=== PATIENT | male | born 1940 | race Caucasian/White ===

== ENCOUNTER → 2018-01-29 08:50 | Outpatient (CLI) | payer MEDICARE, BC, SELFPAY ==
[2018-01-29 12:14] LABS: Absolute Lymphocyte Count 1.25 X10^3/ul (0.83-4.51); Absolute Neutrophil Count 3.9 X10^3/uL (2.0-7.7); Basophil# 0.01 X10^3/uL; Basophil% 0.2 % (0-1); Eosinophil# 0.14 X10^3/uL; Eosinophils% 2.4 % (0-5); Hemoglobin 14.8 g/dl (13.0-16.5); Lymphocyte # 1.25 X10^3/ul (4.0); Lymphocyte % 21.6 % (19-41); Mean Corp Hgb Conc 33.6 g/gl (32-36); Mean Corpuscular Hgb 30.7 pg (27.0-32.0); Mean Corpuscular Volume 91.3 fL (80-94); Mean Platelet Vol. 9.3 fl (6.2-12.0); Monocyte% 8.7 % (0-10); Neutrophil # 3.87 X10^3/uL (2.7-7.7); Neutrophil % 66.9 % (47-70); Platelet Count 152 K/mm3 (150-450); RBC Distribution Width CV 15.3 % (11.6-14.6); RBC Distribution Width SD 49.8 fl (35.1-43.9); Red Blood Count 4.82 M/mm3 (4.6-6.2); White Blood Count 5.8 K/mm3 (4.4-11.0)
[2018-01-29 12:17] LABS: POSITIVE COUNT NO; POSITIVE DIFFERENTIAL NO; POSITIVE MORPHOLOGY NO
[2018-01-29 12:36] LABS: AST(SGOT) 27 U/L (15-37); Alanine Aminotransfer ALT/SGPT 40 U/L (16-61); Albumin, Serum 3.9 g/dL (3.2-5.0); Alkaline Phosphatase 48 U/L (45-117); Anion Gap 9 (5-15); BUN 28 mg/dL (7-18); BUN/Creat Ratio 21.1 RATIO (10-20); Bilirubin, Direct 0.28 mg/dL (0.00-0.30); Calcium,Total 8.8 mg/dL (8.5-10.1); Chloride 107 mmol/L (98-107); Cholesterol 108 mg/dL (200); Creatinine, Serum 1.33 mg/dL (0.70-1.30); EST Glomerular Filtration Rate 55 mL/min (>60); Est Glom Filt Rate - Afr Amer 67 mL/min (>60); Glucose 161 mg/dL (74-106); High Density Lipoprotein 35 mg/dL; Potassium 3.9 mmol/L (3.5-5.1); Protein, Total 7.9 g/dL (6.4-8.2); Sodium Level 139 mmol/L (136-145); Triglycerides 109 mg/dL; Very Low Density Lipoprotein 22 mg/dL (5-40)
[2018-01-29 12:47] LABS: Hemoglobin A1c 7.2 % (4.2-6.3)
[2018-01-29 12:56] LABS: Microalbumin:Creatinine Ratio 52.3 mg/g CRE (<30 mg/g CRE)
[2018-01-31 17:15] LABS: AFP, Tumor Marker 1.7 ng/mL (0.0-8.3)
== END ==
PROVIDERS: Internal Medicine Cardiovascular Disease; Visit Provider Family Medicine
DX: I25.10 Atherosclerotic heart disease of native coronary artery without angina pectoris (principal); E11.9 Type 2 diabetes mellitus without complications; I10 Essential (primary) hypertension; E78.5 Hyperlipidemia, unspecified; K75.81 Nonalcoholic steatohepatitis (NASH); K74.60 Unspecified cirrhosis of liver; Z12.5 Encounter for screening for malignant neoplasm of prostate
CPT/HCPCS: 36415; 80053; 80061; 82043; 82105; 82248; 82570; 83036; 84153; 85025; G0103

== ENCOUNTER → 2018-05-09 11:14 | Outpatient (CLI) | payer MEDICARE, OTHER, SELFPAY ==
[2018-05-09 15:37] LABS: Absolute Lymphocyte Count 1.26 X10^3/ul (0.83-4.51); Basophil# 0.02 X10^3/uL; Basophil% 0.4 % (0-1); Eosinophil# 0.13 X10^3/uL; Eosinophils% 2.6 % (0-5); Hematocrit 41.5 % (40-54); Hemoglobin 14.2 g/dl (13.0-16.5); Lymphocyte # 1.26 X10^3/ul (4.0); Lymphocyte % 25.7 % (19-41); Mean Corp Hgb Conc 34.2 g/gl (32-36); Mean Corpuscular Hgb 31.6 pg (27.0-32.0); Mean Corpuscular Volume 92.2 fL (80-94); Mean Platelet Vol. 9.4 fl (6.2-12.0); Monocyte# 0.49 X10^3/uL; Neutrophil # 2.99 X10^3/uL (2.7-7.7); Neutrophil % 60.9 % (47-70); Platelet Count 156 K/mm3 (150-450); RBC Distribution Width CV 14.9 % (11.6-14.6); White Blood Count 4.9 K/mm3 (4.4-11.0)
[2018-05-09 15:41] LABS: POSITIVE COUNT NO; POSITIVE DIFFERENTIAL NO; POSITIVE MORPHOLOGY NO
[2018-05-09 16:07] LABS: Estradiol 33.1 pg/mL
[2018-05-14 14:07] LABS: Testosterone, % Free 4.85 % (1.50-4.20); Testosterone, Free 56.65 ng/dL (5.00-21.00)
[2018-05-17 08:06] LABS: PSA, Free 0.52 ng/mL; PSA, Free % 27.4 % (.); PSA, Total Ultrasensitive 1.9 ng/mL (0.0-4.0); Testosterone, Total 1168 ng/dL (264-916)
== END ==
PROVIDERS: Family Provider Family Medicine; PCP Family Medicine; Visit Provider Preventive Medicine Public Health & General Preventive Medicine
DX: E29.1 Testicular hypofunction (principal); E34.9 Endocrine disorder, unspecified; R97.20 Elevated prostate specific antigen [PSA]; N40.1 Benign prostatic hyperplasia with lower urinary tract symptoms
CPT/HCPCS: 36415; 82670; 84153; 84154; 84402; 84403; 85025

== ENCOUNTER → 2018-05-23 06:52 | Outpatient (CLI) | payer MEDICARE, OTHER, SELFPAY ==
--- NOTE | 2018-05-23 12:47 | STRESSREP ---
Stress Test Report Date: 05/23/2018 Procedure: Pharmacologic stress nuclear imaging study Indications: Shortness of breath/dyspnea on exertion my: CAD; PCI Consent: Per the patient Procedure: The patient underwent pharmacologic (Regadenoson) evaluation with a peak heart rate of 100 beats per minute (69 predicted maximal heart rate) and a peak blood pressure of 130/70 mmHg. The baseline ECG demonstrated on his bradycardia; T wave abnormality. The peak pharmacologic ECG demonstrated no obvious ECG changes. There were no cardiac dysrhythmias pretest, during pharmacologic infusion, or recovery. There was no complaint of chest discomfort during pharmacologic infusion or recovery. The examination was discontinued secondary to completion of protocol. Impression: 1. Pharmacologic (Regadenoson) evaluation 2. Peak pharmacologic ECG with continued T wave abnormality with no obvious ECG changes. 3. There were no cardiac dysrhythmias pretest, during pharmacologic infusion, or recovery. 4. Nuclear images pending Myocardial perfusion imaging study: Technique: The patient was injected with 14.9 millicuries of technetium 99m Cardiolite and subsequently rest SPECT Cardiolite nuclear imaging was obtained in the horizontal long, vertical long, and short axis views. The patient underwent pharmacologic (Regadenoson) evaluation with a peak heart rate of 100 beats per minute (69 % percent predicted maximal heart rate) and a peak blood pressure of 130/70 mmHg. The patient was injected with 44.4 millicuries of technetium 99m Cardiolite and subsequently stress SPECT Cardiolite nuclear imaging was obtained in the horizontal long, vertical long, and short axis views. A gated Cardiolite study at peak stress was obtained. Interpretation: Rest and stress SPECT Cardiolite nuclear imaging status post realignment, normalization, and attenuation correction demonstrate relative uniform tracer uptake and myocardial perfusion appearing within normal limits. There is end systolic thickening and brightening. The gated Cardiolite study demonstrates myocardial thickening and inward wall motion. The reported LVEF is 62 %. Impression: 1. Rest and stress SPECT Cardiolite nuclear imaging demonstrate relative uniform tracer uptake and myocardial perfusion appearing within normal limits. 2. The gated Cardiolite study reports an LVEF of 62%. This note was generated with [employer] software. It may contain incorrect words, spelling, and punctuation that were not noted in checking the note before signing.
== END ==
PROVIDERS: Family Provider Family Medicine; PCP Family Medicine; Referring Provider Family Medicine; Visit Provider Family Medicine
DX: I25.10 Atherosclerotic heart disease of native coronary artery without angina pectoris (principal); I10 Essential (primary) hypertension; R06.02 Shortness of breath
CPT/HCPCS: 78452; 93017; A9500; A4216; J2785

== ENCOUNTER → 2018-05-29 22:35 | Outpatient (CLI) | payer MEDICARE, OTHER, SELFPAY | PROVIDERS: Family Provider Family Medicine; PCP Family Medicine; Visit Provider Family Medicine | DX: G47.10 Hypersomnia, unspecified (principal); R53.83 Other fatigue; R06.83 Snoring | CPT/HCPCS: 95810 ==

== ENCOUNTER → 2018-06-12 23:09 | Outpatient (CLI) | payer MEDICARE, OTHER, SELFPAY | PROVIDERS: Family Provider Family Medicine; PCP Family Medicine; Visit Provider Family Medicine | DX: G47.33 Obstructive sleep apnea (adult) (pediatric) (principal) | CPT/HCPCS: 95811 ==

== ENCOUNTER → 2018-08-02 08:05 | Outpatient (CLI) | payer MEDICARE, OTHER, SELFPAY ==
[2018-07-04 11:34] VITALS: BMI 35.2
--- NOTE | 2018-08-02 08:25 | US_ITS ---
STUDY: ABDOMINAL ULTRASOUND - RIGHT UPPER QUADRANT REASON FOR VISIT: Male, 77 years old. Cirrhosis TECHNIQUE: Ultrasound evaluation of the right upper quadrant was performed with real-time and static wei-scale imaging. TECHNICAL QUALITY: Adequate. COMPARISON: 05/31/2017 FINDINGS: Liver: The liver measures 16.5 cm. There is increased, coarsened echogenicity of the liver. The bile ducts are within normal limits. There is hepatic color flow. The direction of portal flow is hepatopetal. There is no demonstrated mass lesion. Gallbladder: Normal distended gallbladder. The gallbladder wall measures 2.0 mm. There is a negative sonographic Lanier's sign. There is no pericholecystic fluid. There is biliary sludge dependent within the gallbladder. Common Bile Duct (C.B.D.): The common bile duct measures 2.4 mm. Pancreas: There is normal echogenicity of the visualized pancreas. There is no demonstrated pancreatic mass or cyst. Right Kidney: Normal size of the right kidney. The right kidney measures 10.9 cm. Normal renal cortex. The right cortex measures 1.8 cm. There are 2 anechoic simple renal cysts of the right kidney measuring up to 1.5 cm. There is no right hydronephrosis. US/Abdomen Limited IMPRESSION: 1. Increased echo pattern of the liver is nonspecific but can be associated with hepatic steatosis, hepatitis or early cirrhosis. 2. No obvious hepatic mass. 3. Gallbladder sludge. 4. Right renal cysts. Electronically Signed: Wil Bonilla MD at 8:06 EST , Service support ,
[2018-08-02 08:57] LABS: AST(SGOT) 26 U/L (15-37); Alanine Aminotransfer ALT/SGPT 54 U/L (16-61); Albumin, Serum 4.1 g/dL (3.2-5.0); Alkaline Phosphatase 48 U/L (45-117); Bilirubin, Direct 0.35 mg/dL (0.00-0.30); Cholesterol 140 mg/dL (200); Globulin 3.8 g/dL (2.2-4.2); High Density Lipoprotein 48 mg/dL; Protein, Total 7.9 g/dL (6.4-8.2); Triglycerides 188 mg/dL; Very Low Density Lipoprotein 38 mg/dL (5-40)
[2018-08-03 12:26] LABS: AFP, Tumor Marker 1.9 ng/mL (0.0-8.3)
== END ==
PROVIDERS: Internal Medicine Cardiovascular Disease; Family Provider Family Medicine; PCP Family Medicine; Referring Provider Internal Medicine Gastroenterology; Visit Provider Internal Medicine Gastroenterology
DX: K74.69 Other cirrhosis of liver (principal); E78.5 Hyperlipidemia, unspecified
CPT/HCPCS: 36415; 76705; 80061; 80076; 82105

== ENCOUNTER → 2018-11-25 | Outpatient (CLI) | payer MEDICARE, OTHER, SELFPAY ==
[2018-07-04 11:34] VITALS: BMI 35.2
--- NOTE | 2018-11-25 09:36 | US_ITS ---
PROCEDURES: ULTRASOUND AORTA REASON FOR EXAM: Male, 78 years old. Abdominal aortic aneurysm. TECHNIQUE: Ultrasound evaluation of the aorta was performed with real-time and static wei-scale imaging. COMPARISON: None. FINDINGS: There are proximal 22 x 24 mm, mid 29 x 27 mm, distal 30 x 25 mm. Right common iliac 20 x 20 mm, left 20 x 19 mm. Normal intraluminal arterial flow with appropriate waveforms. US/US ABD AORTA SCREEN/AAA IMPRESSION: Mild fusiform aneurysmal ectasia of the distal infrarenal abdominal aorta with a greatest dimension of 3 cm. Electronically Signed: Aris Calderon MD at 17:21 EDT Tel , Service support ,
--- NOTE | 2018-11-25 10:36 | RAD_ITS ---
STUDY: X-RAY CHEST REASON FOR EXAM: Male, 78 years old. Thoracic aneurysm TECHNIQUE: Frontal and lateral views COMPARISON: None. FINDINGS: The lungs are clear and expanded. There is no demonstrated pleural abnormality. Normal size heart. Normal mediastinum and wilda. Normal visualized pulmonary arteries. Normal visualized aortic arch and descending thoracic aorta. Normal visualized thoracic spine. Normal visualized ribs, clavicles, and shoulders. Possible cholelithiasis. RAD/Chest PA and Lateral IMPRESSION: No acute pulmonary pathology. No aneurysm is appreciated of the thoracic aorta. Possible cholelithiasis. Electronically Signed: Eder Carrera DO at 18:49 EDT Tel [phone], Service support ,
== END | disposition home or self-care (01) ==
LOC: US 09:32
PROVIDERS: Family Provider Family Medicine; PCP Family Medicine; Referring Provider Family Medicine; Visit Provider Family Medicine
DX: R06.00 Dyspnea, unspecified (principal); I10 Essential (primary) hypertension; Z13.6 Encounter for screening for cardiovascular disorders
CPT/HCPCS: 71046; 76706

== ENCOUNTER → 2019-07-16 09:04 | Outpatient (CLI) | payer MEDICARE, OTHER, SELFPAY ==
[2018-07-04 11:34] VITALS: BMI 35.2
[2019-07-08 07:25] VITALS: BMI 34.1
[2019-07-16 12:35] LABS: Absolute Lymphocyte Count 1.16 X10^3/uL (0.83-4.51); Absolute Neutrophil Count 4.7 X10^3/uL (2.0-7.7); Basophil# 0.03 X10^3/uL; Basophil% 0.4 % (0-1); Eosinophil# 0.17 X10^3/uL; Eosinophils% 2.5 % (0-5); Hematocrit 39.9 % (40-54); Hemoglobin 13.2 g/dL (13.0-16.5); Lymphocyte # 1.16 X10^3/ul (4.0); Lymphocyte % 17.2 % (19-41); Mean Corp Hgb Conc 33.1 g/dL (32-36); Mean Corpuscular Hgb 30.1 pg (27.0-32.0); Mean Corpuscular Volume 90.9 fL (80-94); Mean Platelet Vol. 9.2 fl (6.2-12.0); Monocyte# 0.66 X10^3/uL; Monocyte% 9.8 % (0-10); NRBC Flagged by Analyzer 0 % (0-5); Neutrophil # 4.73 X10^3/uL (2.7-7.7); Platelet Count 140 K/mm3 (150-450); RBC Distribution Width CV 14.6 % (11.6-14.6); RBC Distribution Width SD 48.7 fl (35.1-43.9); Red Blood Count 4.39 M/mm3 (4.6-6.2); White Blood Count 6.8 K/mm3 (4.4-11.0)
[2019-07-16 13:10] LABS: AST(SGOT) 17 U/L (15-37); Alanine Aminotransfer ALT/SGPT 32 U/L (16-61); Alkaline Phosphatase 52 U/L (45-117); Anion Gap 8 (5-15); BUN 31 mg/dL (7-18); Bilirubin, Direct 0.29 mg/dL (0.00-0.30); Calcium,Total 9.8 mg/dL (8.5-10.1); Chloride 105 mmol/L (98-107); Cholesterol 107 mg/dL (200); Creatinine, Serum 1.41 mg/dL (0.70-1.30); EST Glomerular Filtration Rate 52 mL/min (>60); Est Glom Filt Rate - Afr Amer 62 mL/min (>60); Glucose 132 mg/dL (74-106); High Density Lipoprotein 39 mg/dL; Potassium 4.4 mmol/L (3.5-5.1); Sodium Level 138 mmol/L (136-145); Triglycerides 120 mg/dL; Very Low Density Lipoprotein 24 mg/dL (5-40)
[2019-07-16 13:26] LABS: Microalbumin,Random Urine 38.6 mg/L (NO RANGE EST.); Microalbumin:Creatinine Ratio 25.2 mg/g CRE (<30 mg/g CRE)
[2019-07-16 14:51] LABS: Hemoglobin A1c 5.8 % (4.2-6.3)
== END ==
PROVIDERS: Internal Medicine Cardiovascular Disease; Family Provider Family Medicine; PCP Family Medicine; Visit Provider Family Medicine
DX: I12.9 Hypertensive chronic kidney disease with stage 1 through stage 4 chronic kidney disease, or unspecified chronic kidney disease (principal); E11.22 Type 2 diabetes mellitus with diabetic chronic kidney disease; N18.3 Chronic kidney disease, stage 3 (moderate); E11.21 Type 2 diabetes mellitus with diabetic nephropathy; E78.5 Hyperlipidemia, unspecified
CPT/HCPCS: 36415; 80053; 80061; 82043; 82248; 82570; 83036; 85025

== ENCOUNTER 2019-10-23 22:10 | Inpatient (IN) | payer MEDICARE, OTHER, SELFPAY ==
[2019-07-08 07:25] VITALS: BMI 34.1
[2019-10-23 22:10] VITALS: BP 132/55; PULSE 99; RESP 32; TEMP 37.2; O2SAT 90; O2SAT 94; BMI 36.9
[2019-10-23 22:40] VITALS: BP 120/67; PULSE 99; RESP 24; TEMP 37.3; O2SAT 94
--- NOTE | 2019-10-23 22:43 | EKG12_ITS ---
Test Reason : FEVER Blood Pressure : / mmHG Vent. Rate : 093 BPM Atrial Rate : 093 BPM P-R Int : 236 ms QRS Dur : 076 ms QT Int : 342 ms P-R-T Axes : 040 015 073 degrees QTc Int : 425 ms Sinus rhythm with 1st degree A-V block Nonspecific T wave abnormality Abnormal ECG Confirmed by JAVI CUELLO ([id number]), film and video editor JULIO CÉSAR TUCKER ([id number]) on 10/27/2019 1:05:49 PM Referred By: Thony Harris Confirmed By:JAVI CUELLO
--- NOTE | 2019-10-23 22:47 | ED.DCSUM_ITS ---
- ER Visit Summary Date of Service: 10/23/19 Chief Complaint: [Back pain and dysuria] History of Present Illness: The patient is a 78 M [presents the emergency department with symptoms for 3 days. Patient's been having some incontinence. He describes dysuria and frequency. Does have history of UTIs. He has been having some mild low back pain for the last several days. He denies any fever at home. He denies nausea or vomiting. He denies diarrhea. Denies chest pain. He denies cough or shortness of breath. He denies body aches. He denies headache. Patient states that his family is worried about the virus and wanted him evaluated. Patient has no known sick contacts and states he really has not gone anywhere. No novel coronavirus exposures known. Patient has had history of UTIs in the past. Patient has history of diabetes, hypertension, high cholesterol, and coronary artery disease. Patient has history of partial colectomy and cardiac stent placement.] Physical Examination: [HEENT-PERRLA, EOMI. Cranial nerves II through XII grossly intact. TMs clear. Mucous membranes moist. No adenopathy. Cardiovascular-regular rate and rhythm without murmur or ectopy Lungs-clear to auscultation, chest wall stable without crepitus or subcu emphysema Abdomen-normoactive bowel sounds, soft, nontender, no rebound or rigidity, no peritoneal signs. Back exam-normal skin without any erythema or warmth noted. No real tenderness on exam of the thoracic or lumbar spine. No significant tenderness over the paraspinal musculature. Negative CVA tenderness. Extremities-intact ?4, normal range of motion, normal pulses, atraumatic] Test Results: EKG obtained on arrival due to complaint of generalized weakness and sepsis work-up. Patient had a sinus rhythm with a ventricular rate of 93 bpm with some nonspecific ST changes. When compared with prior EKG from May 2016 no significant changes noted. CBC with differential obtained showed a white count of 7.6, hemoglobin 12.7, hematocrit 38, plates 138. Chemistries unremarkable. BUN was 36 and creatinine 1.89. Lactate was 1.9. Troponin was 0.069. Urinalysis was positive for 500 cassette esterase as well as nitrites and 50-100 WBCs. Patient a +1 bacteria. Chest x-ray showed nothing acute. Influenza screen pending. [] Emergency Department Course and Treatment: [Admit for IV antibiotics as well as fluids.] Treatment Plan: [Admit] Disposition: [Admit] Impression: [UTI Sepsis Generalized weakness Acute kidney injury Marginally elevated troponin-etiology uncertain] This note was generated with [employer] dictation software. It may contain incorrect words, spelling, and punctuation that were not noted in review of the chart prior to signing ED Disposition - Plan for ED Patient: Referrals: Stephan Alvarez DO [Primary Care Provider] -
--- NOTE | 2019-10-23 22:50 | RAD_ITS ---
STUDY: X-RAY CHEST REASON FOR EXAM: Male, 78 years old. Back pain, fever, trouble urinating TECHNIQUE: Single AP portable view of the chest. COMPARISON: 11/25/2018. FINDINGS: Stable mild elevation of the right hemidiaphragm. Otherwise normal lung volumes. Lungs are clear. No infiltrates. No effusions. Normal size heart. Normal mediastinum and wilda. Normal visualized pulmonary arteries. Normal visualized aortic arch and descending thoracic aorta. Normal visualized thoracic spine. Normal visualized ribs, clavicles, and shoulders. There is no demonstrated abnormality of the visualized soft tissue structures of the upper abdomen. RAD/Chest 1 View (Portable) IMPRESSION: No definite acute or significant abnormality seen. Electronically Signed: Darvin Law MD at 23:08 EDT , Service support ,
[2019-10-23] MEDS: 0.9% Normal Saline 1,000 ML 1000 ML IV (22:57)
[2019-10-23 23:07] LABS: Mucous, Urine 0 SEEN /hpf (<or=2+); Squamous Epithelial Cells - UA 0 SEEN /hpf (0-5)
[2019-10-23 23:08] LABS: Color, Urine Yellow (Yellow); Glucose, Dipstick Normal (Normal); Ketone-Dipstick 15 mg/dl (Negative); Leukocyte Esterase-Dipstick 500 /ul (Negative); Nitrite-Dipstick Positive (Negative); Occult Blood-Urine 50 /ul (Negative); Protein-Dipstick 100 mg/dl (Negative); Urine Clarity Cloudy (Clear); Urine Urobilinogen Normal (Normal)
[2019-10-23 23:13] LABS: Urine Bilirubin Dipstick 1 mg/dL (Negative)
[2019-10-23 23:14] LABS: White Blood Cells 50-100 SEEN /hpf (0-5)
[2019-10-23 23:15] LABS: Bacteria 1+ /hpf (None Seen); Red Blood Cells-Urine 0-5 SEEN /hpf (0-5)
[2019-10-23 23:18] LABS: Lactic Acid 1.9 mmol/L (0.4-1.9)
[2019-10-23 23:20] LABS: ALB/GLOB Ratio 0.9 RATIO (0.9-2.4); AST(SGOT) 25 U/L (15-37); Alanine Aminotransfer ALT/SGPT 31 U/L (16-61); Albumin, Serum 3.8 g/dL (3.2-5.0); Alkaline Phosphatase 79 U/L (45-117); Anion Gap 9 (5-15); BUN 36 mg/dL (7-18); Calcium,Total 9.4 mg/dL (8.5-10.1); Chloride 101 mmol/L (98-107); Creatinine, Serum 1.89 mg/dL (0.70-1.30); EST Glomerular Filtration Rate 37 mL/min (>60); Est Glom Filt Rate - Afr Amer 45 mL/min (>60); Estimated Creatinine Clearance 30.12 ml/min; Globulin 4.2 g/dL (2.2-4.2); Glucose 212 mg/dL (74-106); Sodium Level 134 mmol/L (136-145)
[2019-10-23 23:35] LABS: Absolute Lymphocyte Count 0.29 X10^3/uL (0.83-4.51); Absolute Neutrophil Count 6.5 X10^3/uL (2.0-7.7); Basophil# 0.03 X10^3/uL; Basophil% 0.4 % (0-1); Eosinophil# 0.01 X10^3/uL; Eosinophils% 0.1 % (0-5); Hematocrit 37.7 % (40-54); Hemoglobin 12.7 g/dL (13.0-16.5); Lymphocyte # 0.29 X10^3/ul (4.0); Lymphocyte % 3.8 % (19-41); Mean Corp Hgb Conc 33.7 g/dL (32-36); Mean Corpuscular Hgb 30.6 pg (27.0-32.0); Mean Corpuscular Volume 90.8 fL (80-94); Monocyte# 0.64 X10^3/uL; Monocyte% 8.5 % (0-10); NRBC Flagged by Analyzer 0 % (0-5); Neutrophil # 6.46 X10^3/uL (2.7-7.7); Neutrophil % 85.5 % (47-70); POSITIVE DIFFERENTIAL YES; POSITIVE MORPHOLOGY YES; Platelet Count 138 K/mm3 (150-450); RBC Distribution Width CV 14.9 % (11.6-14.6); RBC Distribution Width SD 49.3 fl (35.1-43.9); Red Blood Count 4.15 M/mm3 (4.6-6.2); White Blood Count 7.6 K/mm3 (4.4-11.0)
[2019-10-23] MEDS: Ceftriaxone 1 GM/50 ML BAG IV (23:38)
[2019-10-23 23:39] VITALS: BP 136/88; PULSE 95; RESP 24; TEMP 36.9; O2SAT 92
[2019-10-23] MEDS: 0.9% Normal Saline 1,000 ML 150 ML IV (23:39)
[2019-10-23 23:48] LABS: Differential Indicated SCAN CRITERIA MET
--- NOTE | 2019-10-23 23:52 | HP.PCM_ITS ---
Problem List (1) UTI Status: Acute (2) Acute exacerbation of chronic low back pain Status: Acute (3) Atherosclerosis of coronary artery of [place] heart without angina pectoris Status: Chronic (4) History of coronary artery stent placement Status: Resolved Comment: PCI-LAI- Prox-Mid LAD w/ 3.5 x 24 mm Synergy Stent and POBA-D1 06/19/16 (5) Essential (primary) hypertension Status: Chronic (6) Hyperlipidemia LDL goal <100 Status: Chronic History of Present Illness Date of Admission: 10/23/19 Chief Complaint: Fever at home 102.9, increased frequency urgency. The patient is a 78 year old M with history of chronic UTI, coronary artery disease was brought by EMS for fever 102.9 at home, lower back pain and lower related symptoms. Patient denies shortness of breath, cough, sore throat or other URI symptoms. Patient has increased frequency urgency but denies burning micturition. He has history of lower lumbar back pain which got exacerbated about 4 days ago. Patient had Tylenol about 7 PM. [] ED triage vitals stable, heart rate 90-99, no hypoxia or tachypnea. Basic labs done in the ER shows UA positive of nitrite and LE 500, WBC 5200 cells. BUN/creatinine elevated 36/1.89. Troponin done in ER 0.069 but patient denies chest pain or shortness of breath. Patient was administered IV ceftriaxone and IV fluid normal saline in ER. Past Medical History Past Medical History (Chronic Problems): Chronic Problems (Last Reviewed 07/08/19 @ 11:[address] Placido Claudio MD) Atherosclerosis of coronary artery of [place] heart without angina pectoris (Chronic) Essential (primary) hypertension (Chronic) Hyperlipidemia LDL goal <100 (Chronic) Medical History: Medical History (Last Reviewed 07/08/19 @ 11:[address] Placido Claudio MD) Atherosclerosis of coronary artery of [place] heart without angina pectoris (Chronic) I25.10 Essential (primary) hypertension (Chronic) I10 Hyperlipidemia LDL goal <100 (Chronic) E78.5 Diabetes E11.9 Obesity E66.9 Obstructive sleep apnea G47.33 Osteoarthritis M19.90 Colon cancer C18.9 Renal calculus, left N20.0 Allergies contrast dye Allergy (Uncoded 10/23/19 22:18) dyspnea Home Medications: Ambulatory Orders Medication Instructions Recorded Aspirin E.C. [Ecotrin] 81 mg PO DAILY@0800 tab 06/18/16 Atorvastatin Calcium [Lipitor] 40 mg PO QHS tab 06/18/16 Clopidogrel Bisulfate [Plavix] 75 mg PO DAILY tab 06/18/16 Metoprolol(XL)Succ [Toprol Xl 25 mg PO DAILY tab 06/18/16 (Beta Rox)] Nitroglycerin (INPATIENT USE) 0.4 mg SUBLINGUAL Q5M PRN #0 tab 06/18/16 [Nitrostat] sitagliptin 100 mg tablet 100 mg PO DAILY 07/04/18 vitamin B complex 1 tab PO DAILY 07/04/18 losartan 25 mg tablet 25 mg PO QDAY #30 tab 01/02/19 dupilumab 300 mg/2 mL subcutaneous 300 mg SC Q2W #4 ml 07/08/19 syringe glimepiride 4 mg tablet 2 mg PO DAILY tab 07/08/19 Surgical History: Surgical History (Last Reviewed 07/08/19 @ 11:[address] Placido Claudio MD) History of coronary artery stent placement (Resolved) Onset Date: 06/19/16 Z95.5 PCI-LAI- Prox-Mid LAD w/ 3.5 x 24 mm Synergy Stent and POBA-D1 06/19/16 H/O hernia repair Z98.890, Z87.19 H/O lithotripsy Z98.890 History of left heart catheterization Onset Date: 06/17/16 Z98.890 Smoking Status: Former smoker - *Family History Paternal Family History: Family History (Last Reviewed 07/08/19 @ 11:[address] Placido Claudio MD) Sister Cancer Brother Cancer Review of Systems Constitutional: Reports: Chills, Fever, Malaise, Weakness HEENT: Denies: Head Aches, Sinus Congestion, Sinus Drainage Cardiovascular: Denies: Chest Pain, Palpitations Respiratory: Denies: Cough, Shortness of breath at rest, Sputum production Gastrointestinal: Denies: Abdominal Pain, Nausea, Vomiting Genitourinary: Reports: Frequency, Hesitancy, Urgency. Denies: Dysuria Musculoskeletal: Denies: Joint Pain, Joint Tenderness Skin: Denies: Rash, Wounds Neurological: Reports: Balance problems. Denies: Focal weakness, Numbness, Tingling Psychiatric: Denies: Anxiety, Depression, Homicidal Ideations, Suicidal Ideations Hematologic/ Lymphatic: Denies: Easy Bruising, Easy Bleeding VTE Information - Inpt Only VTE Present on Admission: No VTE Mechan Device Prophylaxis: None VTE Pharm Prophylaxis ordered?: Yes Patient Problems: Active and Suspected Problems (Last Reviewed 07/08/19 @ 11:[address] Placido Claudio MD) UTI (Acute) Acute exacerbation of chronic low back pain (Acute) - Physical Exam Vitals/I&O's: Vital Signs Temp Pulse Resp BP Pulse Ox 98.5 F 95 24 H 136/88 H 92 10/23/19 23:39 10/23/19 23:39 10/23/19 23:39 10/23/19 23:39 10/23/19 23:39 Oxygen Delivery Method Room Air Weight: 235 lb 14.314 oz Body Mass Index (BMI) 36.9 Finger Stick Blood Glucose 89 General: Alert, Oriented x3, Cooperative HEENT: Atraumatic, PERRLA, EOMI, Normocephalic Oral: No Gingival or Mucosal Lesions/ Ulcerations, Dry Mucosa Neck: Supple, No JVD, Negative Carotid Bruits Lungs: Clear to auscultation, No rhonchi, No wheeze, No rales, Diminished Cardiovascular: Regular rate, Regular Rhythm, Normal S1, Normal S2, No murmurs Abdomen: Bowel Sounds Present, Soft, Non Tender, Non-Distended Extremities: No edema, Capillary Refill Less than 3 Seconds Skin: No rashes, No breakdown Musculoskeletal: No Tenderness to Palpation of Joints or Extremities, Arthritic Changes Neurological: Cranial nerves II-XII grossly intact, Deep Tendon Reflexes 2+/4 a nd Symmetrical, Neuro grossly intact Psych/Mental Status: Normal Affect, Appropriate Laboratory Results 10/23/19 22:20: WBC 7.6, RBC 4.15 L, Hgb 12.7 L, Hct 37.7 L, MCV 90.8, MCH 30.6, MCHC 33.7, RDW Std Deviation 49.3 H, RDW Coeff of Cornelio 14.9 H, Plt Count 138 L, MPV 9.0, Immature Gran % (Auto) 1.700 H, Neut % (Auto) 85.5 H, Lymph % (Auto) 3.8 L, [place] % (Auto) 8.5, Eos % (Auto) 0.1, Baso % (Auto) 0.4, Absolute Neuts (auto) 6.5, Absolute Lymphs (auto) 0.29 L, Nucleated RBC % 0 10/23/19 22:20: Sodium 134 L, Potassium 4.0, Chloride 101, Carbon Dioxide 24.0, Anion Gap 9, BUN 36 H, Creatinine 1.89 H, Estim Creat Clear Calc 30.12, Est GFR (MDRD) Af Amer 45 L, Est GFR (MDRD) Non-Af 37 L, BUN/Creatinine Ratio 19.0, Glucose 212 H, Calcium 9.4, Total Bilirubin 3.90 H, AST 25, ALT 31, Alkaline Phosphatase 79, Troponin I 0.069 H, Total Protein 8.0, Albumin 3.8, Globulin 4.2, Albumin/Globulin Ratio 0.9 10/23/19 22:20: Lactic Acid 1.9 10/23/19 22:50: Urine Color Yellow, Urine Clarity Cloudy, Urine pH 5.0, Ur Specific [place] 1.020, Urine Protein 100 H, Urine Glucose (UA) Normal, Urine Ketones 15 H, Urine Occult Blood 50 H, Urine Nitrite Positive H, Urine Bilirubin 1 H, Urine Urobilinogen Normal, Ur Leukocyte Esterase 500 H, Urine RBC 0-5 SEEN, Urine WBC 50-100 SEEN, Ur Squamous Epith Cells 0 SEEN, Urine Bacteria 1+, Urine Mucus 0 SEEN Current Medications Sodium Chloride () 1,000 mls @ 150 mls/hr IV .Q6H40M FRED Last Admin: 10/23/19 23:39 Dose: 150 mls/hr Documented by: Assessment/Plan All Active Problems (Last Reviewed 07/08/19 @ 11:[address] Placido Claudio MD) UTI (Acute) Acute exacerbation of chronic low back pain (Acute) History of coronary artery stent placement (Resolved 06/19/16) The patient is a 78 year old M with history of chronic UTI, coronary artery disease was brought by EMS for fever 102.9 at home, lower back pain and lower related symptoms. Basic labs done in the ER shows UA positive of nitrite and LE 500, WBC 5200 cells. BUN/creatinine elevated 36/1.89. Troponin done in ER 0.069 but patient denies chest pain or shortness of breath. 1. Generalized weakness with UTI: Patient is being admitted to PCU for elevated troponin. On IV ceftriaxone. Normal saline. Blood cultures x2 and urine culture ordered. No previous urine culture in our record. Rapid influenza test is negative. RenaL and bladder ultrasound ordered. 2. Elevated troponin: Patient has history of coronary artery disease and stents but currently no chest symptoms. Serial troponins. EKG in ER shows normal sinus rhythm at 93 beats per with first-degree AV block, CT interval 236 ms. QT c 425 ms. Patient had negative pharmacological stress test in April 2018. Patient had a stent probably in 2015. At that time severe LAD stenosis of a proximal 90% proximal vessel. Echo in May 2016 normal LV size with EF 65%. Impaired reduction of LV assistive chronic heart failure with preserved EF/diastolic heart failure. Cardiac medications aspirin and Plavix continued. 3. Acute kidney injury on CKD stage III: Patient baseline BUN/creatinine 31/1.4 in June 2019. Currently 36/1.89. Patient on losartan 25 mg daily which is ordered along with oral hypoglycemic agents glimepiride and Januvia. IV fluid normal saline. Monitor kidney function, electrolytes, intake and output. 4. Acute on chronic back pain: PT, OT and pain management. 5. Diabetes mellitus type 2: Accu-Chek before meals and at bedtime and cover with Humalog sliding scale. Lantus 10 units subcutaneous daily. A1c tomorrow a.m. 6. Other comorbidities include hypertension, dyslipidemia: Home medication reconciliation done. DVT prophylaxis: Lovenox 30 mg subcu daily adjusted to creatinine clearance about 30 mils per minute. 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 When discussed about different options including full code, DNR CC arrest and DNR currently patient opts for full code but will further discuss with his family members. Patient does want artificial life support including intubation, tube feed, ventilator and/chest compression. Total time spent in ojex-ce-[facility] encounter in discussion of advanced d irective 16 minutes. Inpatient E&M: 84401 Init Hosp L3 Procedures: 62558 Advncd Care Plan 30 Min
[2019-10-24] VITALS (12 sets, daily range): BP systolic 111–141; BP diastolic 55–73; PULSE 58–90; RESP 16–24; TEMP 36.1–36.9; O2SAT 92–99; BMI 35.2
[2019-10-24 00:07] LABS: Differential Comment SCANNED
[2019-10-24] MEDS: 0.9% Normal Saline 1,000 ML 75 ML IV (01:21)
[2019-10-24 02:57] LABS: Hemoglobin A1c 6.4 % (4.2-6.3)
[2019-10-24 03:06] LABS: Anion Gap 7 (5-15); BUN 34 mg/dL (7-18); BUN/Creat Ratio 19.2 RATIO (10-20); Calcium,Total 9.2 mg/dL (8.5-10.1); Chloride 104 mmol/L (98-107); Creatinine, Serum 1.77 mg/dL (0.70-1.30); EST Glomerular Filtration Rate 40 mL/min (>60); Est Glom Filt Rate - Afr Amer 48 mL/min (>60); Estimated Creatinine Clearance 33.28 ml/min; Glucose 222 mg/dL (74-106); Potassium 4.4 mmol/L (3.5-5.1); Sodium Level 138 mmol/L (136-145)
--- NOTE | 2019-10-24 05:55 | US_ITS ---
STUDY: RENAL ULTRASOUND - COMPLETE REASON FOR EXAM: Male, 78 years old. UTI, [place], CK -- HX OF RENAL STONES TECHNIQUE: Ultrasound evaluation of the kidneys was performed with real-time and static soria-scale imaging. COMPARISON: None. FINDINGS: RIGHT KIDNEY: Normal location of the right kidney, which is normal in size. The right kidney measures 10.9 cm x 5.7 cm x 6.1 cm. There is a normal cortex of the right kidney. The renal cortex measures 1.8 cm. 2 cysts are seen. The larger measures 1.6 cm by 1.5 cm x 1.3 cm. There is a 6 mm calculus. There is no right hydronephrosis. DISTAL RIGHT URETER: There is non-visualization of the distal right ureter. There is no demonstrated right ureterovesical junction calculus. There is a visualized right ureteral jet. LEFT KIDNEY: Normal location of the left kidney, which is normal in size. The left kidney measures 10.9 cm x 4.4 cm x 5.0 cm. There is a normal cortex of the left kidney. The renal cortex measures 1.6 cm. 2 left renal cysts are seen. The larger measures 1 cm x 1 cm by 0.7 cm. There is a 4 mm left renal nonobstructive calculus. There is no left hydronephrosis. DISTAL LEFT URETER: There is non-visualization of the distal left ureter. There is no demonstrated left ureterovesical junction calculus. There is a visualized left ureteral jet. BLADDER: The distended urinary bladder has a volume of 87 ml. The prostate is enlarged measuring 5.1 cm x 6.2 signed by 4.8 cm. US/Kidney and Bladder IMPRESSION: Small bilateral renal cysts. Small bilateral nonobstructive intrarenal calculi. Prostatic enlargement. Electronically Signed: Waqar Pereyra, at 8:18 EDT , Service support ,
[2019-10-24 06:56] LABS: Bedside Glucose 148 mg/dL (70-110)
[2019-10-24] MEDS: Aspirin E.C. 81 MG Tablet PO (09:33)
[2019-10-24] MEDS: Clopidogrel Bisulfate 75 MG Tablet PO (09:34)
[2019-10-24] MEDS: Enoxaparin 30 MG/0.3 ML Syringe SC (09:34)
[2019-10-24] MEDS: Vitamin B Comp W-C Capsule 1 CAP PO (09:34)
[2019-10-24] MEDS: Metoprolol(XL)Succ 25 MG Tablet PO (09:40)
--- NOTE | 2019-10-24 11:35 | PCM.PN.HOSP ---
Patient Problems: Active and Suspected Problems (Last Reviewed 07/08/19 @ 11:[address] Placido Claudio MD) UTI (Acute) Acute exacerbation of chronic low back pain (Acute) Subjective: Patient seen and examined. He is being managed for UTI after he was admitted with fever and increasing urinary frequency and urgency. Patient seen and examined. He denies any fever or chills and says his urgency and frequency is better now. Review of stems otherwise negative. Labs and vitals reviewed. Vitals are stable. Creatinine is down to 1.77. Vitals/I&O's: Vital Signs Temp Pulse Resp BP Pulse Ox 97.8 F 62 18 122/71 H 95 10/24/19 09:37 10/24/19 09:40 10/24/19 09:37 10/24/19 09:40 10/24/19 09:37 Oxygen Delivery Method Room Air Weight: 231 lb 11.293 oz Body Mass Index (BMI) 35.2 Finger Stick Blood Glucose 89 Intake and Output for Last 24 Hours 10/22/19 10/23/19 10/24/19 23:59 23:59 23:59 Intake Total 1202.5 / 1202.5 Output Total 350 / 350 Balance 852.5 / 852.5 General: Alert, Oriented x3, Cooperative, No apparent distress HEENT: Atraumatic, PERRLA, EOMI, Normocephalic Oral: Moist Mucosa Neck: Supple, No JVD, Negative Carotid Bruits Lungs: Clear to auscultation, Normal air movement, No rhonchi, No wheeze, No rales Cardiovascular: Regular rate, Regular Rhythm, Normal S1, Normal S2, No murmurs Abdomen: Bowel Sounds Present, Soft, Non Tender, Non-Distended, No Hepato-splenomegaly Extremities: No clubbing, No cyanosis, No edema, Capillary Refill Less than 3 Seconds Skin: No rashes, No breakdown Musculoskeletal: No Tenderness to Palpation of Joints or Extremities Lymphatic: No Cervical, Supraclavicular, or Inguinal Adenopathy Neurological: Cranial nerves II-XII grossly intact, Neuro grossly intact, Motor Exam 5/5 strength throughout Psych/Mental Status: Normal Affect, Appropriate, Alert and oriented to time, place, person, mood and affect Microbiology Past 72 Hours 10/23/19 23:30 Mucosa - Nasopharyngeal Influenza Types A,B Direct FA (DEBRA) - Final Laboratory Results 10/23/19 22:20: WBC 7.6, RBC 4.15 L, Hgb 12.7 L, Hct 37.7 L, MCV 90.8, MCH 30.6, MCHC 33.7, RDW Std Deviation 49.3 H, RDW Coeff of Cornelio 14.9 H, Plt Count 138 L, MPV 9.0, Immature Gran % (Auto) 1.700 H, Neut % (Auto) 85.5 H, Lymph % (Auto) 3.8 L, [place] % (Auto) 8.5, Eos % (Auto) 0.1, Baso % (Auto) 0.4, Absolute Neuts (auto) 6.5, Absolute Lymphs (auto) 0.29 L, Nucleated RBC % 0, Differential Comment SCANNED 10/23/19 22:20: Sodium 134 L, Potassium 4.0, Chloride 101, Carbon Dioxide 24.0, Anion Gap 9, BUN 36 H, Creatinine 1.89 H, Estim Creat Clear Calc 30.12, Est GFR (MDRD) Af Amer 45 L, Est GFR (MDRD) Non-Af 37 L, BUN/Creatinine Ratio 19.0, Glucose 212 H, Calcium 9.4, Total Bilirubin 3.90 H, AST 25, ALT 31, Alkaline Phosphatase 79, Troponin I 0.069 H, Total Protein 8.0, Albumin 3.8, Globulin 4.2, Albumin/Globulin Ratio 0.9 10/23/19 22:20: Lactic Acid 1.9 10/23/19 22:50: Urine Color Yellow, Urine Clarity Cloudy, Urine pH 5.0, Ur Specific [place] 1.020, Urine Protein 100 H, Urine Glucose (UA) Normal, Urine Ketones 15 H, Urine Occult Blood 50 H, Urine Nitrite Positive H, Urine Bilirubin 1 H, Urine Urobilinogen Normal, Ur Leukocyte Esterase 500 H, Urine RBC 0-5 SEEN, Urine WBC 50-100 SEEN, Ur Squamous Epith Cells 0 SEEN, Urine Bacteria 1+, Urine Mucus 0 SEEN 10/24/19 02:30: Hemoglobin A1c 6.4 H 10/24/19 02:30: Sodium 138, Potassium 4.4, Chloride 104, Carbon Dioxide 27.0, Anion Gap 7, BUN 34 H, Creatinine 1.77 H, Estim Creat Clear Calc 33.28, Est GFR (MDRD) Af Amer 48 L, Est GFR (MDRD) Non-Af 40 L, BUN/Creatinine Ratio 19.2, Glucose 222 H, Calcium 9.2, TSH 1.60 10/24/19 02:30: Troponin I 0.113 H 10/24/19 05:15: Troponin I 0.083 H 10/24/19 06:40: POC Glucose 148 H Diagnostic Data Chest X-Ray 10/23/19 22:50 IMPRESSION: No definite acute or significant abnormality seen. Electronically Signed: Darvin Law MD at 23:08 EDT , Service support , Renal Ultrasound 10/24/19 05:55 IMPRESSION: Small bilateral renal cysts. Small bilateral nonobstructive intrarenal calculi. Prostatic enlargement. Electronically Signed: Waqar Pereyra, at 8:18 EDT , Service support , Current Medications Acetaminophen (Tylenol) 650 mg PO Q6H PRN PRN PRN Reason: Pain Score 1-10/Temp > 100.7 F Albuterol Sulfate (Ventolin Aerosols) 2.5 mg INHALATION Q2H PRN PRN PRN Reason: SOB/Wheezing Aspirin (Ecotrin) 81 mg PO DAILY@0800 [facility] Last Admin: 10/24/19 09:33 Dose: 81 mg Documented by: Atorvastatin Calcium (Lipitor) 40 mg PO QHS [facility] Clopidogrel Bisulfate (Plavix) 75 mg PO DAILY [facility] Last Admin: 10/24/19 09:34 Dose: 75 mg Documented by: Dextrose (D50w Syringe) 0 gm IV X1 PRN; Protocol PRN Reason: Hypoglycemia Dextrose (D50w Syringe) 0 gm IV X1 PRN; Protocol PRN Reason: Hypoglycemia Enoxaparin Sodium (Lovenox) 30 mg SC DAILY [facility] Last Admin: 10/24/19 09:34 Dose: 30 mg Documented by: Glucagon () 1 mg IM .X1 PRN PRN Reason: Hypoglycemia Glucagon () 1 mg IM .X1 PRN PRN Reason: Hypoglycemia Sodium Chloride () 250 mls @ 15 mls/hr IV .[id number] PRN PRN Reason: Saline Flush Sodium Chloride () 250 mls @ 15 mls/hr IV .[id number] PRN PRN Reason: Additional IVPB Infusion Sodium Chloride () 1,000 mls @ 75 mls/hr IV .[id number] [facility] Stop: 10/24/19 14:20 Last Admin: 10/24/19 01:21 Dose: 75 mls/hr Documented by: Ceftriaxone Sodium (Rocephin) 1 gm in 50 mls @ 100 mls/hr IV Q24H [facility] Insulin Glargine (Lantus ([facility])) 10 units SC BREAKFAST [facility] Last Admin: 10/24/19 09:34 Dose: 10 units Documented by: Insulin Human Lispro (Humalog Kwikpen ([facility])) 0 unit SC ACHS [facility]; Protocol Last Admin: 10/24/19 07:15 Dose: Not Given Documented by: Melatonin (Melatonin) 3 mg PO QHS PRN PRN PRN Reason: INSOMNIA Metoprolol Succinate (Toprol Xl (Beta Rox)) 25 mg PO DAILY [facility] Last Admin: 10/24/19 09:40 Dose: 25 mg Documented by: Morphine Sulfate () 2 mg IV Q3H PRN PRN PRN Reason: Pain Score 6-10/10 Multivitamins (Allbee W/C Caplet, Thera B Comp/C) 1 capsule PO DAILY [facility] Last Admin: 10/24/19 09:34 Dose: 1 capsule Documented by: Nitroglycerin (Nitrostat) 0.4 mg SUBLINGUAL Q5M PRN PRN Reason: CARDIAC/CHEST PAIN Ondansetron HCl (Zofran) 4 mg IV Q8H PRN PRN PRN Reason: NAUSEA/VOMITING Oxycodone HCl (Oxyir) 5 mg PO Q4H PRN PRN PRN Reason: Pain Score 4-5/10 Prochlorperazine Edisylate (Compazine Iv) 5 mg IV Q4H PRN PRN PRN Reason: Breakthrough Nausea/Vomiting Senna/Docusate Sodium (Senokot-S, Lacey-Colace) 2 tablet PO BID PRN PRN PRN Reason: Constipation Sodium Chloride () 10 - 40 ml IV UD PRN PRN Reason: SALINE FLUSH STROKE Vital Signs/Narrative: Vital Signs Temp Pulse Resp BP BP Pulse Ox 10/24/19 09:40 62 122/71 H 10/24/19 09:37 97.8 F 62 18 122/71 H 95 Medical Necessity - Tobacco Use Smoking Status: Former smoker Tobacco Use: Non-smoker Assessment/Plan All Active Problems (Last Reviewed 07/08/19 @ 11:[address] Placido Claudio MD) UTI (Acute) Acute exacerbation of chronic low back pain (Acute) History of coronary artery stent placement (Resolved 06/19/16) 1. UTI Frequency and urgency is improving. On IV ceftriaxone. Urine culture and blood culture pending. Renal ultrasound showed small bilateral renal cysts with small bilateral nonobstructive intrarenal calculi and prostatic enlargement. 2. DARRICK on CKD stage III: Creatinine is down to 1.77 today from 1.89 on admission. Baseline creatinine is around 1.1-1.3. On losartan 25 mg daily. Being gently hydrated with IV fluids. Renal ultrasound is under 1. 3. Indeterminate troponin Initial troponin was 0.069 and trended up to 0.113 and came down to 0.083. Does have a history of CAD with stents. EKG showed no acute ST changes. Patient has no complaints of chest pain whatsoever and indeterminate troponin may also be 2 DARRICK on CKD. On aspirin and Plavix and atorvastatin Since patient is currently asymptomatic, can follow-up with order picker on outpatient basis. 4. Acute on chronic back pain: PT OT on board. Fall precautions. 5. Type 2 diabetes mellitus. A1c 6.4. On Januvia and glimepiride and Lantus 10 units with breakfast. Insulin sliding scale. Accu-Cheks AC at bedtime. 6. Hypertension: Controlled. On metoprolol and losartan. DVT Prophylaxis: Lovenox renally dosed. Inpatient E&M: 31292 Subs Hosp L2
[2019-10-24 11:46] LABS: Bedside Glucose 152 mg/dL (70-110)
[2019-10-24] MEDS: oxyCODONE 5 MG Tablet PO ×2 (12:39→20:21)
[2019-10-24] MEDS: Insulin Lispro 100 UNIT/ML INSULN.PEN SC (12:40)
--- NOTE | 2019-10-24 12:41 | CASEMGMT ---
SANTI SARKAR Assessment Note Presentation: UTI, DARRICK Intro role of CM to patient in room. Pt is sitting in chair, awake, alert and able to participate. Pt states he is independent, no DME except for Cpap at home and plans to return home on dc. PCP: Dr. Alvarez Specialists: Dr. Edmondson, cardiology, Dr. Santana [facility] Prescription Benefit: yes LNOK : , Carol Living Arrangements: 2 story home, pt ambulates without device. Independent. Transportation: DME: Cpap. Has equipment at home from his mother in law ( ww, cane, RTS, shower chair, grab bars). HHC/SNF: none Patient DC goals: Home DC PLAN: Home on dc. Pt states he has no concerns re: dc. SANTI SARKAR advised to contact cm for any concerns/needs that may arise. Brianne DIETZ RN ACM
[2019-10-24 16:45] LABS: Bedside Glucose 119 mg/dL (70-110)
[2019-10-24] MEDS: Ceftriaxone 1 GM/50 ML BAG IV (21:51)
[2019-10-24] MEDS: Atorvastatin Calcium 40 MG Tablet PO (21:51)
[2019-10-24] MEDS: 0.9% Saline Lock 10 ML Syringe IV (21:57)
[2019-10-24 22:06] LABS: Bedside Glucose 132 mg/dL (70-110)
[2019-10-25] VITALS (8 sets, daily range): BP systolic 124–144; BP diastolic 47–72; PULSE 60–92; RESP 18; TEMP 36.8–36.9; O2SAT 94–98
[2019-10-25] MEDS: oxyCODONE 5 MG Tablet PO (02:26)
[2019-10-25] MEDS: 0.9% Saline Lock 10 ML Syringe IV (02:27)
[2019-10-25 06:35] LABS: Bedside Glucose 144 mg/dL (70-110)
[2019-10-25 07:03] LABS: Absolute Lymphocyte Count 0.97 X10^3/uL (0.83-4.51); Absolute Neutrophil Count 4.4 X10^3/uL (2.0-7.7); Basophil# 0.03 X10^3/uL; Basophil% 0.5 % (0-1); Eosinophil# 0.11 X10^3/uL; Eosinophils% 1.8 % (0-5); Hematocrit 34.5 % (40-54); Hemoglobin 11.4 g/dL (13.0-16.5); Lymphocyte # 0.97 X10^3/ul (4.0); Lymphocyte % 15.5 % (19-41); Mean Corpuscular Volume 90.8 fL (80-94); Monocyte# 0.77 X10^3/uL; Monocyte% 12.3 % (0-10); NRBC Flagged by Analyzer 0 % (0-5); Neutrophil # 4.36 X10^3/uL (2.7-7.7); Neutrophil % 69.4 % (47-70); Platelet Count 133 K/mm3 (150-450); RBC Distribution Width SD 49.5 fl (35.1-43.9); White Blood Count 6.3 K/mm3 (4.4-11.0)
[2019-10-25 07:25] LABS: Anion Gap 9 (5-15); BUN 34 mg/dL (7-18); BUN/Creat Ratio 26.4 RATIO (10-20); Calcium,Total 8.5 mg/dL (8.5-10.1); Chloride 104 mmol/L (98-107); Creatinine, Serum 1.29 mg/dL (0.70-1.30); EST Glomerular Filtration Rate 57 mL/min (>60); Est Glom Filt Rate - Afr Amer 69 mL/min (>60); Estimated Creatinine Clearance 45.66 ml/min; Glucose 138 mg/dL (74-106); Potassium 4.1 mmol/L (3.5-5.1); Sodium Level 137 mmol/L (136-145)
[2019-10-25] MEDS: Enoxaparin 30 MG/0.3 ML Syringe SC (08:10)
[2019-10-25] MEDS: Vitamin B Comp W-C Capsule 1 CAP PO (08:10)
[2019-10-25] MEDS: Aspirin E.C. 81 MG Tablet PO (08:11)
[2019-10-25] MEDS: Clopidogrel Bisulfate 75 MG Tablet PO (08:11)
[2019-10-25] MEDS: Metoprolol(XL)Succ 25 MG Tablet PO (08:11)
--- NOTE | 2019-10-25 08:16 | NURSING ---
Dr Khan talking to pt in room now.
--- NOTE | 2019-10-25 09:59 | PCM.DC ---
- Discharge Diagnoses Current Active Problems: Current Active and Chronic Problems (Last Reviewed 07/08/19 @ 11:[address] Placido Claudio MD) UTI (Acute) Acute exacerbation of chronic low back pain (Acute) You will use the following diet at home:: Cardiac Your food should be the consistency of: Regular Your liquids should be the consistency of: Regular/Thin Discharge Activity: Return to Normal Activity Weight Bearing Status: Weight bearing as tolerated Call your doctor if you observe: Fever of 101 or Higher, Inability to urinate Instructions: Prostate-Specific Antigen PSA, Understanding Urinary Tract Infections (UTIs) Allergies/Adverse Reactions: Allergies contrast dye Allergy (Uncoded 10/23/19 22:18) dyspnea Medications to take at Discharge Aspirin E.C. [Ecotrin] 81 mg PO DAILY@0800 tab 06/18/16 Atorvastatin Calcium [Lipitor] 40 mg PO QHS tab 06/18/16 Clopidogrel Bisulfate [Plavix] 75 mg PO DAILY tab 06/18/16 Metoprolol(XL)Succ [Toprol Xl (Beta Rox)] 25 mg PO DAILY tab 06/18/16 Nitroglycerin (INPATIENT USE) [Nitrostat] 0.4 mg SUBLINGUAL Q5M PRN #0 tab 06/18/16 sitagliptin 100 mg tablet 100 mg PO DAILY 07/04/18 vitamin B complex 1 tab PO DAILY 07/04/18 losartan 25 mg tablet 25 mg PO QDAY #30 tab 01/02/19 dupilumab 300 mg/2 mL subcutaneous syringe 300 mg SC Q2W #4 ml 07/08/19 glimepiride 4 mg tablet 2 mg PO DAILY tab 07/08/19 Cefdinir [Omnicef [equiv]] 300 mg PO Q12H #10 cap 10/25/19 Tamsulosin HCl 0.4 mg PO DAILY #30 cap 10/25/19 The following prescriptions were given: Cefdinir [Omnicef [equiv]] 300 mg PO Q12H #10 cap Transmission Status: Received by [facility]/pharmacy #[id number] Tamsulosin HCl 0.4 mg PO DAILY #30 cap Primary Care Physician: Stephan Alvarez DO [Primary Care Provider] - Please follow up with your Primary Care Physician in: 1-2 weeks Test Results: Test results from this visit will be discussed in further detail at your follow-up appointment, if applicable. Please Follow Up With: Andre Ferrari MD When: 1-2 weeks; call office for appointment o/a of elevated PSA Proposed Discharge Date: 10/25/19
--- NOTE | 2019-10-25 10:03 | PCM.DC.SUM ---
Discharge Date and Diagnosis - Problem List Patient Problems: Active and Suspected Problems (Last Reviewed 07/08/19 @ 11:[address] Placido Claudio MD) UTI (Acute) Acute exacerbation of chronic low back pain (Acute) Date of Admission: 10/23/19 Date of Discharge: 10/25/19 - Primary Discharge Diagnosis Active and Suspected Problems (Last Reviewed 07/08/19 @ 11:[address] Placido Claudio MD) UTI (Acute) Acute exacerbation of chronic low back pain (Acute) elevated PSA - Secondary Discharge Diagnosis Chronic Problems (Last Reviewed 07/08/19 @ 11:[address] Placido Claudio MD) Atherosclerosis of coronary artery of [place] heart without angina pectoris (Chronic) Essential (primary) hypertension (Chronic) Hyperlipidemia LDL goal <100 (Chronic) Hospital Course and Treatment Imaging Results: Diagnostic Data Chest X-Ray 10/23/19 22:50 IMPRESSION: No definite acute or significant abnormality seen. Electronically Signed: Darvin Law MD at 23:08 EDT , Service support , Renal Ultrasound 10/24/19 05:55 IMPRESSION: Small bilateral renal cysts. Small bilateral nonobstructive intrarenal calculi. Prostatic enlargement. Electronically Signed: Waqar Pereyra at 8:18 EDT , Service support , Operations: None, - Procedures: None Summary of Care Provided: Patient is a 78-year-old male with a history of chronic recurrent UTI and coronary artery disease was admitted through the ED on 10/23/2019 with a complaint of fever, lower back pain and frequency and burning with urination. Symptoms as high as 102.9 Fahrenheit. On admission, UA was positive for UTI. He had no leukocytosis. He was admitted and managed for UTI and was started on IV trazodone. Urine cultured E. coli. Patient's fever resolved and burning with urination and frequency also improved. Patient says symptoms have been going on for a while so PSA was checked which was elevated at 24. Troponins checked on admission showed initial troponin 0 0.069 which went up to 0.113 and came down to 0.083. Patient had no acute ST changes on EKG and was totally asymptomatic. He remained stable and was discharged home on 10/25/2019. He is follow-up with his primary care doctor within 1 week and also referred to urology on account of elevated PSA for further work-up. He is to follow up with his cardiology on outpatient basis. Patient seen and examined prior to discharge. He really wanted to be discharged and had no complaints. Review of systems otherwise negative. Labs and vitals reviewed. Home medication reviewed and reconciled. o/e: Vital Signs Height 5 ft 8 in Weight: 228 lb 9.91 oz Weight in Pounds 228.6 lbs Pulse Ox 94 Temperature 98.5 F Pulse Rate 68 Respiratory Rate 18 Blood Pressure [BP] 135/60 Blood Pressure 144/72 Blood Pressure Position [BP] Semi-Fowlers Blood Pressure Position Semi-Fowlers General: Alert, Oriented x3, Cooperative, No apparent distress HEENT: Atraumatic, PERRLA, EOMI, Normocephalic Oral: Moist Mucosa Neck: Supple, No JVD, Negative Carotid Bruits Lungs: Clear to auscultation, Normal air movement, No rhonchi, No wheeze, No rales Cardiovascular: Regular rate, Regular Rhythm, Normal S1, Normal S2, No murmurs Abdomen: Bowel Sounds Present, Soft, Non Tender, Non-Distended, No Hepato-splenomegaly Extremities: No clubbing, No cyanosis, No edema, Capillary Refill Less than 3 Seconds Skin: No rashes, No breakdown Musculoskeletal: No Tenderness to Palpation of Joints or Extremities Lymphatic: No Cervical, Supraclavicular, or Inguinal Adenopathy Neurological: Cranial nerves II-XII grossly intact, Neuro grossly intact, Motor Exam 5/5 strength throughout Psych/Mental Status: Normal Affect, Appropriate, Alert and oriented to time, place, person, mood and affect Plan as above. 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 Patient Problems: Active and Suspected Problems (Last Reviewed 07/08/19 @ 11:[address] Placido Claudio MD) UTI (Acute) Acute exacerbation of chronic low back pain (Acute) - Physical Exam Vitals/I&O's: Vital Signs Temp Pulse Resp BP Pulse Ox 98.3 F 71 18 134/67 H 94 10/25/19 08:08 10/25/19 09:46 10/25/19 08:08 10/25/19 08:08 10/25/19 08:08 Oxygen Delivery Method Room Air Weight: 228 lb 9.91 oz Body Mass Index (BMI) 35.2 Finger Stick Blood Glucose 89 Intake and Output for Last 24 Hours 10/23/19 10/24/19 10/25/19 23:59 23:59 23:59 Intake Total 3174.75 / 3174.75 Output Total 770 / 1170 1050 / 1050 Balance 2404.75 / 2004.75 -1050 / -1050 Microbiology Past 72 Hours 10/23/19 22:50 Urine, Clean Catch Urine Culture - Final Presumptive E. coli 10/23/19 23:30 Mucosa - Nasopharyngeal Influenza Types A,B Direct FA (DEBRA) - Final Laboratory Results 10/24/19 05:15: Total PSA 24.30 H 10/24/19 11:37: POC Glucose 152 H 10/24/19 16:41: POC Glucose 119 H 10/24/19 21:50: POC Glucose 132 H 10/25/19 06:20: WBC 6.3, RBC 3.80 L, Hgb 11.4 L, Hct 34.5 L, MCV 90.8, MCH 30.0, MCHC 33.0, RDW Std Deviation 49.5 H, RDW Coeff of Cornelio 15.0 H, Plt Count 133 L, MPV 9.0, Immature Gran % (Auto) 0.500, Neut % (Auto) 69.4, Lymph % (Auto) 15.5 L, [place] % (Auto) 12.3 H, Eos % (Auto) 1.8, Baso % (Auto) 0.5, Absolute Neuts (auto) 4.4, Absolute Lymphs (auto) 0.97, Nucleated RBC % 0 10/25/19 06:20: Sodium 137, Potassium 4.1, Chloride 104, Carbon Dioxide 24.0, Anion Gap 9, BUN 34 H, Creatinine 1.29, Estim Creat Clear Calc 45.66, Est GFR (MDRD) Af Amer 69, Est GFR (MDRD) Non-Af 57 L, BUN/Creatinine Ratio 26.4 H, Glucose 138 H, Calcium 8.5 10/25/19 06:27: POC Glucose 144 H Current Medications Acetaminophen (Tylenol) 650 mg PO Q6H PRN PRN PRN Reason: Pain Score 1-10/Temp > 100.7 F Albuterol Sulfate (Ventolin Aerosols) 2.5 mg INHALATION Q2H PRN PRN PRN Reason: SOB/Wheezing Aspirin (Ecotrin) 81 mg PO DAILY@0800 [facility] Last Admin: 10/25/19 08:11 Dose: 81 mg Documented by: Atorvastatin Calcium (Lipitor) 40 mg PO QHS [facility] Last Admin: 10/24/19 21:51 Dose: 40 mg Documented by: Clopidogrel Bisulfate (Plavix) 75 mg PO DAILY [facility] Last Admin: 10/25/19 08:11 Dose: 75 mg Documented by: Dextrose (D50w Syringe) 0 gm IV X1 PRN; Protocol PRN Reason: Hypoglycemia Dextrose (D50w Syringe) 0 gm IV X1 PRN; Protocol PRN Reason: Hypoglycemia Enoxaparin Sodium (Lovenox) 30 mg SC DAILY [facility] Last Admin: 10/25/19 08:10 Dose: 30 mg Documented by: Glucagon () 1 mg IM .X1 PRN PRN Reason: Hypoglycemia Glucagon () 1 mg IM .X1 PRN PRN Reason: Hypoglycemia Sodium Chloride () 250 mls @ 15 mls/hr IV .[id number] PRN PRN Reason: Saline Flush Last Infusion: 10/24/19 22:00 Dose: 0 mls/hr Documented by: Sodium Chloride () 250 mls @ 15 mls/hr IV .[id number] PRN PRN Reason: Additional IVPB Infusion Ceftriaxone Sodium (Rocephin) 1 gm in 50 mls @ 100 mls/hr IV Q24H [facility] Last Infusion: 10/24/19 22:21 Dose: Infused Documented by: Insulin Glargine (Lantus ([facility])) 10 units SC BREAKFAST [facility] Last Admin: 10/25/19 09:36 Dose: 10 units Documented by: Insulin Human Lispro (Humalog Kwikpen ([facility])) 0 unit SC ACHS [facility]; Protocol Last Admin: 10/25/19 06:28 Dose: Not Given Documented by: Melatonin (Melatonin) 3 mg PO QHS PRN PRN PRN Reason: INSOMNIA Metoprolol Succinate (Toprol Xl (Beta Rox)) 25 mg PO DAILY [facility] Last Admin: 10/25/19 08:11 Dose: 25 mg Documented by: Morphine Sulfate () 2 mg IV Q3H PRN PRN PRN Reason: Pain Score 6-10/10 Multivitamins (Allbee W/C Caplet, Thera B Comp/C) 1 capsule PO DAILY [facility] Last Admin: 10/25/19 08:10 Dose: 1 capsule Documented by: Nitroglycerin (Nitrostat) 0.4 mg SUBLINGUAL Q5M PRN PRN Reason: CARDIAC/CHEST PAIN Ondansetron HCl (Zofran) 4 mg IV Q8H PRN PRN PRN Reason: NAUSEA/VOMITING Oxycodone HCl (Oxyir) 5 mg PO Q4H PRN PRN PRN Reason: Pain Score 4-5/10 Last Admin: 10/25/19 02:26 Dose: 5 mg Documented by: Prochlorperazine Edisylate (Compazine Iv) 5 mg IV Q4H PRN PRN PRN Reason: Breakthrough Nausea/Vomiting Senna/Docusate Sodium (Senokot-S, Lacey-Colace) 2 tablet PO BID PRN PRN PRN Reason: Constipation Sodium Chloride () 10 - 40 ml IV UD PRN PRN Reason: SALINE FLUSH Last Admin: 10/25/19 02:27 Dose: 10 ml Documented by: Discharge Diet: Low fat/ Low Cholesterol Discharge Activity: Return to Normal Activity Weight Bearing Status: Weight bearing as tolerated Call your doctor if you observe: Fever of 101 or Higher, Inability to urinate Home Medications: Medications to take at Discharge Aspirin E.C. [Ecotrin] 81 mg PO DAILY@0800 tab 06/18/16 Atorvastatin Calcium [Lipitor] 40 mg PO QHS tab 06/18/16 Clopidogrel Bisulfate [Plavix] 75 mg PO DAILY tab 06/18/16 Metoprolol(XL)Succ [Toprol Xl (Beta Rox)] 25 mg PO DAILY tab 06/18/16 Nitroglycerin (INPATIENT USE) [Nitrostat] 0.4 mg SUBLINGUAL Q5M PRN #0 tab 06/18/16 sitagliptin 100 mg tablet 100 mg PO DAILY 07/04/18 vitamin B complex 1 tab PO DAILY 07/04/18 losartan 25 mg tablet 25 mg PO QDAY #30 tab 01/02/19 dupilumab 300 mg/2 mL subcutaneous syringe 300 mg SC Q2W #4 ml 07/08/19 glimepiride 4 mg tablet 2 mg PO DAILY tab 07/08/19 Cefdinir 300 mg PO BID #10 cap 10/25/19 Tamsulosin HCl [Flomax] 0.4 mg PO DAILY #39 cap 10/25/19 Following Prescrptions Were Given to Patient: Cefdinir 300 mg PO BID #10 cap Transmission Status: Sent to [facility] Tamsulosin HCl [Flomax] 0.4 mg PO DAILY #39 cap Transmission Status: Received by [facility] Primary Care Physician: Stephan Alvarez DO [Primary Care Provider] - Please follow up with your Primary Care Physician in: 1-2 weeks Please Follow Up With: Andre Ferrari MD When: 1-2 weeks; call office for appointment o/a of elevated PSA Please Follow Up With: Placido Claudio MD When: 1-2 weeks Patient Instructions: Prostate-Specific Antigen PSA, Understanding Urinary Tract Infections (UTIs) Disposition: Home Minutes spent on discharge:: 40 Patient Condition:: Stable Medical Necessity - Tobacco Use Smoking Status: Former smoker Tobacco Use: Non-smoker Meaningful Use Info Meaningful Use Diagnoses (Choose all that apply): None applicable Inpatient E&M: 33060 Disch Hosp
[2019-10-25 11:41] LABS: Bedside Glucose 177 mg/dL (70-110)
[2019-10-25] MEDS: Insulin Lispro 100 UNIT/ML INSULN.PEN SC (12:13)
== END 2019-10-25 13:08 | disposition home or self-care (01) | DRG 690 ==
LOC: ED 22:54 → PCU 10-24 00:16
PROVIDERS: Admitting Provider Internal Medicine; Emergency Provider Emergency Medicine; PCP Family Medicine; Referring Provider Internal Medicine; Visit Provider Student in an Organized Health Care Education/Training Program
DX: N39.0 Urinary tract infection, site not specified (principal); N17.9 Acute kidney failure, unspecified; I25.10 Atherosclerotic heart disease of native coronary artery without angina pectoris; E78.5 Hyperlipidemia, unspecified; G89.29 Other chronic pain; N18.3 Chronic kidney disease, stage 3 (moderate); E11.22 Type 2 diabetes mellitus with diabetic chronic kidney disease; M54.5 Low back pain; B96.20 Unspecified Escherichia coli [E. coli] as the cause of diseases classified elsewhere; R97.20 Elevated prostate specific antigen [PSA]; Z79.4 Long term (current) use of insulin; I12.9 Hypertensive chronic kidney disease with stage 1 through stage 4 chronic kidney disease, or unspecified chronic kidney disease; Z95.5 Presence of coronary angioplasty implant and graft; Z87.440 Personal history of urinary (tract) infections
CPT/HCPCS: 36415; 71045; 76770; 80048; 80053; 81001; 82962; 83036; 83605; 84153; 84443; 84484; 85025; 87040; 87086; 87088; 87186; 87804; 93005; 97161; 97166; 99251; 99285; J7030; J7050; A4216; G0463

== ENCOUNTER → 2019-11-18 14:26 | Outpatient (CLI) | payer MEDICARE, OTHER, SELFPAY ==
[2019-10-24 00:51] VITALS: BMI 35.2
[2019-11-18 16:09] LABS: PSA,Total- Diagnostic 3.27 ng/mL (0.0-4.0)
== END ==
PROVIDERS: PCP Family Medicine; Referring Provider Urology; Visit Provider Urology
DX: R97.20 Elevated prostate specific antigen [PSA] (principal)
CPT/HCPCS: 36415; 84153

== ENCOUNTER → 2019-11-21 13:04 | Outpatient (CLI) | payer MEDICARE, OTHER, SELFPAY ==
[2019-10-24 00:51] VITALS: BMI 35.2
--- NOTE | 2019-11-21 13:07 | CT_ITS ---
STUDY: CT PELVIS WITHOUT CONTRAST REASON FOR EXAM: Male, 79 years old. BACK PAIN/ELEVATED PSA -- HX-18'''' COLON REMOVED D/T CA RADIATION DOSAGE (If Supplied By Facility): CTDIvol = ( 27.40 ) mGy, DLP = ( 765.98 ) mGycm TECHNIQUE: Transaxial imaging of the pelvis was performed with oral contrast, and without intravenous administration of contrast material. Multiplanar coronal and sagittal images were reformatted. Individualized dose optimization techniques were used for this CT. COMPARISON: None. FINDINGS: Normal urinary bladder. The prostate is enlarged. It measures 4.1 cm x 4.4 cm. This causes indentation of the bladder base. Central calcification is seen. Normal visualized small intestine. There are multiple colonic diverticula of the sigmoid colon consistent with chronic diverticulosis. There is no pelvic fluid. There is no pelvic mass lesion or lymphadenopathy. There is diffuse atherosclerotic calcification of the pelvic arteries. Mild dilatation of the distal aorta with a transverse dimension of 3.9 sinus. Normal abdominal wall. There are diffuse degenerative changes of the visualized lumbar spine. CT/Pelvis without IV Contrast IMPRESSION: Prostatic enlargement with indentation at the bladder base. Sigmoid diverticulosis. 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 Electronically Signed: Waqar Pereyra, at 14:30 EDT , Service support ,
--- NOTE | 2019-11-21 13:07 | CT_ITS ---
STUDY: CT LUMBAR SPINE WITHOUT CONTRAST REASON FOR EXAM: Male, 79 years old. BACK PAIN/ELEVATED PSA -- HX-18'''' COLON REMOVED D/T CA RADIATION DOSAGE (If Supplied By Facility): CTDIvol = ( 32.45 ) mGy, DLP = ( 886.12 ) mGycm TECHNIQUE: The patient was scanned in a multi detector CT scanner. High resolution transaxial imaging was performed. Images were obtained from L1 to S1 vertebral level. Sagittal and coronal images were reconstructed. Individualized dose optimization techniques were used for this CT. COMPARISON: None FINDINGS: Normal lumbar lordosis. There is no substantial scoliosis. Multilevel spondylosis. L1-2: Mild degree of disc space narrowing. Spondylosis. Facet joint osteoarthritis. Mild degree of bilateral neural foraminal stenosis. L2-3: Marked degree of disc space narrowing and disc degeneration. Anterior and posterior spondylosis. Facet joint hypertrophy causing a marked degree of bilateral neural foraminal stenosis. L3-4: Marked degree of disc space narrowing and disc degeneration. Anterior and posterior spondylosis with facet joint hypertrophy and osteoarthritis. Moderate to marked degree of bilateral neural foraminal stenosis. L4-5: Moderate degree of disc space narrowing. Spondylosis. Moderate degree of bilateral neural foraminal stenosis. L5-S1: Mild degree of diffuse posterior disc bulge. No significant stenosis is seen. Atherosclerotic calcification of the abdominal aorta. CT/Spine Lumbar without Contrast IMPRESSION: Multilevel degenerative changes, as described above. Neural foraminal stenosis at the L2-L3, L3-L4 and L4-L5 levels. Electronically Signed: Waqar Pereyra, at 14:33 EDT , Service support ,
== END ==
PROVIDERS: PCP Family Medicine; Referring Provider Family Medicine; Visit Provider Family Medicine
DX: M48.061 Spinal stenosis, lumbar region without neurogenic claudication (principal); M54.9 Dorsalgia, unspecified; R97.20 Elevated prostate specific antigen [PSA]
CPT/HCPCS: 72131; 72192

== ENCOUNTER → 2019-12-25 19:07 | Outpatient (CLI) | payer MEDICARE, OTHER, SELFPAY ==
[2018-07-04 11:34] VITALS: BMI 35.2
[2019-12-12 10:46] VITALS: BMI 34.0
[2019-12-25 12:44] LABS: Absolute Lymphocyte Count 1.11 X10^3/uL (0.83-4.51); Absolute Neutrophil Count 3.8 X10^3/uL (2.0-7.7); Basophil# 0.02 X10^3/uL; Basophil% 0.3 % (0-1); Eosinophil# 0.49 X10^3/uL; Eosinophils% 8.2 % (0-5); Hematocrit 39.2 % (40-54); Hemoglobin 12.4 g/dL (13.0-16.5); Lymphocyte # 1.11 X10^3/ul (4.0); Lymphocyte % 18.5 % (19-41); Mean Corp Hgb Conc 31.6 g/dL (32-36); Mean Corpuscular Hgb 29.7 pg (27.0-32.0); Mean Corpuscular Volume 93.8 fL (80-94); Mean Platelet Vol. 9.2 fl (6.2-12.0); Monocyte# 0.55 X10^3/uL; Monocyte% 9.2 % (0-10); NRBC Flagged by Analyzer 0 % (0-5); Neutrophil % 63.5 % (47-70); Platelet Count 149 K/mm3 (150-450); RBC Distribution Width CV 15.4 % (11.6-14.6); RBC Distribution Width SD 53.2 fl (35.1-43.9); Red Blood Count 4.18 M/mm3 (4.6-6.2)
[2019-12-25 12:59] LABS: Hemoglobin A1c 5.9 % (3.8-5.6)
[2019-12-25 13:12] LABS: ALB/GLOB Ratio 0.9 RATIO (0.9-2.4); AST(SGOT) 25 U/L (15-37); Alanine Aminotransfer ALT/SGPT 40 U/L (16-61); Albumin, Serum 3.7 g/dL (3.2-5.0); Alkaline Phosphatase 57 U/L (45-117); Anion Gap 9 (5-15); BUN 37 mg/dL (7-18); BUN/Creat Ratio 26.2 RATIO (10-20); Calcium,Total 9.7 mg/dL (8.5-10.1); Chloride 105 mmol/L (98-107); Cholesterol 115 mg/dL (200); Creatinine, Serum 1.41 mg/dL (0.70-1.30); EST Glomerular Filtration Rate 52 mL/min (>60); Est Glom Filt Rate - Afr Amer 62 mL/min (>60); Glucose 147 mg/dL (74-106); High Density Lipoprotein 32 mg/dL; Potassium 3.8 mmol/L (3.5-5.1); Protein, Total 7.7 g/dL (6.4-8.2); Sodium Level 138 mmol/L (136-145); Triglycerides 226 mg/dL; Very Low Density Lipoprotein 45 mg/dL (5-40)
[2019-12-25 13:19] LABS: Microalbumin,Random Urine 31.2 mg/L (NO RANGE EST.); Microalbumin:Creatinine Ratio 23.6 mg/g CRE (<30 mg/g CRE)
== END ==
PROVIDERS: Family Provider Family Medicine; PCP Family Medicine; Visit Provider Nurse Practitioner Acute Care
DX: M48.061 Spinal stenosis, lumbar region without neurogenic claudication (principal); E11.21 Type 2 diabetes mellitus with diabetic nephropathy; E11.22 Type 2 diabetes mellitus with diabetic chronic kidney disease; I12.9 Hypertensive chronic kidney disease with stage 1 through stage 4 chronic kidney disease, or unspecified chronic kidney disease; N18.3 Chronic kidney disease, stage 3 (moderate); E78.5 Hyperlipidemia, unspecified
CPT/HCPCS: 36415; 80053; 80061; 82043; 82570; 83036; 85025

== ENCOUNTER → 2019-12-26 16:04 | Outpatient (CLI) | payer MEDICARE, OTHER, SELFPAY ==
[2019-12-12 10:46] VITALS: BMI 34.0
--- NOTE | 2019-12-26 16:18 | MRI_ITS ---
STUDY: MRI LUMBAR SPINE WITHOUT CONTRAST REASON FOR EXAM: Male, 79 years old. stenosis -- pain low back and bilat leg burning, difficult to walk, prev surgery 7 years ago TECHNIQUE: Standardized fat and water weighted pulse sequences were obtained in the sagittal and axial planes. COMPARISON: None FINDINGS: T12-L1: Normal endplates. Normal disc height, hydration and morphology. Normal bilateral facet joints. Normal central canal and bilateral lateral recesses. Normal bilateral intervertebral neural foramina. Normal lumbar lordosis. There is no substantial scoliosis. Normal conus medullaris that terminates at the L1-2: Endplate spondylosis. Decreased disc height and small circumferential disc bulge. Degenerative changes of the bilateral facet joints. Mild narrowing of the central canal and bilateral intervertebral neural foramina. L2-3: Bilateral laminectomy. Endplate spondylosis. Decreased disc height and small circumferential disc bulge. Degenerative changes of the bilateral facet joints. Moderate narrowing of the bilateral intervertebral neural foramina. L3-4: Bilateral laminectomy. Endplate spondylosis. Decreased disc height and small circumferential disc bulge. Degenerative changes of the bilateral facet joints. Moderate narrowing of the bilateral intervertebral neural foramina. L4-5: Bilateral laminectomy. Endplate spondylosis. Decreased disc height and small circumferential disc bulge. Degenerative changes of the bilateral facet joints. Moderate narrowing of the bilateral intervertebral neural foramina. L5-S1: Endplate spondylosis. Decreased disc height and small circumferential disc bulge. Degenerative changes of the bilateral facet joints. Mild right and moderate left intervertebral neural foraminal narrowing. Normal visualized sacral ala. There is an infrarenal abdominal aortic aneurysm measures 3.8 cm. MRI/Spine Lumbar (Routine) IMPRESSION: Multilevel degenerative changes of the lumbar spine. There is an infrarenal abdominal aortic aneurysm measures 3.8 cm. Electronically Signed: Ángel Bryant, at 1:47 EDT Tel , Service support ,
== END ==
PROVIDERS: PCP Family Medicine; Referring Provider Orthopaedic Surgery; Visit Provider Orthopaedic Surgery
DX: M48.061 Spinal stenosis, lumbar region without neurogenic claudication (principal)
CPT/HCPCS: 72148

== ENCOUNTER → 2020-06-29 15:31 | Outpatient (CLI) | payer MEDICARE, OTHER, SELFPAY ==
[2019-12-12 10:46] VITALS: BMI 34.0
--- NOTE | 2020-06-29 15:36 | RAD_ITS ---
STUDY: X-RAY - LEFT ANKLE REASON FOR EXAM: Continued pain after ankle injury in April. TECHNIQUE: 3 view(s) of the ankle. COMPARISON: None. FINDINGS: Normal visualized distal tibia and fibula. Normal medial and lateral malleoli. Normal tibiotalar articulation and ankle mortise. There is a plantar calcaneal enthesophyte. The visualized subtalar, talonavicular, calcaneocuboid and tarsal articulations are normal. The soft tissue structures are unremarkable. RAD/Ankle min 3 Views IMPRESSION: Plantar calcaneal enthesophyte. Otherwise, unremarkable x-ray examination of the left ankle. Electronically Signed: Vito Oliveros MD at 9:17 EST Tel , Service support ,
== END ==
PROVIDERS: PCP Family Medicine; Referring Provider Family Medicine; Visit Provider Family Medicine
DX: M25.572 Pain in left ankle and joints of left foot (principal)
CPT/HCPCS: 73610

== ENCOUNTER 2020-07-13 16:47 | Emergency (ER) | payer MEDICARE, OTHER, SELFPAY ==
[2020-07-06 08:46] VITALS: BMI 32.5
[2020-07-13 16:48] VITALS: BP 123/62; PULSE 60; RESP 18; TEMP 36.4; O2SAT 100; BMI 33.4
--- NOTE | 2020-07-13 17:05 | ED.DCSUM_ITS ---
- ER Visit Summary Date of Service: 07/13/20 Chief Complaint: Left foot ecchymosis History of Present Illness: The patient is a 79 M who has left foot ecchymosis. He states he noticed it today. He had back surgery at the beginning of April and has had issues with numbness of his leg ever since. He states that his leg still feels weak. He is doing physical therapy at [facility] for this. He denies any trauma. He has not fallen. He denies any bowel or bladder incontinence. He has no weakness of his arm, slurred speech or facial droop. He denies any headaches. He has no back pain at this time. Physical Examination: Vital signs reviewed. His left leg is warm to touch. There is no cyanosis of the foot. He has ecchymosis at the base of the first toe. He has limited range of motion of the toe secondary to weakness. His left leg is weak at a score of 3 out of 5. This is been ever since his surgery. There is no edema to the leg. He has great pulses. Test Results: CBC shows a hemoglobin 11.5, platelet count 164. Chemistry normal. Three-view x-ray of the left foot interpreted by myself and radiology shows no acute findings. There is no calcaneal spur. Duplex ultrasound shows no evidence of DVT. Emergency Department Course and Treatment: I believe the patient's paresthesias are likely due to his back surgery. He has a lot of hardware in his back. The ecchymosis on his foot may be due to trauma. There are no petechia. He has great pulses. The foot is warm. I do not feel that this is an arterial issue. I feel that he needs to follow-up with his spine surgeon, Dr. Hale. He will continue to take his gabapentin at home. Treatment Plan: [] Disposition: Discharge Impression: Left leg paresthesias, left foot ecchymosis This note was generated with [employer] dictation software. It may contain incorrect words, spelling, and punctuation that were not noted in review of the chart prior to signing ED Disposition - Plan for ED Patient: Disposition: Home or Assisted Living Instructions: ED Paraesthesias Referrals: Stephan Alvarez DO [Primary Care Provider] -
--- NOTE | 2020-07-13 17:07 | US_ITS ---
STUDY: VENOUS DOPPLER ULTRASOUND - LEFT LOWER EXTREMITY REASON FOR EXAM: Male, 79 years old. LT LEG NUMBNESS SINCE BACK SURGERY LAST TECHNIQUE: Ultrasound evaluation of the deep vein system to include crane-scale imaging and compression was performed. Crane-scale imaging and Doppler sonographic evaluation, including duplex spectral analysis and qualitative color flow sonography, was performed. COMPARISON: None. FINDINGS: Common Femoral Vein: Normal compression, spontaneity and augmentation. Normal color Doppler. Common Femoral Vein/Greater Saphenous Junction: Normal compression, spontaneity and augmentation. Normal color Doppler. Deep Femoral Vein: Normal compression, spontaneity and augmentation. Normal color Doppler. Femoral Proximal: Normal compression, spontaneity and augmentation. Normal color Doppler. Femoral Middle: Normal compression, spontaneity and augmentation. Normal color Doppler. Femoral Distal: Normal compression, spontaneity and augmentation. Normal color Doppler. Popliteal Vein: Normal compression, spontaneity and augmentation. Normal color Doppler. Posterior Tibial Vein: Normal compression, spontaneity and augmentation. Normal color Doppler. Peroneal Vein: Normal compression, spontaneity and augmentation. Normal color Doppler. US/Venous Duplex Imag/Limited/Uni IMPRESSION: Normal venous Doppler ultrasound of the lower extremity. Electronically Signed: Bob Young MD at 18:22 EST , Service support ,
--- NOTE | 2020-07-13 17:23 | RAD_ITS ---
STUDY: X-RAY - LEFT FOOT CLINICAL: Male, 79 years old. LEFT LEG NUMBNESS AND PURPLE COLOR TO BIG TOE. PT STATES HAD BACK SURGERY ON MAY 05. LEG HAS BEEN NUMB SINCE. TOE TURNED PURPLE TODAY. PT DENIES ANY INJURY TECHNIQUE: 3 view(s) of the foot. COMPARISON: None. FINDINGS: Normal talus,, and tarsal bones. Small plantar calcaneal spur and posterior enthesophyte Normal visualized subtalar, talonavicular, calcaneocuboid, tarsal and tarsometatarsal articulations. Normal metatarsi. Normal metatarsophalangeal joint of the great toe. Normal tibial and fibular sesamoid bones. Normal interphalangeal joint of the great toe. Normal phalanges of the great toe. Normal second through fifth metatarsophalangeal joints. Normal interphalangeal joints and phalanges of the lesser toes. The soft tissue structures are unremarkable. RAD/Foot min 3 Views IMPRESSION: Small plantar calcaneal spur. No acute fracture or other significant bony pathology Electronically Signed: Bob Young MD at 17:43 EST , Service support ,
[2020-07-13 17:39] LABS: Absolute Lymphocyte Count 0.94 X10^3/uL (0.83-4.51); Absolute Neutrophil Count 2.7 X10^3/uL (2.0-7.7); Basophil# 0.02 X10^3/uL; Basophil% 0.5 % (0-1); Eosinophil# 0.13 X10^3/uL; Eosinophils% 3.1 % (0-5); Hematocrit 35.5 % (40-54); Hemoglobin 11.5 g/dL (13.0-16.5); Lymphocyte # 0.94 X10^3/ul (4.0); Lymphocyte % 22.1 % (19-41); Mean Corp Hgb Conc 32.4 g/dL (32-36); Mean Corpuscular Hgb 28.9 pg (27.0-32.0); Mean Corpuscular Volume 89.2 fL (80-94); Monocyte# 0.47 X10^3/uL; Monocyte% 11.1 % (0-10); NRBC Flagged by Analyzer 0 % (0-5); Neutrophil # 2.67 X10^3/uL (2.7-7.7); Neutrophil % 62.7 % (47-70); Platelet Count 164 K/mm3 (150-450); RBC Distribution Width CV 14.2 % (11.6-14.6); RBC Distribution Width SD 46.2 fl (35.1-43.9); Red Blood Count 3.98 M/mm3 (4.6-6.2); White Blood Count 4.3 K/mm3 (4.4-11.0)
[2020-07-13 17:50] LABS: Anion Gap 4 (5-15); BUN 18 mg/dL (7-18); BUN/Creat Ratio 16.5 RATIO (10-20); Calcium,Total 9.3 mg/dL (8.5-10.1); Chloride 105 mmol/L (98-107); Creatinine, Serum 1.09 mg/dL (0.70-1.30); EST Glomerular Filtration Rate 69 mL/min (>60); Est Glom Filt Rate - Afr Amer 84 mL/min (>60); Estimated Creatinine Clearance 53.17 ml/min; Glucose 105 mg/dL (74-106); Potassium 4.1 mmol/L (3.5-5.1); Sodium Level 139 mmol/L (136-145)
== END 2020-07-13 18:46 | disposition home or self-care (01) ==
PROVIDERS: Emergency Provider Emergency Medicine; PCP Family Medicine
DX: S90.32XA Contusion of left foot, initial encounter (principal); R20.2 Paresthesia of skin; M77.32 Calcaneal spur, left foot; X58.XXXA Exposure to other specified factors, initial encounter; Y93.9 Activity, unspecified; Y92.9 Unspecified place or not applicable
CPT/HCPCS: 73630; 80048; 85025; 93971; 99282

== ENCOUNTER → 2020-09-15 09:19 | Outpatient (CLI) | payer MEDICARE, OTHER, SELFPAY ==
[2019-12-12 10:46] VITALS: BMI 34.0
[2020-09-15 12:59] LABS: Absolute Lymphocyte Count 1.03 X10^3/uL (0.83-4.51); Absolute Neutrophil Count 3.5 X10^3/uL (2.0-7.7); Basophil# 0.02 X10^3/uL; Basophil% 0.4 % (0-1); Eosinophil# 0.21 X10^3/uL; Eosinophils% 3.9 % (0-5); Hematocrit 36.5 % (40-54); Hemoglobin 11.5 g/dL (13.0-16.5); Lymphocyte # 1.03 X10^3/ul (4.0); Lymphocyte % 19.2 % (19-41); Mean Corp Hgb Conc 31.5 g/dL (32-36); Mean Corpuscular Hgb 29.1 pg (27.0-32.0); Mean Corpuscular Volume 92.4 fL (80-94); Mean Platelet Vol. 9.1 fl (6.2-12.0); Monocyte# 0.63 X10^3/uL; Monocyte% 11.7 % (0-10); NRBC Flagged by Analyzer 0 % (0-5); Neutrophil # 3.46 X10^3/uL (2.7-7.7); Neutrophil % 64.4 % (47-70); Platelet Count 143 K/mm3 (150-450); RBC Distribution Width CV 16.3 % (11.6-14.6); RBC Distribution Width SD 55.2 fl (35.1-43.9); Red Blood Count 3.95 M/mm3 (4.6-6.2); White Blood Count 5.4 K/mm3 (4.4-11.0)
[2020-09-15 13:01] LABS: AST(SGOT) 31 U/L (15-37); Alanine Aminotransfer ALT/SGPT 44 U/L (16-61); Albumin, Serum 3.8 g/dL (3.2-5.0); Alkaline Phosphatase 59 U/L (45-117); Anion Gap 6 (5-15); BUN 32 mg/dL (7-18); BUN/Creat Ratio 22.9 RATIO (10-20); Calcium,Total 9.3 mg/dL (8.5-10.1); Chloride 105 mmol/L (98-107); Cholesterol 120 mg/dL (200); EST Glomerular Filtration Rate 52 mL/min (>60); Est Glom Filt Rate - Afr Amer 63 mL/min (>60); Glucose 127 mg/dL (74-106); High Density Lipoprotein 39 mg/dL; Protein, Total 7.8 g/dL (6.4-8.2); Sodium Level 139 mmol/L (136-145); Triglycerides 193 mg/dL; Very Low Density Lipoprotein 39 mg/dL (5-40)
== END ==
PROVIDERS: PCP Family Medicine; Visit Provider Family Medicine
DX: E11.21 Type 2 diabetes mellitus with diabetic nephropathy (principal); I12.9 Hypertensive chronic kidney disease with stage 1 through stage 4 chronic kidney disease, or unspecified chronic kidney disease; I25.10 Atherosclerotic heart disease of native coronary artery without angina pectoris; E11.22 Type 2 diabetes mellitus with diabetic chronic kidney disease; N18.30 Chronic kidney disease, stage 3 unspecified
CPT/HCPCS: 80053; 80061; 83036; 85025

== ENCOUNTER → 2020-09-21 | Outpatient (CLI) | payer MEDICARE, OTHER, SELFPAY ==
[2020-09-22 13:42] LABS: SARS-COV-2 TOTAL ABS Reactive (Nonreactive)
== END | disposition home or self-care (01) ==
LOC: LABSPEC 10:53
PROVIDERS: PCP Family Medicine; Visit Provider Family Medicine
DX: Z20.828 Contact with and (suspected) exposure to other viral communicable diseases (principal)
CPT/HCPCS: 36415; 86769

== ENCOUNTER 2020-10-18 11:30 | Outpatient (RCR) | payer MEDICARE, OTHER, SELFPAY ==
[2019-12-12 10:46] VITALS: BMI 34.0
--- NOTE | 2020-05-25 14:15 | HP.PTEVAL_ITS ---
Patient's Visit Information SHELDON MALONEY is a 79 year old M referred to Physical Therapy by Kady Sherwood NP-C with a diagnosis of S/P LUMBAR FUSION L2-L5 05/05/20. Date of Evaluation: 05/25/20 Physical Therapist: Juliette Bassett, PT, Cert MDT - Visit Plan Frequency: 2-3x /Week Duration: 4-6 Weeks Plan: MH OR CP NEEDED. GAIT TRAINING. POSTURE CORRECTION/STRENGTHENING, INSTRUCTION IN APPROPRIATE BODY MECHANICS AND ACTIVITY MODIFICATIONS. DLS STARTING WITH A NEUTRAL SPINE PROGRESSING ROM AFTER 3 WEEKS TOLERATED. FABIAN LE ROM, STRETCHING AND STRENGTHENING. HEP INSTRUCTION. - Subjective Male, 79 years old. stenosis -- pain low back and bilat. leg burning, difficult to walk, prev surgery 7 years ago and lumbar surgery again 05/05/20: revision laminectomies, facetectomies, and foraminotomies L2-L5 and posterolateral fusion L2-L5. Present symptoms: LEFT LEG IS NUMB AND SENSATIVE IN THE THIGH AND CALF. LOW BACK REALLY HURT THIS MORNING. A LOT OF BACK PAIN. PATIENT REPORTS LIGHT NUMBNESS IN THE RIGHT LE. WORSE IN LLE. LLE PAIN, NUMBNESS AND WEAKNESS. Present since: ABOUT 6 MONTHS BEFORE SURGERY. Pain Scale: WORST 8/10, LEAST 3/10. Currently: 3/10. Commenced as a result of: NO APPARENT REASON. GRADUALLY GOT WORSE. Symptoms at onset: I COULDN'T WALK ANY DISTANCE. OTHER: PATIENT REPORTS HE REALLY DIDN'T HAVE MUCH PAIN IN HIS BACK OR LEGS BEFORE SURGERY BUT HE COULDN'T WALK HARDLY ANY DISTANCE. Worse: STANDING, WALKING, MOVING AROUND. Better: CP, SITTING, LYING DOWN, PAIN PILL. Disturbed sleep: SOMETIMES. Previous history/Previous treatment: BACK SURGERY ABOUT 7-8 YEARS AGO. PRIOR TO SX [facility]. NO PT. [facility] PRIOR TO 1ST BACK SURGERY. Coughing/sneezing/straining: NEGATIVE. Gait: PATIENT REPORTS HIS WALKING JUST INS'T GOOD YET BECAUSE HIS LEFT LEG IS GIVING HIM A LOT OF TROUBLE. NO FALLS. USING WALKER OR ROLLATOR OUTSIDE OF THE HOUSE. CANE IN THE HOUSE SOMETIMES. PATIENT REPORTS HE REALLY DIDN'T USE A WALKER OR A CANE BEFORE THE SURGERY UNLESS HE WAS GOING ON A LONG WALK (CANE). Difficulty initiating urinatin: NO. Accidents: NO. Unexplained weight loss: NO. Imaging: LUMBAR MRI NOVEMBER 2019: FINDINGS: T12-L1: Normal endplates. Normal disc height, hydration and morphology. Normal bilateral facet joints. Normal central canal and bilateral lateral. recesses. Normal bilateral intervertebral neural foramina. Normal lumbar lordosis. There is no substantial scoliosis. Normal conus. medullaris that terminates at the. L1-2: Endplate spondylosis. Decreased disc height and small. circumferential disc bulge. Degenerative changes of the bilateral facet. joints. Mild narrowing of the central canal and bilateral intervertebral. neural foramina. L2-3: Bilateral laminectomy. Endplate spondylosis. Decreased disc height. and small circumferential disc bulge. Degenerative changes of the. bilateral facet joints. Moderate narrowing of the bilateral intervertebral. neural foramina. L3-4: Bilateral laminectomy. Endplate spondylosis. Decreased disc height. and small circumferential disc bulge. Degenerative changes of the. bilateral facet joints. Moderate narrowing of the bilateral intervertebral. neural foramina. L4-5: Bilateral laminectomy. Endplate spondylosis. Decreased disc height. and small circumferential disc bulge. Degenerative changes of the. bilateral facet joints. Moderate narrowing of the bilateral intervertebral. neural foramina. L5-S1: Endplate spondylosis. Decreased disc height and small. circumferential disc bulge. Degenerative changes of the bilateral facet. joints. Mild right and moderate left intervertebral neural foraminal. narrowing. Normal visualized sacral ala. There is an infrarenal abdominal aortic aneurysm measures 3.8 cm. . MRI/Spine Lumbar (Routine). IMPRESSION: Multilevel degenerative changes of the lumbar spine. There is an infrarenal abdominal aortic aneurysm measures 3.8 cm. . Electronically Signed: Ángel Bryant,. at 1:47 EDT. PATIENT REPORTS HAVING AN X-RAY POST SURGERY AND THEY SAID EVERYTHING LOOKS GOOD. - Objective Sitting/Standing Posture: POOR. INCREASED TRUNK FLEXION. Lordosis: REDUCED. Active Correction of posture: BETTER. Other Observations: INDEP GAIT INTO PT WITH A ROLLATOR. FAIR CADANCE. NO LOSS OF BALANCE. PATIENTS IS WITH HIM. WEARING BACK BRACE AND HE REPORTS HE REALLY ISN'T WEARING IT MUCH BECAUSE HE IT IS REALLY UNCOMFORTABLE. PATIENT IS ABLE TO WALK AROUND THE TREATMENT ROOM A FEW STEPS WITHOUT ASSISTIVE DEVICE BUT THIS PT RECOMMENDS AD AT ALL TIMES FOR SAFETY DUE TO LLE WEAKNESS. PATIENT IS UE DEPENDENT TO TRANSFER FROM SIT TO STAND. Motor deficit: RIGHT LE: HIP 4/5, KNEE 5/5, ANKLE 5/5. LLE: HIP 3-/5, KNEE EXT 4-/5, KNEE FLEX 4-/5, ANKLE DORSIFLEX 2+/5. Sensory deficit: SIGNIFICANT LEFT THIGH AND LEG HYPERSENSATIVITY COMPARED TO RIGHT. LEFT FOOT NUMBNESS. RIGHT LE LIGHT TOUCH APPEARS MILDLY HYPERSENSATIVE WITH TESTING PER PATIENT REPORT. ROM deficit: TIGHT FABIAN HS'S, HIP FLEXORS AND GASTROC SOLEUS COMPLEX'S. Reflexes: NT. Dural Signs: POSITIVE FABIAN LE'S. Lumbar mvmt loss: NT. Core strength: POOR. Palpation: INCISION LOOKS GOOD WITHOUT ANY SIGNS OF INFECTION BUT IT DOES HAVE A SCAB AT THE BOTTOM. IS MONITORING DAILY AND REVIEWED SIGNS OF INFECTION. TREATMENT: NEUROMUSCULAR REEDUCATION - RETRAINING OF MVMT AND POSTURE FOR SITTING, LYING AND STANDING ACTIVITIES. INST IN WALKING PROGRAM. - Goals Goal 1:: DECREASE C/O BACK AND FABIAN LE SX'S. Goal Time Frame: 4-6 Weeks Goal 2:: IMPROVE PERSONAL CARE, LIFTING, WALKING, SITTING, STANDING, SLEEP, SOCIAL LIFE, TRAVEL AND HOMEMAKING FUNCTION. Goal Time Frame: 4-6 Weeks Goal 3:: INSTRUCT IN PROPHYLAXIS Goal Time Frame: 4-6 Weeks - Anticipated Interventions Patient/Client Instruction: Educate patient on: Condition, Plan of Care, Risk Factors, Benefits of Fitness Program For the Purpose of:: To improve self management Therapeutic Exercise to Include: Strength training, Endurance training, Body mechanics, Postural training, Flexibilty training, Gait and locomotor training, Neuromotor development, Dynamic Lumbar Stabilization For the Purpose of:: To decrease pain, To increase ROM, To improve muscle performance and motor function, To increase tolerance to activity/condition/position, To improve ability of physical actions for home/community/work/leisure, To improve gait and locomotor functions Functional Training to Include: Gait training For the Purpose of:: To improve gait and locomotor functions Cryotherapy (ice pack, ice massage): Yes Thermo therapy (hot pack): Yes For the Purpose of:: To decrease pain, To decrease swelling/inflammation, To improve nutrient delivery to tissue Thank you for the opportunity to evaluate your patient. For Medicare and Medicare HMO plans, please review the plan of care and approve it. It will need to be FAXED BACK to us at [phone] for Medicare purposes. For Medicare only, by signing this I certify the plan of care. Please let me know if there are questions or concerns regarding this plan of care. Physician Signature: Date:
--- NOTE | 2020-06-25 13:21 | HP.PTREVAL_ITS ---
Kady Sherwood, SULEIMAN-C, It has been my pleasure to treat SHELDON MALONEY over the last 11 visits for S/P LUMBAR FUSION L2-L5 05/05/20. Please see the progress note below for an update on the physical therapy plan of care! Subjective: PATIENT REPORTS THAT HE HAD A BACK X-RAY 06/17/[address] GERARD OFFICE AND THEY TOLD HIM A SCREW WENT IN [place]. HE HAS A CAT SCAN PENDING 06/30/20 TO GET MORE INFORMATION. PATIENT REPORTS THEY TOLD HIM THEY MIGHT HAVE TO TAKE THAT SCREW OUT. PATIENT REPORTS HE IS STILL HAVING LLE PROBLEMS WITH PAIN, NUMBNESS AND WEAKNESS. REPORTS THAT AFTER HIS RECENT FOLLOW UP HE TWISTED HIS ANKLE AND IT STILL SWELLS OFF AND ON. PATIENT REPORTS HIS LEFT FOOT IS STILL NUMBY AND IT DOESN'T WANT TO DO WHAT HE WANTS IT TO DO SOMETIMES. PATIENT REPORTS HE IS LOTS BETTER THOUGH SINCE STARTING PT. HE REPORTS THE NUMBNESS IN HIS LEG IS LESS NOW THAN BEFORE STARTING THERAPY. MY BACK IS NOT SORE AND I DON'T HAVE NEAR THE PAIN NOW. EVERYTHING HAS IMPROVED. PATIENTS REPORTS HE CAN WALK OUT TO THE BARN BETTER NOW AND SHE STATES SHE THINKS HER STILL NEEDS THERAPY. HE CAN DRESS HIMSELF NOW AND CAN GET HIS FEET IN HIS SHOES EVEN THOUGH HE CAN'T TIE THEM YET. PATIENT PREPORTS HIS ANKLE IS GETTING BETTER SINCE TWISTING IT RECENTLY. PATIENT WAS USING HIS CANE WHEN HE TWISTED HIS ANKLE AND THIS PT REINFORCED USE OF ROLLATOR VS CANE FOR SAFETY. Objective/Function: PATIENT WAS SEEN TODAY FOR RE-ASSESSMENT OF PROGRESS TOWARD THE SET PT GOALS AND THE NEED FOR FURTHER PHYSICAL THERAPY VS READINESS FOR DISCHARGE. PATIENT IS A GOOD CANDIDATE TO CONTINUE PT BASED ON PROGRESS MADE AND ROOM FOR FURTHER IMPROVEMENT. UPON EXAM TODAY: Motor deficit: RIGHT LE: H IP 4/5, KNEE 5/5, ANKLE 5/5. LLE: HIP 4-/5, KNEE EXT 4/5, KNEE FLEX 4/5, ANKLE DORSIFLEX 2+/5. Sensory deficit: STILL WITH SIGNIFICANT LEFT THIGH AND LEG HYPERSENSATIVITY COMPARED TO RIGHT. LEFT FOOT NUMBNESS. RIGHT LE LIGHT TOUCH IS NO LONGER HYPERSENSATIVE PER PATIENT REPORT. ROM deficit: TIGHT FABIAN HS'S, HIP FLEXORS AND GASTROC SOLEUS COMPLEX'S. Dural Signs: POSITIVE LLE. Lumbar mvmt loss: NT. Core strength: POOR. OTHER: ADVISED PATIENT TO MAKE SURE ALL LOOSE RUGS ARE TAKEN UP IN HOUSE. ALSO ADVISED PATIENT TO CONTINUE TO AVOID BENDING, LIFTING AND TWISTING UNTIL SURGEON TELLS HIM OTHERWISE. INSTRUCTED PATIENT IN LLE HIP HIKE NEEDED TO CLEAR TOES. Plan Plan: *FALL RISK*. MAY NEED TO CONSIDER AFO. CONTINUE PT 2-3 TIMES A WK X 10 MORE VISITS FOR GAIT TRAINING. POSTURE CORRECTION/STRENGTHENING, INSTRUCTION IN APPROPRIATE BODY MECHANICS AND ACTIVITY MODIFICATIONS. DLS STARTING WITH A NEUTRAL SPINE PROGRESSING ROM AFTER 3 WEEKS TOLERATED. FABIAN LE ROM, STRETCHING AND STRENGTHENING. HEP INSTRUCTION. Goals Goal 1:: DECREASE C/O BACK AND FABIAN LE SX'S. Goal Time Frame: 4-6 Weeks Goal 2:: IMPROVE PERSONAL CARE, LIFTING, WALKING, SITTING, STANDING, SLEEP, SOCIAL LIFE, TRAVEL AND HOMEMAKING FUNCTION. Goal Time Frame: 4-6 Weeks Goal 3:: INSTRUCT IN PROPHYLAXIS Goal Time Frame: 4-6 Weeks Anticipated Interventions Patient/Client Instruction: Educate patient on: Condition, Plan of Care, Risk Factors, Benefits of Fitness Program For the Purpose of:: To improve self management Therapeutic Exercise to Include: Strength training, Endurance training, Body mechanics, Postural training, Flexibilty training, Gait and locomotor training, Neuromotor development, Dynamic Lumbar Stabilization For the Purpose of:: To decrease pain, To increase ROM, To improve muscle performance and motor function, To increase tolerance to activity/condition/position, To improve ability of physical actions for home/community/work/leisure, To improve gait and locomotor functions Functional Training to Include: Gait training For the Purpose of:: To improve gait and locomotor functions Cryotherapy (ice pack, ice massage): Yes Thermo therapy (hot pack): Yes For the Purpose of:: To decrease pain, To decrease swelling/inflammation, To improve nutrient delivery to tissue Please do not hesitate to contact me at [phone] by phone or if you have questions or concerns regarding this new plan of care! Sincerely, Juliette Bassett, PT, Cert MDT
--- NOTE | 2020-07-16 12:26 | HP.PTREVAL_ITS ---
Kady Sherwood, FAMILY CONSUMER SCIENTIST-C, It has been my pleasure to treat SHELDON MALONEY over the last 20 visits for S/P LUMBAR FUSION L2-L5 05/05/20. Please see the progress note below for an update on the physical therapy plan of care! Subjective: PATIENT REPORTS IT DOESN'T TAKE MUCH TO ROLL HIS ANKLE (L). PATIENT REPROTS THE SURGEON KNOWS HE IS HAVING TROUBLE AND THEY TOLD HIM TO TAKE GABAPENTIN. STATES THEY ARE WAITING ON HIM TO GET BETTER BY HIMSELF BUT HE THINKS THEY HAVE MISSED SOMETHING AND SOMETHING IS GETTING PINCHED. STATES HE IS VERY UNSTABLE AND USES HIS CANE A LOT. I KNOW ITS NOT RIGHT BUT I CAN'T FIX IT BUT I KNOW I AM STILL GETTING SOME BETTER. FOLLOW UP PENDING IN AUGUST. PATIENT REPROTS HE CALLED THEM THE OTHER DAY BECAUSE HIS TOE IS BLACK AND BLUE AND THEY TOLD HIM IT DOESN'T HAVE ANYTHING TO DO WITH THE SURGERY. THEY TOLD HIM TO SEE HIS FAMILY DOCTOR. STATES THEY SPENT ALL DAY SUNDAY TRYING TO GET HELP. WENT TO NOW CLINIC AND THEY WOULDN'T LOOK AT HIM. THEY SENT HIM TO THE HOSPITAL EMERGENCY ROOM. THEY TOOK X-RAYS OF FOOT, US AND BLOOD TESTS. PATIENT REPORTS EVERYTHING WAS PERFECT. STATES COULDN'T GET IN TO SEE DR. WRIGHT AND THEY RECOMMENDED URGENT CARE AND THEN THAT RESULTED IN THE ED REFERRAL. THE FOOT IS STILL NUMBY. SLEEPING GOOD. FEELS A LOT OF PRESSURE ON BACK WHEN GETS UP IN THE MORNING. LEFT THIGH IS STILL SENSATIVE BUT GETTING SOME BETTER PER PATIENT REPORT. SHOOTING PAINS INTO BIG TOE AND THE ONE NEXT TO IT. STATES THAT IT IS HIS BIG TOE THAT IS BRUISED AND WAS SEEN BY ER DOC. STATES HE DOES NOT RE-CALL BUMPING IT. PATIENT REPORTS DR. TUCKER TOLD HIM HE DID A LOT OF WORK BACK THERE AND DOESN'T WANT HIM TO BEND, LIFT OR TWIST YET. Objective/Function: PATIENT WAS SEEN TODAY FOR RE-ASSESSMENT OF PROGRESS TOWARD THE SET PT GOALS AND THE NEED FOR FURTHER PHYSICAL THERAPY VS READINESS FOR DISCHARGE. PATIENT IS A GOOD CANDIDATE TO CONTINUE PT BASED ON SLOW PROGRESS MADE AND ROOM FOR FURTHER IMPROVEMENT. UPON EXAM TODAY: Motor deficit: RIGHT LE: HIP 4+/5, KNEE 5/5, ANKLE 5/5. LLE: HIP 4/5, KNEE EXT 4+/5, KNEE FLEX 4+/5, ANKLE DORSIFLEX 3-/5. Sensory deficit: STILL WITH SIGNIFICANT LEFT THIGH AND LEG HYPERSENSATIVITY COMPARED TO RIGHT. LEFT FOOT NUMBNESS. ROM deficit: TIGHT FABIAN HS'S, HIP FLEXORS AND GASTROC SOLEUS COMPLEX'S. Dural Signs: POSITIVE LLE. Lumbar mvmt loss: NT. Core strength: POOR. ED NOTE STATES IT IS RECOMMENDED FOR PATIENT TO FOLLOW UP WITH DR. RICHARD TUCKER AND PATIENT AWARE. PATIENT ALSO PLANS TO MAKE AN MIGUEL ANGEL'T WITH DR. WRIGHT BECAUSE HE STATES DR. TUCKER'S OFFICE TOLD HIM TO. PATIENT IS STILL ASSISTIVE DEVICE DEPENDENT FOR SAFETY DUE TO LEFT ANKLE WEAKNESS AND DECREASED PROPRIOCEPTION OF LLE. Plan Plan: *FALL RISK*. MAY NEED TO CONSIDER AFO. CONTINUE PT 2-3 TIMES A WK X 10 MORE VISITS FOR GAIT TRAINING. POSTURE CORRECTION/STRENGTHENING, INSTRUCTION IN APPROPRIATE BODY MECHANICS AND ACTIVITY MODIFICATIONS. DLS STARTING WITH A NEUTRAL SPINE PROGRESSING ROM AFTER 3 WEEKS TOLERATED. FABIAN LE ROM, STRETCHING AND STRENGTHENING. HEP INSTRUCTION. Goals Goal 1:: DECREASE C/O BACK AND FABIAN LE SX'S. Goal Time Frame: 4-6 Weeks Goal Progress: Progressing Goal 2:: IMPROVE PERSONAL CARE, LIFTING, WALKING, SITTING, STANDING, SLEEP, SOCIAL LIFE, TRAVEL AND HOMEMAKING FUNCTION. Goal Time Frame: 4-6 Weeks Goal Progress: Progressing Goal 3:: INSTRUCT IN PROPHYLAXIS Goal Time Frame: 4-6 Weeks Goal Progress: Progressing Anticipated Interventions Patient/Client Instruction: Educate patient on: Condition, Plan of Care, Risk Factors, Benefits of Fitness Program For the Purpose of:: To improve self management Therapeutic Exercise to Include: Strength training, Endurance training, Body mechanics, Postural training, Flexibilty training, Gait and locomotor training, Neuromotor development, Dynamic Lumbar Stabilization For the Purpose of:: To decrease pain, To increase ROM, To improve muscle performance and motor function, To increase tolerance to activity/condition/position, To improve ability of physical actions for home/community/work/leisure, To improve gait and locomotor functions Functional Training to Include: Gait training For the Purpose of:: To improve gait and locomotor functions Cryotherapy (ice pack, ice massage): Yes Thermo therapy (hot pack): Yes For the Purpose of:: To decrease pain, To decrease swelling/inflammation, To improve nutrient delivery to tissue Please do not hesitate to contact me at [phone] by phone or if you have questions or concerns regarding this new plan of care! Sincerely, Juliette Bassett, PT, Cert MDT
--- NOTE | 2020-08-11 12:03 | HP.PTREVAL_ITS ---
Kady Sherwood, SULEIMAN-C, It has been my pleasure to treat SHELDON MALONEY over the last 30 visits for S/P LUMBAR FUSION L2-L5 05/05/20. Please see the progress note below for an update on the physical therapy plan of care! Subjective: PATIENT REPORTS NOW THE PAIN THAT HE HAS COMES AND GOES AND SOMETIMES GRABS IN HIS LEFT THIGH. SOMETIMES IT SHOOTS INTO ALL OF HIS TOES. THE PAIN IS SHOOTING AND FLEETING. SOMETIMES THE PAIN HITS SITTING AND SOMETIMES WALKING. PATIENT REPORTS HE IS DEFINEATELY GETTING STRONGER THOUGH. STATES HE DOESN'T HAVE TO USE THE WALKER VERY OFTEN BUT USES THE CANE ALMOST ALL THE TIME. SLEEPING GOOD. PATIENT REPORTS HE HAD A FOLLOW UP WITH DR. WRIGHT AND HE RECOMMENDED A BRACE FOR HIS ANKLE AND HE GOT ONE. WORE IT FOR A DAY OR SO. STATES HE DOESN'T FEEL IT HELPS MORE THAN JUST HIS SHOE ALONE. STATES IT IS TOO BULKY IN HIS SHOE AND IS AWARE HE CAN TRIM IT BUT JUST DOESN'T FEEL IT IS WORTH IT. WENT TO [employer] AFTER PT SUNDAY AND WAS TIRED SUNDAY. SUNDAY HE STATES HE COULDN'T TRUST HIS LEG AT ALL. FOLLOW UP WITH SURGEON SEP 14 2020 PENDING. PATIENT REPORTS THERE IS A SCREW THAT IS BENT BUT NO FURTHER SURGERY IS RECOMMENDED YET. STILL GETTING LOW BACK PAIN ESPECIALLY IN THE MORNINGS. OCCASSIONAL SHOOTING PAINS TO TOES ON RIGHT TOO. Objective/Function: PATIENT WAS SEEN TODAY FOR RE-ASSESSMENT OF PROGRESS TOWARD THE SET PT GOALS AND THE NEED FOR FURTHER PHYSICAL THERAPY VS READINESS FOR DISCHARGE. PATIENT IS A GOOD CANDIDATE TO CONTINUE PT BASED ON SLOW PROGRESS MADE AND ROOM FOR FURTHER IMPROVEMENT. UPON EXAM TODAY: Motor deficit: RIGHT LE: HIP 4+/5, KNEE 5/5, ANKLE 5/5. LLE: HIP 4+/5, KNEE EXT 4+/5, KNEE FLEX 4+/5, ANKLE DORSIFLEX 3-/5. EHL 2-/5. Sensory deficit: STILL WITH SIGNIFICANT LEFT THIGH AND LEG HYPERSENSATIVITY COMPARED TO RIGHT. LEFT FOOT NUMBNESS. ROM deficit: TIGHT FABIAN HS'S, HIP FLEXORS AND GASTROC SOLEUS COMPLEX'S. Dural Signs: POSITIVE LLE. Lumbar mvmt loss: NT. Core strength: POOR. PATIENT IS STILL ASSISTIVE DEVICE DEPENDENT FOR SAFETY DUE TO LEFT ANKLE WEAKNESS AND DECREASED PROPRIOCEPTION OF LLE. PT ORDER STATED OK TO BEGIN LUMBAR ROM AFTER 3 WEEKS BUT PATIENT REPORTS HE IS NOT SUPPOSED TO BEND OR TWIST YET AND WILL DISCUSS WITH DR. TUCKER AT FOLLOW UP. Plan Plan: *FALL RISK*. ASK PATIENT TO BRING AFO AND ASSESS SAFETY OF GAIT WITH AFO VS WITHOUT. CONTINUE PT 2 TIMES A WK X 10 MORE VISITS FOR GAIT TRAINING. POSTURE CORRECTION/STRENGTHENING, INSTRUCTION IN APPROPRIATE BODY MECHANICS AND ACTIVITY MODIFICATIONS. DLS WITH A NEUTRAL SPINE. FABIAN LE ROM, STRETCHING AND STRENGTHENING. HEP INSTRUCTION. Goals Goal 1:: DECREASE C/O BACK AND FABIAN LE SX'S. Goal Time Frame: 4-6 Weeks Goal Progress: Progressing Goal 2:: IMPROVE PERSONAL CARE, LIFTING, WALKING, SITTING, STANDING, SLEEP, SOCIAL LIFE, TRAVEL AND HOMEMAKING FUNCTION. Goal Time Frame: 4-6 Weeks Goal Progress: Progressing Goal 3:: INSTRUCT IN PROPHYLAXIS Goal Time Frame: 4-6 Weeks Goal Progress: Progressing Anticipated Interventions Patient/Client Instruction: Educate patient on: Condition, Plan of Care, Risk Factors, Benefits of Fitness Program For the Purpose of:: To improve self management Therapeutic Exercise to Include: Strength training, Endurance training, Body mechanics, Postural training, Flexibilty training, Gait and locomotor training, Neuromotor development, Dynamic Lumbar Stabilization For the Purpose of:: To decrease pain, To increase ROM, To improve muscle performance and motor function, To increase tolerance to activity/condition/position, To improve ability of physical actions for home/community/work/leisure, To improve gait and locomotor functions Functional Training to Include: Gait training For the Purpose of:: To improve gait and locomotor functions Cryotherapy (ice pack, ice massage): Yes Thermo therapy (hot pack): Yes For the Purpose of:: To decrease pain, To decrease swelling/inflammation, To improve nutrient delivery to tissue Please do not hesitate to contact me at [phone] by phone or Fax: if you have questions or concerns regarding this new plan of care! Sincerely, Juliette Bassett, PT, Cert MDT
--- NOTE | 2020-09-15 11:01 | HP.PTREVAL ---
Kady Sherwood, SULEIMAN-C, It has been my pleasure to treat SHELDON MALONEY over the last 40 visits for S/P LUMBAR FUSION L2-L5 05/05/20. Please see the progress note below for an update on the physical therapy plan of care! Subjective: PATIENT REPORTS HE HAD A FOLLOW UP WITH DR. RICHARD TUCKER. STATES THAT DR. TUCKER TESTED HIS ANKLE AND FEELS IT HAS IMPROVED SOME AND WANTS HIM TO CONTINUE PT. PATIENT REPORTS HE TOLD DR. TUCKER ABOUT HIS ANKLE TWISTING EASILY AND SWELLING. STATES DR. TUCKER IS ALOS AWAY OF THE PAIN AND SENSATIVITY IN HIS LLE. PATIENT REPORTS CONSISTANTLY HAVING PAIN RELIEF WHEN HE LIES DOWN AT NIGHT - HIS SX'S ACTUALLY ALL GO AWAY WHEN HE LAYS DOWN. REPORTS DR. RICHARD TUCKER REFERRED HIM TO DR. DAVIS. PATIENT REPORTS HE IS HAPPY WITH PHYSICAL THERAPY AND WILLING TO CONTINUE. PATIENT REPORTS HIS BACK DOESN'T BOTHER HIM AT ALL EXCEPT AN HOUR OR SO IN THE MORNING. SOMETIMES THE LEG HURTS MORE MORE. PATIENT REPORTS THE TOLD HIM TO WEAR HIS BRACE AND HIS IS GOING TO TRY AGAIN BUT DID NOT WEAR IT TODAY. Objective/Function: PATIENT WAS SEEN TODAY FOR RE-ASSESSMENT OF PROGRESS TOWARD THE SET PT GOALS AND THE NEED FOR FURTHER PHYSICAL THERAPY VS READINESS FOR DISCHARGE. PATIENT IS A GOOD CANDIDATE TO CONTINUE PT BASED ON SLOW PROGRESS MADE AND ROOM FOR FURTHER IMPROVEMENT. HIS L ANKLE EVERSION HOWEVER IS GETTING WORSE. PATIENT MAY BENEFIT FROM CUSTOM BRACE IF UNABLE TO GET COMFORTABLE WITH CURRENT BRACE. PATIENT IS GOING TO TRIM IT AND SEE HOW IT GOES. UPON EXAM TODAY: Motor deficit: RIGHT LE: HIP 4+/5, KNEE 5/5, ANKLE 5/5. LLE: HIP 4+/5, KNEE EXT 4+/5, KNEE FLEX 4+/5, ANKLE DORSIFLEX 3-/5. EHL 2-/5. ANKLE EVERSION IS BECOMING WEAKER GRADED 1/5 TODAY. Sensory deficit: STILL WITH SIGNIFICANT LEFT THIGH AND LEG HYPERSENSATIVITY COMPARED TO RIGHT. LEFT FOOT NUMBNESS. ROM deficit: TIGHT FABIAN HS'S, HIP FLEXORS AND GASTROC SOLEUS COMPLEX'S. Dural Signs: POSITIVE LLE. Lumbar mvmt loss: FLEX - MOD TO GWENDOLYN. EXT - MOD TO GWENDOLYN. R SG - MOD TO GWENDOLYN. L SG - MOD TO GWENDOLYN. Core strength: POOR. PATIENT IS STILL ASSISTIVE DEVICE DEPENDENT FOR SAFETY DUE TO LEFT ANKLE WEAKNESS AND DECREASED PROPRIOCEPTION OF LLE. Plan Plan: ENCOURAGE BRACE USE AND CHECK FOR PRESSURE POINTS. ENCOURAGE PATIENT TO GET AN ORDER FOR A CUSTOM BRACE FROM DR. RICHARD TUCKER IF THE ONE HE HAS WON'T WORK AND IF DR. UTCKER CONCURS. INITIATE SKTC AND LTR AND PROGRESS LUMBAR ROM SLOWLY TOLERATED. *FALL RISK*. ASK PATIENT TO BRING AFO AND ASSESS SAFETY OF GAIT WITH AFO VS WITHOUT. CONTINUE PT 2 TIMES A WK X 8 MORE VISITS FOR GAIT TRAINING. POSTURE CORRECTION/STRENGTHENING, INSTRUCTION IN APPROPRIATE BODY MECHANICS AND ACTIVITY MODIFICATIONS. DLS WITH A NEUTRAL SPINE. FABIAN LE ROM, STRETCHING AND STRENGTHENING. HEP INSTRUCTION. Goals Goal 1:: DECREASE C/O BACK AND FABIAN LE SX'S. Goal Time Frame: 4-6 Weeks Goal Progress: Progressing Goal 2:: IMPROVE PERSONAL CARE, LIFTING, WALKING, SITTING, STANDING, SLEEP, SOCIAL LIFE, TRAVEL AND HOMEMAKING FUNCTION. Goal Time Frame: 4-6 Weeks Goal Progress: Progressing Goal 3:: INSTRUCT IN PROPHYLAXIS Goal Time Frame: 4-6 Weeks Goal Progress: Progressing Anticipated Interventions Patient/Client Instruction: Educate patient on: Condition, Plan of Care, Risk Factors, Benefits of Fitness Program For the Purpose of:: To improve self management Therapeutic Exercise to Include: Strength training, Endurance training, Body mechanics, Postural training, Flexibilty training, Gait and locomotor training, Neuromotor development, Dynamic Lumbar Stabilization For the Purpose of:: To decrease pain, To increase ROM, To improve muscle performance and motor function, To increase tolerance to activity/condition/position, To improve ability of physical actions for home/community/work/leisure, To improve gait and locomotor functions Functional Training to Include: Gait training For the Purpose of:: To improve gait and locomotor functions Cryotherapy (ice pack, ice massage): Yes Thermo therapy (hot pack): Yes For the Purpose of:: To decrease pain, To decrease swelling/inflammation, To improve nutrient delivery to tissue Please do not hesitate to contact me at [phone] by phone or if you have questions or concerns regarding this new plan of care! Sincerely, Juliette Bassett, PT, Cert MDT
--- NOTE | 2020-10-18 12:05 | HP.PTDCSUM ---
It has been my pleasure to treat SHELDON MALONEY referred by MARIO Parker, with the diagnosis of S/P LUMBAR FUSION L2-L5 05/05/20 for a total of 50 visit(s). Discharge Date: Please see the following information for a summary of their discharge status. Subjective: PATIENT REPORTS HE HAD A FOLLOW UP WITH DR. RICHARD TUCKER. STATES THAT DR. TUCKER TESTED HIS ANKLE AND FEELS IT HAS IMPROVED SOME AND WANTS HIM TO CONTINUE PT. PATIENT REPORTS HE TOLD DR. TUCKER ABOUT HIS ANKLE TWISTING EASILY AND SWELLING. STATES DR. TUCKER IS ALSO AWARE OF THE PAIN AND SENSATIVITY IN HIS LLE. PATIENT REPORTS STILL CONSISTANTLY HAVING PAIN RELIEF WHEN HE LIES DOWN AT NIGHT - HIS SX'S ACTUALLY ALL GO AWAY WHEN HE LAYS DOWN. REPORTS DR. RICHARD TUCKER REFERRED HIM TO DR. DAVIS. PATIENT HAS HAD ONE CONSULT WITH DR. DAVIS AND HE IS SEEKING INSURANCE APPROVAL FOR AN INJECTION (ABOUT A WEEK AGO). PATIENT REPORTS HE IS HAPPY WITH PHYSICAL THERAPY AND HE IS PLANNING TO CONTINUE HIS EX'S AT A FACILITY OF HIS CHOICE. PATIENT REPORTS HIS BACK DOESN'T BOTHER HIM AT ALL EXCEPT AN HOUR OR SO IN THE MORNING. SOMETIMES THE LEG HURTS MORE MORE. PATIENT REPORTS THE TOLD HIM TO WEAR HIS BRACE AND HE IS NOW WEARING IT CONSISTANTLY (EXCEPT IN THE HOUSE SOMETIMES) AND IT DEFINATELY HELPS HIM KEEP FROM TWISTING HIS ANKLE. STATES HE HAD TO USE A STICK TO GET HIS MOWER OFF A STUMP AND HE TWISTED HIS ANKLE SUNDAY. HIS ANKLE IS NOW A LITTLE SORE BUT NO WORSE THAN THE PAST. REPORTS HIS LEFT THIGH IS SORE TOO AND HE FEELS IT IS FROM WALKING. STATES WALKING IN PT HAS BEEN CHALLENGING BUT NOT TOO MUCH. Lowback Pain Intensity (Out of 10): 2 Left LE Pain Intensity (Out of 10): 0 % Improvement: 80 Objective/Function: PATIENT WAS SEEN TODAY FOR RE-ASSESSMENT OF PROGRESS TOWARD THE SET PT GOALS AND THE NEED FOR FURTHER PHYSICAL THERAPY VS READINESS FOR DISCHARGE. PATIENT IS NOT CONTINUEING TO IMPROVE. PAIN MGMT PENDING. HE IS APPROPRIATE FOR DISCHARGE TO INDEP EX AT THIS TIME. HIS L ANKLE EVERSION IS NOT GETTING BETTER. PATIENT MAY STILL BENEFIT FROM CUSTOM BRACE IF UNABLE TO GET COMFORTABLE WITH CURRENT BRACE. UPON EXAM TODAY: Motor deficit: RIGHT LE: HIP 5/5, KNEE 5/5, ANKLE 5/5. LLE: HIP 5/5, KNEE EXT 4+/5, KNEE FLEX 4+/5, ANKLE DORSIFLEX 3-/5. EHL 2-/5. ANKLE EVERSION 1/5. Sensory deficit: STILL WITH SIGNIFICANT LEFT THIGH AND LEG HYPERSENSATIVITY COMPARED TO RIGHT. LEFT FOOT NUMBNESS. ROM deficit: TIGHT FABIAN HS'S, HIP FLEXORS AND GASTROC SOLEUS COMPLEX'S. Dural Signs: POSITIVE LLE. Lumbar mvmt loss: FLEX - MOD TO GWENDOLYN. EXT - MOD TO GWENDOLYN. R SG - MOD TO GWENDOLYN. L SG - MOD TO GWENDOLYN. Core strength: POOR. OTHER: PATIENT STILL USES HIS CANE ABOUT 75% OF THE TIME WALKING OUT OF HIS HOME FOR SAFETY. Goal 1:: DECREASE C/O BACK AND FABIAN LE SX'S. Goal Progress: Goal Met Goal 2:: IMPROVE PERSONAL CARE, LIFTING, WALKING, SITTING, STANDING, SLEEP, SOCIAL LIFE, TRAVEL AND HOMEMAKING FUNCTION. Goal Progress: Goal Met Goal 3:: INSTRUCT IN PROPHYLAXIS Goal Progress: Goal Met Plan: D/C TO FOLLOW UP WITH DR. RICHARD TUCKER, PAIN MGMT AND HEP. PATIENT AGREEABLE. If there are questions or concerns regarding this patient's physical therapy, please feel free to call me at [phone]. Thank you for the referral of this patient. Sincerely, Juliette Bassett, PT, Cert MDT
== END 2020-10-18 19:00 | disposition home or self-care (01) ==
LOC: PT 11:30
PROVIDERS: PCP Family Medicine; Referring Provider Nurse Practitioner Acute Care; Visit Provider Nurse Practitioner Acute Care
DX: M48.061 Spinal stenosis, lumbar region without neurogenic claudication (principal); Z98.1 Arthrodesis status
CPT/HCPCS: 97110; 97112; 97116; 97162; 97164; 97530

== ENCOUNTER → 2020-12-07 11:02 | Outpatient (CLI) | payer MEDICARE, OTHER, SELFPAY | PROVIDERS: PCP Family Medicine; Referring Provider Urology; Visit Provider Urology | DX: R97.20 Elevated prostate specific antigen [PSA] (principal) | CPT/HCPCS: 36415; 84153 ==

== ENCOUNTER → 2021-01-14 07:11 | Outpatient (CLI) | payer MEDICARE, OTHER, SELFPAY ==
[2021-01-03 14:24] VITALS: BMI 37.4
--- NOTE | 2021-01-14 15:11 | STRESSREP ---
Stress Test Report Pharmacologic myocardial perfusion stress test. 80-year-old man with a history of coronary disease status post previous angioplasty and stenting. Stress protocol: Resting EKG demonstrates sinus bradycardia with a rate of 53 bpm normal intervals are noted resting blood pressure 732/70 6 mmHg. 0.4 mg of regadenoson was infused per usual protocol followed by rapid intravenous saline flush injection continuous EKG monitoring was performed. The patient maintained sinus rhythm throughout the recording. The maximum heart rate was 78 bpm which was 55% of max infected heart rate the maximum workload was 1 metabolic equivalent. At rest there were no ST or T wave changes noted to suggest abnormal flow reserve and at peak infusion nonspecific ST changes were noted with did not meet the criteria for ischemia. Myocardial perfusion protocol. 14.8 mCi of technetium 99m sestamibi was injected at rest. 0.4 mg of regadenoson was infused. Protocol peak infusion 44.7 mCi of technetium 99m sestamibi was injected stress images were obtained, stress and rest images were reconstructed and compared in the short axis vertical long horizontal long axis. Gated images were also obtained for Perfusion SPECT analysis: Review of the stress images demonstrate normal uptake of tracer noted in all areas of myocardium. The resting images similarly demonstrate normal uptake of tracer noted in all areas of the myocardium. No areas of reversibility are noted to suggest ischemia. Gated SPECT analysis: The gated ejection fraction is noted to be 60%. Conclusion: Normal pharmacologic myocardial perfusion stress test with no evidence of ischemia. Preserved ejection fraction.
== END ==
PROVIDERS: PCP Family Medicine; Referring Provider Physician Assistant Medical; Visit Provider Physician Assistant Medical
DX: I25.118 Atherosclerotic heart disease of native coronary artery with other forms of angina pectoris (principal)
CPT/HCPCS: 78452; 93017; A9500; A4216; J2785

== ENCOUNTER 2021-01-25 10:00 | Outpatient (RCR) | payer MEDICARE, OTHER, SELFPAY ==
--- NOTE | 2020-12-22 10:30 | HP.PTEVAL ---
Patient's Visit Information SHELDON MALONEY is a 80 year old M referred to Physical Therapy by MARIO Parker with a diagnosis of S/P LUMBAR FUSION,SPINAL STENOSIS [place]ION WITHOUT NEUROGENIC. Date of Evaluation: 12/21/20 Physical Therapist: Isauro Melgar, PT, Cert MDT, OCS - Visit Plan Frequency: 2x /Week Duration: 4 Weeks Plan: PT INTERVETIONS FLEXION LUMBAR ,LE FLEXABLITY,DLS ABD/BACK,AND POSTURAL EX'S AND LE STRENGTENING - Subjective This 80 y/o male presents to physical therapy with with s/p lumbar fusion on Apr 2020 at [facility] . Patient had prior PT September 2020. Patient return to DR wanted to return to physical therapy . Patient had prior MRI showed prior spinal stenosis. Patient had x-rays looked good. Currently, left leg thigh to foot. No back pain just fatigue in back. Aggravating walking ,standing 10mins ,difficulty bending and lifting. Alleviating factors sitting and resting. Meds : GABEPETIN. C/O parathesia/tingling left foot. Bowel/bladder good. Coughing/sneezing -. Patient sleeping good. wants to see Dr Pickard pain management. Patient condition affects QOL and function. Patient uses cane for balance and back pain. SOCIAL: . VOCATION: retired - Pain Left Lower Extremity Pain Intensity (Out of 10): 5 Pain Intensity Range: 10 Comment: walking - Objective POSTURE: mild forward hips/knees flexed. GAIT: ambulate with straight cane slow remedios mild forward posture. NEURO: c/o parathesia/tingling ,reflexes L3-4,L4-5,L5-S1 1/3. SYMMTRIES: align. PALAPTION: tender LS. MMT: quads/hams 4-/5,hip flexion 4-/5,ankle 4/5 right, left 3+/5. FLEXABLITY: hams mild tight. LUMBAR ROM : flexion mod loss ,extension mod loss side glide mod loss. FLEXABILITY: HAMS MOD TIGHT,PRIFORMIS MOD LIMITED - Special Tests L/S Slump test left side: Positive L/S Slump test right side: Positive L/S Left Straight Leg Raise: Negative L/S Right Straight Leg Raise: Negative Lumbar Standing: Flexion - Mechanical Response: No effect Lumbar Standing: Flexion - Symptoms During Testing: No effect Lumbar Standing: Flexion - Symptoms After Testing: No effect Lumbar Standing: Extension - Mechanical Response: No effect Lumbar Standing: Extension - Symptoms During Testing: No effect Lumbar Standing: Extension - Symptoms After Testing: No effect Lumbar Standing: Right Side Glides - Mechanical Response: No effect Lumbar Standing: Right Side [place] - Symptoms During Testing: No effect Lumbar Standing: Right Side [place] - Symptoms After Testing: No effect Lumbar Standing: Left Side [place] - Mechanical Response: No effect Lumbar Standing: Left Side [place] - Symptoms During Testing: No effect Lumbar Standing: Left Side [place] - Symptoms After Testing: No effect - Goals Goal 1:: Patient to be I with HEP Goal Time Frame: 4-6 Weeks Goal 2:: Patient to ambulate with improve quality of gait pattern community distances with cane Goal Time Frame: 4-6 Weeks Goal 3:: Patient to increase strength left ankle 4-/5 to improve function and hips to 4/5 to improve gait. Goal Time Frame: 4-6 Weeks Goal 4:: Patient to improve lumbar ROM for function of recovery Goal Time Frame: 4-6 Weeks Goal 5:: Patient to improve back owestry score by 5 points or> to improve function. Goal Time Frame: 4-6 Weeks - Rehabilitation Potential Physical Therapy Diagnosis: This patient underwent s/p lumbar fusion Apr 2020 with decrease gait, weakness left ankle, decrease ROM lumbar spine and decrease balance causes impairments with function and gait Rehabilitation Potential: Good - Anticipated Interventions Patient/Client Instruction: Educate patient on: Condition For the Purpose of:: To decrease pain, To increase ROM, To improve ability to perform ADL's, To improve ability of physical actions for home/community/work/leisure, To increase flexibility/ROM, To assume or resume ADL's, To reduce risk of recurrence, To improve tolerance to ADL's Therapeutic Exercise to Include: Strength training, Body mechanics, Postural training, Flexibilty training, via [employer] Balance Mas, Dynamic Lumbar Stabilization For the Purpose of:: To decrease pain, To increase ROM, To improve ability to perform ADL's, To increase tolerance to activity/condition/position, To improve performance and independence with ADL's, To improve ability of physical actions for home/community/work/leisure, To improve health of tissue, To decrease soft tissue restriction, To increase flexibility/ROM, To improve balance, To reduce risk of recurrence, To prevent re-injury, To improve tolerance to ADL's TENS: Yes IF ES: Yes Cryotherapy (ice pack, ice massage): Yes Ultrasound (thermal/non thermal): Yes For the Purpose of:: To decrease pain, To increase ROM, To improve health of tissue, To decrease soft tissue restriction, To increase flexibility/ROM, To assume or resume ADL's, To reduce risk of recurrence, To improve tolerance to ADL's Thank you for the opportunity to evaluate your patient. For Medicare and Medicare HMO plans, please review the plan of care and approve it. It will need to be FAXED BACK to us at [phone] for Medicare purposes. For Medicare only, by signing this I certify the plan of care. Please let me know if there are questions or concerns regarding this plan of care. Physician Signature: Date:
--- NOTE | 2021-05-05 17:20 | HP.PTDCSUM ---
It has been my pleasure to treat SHELDON MALONEY referred by Kady Sherwood, SULEIMAN-C, with the diagnosis of S/P LUMBAR FUSION,SPINAL STENOSIS [place]MB[place] REGION WITHOUT NEUROGENIC for a total of 9 visit(s). Discharge Date: Please see the following information for a summary of their discharge status. Subjective: Patient plans to RTD will have epidural. Pain is less in leg Left Lower Extremity Pain Intensity (Out of 10): 0 % Improvement: 50 Objective/Function: POSTURE: MILD POSTURE. GAIT: RECIPROCAL PATTERN. MMT: BLE QUADS/HAMS/HIP 4/5,ANKLLR LEFT 3+/5. LUMBAR ROM: FLEXION MOD LOSS ,EXTENSION MOD LOSS. FLEXABLITY: HAMS MOD TIGHT Goal 1:: Patient to be I with HEP Goal 2:: Patient to ambulate with improve quality of gait pattern community distances with cane Goal 3:: Patient to increase strength left ankle 4-/5 to improve function and hips to 4/5 to improve gait. Goal 4:: Patient to improve lumbar ROM for function of recovery Goal 5:: Patient to improve back owestry score by 5 points or> to improve function. Plan: rRTD. PT INTERVETIONS FLEXION LUMBAR ,LE FLEXABLITY,DLS ABD/BACK,AND POSTURAL EX'S AND LE STRENGTENING If there are questions or concerns regarding this patient's physical therapy, please feel free to call me at [phone]. Thank you for the referral of this patient. Sincerely, Isauro Melgar, PT, Cert MDT, OCS Balance/Gait/Functional tests - Balance/Special Test Scores Oswestry Low Back Score: 6
== END 2021-01-25 19:00 | disposition home or self-care (01) ==
LOC: PT 10:00
PROVIDERS: PCP Family Medicine; Referring Provider Nurse Practitioner Acute Care; Visit Provider Nurse Practitioner Acute Care
DX: M48.061 Spinal stenosis, lumbar region without neurogenic claudication (principal); Z98.1 Arthrodesis status
CPT/HCPCS: 97110; 97162

== ENCOUNTER → 2022-03-08 | Outpatient (CLI) | payer MEDICARE, OTHER, SELFPAY ==
--- NOTE | 2022-03-08 13:37 | ECHOCS_ITS ---
Reason For Study: CAD/ASHD Procedure This was a 2D Doppler, Color Flow transthoracic echocardiogram. The study was technically difficult. Contrast injection was performed. Exam performed in department. Left Ventricle Normal LV size. Mild concentric left ventricular hypertrophy. Left ventricular systolic function is normal. The estimated ejection fraction is 55 %. Stage 1 diastolic dysfunction. No regional wall motion abnormalities noted. Right Ventricle Normal RV size. Normal systolic function. Atria Normal left atrium. Normal right atrium. Mitral Valve Normal mitral valve. Tricuspid Valve Normal tricuspid valve. Mild tricuspid valve insufficiency. Pulmonary artery systolic pressure is 36 mmHg. Aortic Valve Normal aortic valve. Pulmonic Valve The pulmonic valve is not well visualized. Great Vessels Normal aortic root. The pulmonary artery is normal size. Normal inferior vena cava. Pericardium/Pleural No pericardial effusion. Medication 20 gauge I.V. with prn adaptor inserted into right arm. Diluted definity 2ml given slow IV push to enhance endocardial definition. MMode/2D Measurements & Calculations LVIDd: 4.8 cm IVSd: 1.2 cm Ao root diam: 3.6 cm LVIDs: 3.4 cm LVPWd: 1.2 cm LA dimension: 3.2 cm RVDd: 4.0 cm FS: 29.1 % LAV(MOD-bp): 58.0 ml LA A4 area: 19.4 cm2 RA A4 area: 18.7 cm2 LAV(MOD-bp) Indexed: 26.5 ml/m2 LAV(MOD-sp2): 67.6 ml LAV(MOD-sp4): 50.2 ml Time Measurements MV dec time: 0.26 sec Doppler Measurements & Calculations MV E max max: 85.7 cm/sec MV V2 max: 100.2 cm/sec MV P1/2t max max: 90.3 cm/sec MV A max max: 100.3 cm/sec MV max P.0 mmHg MV P1/2t: 79.6 msec MV E/A: 0.85 MV V2 mean: 54.8 cm/sec MV dec slope: 332.0 cm/sec2 MV mean P.4 mmHg MV V2 VTI: 34.5 cm MVA(P1/2t): 2.8 cm2 Ao V2 max: 142.3 cm/sec LV V1 max: 106.5 cm/sec PA V2 max: 83.1 cm/sec Ao max P.1 mmHg LV V1 max P.5 mmHg Ao V2 mean: 92.3 cm/sec LV V1 mean P.6 mmHg Ao mean P.0 mmHg LV V1 mean: 75.7 cm/sec Ao V2 VTI: 31.4 cm LV V1 VTI: 24.7 cm PI end-d max: 115.6 cm/sec TR max max: 283.0 cm/sec TR max P.1 mmHg ECHO/Echo Complete W/ Contrast Interpretation Summary Normal LV size. Left ventricular systolic function is normal. The estimated ejection fraction is 55 %. Stage 1 diastolic dysfunction. Mild concentric left ventricular hypertrophy. Contrast injection was performed. Ordering Physician: Placido Claudio Referring Physician: Stephan Alvarez Performed By: Bryn Fox RCS
== END | disposition home or self-care (01) ==
LOC: CVS 13:37
PROVIDERS: PCP Family Medicine; Referring Provider Internal Medicine Cardiovascular Disease; Visit Provider Internal Medicine Cardiovascular Disease
DX: I25.10 Atherosclerotic heart disease of native coronary artery without angina pectoris (principal)
CPT/HCPCS: 93306; Q9957; A4216; C8929

== ENCOUNTER → 2022-09-11 | Outpatient (CLI) | payer MEDICARE, OTHER, SELFPAY ==
[2022-09-11 12:13] LABS: Absolute Lymphocyte Count 1.28 X10^3/uL (0.83-4.51); Basophil# 0.03 X10^3/uL; Basophil% 0.5 % (0-1); Eosinophil# 0.14 X10^3/uL; Eosinophils% 2.3 % (0-5); Hematocrit 40.8 % (40-54); Hemoglobin 13.5 g/dL (13.0-16.5); Lymphocyte # 1.28 X10^3/ul (0.83-4.51); Lymphocyte % 21.5 % (19-41); Mean Corp Hgb Conc 33.1 g/dL (32-36); Mean Corpuscular Hgb 30.5 pg (27.0-32.0); Mean Corpuscular Volume 92.3 fL (80-94); Mean Platelet Vol. 9.1 fl (6.2-12.0); Monocyte# 0.52 X10^3/uL; Monocyte% 8.7 % (0-10); NRBC Flagged by Analyzer 0 % (0-5); Neutrophil # 3.96 X10^3/uL (2.7-7.7); Neutrophil % 66.5 % (47-70); Platelet Count 142 K/mm3 (150-450); RBC Distribution Width CV 14.9 % (11.6-14.6); RBC Distribution Width SD 50.4 fl (35.1-43.9); Red Blood Count 4.42 M/mm3 (4.6-6.2)
[2022-09-11 12:34] LABS: Hemoglobin A1c 6.2 % (3.8-5.6)
[2022-09-11 12:36] LABS: ALB/GLOB Ratio 0.9 RATIO (0.9-2.4); AST(SGOT) 55 U/L (15-37); Alanine Aminotransfer ALT/SGPT 98 U/L (16-61); Albumin, Serum 3.7 g/dL (3.2-5.0); Alkaline Phosphatase 51 U/L (45-117); Anion Gap 9 (5-15); BUN 34 mg/dL (7-18); BUN/Creat Ratio 21.7 RATIO (10-20); Calcium,Total 9.6 mg/dL (8.5-10.1); Chloride 106 mmol/L (98-107); Cholesterol 170 mg/dL (200); Creatinine, Serum 1.57 mg/dL (0.70-1.30); EST Glomerular Filtration Rate 45 mL/min (>60); Est Glom Filt Rate - Afr Amer 55 mL/min (>60); Globulin 4.3 g/dL (2.2-4.2); Glucose 156 mg/dL (74-106); High Density Lipoprotein 34 mg/dL; Sodium Level 138 mmol/L (136-145); Triglycerides 191 mg/dL; Very Low Density Lipoprotein 38 mg/dL (5-40)
[2022-09-11 12:50] LABS: Microalbumin,Random Urine 42.7 mg/L (NO RANGE EST.)
[2022-09-11 16:32] LABS: Xtra Tube EP Lab EXTRA TUBE
== END | disposition home or self-care (01) ==
LOC: BFHLAB 08:27
PROVIDERS: PCP Family Medicine; Visit Provider Family Medicine
DX: E11.22 Type 2 diabetes mellitus with diabetic chronic kidney disease (principal); N18.31 Chronic kidney disease, stage 3a; D63.1 Anemia in chronic kidney disease; I12.9 Hypertensive chronic kidney disease with stage 1 through stage 4 chronic kidney disease, or unspecified chronic kidney disease
CPT/HCPCS: 36415; 80053; 80061; 82043; 82570; 83036; 85025

== ENCOUNTER → 2022-11-29 | Outpatient (CLI) | payer MEDICARE, OTHER, SELFPAY ==
[2022-11-29 16:04] LABS: Estradiol 27.1 pg/mL; Free T3 2.3 pg/mL (2.18-3.98); T4 Free Direct 1.07 ng/dL (0.76-1.46); Thyroid Stim Hormone (TSH) 2.06 uIU/mL (0.358-3.74)
[2022-12-03 20:07] LABS: PSA, Free 0.25 ng/mL; PSA, Free % 24.5 % (.); Testosterone, % Free 1.55 % (1.50-4.20); Testosterone, Free 5.01 ng/dL (5.00-21.00); Testosterone, Total 323 ng/dL (264-916); Thyroid Peroxidase AB < 9 IU/mL (0-34)
== END | disposition home or self-care (01) ==
LOC: BFHLAB 13:02
PROVIDERS: PCP Family Medicine; Referring Provider Preventive Medicine Public Health & General Preventive Medicine; Visit Provider Preventive Medicine Public Health & General Preventive Medicine
DX: E03.9 Hypothyroidism, unspecified (principal); E29.1 Testicular hypofunction; N40.1 Benign prostatic hyperplasia with lower urinary tract symptoms; R97.20 Elevated prostate specific antigen [PSA]
CPT/HCPCS: 36415; 82670; 84153; 84154; 84402; 84403; 84439; 84443; 84481; 86376

== ENCOUNTER 2023-03-20 09:03 | Inpatient (IN) | payer MEDICARE, OTHER, SELFPAY ==
[2023-03-20] VITALS (10 sets, daily range): BP systolic 100–136; BP diastolic 46–81; PULSE 80–103; RESP 15–35; TEMP 36.6–37.3; O2SAT 87–97; BMI 33.4; BMI 30.3
--- NOTE | 2023-03-20 09:20 | EX.ED.DYSGE1 ---
HPI History of Present Illness Chief Complaint: Weakness Detail of Chief Complaint: thinks he may have a UTI. Informant: patient and spouse/S.O. Onset/Context/Timing Onset: Today and Yesterday Context: Gradual Onset Timing: Continuous Current Severity: Mild Maximum Severity: Mild Narrative Narrative: 82-year-old male history of CAD with stents on aspirin no other blood thinners. History of diabetes, hypertension, renal insufficiency and large prostate. said he has felt weak since yesterday. She is concerned he may have a UTI. He has had urinary frequency and at times incontinence. He has had no nausea, vomiting or diarrhea. No documented but she questions a fever. States this was overall weak today. She called the squad and brought him in for evaluation. Patient denies any headache, chest pain, abdominal pain or shortness of breath. Prior similar symptoms: Yes Recent Illness/Hospitalization: No PFSH PFSH Medical History Atherosclerosis of coronary artery of [place] heart without angina pectoris Back pain Cancer Cardiology follow-up encounter CPAP (continuous positive airway pressure) dependence Diabetes Dietary restriction Essential (primary) hypertension Fatty liver Former smoker History of pain when walking History of steroid therapy History of stress test Hyperlipidemia LDL goal <100 Leg cramps Memory deficit Obesity Osteoarthritis Rash Renal calculus, left Shortness of breath on exertion Wears glasses Wears hearing aid Home Medications aspirin 81 mg tablet,delayed release 81 mg PO DAILY@0800 06/18/16 [Rx Last Taken 07/06/16] nitroglycerin 0.4 mg sublingual tablet 0.4 mg sublingual Q5M PRN Chest Pain #0 tabs 06/18/16 [Rx Last Taken 06/21/16] sitagliptin phosphate 100 mg tablet (Januvia) 100 mg PO DAILY 07/04/18 [History Last Taken Unknown] vitamin B complex (B Complex-Vitamin B12 tablet) 1 tab PO DAILY 07/04/18 [History Last Taken Unknown] tamsulosin 0.4 mg capsule 0.4 mg PO DAILY #39 caps 10/25/19 [Rx Last Taken Unknown] glimepiride 4 mg tablet (Amaryl) 4 mg PO BID 07/06/20 [History Last Taken Unknown] ascorbate calcium (vitamin C) 500 mg tablet 1 g PO DAILY 02/21/22 [History Last Taken Unknown] finasteride 5 mg tablet 5 mg PO DAILY 02/21/22 [History Last Taken Unknown] omega-3 acid ethyl esters 1 gram capsule 1 cap PO DAILY 02/21/22 [History Last Taken Unknown] prevagen 1 tab PO DAILY 02/21/22 [History Last Taken Unknown] zinc gluconate 50 mg tablet 50 mg PO DAILY 02/21/22 [History Last Taken Unknown] dupilumab 300 mg/2 mL subcutaneous pen injector (Dupixent) 300 mg subcut QWEEK 02/20/23 [History Last Taken Unknown] tirzepatide 5 mg/0.5 mL subcutaneous pen injector (Mounjaro) 5 mg subcut QWEEK 02/20/23 [History Last Taken Unknown] Allergy/AdvReac Type Severity Reaction Status Date / Time metoprolol Allergy Intermediate Rash Verified 03/20/23 09:08 cephalexin Allergy Rash Verified 03/20/23 09:08 Iodinated Contrast Media Allergy Shortness Verified 03/20/23 09:08 of breath Family History Sister Cancer Brother Cancer Surgical History H/O hernia repair H/O lithotripsy History of back surgery (05/05/20) History of colectomy History of coronary artery stent placement (06/19/16) History of left heart catheterization (06/17/16) Hx of eye surgery Social History Smoking Status: Former smoker alcohol intake: never what type of physical activity do you participate in: none ROS ROS ED ROS Narrative Generalized weakness. Denies vomiting or diarrhea. Denies cough or shortness of breath. Review of Systems ROS Unobtainable: Denies due to encephalopathy Constitutional Constitutional ED: Reports fever(s) and subjective; Denies chills Eyes Eyes: Denies blurry vision ENT ENT ED: Denies ear pain Cardiovascular Cardiovascular: Denies chest pain Respiratory/Chest Respiratory/Chest: Denies cough or dyspnea Gastrointestinal Gastrointestinal: Denies abdominal pain, constipation, diarrhea, melena, nausea or vomiting Genitourinary Genitourinary ED: Reports urinary frequency; Denies dysuria or hematuria Musculoskeletal Musculoskeletal: Denies arthralgias, back pain or myalgias Integumentary Denies abscess or Abrasions Neurologic Neurologic: Denies headache(s) Psychiatric Psychiatric: Denies anxiety or depression Endocrine Endocrinology: Denies cold intolerance Hematologic/Lymphatic Hematologic/Lymphatic: Reports none Allergic/Immunologic Allergic/Immunologic ED: Denies mouth swelling or tongue swelling EXAM Physical Exam Narrative Exam Narrative: 82-year-old male vital signs stable afebrile he does not look septic toxic is no distress. at bedside. H EENT exam unjam is members. Neck nontender. No lymphadenopathy. Lungs clear to auscultation bilaterally. Heart regular rhythm rate about 100 no murmur. Abdomen soft nontender. Normal bowel sounds no peritoneal signs. No distention. Moving all 4 extremities. 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 Dorsi plantarflexion intact. Equal and symmetrical. Nontender no edema.. Neurologically is awake and alert with no focal motor deficits. Answering questions following commands. Const Vital Signs: 03/20/23 09:04 03/20/23 09:08 03/20/23 09:10 Temperature 98.0 F 98.0 F Temperature Source Temporal Temporal Pulse Rate 103 H 101 H Respiratory Rate 28 H 28 H Respiratory Effort Non-Labored Respiratory Pattern Tachypnea Blood Pressure 136/68 H 136/68 H Blood Pressure Mean 90 90 Pulse Ox 92 93 Oxygen Delivery Method Room Air Room Air 03/20/23 10:08 03/20/23 11:00 Temperature 98.7 F 99.2 F H Temperature Source Temporal Temporal Pulse Rate 102 H 93 Respiratory Rate 35 H 15 Respiratory Effort Respiratory Pattern Blood Pressure 135/81 H 135/74 H Blood Pressure Mean 99 94 Pulse Ox 93 94 Oxygen Delivery Method Room Air Room Air Positive well nourished and well developed; Negative for cachectic, contractures or unkempt General Appearance ED: well developed and NAD; Negative for unkempt, cachectic, contractures, cyanotic, diaphoretic or pallor Nutritional Appearance: Negative for cachectic HEENT Reports dry mucous membranes; Denies moist mucous membranes Negative for trauma or tenderness Mouth ED: Yes dry mucous membranes Mouth: dry mucous membranes Eyes PERRL and EOMs intact bilaterally General Eye ED: Negative for pale conjunctiva or scleral icterus Neck no lymphadenopathy, supple and no JVD General: Negative for tenderness Lymph Lymphatic: Negative for other Chest Wall inspection of chest normal and palpation of chest normal Chest: Negative for other Resp normal respiratory effort and clear to auscultation bilaterally Effort and Inspection: Negative for retractions Auscultation: Negative for rales, rhonchi or wheezes Cardio regular rate, regular rhythm, S1 normal heart sound, S2 normal heart sound and no murmurs Palpation: Negative for palpable S3 or palpable S4 Rate: Negative for bradycardia Rhythm: Negative for abnormal rhythm GI normal to inspection, nondistended, normoactive bowel sounds, non-tender, non-distended and no masses Inspection: Negative for abdominal distention Auscultation: normoactive bowel sounds Palpation: soft; Negative for tender or guarding Bladder / Kidney Exam: No other Back/Spine no CVA tenderness General Back: Negative for CVA tenderness Cervical Spine: Negative for cervical spine tenderness Thoracic Spine / Upper Back: Negative for thoracic spinal tenderness Lumbar Spine / Lower Back: Negative for lumbar spinal tenderness Extremity normal to inspection General Extremety ED: Negative for edema or tenderness General Extremity: Negative for edema Neuro oriented x3 and CN's II-XII intact bilaterally Sensorium / Orientation: alert; Negative for orientation impaired, lethargic or stuporous Motor Exam: strength 5/5 throughout Psych Appearance: Negative for unkempt Attitude: No agitated Mood & Affect: Negative for depressed Skin no rashes or lesions noted and no wounds General Skin Exam: Negative for jaundice or pallor Lesions: No lesion noted Rashes: No rashes noted Trauma: Negative for abrasion Wounds: Negative for wounds noted MDM MDM MDM Narrative Medical decision making narrative: 82-year-old male complaint generalized weakness. believes he may have a UTI. Screening labs are being obtained. Exam benign. He will be ambulated to ensure that he is strong enough to walk. Patient doing well at 10:50 AM. Awaiting urinalysis. He and his and I went over his current test results. Analysis did return is positive for UTI. Urine culture sent. He will be started on IV Rocephin. Patient says he does not know of any antibiotic allergies. He has Keflex listed but his said he had a rash years ago and he said he was allergic to a lot of different things but they do not think he is. I have already spoken to the hospitalist about admission. History & Record Review Discussion w/independent historian: Patient and Family Additional record(s) reviewed:: Prior inpatient record, Prior outpatient record, Prior ED visit and Prior labs Lab Data Attestation: I reviewed the patient's lab results. Lab results narrative: CBC shows a white count 12.1. H&H of 14.9 and 45. Platelets 121 and low. Electrolytes show a sodium of 131. Gap of 8. BUN and creatinine of 21 and 1.52. Has a history of renal insufficiency and that is his baseline creatinine. Glucose is 260. Chest x-ray is unremarkable. Chronic changes. Bladder scan was only 8 mL. Patient's had some incontinence. Nurses will straight cathing for urine after his IV fluid bolus. Urinalysis is positive for nitrites, 25-50 white cells and 3+ bacteria. A culture was ordered. Labs: Laboratory Results - last 24 hr 03/20/23 03/20/23 03/20/23 09:25 09:25 10:05 WBC Cancelled 12.1 H Corrected WBC Cancelled RBC Cancelled 4.95 Hgb Cancelled 14.9 Hct Cancelled 45.0 MCV Cancelled 90.9 MCH Cancelled 30.1 MCHC Cancelled 33.1 RDW Std Deviation Cancelled 49.4 H RDW Coeff of Cornelio Cancelled 14.9 H Plt Count Cancelled 121 L MPV Cancelled 8.7 Immature Gran % (Auto) Cancelled 0.700 Neut % (Auto) Cancelled 87.3 H Lymph % (Auto) Cancelled 2.9 L [place] % (Auto) Cancelled 8.9 Eos % (Auto) Cancelled 0.0 Baso % (Auto) Cancelled 0.2 Absolute Neuts (auto) Cancelled 10.6 H Absolute Lymphs (auto) Cancelled 0.35 L Total Counted Cancelled Neutrophils % (Manual) Cancelled Band Neutrophils % Cancelled Lymphocytes % (Manual) Cancelled Monocytes % (Manual) Cancelled Eosinophils % (Manual) Cancelled Basophils % (Manual) Cancelled Metamyelocytes % Cancelled Myelocytes % Cancelled Promyelocytes % Cancelled Blast Cells % Cancelled Plasma Cell % (Manual) Cancelled Other Cells % Cancelled Nucleated RBC % Cancelled 0 Nucleated RBCs/100 WBC Cancelled Differential Comment Cancelled SCANNED Diff Path Review Cancelled Hypersegmented Neuts Cancelled Atypical Lymphocytes Cancelled Reactive Lymphocytes Cancelled Smudge Cells Cancelled Toxic Granulation Cancelled Toxic Vacuolation Cancelled Dohle Bodies Cancelled Cj Rods Cancelled Platelet Estimate Cancelled Plt Morphology Comment Cancelled RBC Morphology Cancelled Cancelled Polychromasia Cancelled Hypochromasia Cancelled Poikilocytosis Cancelled Basophilic Stippling Cancelled Anisocytosis Cancelled Microcytosis Cancelled Macrocytosis Cancelled Spherocytes Cancelled Sickle Cells Cancelled Target Cells Cancelled Tear Drop Cells Cancelled Ovalocytes Cancelled Stomatocytes Cancelled Torres-Cumming Bodies Cancelled Otilio Cells Cancelled Bite Cells Cancelled Crenated Cell Cancelled Acanthocytes (Spur) Cancelled Rouleaux Cancelled Schistocytes Cancelled Sodium 131 L Potassium 4.5 Chloride 99 Carbon Dioxide 24.0 Anion Gap 8 BUN 21 H Creatinine 1.52 H Estim Creat Clear Calc 36.25 Est GFR (MDRD) Af Amer 57 L Est GFR (MDRD) Non-Af 47 L BUN/Creatinine Ratio 13.8 Glucose 260 H Calcium 9.6 Urine Color Urine Clarity Urine pH Ur Specific [place] Urine Protein Urine Glucose (UA) Urine Ketones Urine Occult Blood Urine Nitrite Urine Bilirubin Urine Urobilinogen Ur Leukocyte Esterase Urine RBC Urine WBC Ur Squamous Epith Cells Urine Bacteria Urine Mucus 03/20/23 11:07 WBC Corrected WBC RBC Hgb Hct MCV MCH MCHC RDW Std Deviation RDW Coeff of Cornelio Plt Count MPV Immature Gran % (Auto) Neut % (Auto) Lymph % (Auto) [place] % (Auto) Eos % (Auto) Baso % (Auto) Absolute Neuts (auto) Absolute Lymphs (auto) Total Counted Neutrophils % (Manual) Band Neutrophils % Lymphocytes % (Manual) Monocytes % (Manual) Eosinophils % (Manual) Basophils % (Manual) Metamyelocytes % Myelocytes % Promyelocytes % Blast Cells % Plasma Cell % (Manual) Other Cells % Nucleated RBC % Nucleated RBCs/100 WBC Differential Comment Diff Path Review Hypersegmented Neuts Atypical Lymphocytes Reactive Lymphocytes Smudge Cells Toxic Granulation Toxic Vacuolation Dohle Bodies Cj Rods Platelet Estimate Plt Morphology Comment RBC Morphology Polychromasia Hypochromasia Poikilocytosis Basophilic Stippling Anisocytosis Microcytosis Macrocytosis Spherocytes Sickle Cells Target Cells Tear Drop Cells Ovalocytes Stomatocytes Torres-Cumming Bodies Otilio Cells Bite Cells Crenated Cell Acanthocytes (Spur) Rouleaux Schistocytes Sodium Potassium Chloride Carbon Dioxide Anion Gap BUN Creatinine Estim Creat Clear Calc Est GFR (MDRD) Af Amer Est GFR (MDRD) Non-Af BUN/Creatinine Ratio Glucose Calcium Urine Color Yellow Urine Clarity Sl. Cloudy Urine pH 6.0 Ur Specific [place] 1.020 Urine Protein 100 H Urine Glucose (UA) 50 H Urine Ketones 50 H Urine Occult Blood 25 H Urine Nitrite Positive H Urine Bilirubin Negative Urine Urobilinogen Normal Ur Leukocyte Esterase 100 H Urine RBC 0 SEEN Urine WBC 25-50 SEEN Ur Squamous Epith Cells 0 SEEN Urine Bacteria 3+ Urine Mucus 0 SEEN Radiography Chest X-Ray - ED: 1 View, Read by ED Physician, Heart, Lungs, Mediastinum, Bony Structures, No Acute Disease and Chronic Changes Diagnostic Testing: Clinical Impression(s) from Imaging Studies Chest X-Ray 03/20/23 10:10 IMPRESSION: No radiographic evidence of acute cardiopulmonary disease. Electronically Signed: Riley Leal MD at 10:42 EDT , Chest x-ray, portable, single view shows no acute abnormality. Elevated right hemidiaphragm. No infiltrate. Normal cardiac silhouette mediastinum. Interpreted by myself. Rhythm Strip Rhythm Strip: Sinus Rhythm Rate: 98 Ectopy: None EKG Initial EKG: Attestation: I personally reviewed and interpreted this EKG as follows: Interpretation: Sinus Rhythm and No Acute Injury Pattern Comments: Normal sinus rhythm rate of 98 no acute signs of IA. Prior anterolateral infarct inverted T waves in leads I, and aVL. Discharge Plan Triage Chief Complaint: Weakness Other Complaint: Complaint ED Provider: Fausto Malone Dx/Rx/DC Orders Clinical Impression: History of renal insufficiency, Generalized weakness, Acute UTI, History of diabetes mellitus Prescriptions: No Action glimepiride [Amaryl] 4 mg tablet 4 mg PO BID Januvia 100 mg tablet 100 mg PO DAILY vitamin B complex tablet tablet 1 tab PO DAILY finasteride 5 mg tablet 5 mg PO DAILY Patient Comments: TAKE 1 TABLET BY MOUTH EVERY DAY omega-3 acid ethyl esters 1 gram capsule 1 cap PO DAILY zinc gluconate 50 mg tablet 50 mg PO DAILY ascorbate calcium (vitamin C) 500 mg tablet 1 g PO DAILY prevagen 1 tab PO DAILY Mounjaro 5 mg/0.5 mL pen injector 5 mg subcut QWEEK Dupixent Pen 300 mg/2 mL pen injector 300 mg subcut QWEEK aspirin 81 MG tablet 81 mg PO DAILY@0800 0RF nitroglycerin 0.4 MG tablet 0.4 mg SUBLINGUAL Q5M PRN (Reason: Chest Pain) Qty: 0 0RF Patient Comments: CHEST PAIN tamsulosin 0.4 MG capsule 0.4 mg PO DAILY Qty: 39 1RF Primary Care Provider: Stephan Alvarez Referrals: Stephan Alvarez DO [Primary Care Provider] - Disposition Disposition: Acute Care Hospital [facility]
[2023-03-20 09:58] LABS: Anion Gap 8 (5-15); BUN 21 mg/dL (7-18); BUN/Creat Ratio 13.8 RATIO (10-20); Calcium,Total 9.6 mg/dL (8.5-10.1); Chloride 99 mmol/L (98-107); Creatinine, Serum 1.52 mg/dL (0.70-1.30); EST Glomerular Filtration Rate 47 mL/min (>60); Est Glom Filt Rate - Afr Amer 57 mL/min (>60); Estimated Creatinine Clearance 36.25 ml/min; Glucose 260 mg/dL (74-106); Potassium 4.5 mmol/L (3.5-5.1); Sodium Level 131 mmol/L (136-145)
--- NOTE | 2023-03-20 10:10 | RAD_ITS ---
INDICATION: weakness EXAMINATION/TECHNIQUE: X-RAY - XR Chest 1 View COMPARISON: 10/23/2019. FINDINGS: LINES/DEVICES: None. LUNGS: No consolidation, edema or effusion. No pneumothorax. Persistent mild elevation of the right hemidiaphragm. MEDIASTINUM AND CARDIOVASCULAR STRUCTURES: Cardiac silhouette not enlarged. Central airways and mediastinal contour are unremarkable. BONES AND SOFT TISSUES: Stable soft tissues and osseous structures. RAD/Chest 1 View (Portable) IMPRESSION: No radiographic evidence of acute cardiopulmonary disease. Electronically Signed: Riley Leal MD at 10:42 EDT ,
[2023-03-20 10:24] LABS: Absolute Lymphocyte Count 0.35 X10^3/uL (0.83-4.51); Absolute Neutrophil Count 10.6 X10^3/uL (2.0-7.7); Basophil# 0.02 X10^3/uL; Basophil% 0.2 % (0-1); Hemoglobin 14.9 g/dL (13.0-16.5); Lymphocyte # 0.35 X10^3/ul (0.83-4.51); Lymphocyte % 2.9 % (19-41); Mean Corp Hgb Conc 33.1 g/dL (32-36); Mean Corpuscular Hgb 30.1 pg (27.0-32.0); Mean Corpuscular Volume 90.9 fL (80-94); Mean Platelet Vol. 8.7 fl (6.2-12.0); Monocyte# 1.08 X10^3/uL; Monocyte% 8.9 % (0-10); NRBC Flagged by Analyzer 0 % (0-5); Neutrophil # 10.55 X10^3/uL (2.7-7.7); Neutrophil % 87.3 % (47-70); POSITIVE DIFFERENTIAL YES; Platelet Count 121 K/mm3 (150-450); RBC Distribution Width CV 14.9 % (11.6-14.6); RBC Distribution Width SD 49.4 fl (35.1-43.9); Red Blood Count 4.95 M/mm3 (4.6-6.2); White Blood Count 12.1 K/mm3 (4.4-11.0)
[2023-03-20 10:26] LABS: Differential Indicated SCAN CRITERIA MET
--- NOTE | 2023-03-20 10:26 | NURSING ---
03/20/23@ 1026- PT INCONTINENT. URINE UNMEASURABLE.
[2023-03-20 10:59] LABS: Differential Comment SCANNED
[2023-03-20 11:17] LABS: Color, Urine Yellow (Yellow); Glucose, Dipstick 50 mg/dl (Normal); Ketone-Dipstick 50 mg/dl (Negative); Leukocyte Esterase-Dipstick 100 /ul (Negative); Mucous, Urine 0 SEEN /hpf (<or=2+); Nitrite-Dipstick Positive (Negative); Occult Blood-Urine 25 /ul (Negative); Protein-Dipstick 100 mg/dl (Negative); Red Blood Cells-Urine 0 SEEN /hpf (0-5); Squamous Epithelial Cells - UA 0 SEEN /hpf (0-5); Urine Bilirubin Dipstick Negative (Negative); Urine Clarity Sl. Cloudy (Clear); Urine Urobilinogen Normal (Normal)
[2023-03-20 11:23] LABS: Bacteria 3+ /hpf (None Seen); White Blood Cells 25-50 SEEN /hpf (0-5)
--- NOTE | 2023-03-20 11:59 | PCM.HP.STD ---
HPI - General General Date of Admission: 03/20/23 Date of Service: 03/20/23 Chief Complaint: Generalized weakness HPI Narrative SHELDON MALONEY, is a 82 M who presents with generalized weakness. Patient symptoms have been ongoing for the past 2 days. In addition to generalized weakness patient was reported to be experiencing urinary incontinence as well as frequency. Patient's suspected the patient had a UTI. Managed to convince patient to present to the emergency department. Patient was confirmed with abnormal urinalysis started on Rocephin admitted to regular nursing floor for further manage [facility] Medical History Atherosclerosis of coronary artery of [place] heart without angina pectoris Back pain Cancer Cardiology follow-up encounter CPAP (continuous positive airway pressure) dependence Diabetes Dietary restriction Essential (primary) hypertension Fatty liver Former smoker History of pain when walking History of steroid therapy History of stress test Hyperlipidemia LDL goal <100 Leg cramps Memory deficit Obesity Osteoarthritis Rash Renal calculus, left Shortness of breath on exertion Wears glasses Wears hearing aid Home Medications sitagliptin phosphate 100 mg tablet (Januvia) 100 mg PO DAILY DIABETES 07/04/18 [History Last Taken 03/19/23] tamsulosin 0.4 mg capsule 0.4 mg PO DAILY PROSTATE #39 caps 10/25/19 [Rx Last Taken 03/19/23] glimepiride 4 mg tablet (Amaryl) 4 mg PO BID DIABETES 07/06/20 [History Last Taken 03/19/23] ascorbate calcium (vitamin C) 500 mg tablet 500 mg PO DAILY SUPPLEMENT 02/21/22 [History Last Taken 03/19/23] finasteride 5 mg tablet 5 mg PO DAILY PROSTATE 02/21/22 [History Last Taken Unknown] omega-3 acid ethyl esters 1 gram capsule 1 cap PO DAILY SUPPLEMENT 02/21/22 [History Last Taken 03/19/23] prevagen 1 tab PO DAILY MEMORY IMPROVEMENT 02/21/22 [History Last Taken 03/19/23] zinc gluconate 50 mg tablet 50 mg PO DAILY SUPPLEMENT 02/21/22 [History Last Taken 03/19/23] dupilumab 300 mg/2 mL subcutaneous pen injector (Dupixent) 300 mg subcut QWEEK ECZEMA 02/20/23 [History Last Taken 03/13/23] tirzepatide 5 mg/0.5 mL subcutaneous pen injector (Saltyunjaro) 5 mg subcut TH DIABETES 02/20/23 [History Last Taken 03/15/23] aspirin 81 mg tablet,delayed release 81 mg PO DAILY HEART HEALTH 03/20/23 [History Last Taken 03/19/23] vitamin B complex (B Complex-Vitamin B12 tablet) 1 tab PO DAILY SUPPLEMENT 03/20/23 [History Last Taken 03/19/23] Allergy/AdvReac Type Severity Reaction Status Date / Time metoprolol Allergy Intermediate Rash Verified 03/20/23 09:08 cephalexin Allergy Rash Verified 03/20/23 09:08 Iodinated Contrast Media Allergy Shortness Verified 03/20/23 09:08 of breath Family History Sister Cancer Brother Cancer Surgical History H/O hernia repair H/O lithotripsy History of back surgery (05/05/20) History of colectomy History of coronary artery stent placement (06/19/16) History of left heart catheterization (06/17/16) Hx of eye surgery Social History Smoking Status: Former smoker alcohol intake: never what type of physical activity do you participate in: none ROS ROS Narrative GENERAL: denies fever, chills, night sweats, weight loss, anorexia HEENT: denies headache, sinus congestion, or drainage, dysphagia RESPIRATORY: denies cough, sputum production, shortness of breath, dyspnea on exertion CARDIAC: denies chest pain, palpitations, orthopnea, PND GASTROINTESTINAL: denies abdominal pain, nausea, vomiting, melena, GENITOURINARY: Incontinence and frequency, EXTREMITY: denies swelling MUSCULOSKELETAL: denies current joint pain or tenderness NEUROLOGIC: denies focal numbness, weakness, tingling HEMATOLOGIC: denies easy bruising and/or hemorrhage INTEGUMENT: denies rashes PSYCHIATRIC: denies suicidal or homicidal ideation Vital Signs Vital Signs Vital Signs: 03/20/23 09:04 03/20/23 09:08 03/20/23 09:10 Temperature 98.0 F 98.0 F Temperature Source Temporal Temporal Pulse Rate 103 H 101 H Respiratory Rate 28 H 28 H Respiratory Effort Non-Labored Respiratory Pattern Tachypnea Blood Pressure 136/68 H 136/68 H Blood Pressure Mean 90 90 Pulse Ox 92 93 Oxygen Delivery Method Room Air Room Air 03/20/23 10:08 03/20/23 11:00 Temperature 98.7 F 99.2 F H Temperature Source Temporal Temporal Pulse Rate 102 H 93 Respiratory Rate 35 H 15 Respiratory Effort Respiratory Pattern Blood Pressure 135/81 H 135/74 H Blood Pressure Mean 99 94 Pulse Ox 93 94 Oxygen Delivery Method Room Air Room Air Weight Weight: 99.79 kg Body Mass Index (BMI) 33.4 Physical Exam Narrative GENERAL: cooperative HEENT: Atraumatic; normocephalic EYES; Anicteric, Normal Conjunctiva NECK; supple, normal thyroid, RESPIRATORY: Diminished to auscultation CARDIOVASCULAR: Regular S1 S2, GI: soft, normoactive bowel sounds, : No Renal angle tenderness; EXTREMITIES: No edema, no clubbing, MUSCULOSKELETAL: no muscle wasting NEURO: Awake; no lateralizing signs. SKIN: No Rash PSYCH; Flat affect Results Lab / Micro Data 03/20/23 10:05 03/20/23 09:25 Labs: Laboratory Results - last 24 hr 03/20/23 09:25: WBC Cancelled, Corrected WBC Cancelled, RBC Cancelled, Hgb Cancelled, Hct Cancelled, MCV Cancelled, MCH Cancelled, MCHC Cancelled, RDW Std Deviation Cancelled, RDW Coeff of Cornelio Cancelled, Plt Count Cancelled, MPV Cancelled, Immature Gran % (Auto) Cancelled, Neut % (Auto) Cancelled, Lymph % (Auto) Cancelled, [place] % (Auto) Cancelled, Eos % (Auto) Cancelled, Baso % (Auto) Cancelled, Absolute Neuts (auto) Cancelled, Absolute Lymphs (auto) Cancelled, Total Counted Cancelled, Neutrophils % (Manual) Cancelled, Band Neutrophils % Cancelled, Lymphocytes % (Manual) Cancelled, Monocytes % (Manual) Cancelled, Eosinophils % (Manual) Cancelled, Basophils % (Manual) Cancelled, Metamyelocytes % Cancelled, Myelocytes % Cancelled, Promyelocytes % Cancelled, Blast Cells % Cancelled, Plasma Cell % (Manual) Cancelled, Other Cells % Cancelled, Nucleated RBC % Cancelled, Nucleated RBCs/100 WBC Cancelled, Differential Comment Cancelled, Diff Path Review Cancelled, Hypersegmented Neuts Cancelled, Atypical Lymphocytes Cancelled, Reactive Lymphocytes Cancelled, Smudge Cells Cancelled, Toxic Granulation Cancelled, Toxic Vacuolation Cancelled, Dohle Bodies Cancelled, Cj Rods Cancelled, Platelet Estimate Cancelled, Plt Morphology Comment Cancelled, RBC Morphology Cancelled 03/20/23 09:25: RBC Morphology Cancelled, Polychromasia Cancelled, Hypochromasia Cancelled, Poikilocytosis Cancelled, Basophilic Stippling Cancelled, Anisocytosis Cancelled, Microcytosis Cancelled, Macrocytosis Cancelled, Spherocytes Cancelled, Sickle Cells Cancelled, Target Cells Cancelled, Tear Drop Cells Cancelled, Ovalocytes Cancelled, Stomatocytes Cancelled, Torres-Merlin Bodies Cancelled, [place] Cells Cancelled, Bite Cells Cancelled, Crenated Cell Cancelled, Acanthocytes (Spur) Cancelled, Rouleaux Cancelled, Schistocytes Cancelled, Sodium 131 L, Potassium 4.5, Chloride 99, Carbon Dioxide 24.0, Anion Gap 8, BUN 21 H, Creatinine 1.52 H, Estim Creat Clear Calc 36.25, Est GFR (MDRD) Af Amer 57 L, Est GFR (MDRD) Non-Af 47 L, BUN/Creatinine Ratio 13.8, Glucose 260 H, Calcium 9.6 03/20/23 10:05: WBC 12.1 H, RBC 4.95, Hgb 14.9, Hct 45.0, MCV 90.9, MCH 30.1, MCHC 33.1, RDW Std Deviation 49.4 H, RDW Coeff of Cornelio 14.9 H, Plt Count 121 L, MPV 8.7, Immature Gran % (Auto) 0.700, Neut % (Auto) 87.3 H, Lymph % (Auto) 2.9 L, [place] % (Auto) 8.9, Eos % (Auto) 0.0, Baso % (Auto) 0.2, Absolute Neuts (auto) 10.6 H, Absolute Lymphs (auto) 0.35 L, Nucleated RBC % 0, Differential Comment SCANNED 03/20/23 11:07: Urine Color Yellow, Urine Clarity Sl. Cloudy, Urine pH 6.0, Ur Specific [place] 1.020, Urine Protein 100 H, Urine Glucose (UA) 50 H, Urine Ketones 50 H, Urine Occult Blood 25 H, Urine Nitrite Positive H, Urine Bilirubin Negative, Urine Urobilinogen Normal, Ur Leukocyte Esterase 100 H, Urine RBC 0 SEEN, Urine WBC 25-50 SEEN, Ur Squamous Epith Cells 0 SEEN, Urine Bacteria 3+, Urine Mucus 0 SEEN Rhythm Strip Rhythm Strip: Sinus Rhythm Rate: 98 Ectopy: None Radiology Impression Chest X-Ray 03/20/23 10:10 IMPRESSION: No radiographic evidence of acute cardiopulmonary disease. Electronically Signed: Riley Leal MD at 10:42 EDT , Assessment & Plan Assessment/Plan (1) Acute UTI: PLAN: Plan Patient is an 82-year-old gentleman presented with progressive generalized weakness. Diagnosed with cystitis admitted to regular nursing floor for further management 1. Acute cystitis ? Patient started on ceftriaxone cultures sent from the ED we will follow-up on result. Patient has slightly elevated WBC count of 12.5. Subsequent follow-up with daily CBC ordered 2. Physical deconditioning -Secondary to above. Requested for PT OT eval and medical social consultant to assist with discharge planning 3. Coronary artery disease ? With previous stent placement patient is on guideline directed medical therapy 4. Hypertension - Blood pressure controlled, home medications continued with dose adjustment as needed 5. BPH ? Patient is on tamsulosin difficulty 6. Class I obesity with BMI of 33.5 ? Patient is on Tirzepatide 7. 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 Patient creatinine close to baseline 8. Hyponatremia ? Secondary to hypovolemic hyponatremia on IV fluid with subsequent monitoring with daily BMPs ordered 9. DVT prophylaxis - On enoxaparin Time spent in the patient's overall evaluation,decision-making process, review of diagnostic data, adjustment of management, discussion with other providers, nursing nursing and ancillary staff involved in patient's care documentation, 75 Minutes Advance planning; did discuss with the patient and family regarding advanced directives as well as CODE STATUS. Did explain the various scenarios involved ( FULL CODE, DNR CCA, DNR CCA with no intubation, and DNR CC and what each meant) patient elected to remain full code with CPR and intubation if needed. Order was placed. Time spent on discussion 18 minutes. Charges/Coding Visit Charges Inpatient E&M: 64246 Init Hosp L3 Procedures Hospitalists Procedures: 26259 Advncd Care Plan 30 Min
--- NOTE | 2023-03-20 12:00 | NURSING ---
DR TATI CUNNINGHAM
[2023-03-20] MEDS: Ceftriaxone 1 GM/50 ML BAG IV (12:32)
--- NOTE | 2023-03-20 12:50 | NURSING ---
[address] UTI, WEAKNESS, HX OF DM, HX OF CAD WITH STENT
[2023-03-20] MEDS: 0.9% Normal Saline 1,000 ML 125 ML IV ×2 (13:49→22:07)
[2023-03-20 15:20] LABS: Bedside Glucose 220 mg/dL (74-106)
[2023-03-20 16:40] LABS: Bedside Glucose 242 mg/dL (74-106)
[2023-03-20] MEDS: Insulin Lispro 100 UNIT/ML INSULN.PEN SC ×2 (16:56→22:06)
[2023-03-20] MEDS: Tamsulosin HCl 0.4 MG Capsule PO (16:56)
[2023-03-21 03:00] VITALS: BP 134/65; PULSE 96; RESP 18; TEMP 37; O2SAT 94
[2023-03-21] MEDS: Insulin Lispro 100 UNIT/ML INSULN.PEN SC ×3 (06:17→22:22)
[2023-03-21] MEDS: 0.9% Normal Saline 1,000 ML 125 ML IV (06:17)
[2023-03-21 06:38] LABS: Bedside Glucose 162 mg/dL (74-106)
--- NOTE | 2023-03-21 07:49 | PCM.PN.HOSP ---
Reason for Visit Reason for Visit: Diagnoses Urinary tract infection, site not specified (03/20/23) Subjective Subjective Patient is an 82-year-old gentleman presented with progressive generalized weakness. Diagnosed with cystitis admitted to regular nursing floor for further management Objective Data Objective Data Vital Signs: Vital Signs Temp Pulse Resp BP Pulse Ox O2 Del Method O2 Flow Rate 98.6 F 96 18 134/65 H 94 Room Air 2 03/21/23 03:00 03/21/23 03:00 03/21/23 03:00 03/21/23 03:00 03/21/23 03:00 03/21/23 03:00 03/20/23 22:11 Oxygen Flow Rate (L/min) 2 Oxygen Delivery Method Room Air Weight: 98.685 kg Body Mass Index (BMI) 30.3 Intake & Output: Intake and Output for Last 24 Hours 03/19/23 03/20/23 03/21/23 23:59 23:59 23:59 Intake Total 1910 / 2150 1340 / 1340 Output Total 300 / 600 300 / 300 Balance 1610 / 1550 1040 / 1040 Lab / Micro Data 03/21/23 06:48 03/21/23 06:48 Labs: Laboratory Results - last 24 hr 03/20/23 09:25: WBC Cancelled, Corrected WBC Cancelled, RBC Cancelled, Hgb Cancelled, Hct Cancelled, MCV Cancelled, MCH Cancelled, MCHC Cancelled, RDW Std Deviation Cancelled, RDW Coeff of Cornelio Cancelled, Plt Count Cancelled, MPV Cancelled, Immature Gran % (Auto) Cancelled, Neut % (Auto) Cancelled, Lymph % (Auto) Cancelled, [place] % (Auto) Cancelled, Eos % (Auto) Cancelled, Baso % (Auto) Cancelled, Absolute Neuts (auto) Cancelled, Absolute Lymphs (auto) Cancelled, Total Counted Cancelled, Neutrophils % (Manual) Cancelled, Band Neutrophils % Cancelled, Lymphocytes % (Manual) Cancelled, Monocytes % (Manual) Cancelled, Eosinophils % (Manual) Cancelled, Basophils % (Manual) Cancelled, Metamyelocytes % Cancelled, Myelocytes % Cancelled, Promyelocytes % Cancelled, Blast Cells % Cancelled, Plasma Cell % (Manual) Cancelled, Other Cells % Cancelled, Nucleated RBC % Cancelled, Nucleated RBCs/100 WBC Cancelled, Differential Comment Cancelled, Diff Path Review Cancelled, Hypersegmented Neuts Cancelled, Atypical Lymphocytes Cancelled, Reactive Lymphocytes Cancelled, Smudge Cells Cancelled, Toxic Granulation Cancelled, Toxic Vacuolation Cancelled, Dohle Bodies Cancelled, Cj Rods Cancelled, Platelet Estimate Cancelled, Plt Morphology Comment Cancelled, RBC Morphology Cancelled 03/20/23 09:25: RBC Morphology Cancelled, Polychromasia Cancelled, Hypochromasia Cancelled, Poikilocytosis Cancelled, Basophilic Stippling Cancelled, Anisocytosis Cancelled, Microcytosis Cancelled, Macrocytosis Cancelled, Spherocytes Cancelled, Sickle Cells Cancelled, Target Cells Cancelled, Tear Drop Cells Cancelled, Ovalocytes Cancelled, Stomatocytes Cancelled, Torres-Armstrong Bodies Cancelled, Otilio Cells Cancelled, Bite Cells Cancelled, Crenated Cell Cancelled, Acanthocytes (Spur) Cancelled, Rouleaux Cancelled, Schistocytes Cancelled, Sodium 131 L, Potassium 4.5, Chloride 99, Carbon Dioxide 24.0, Anion Gap 8, BUN 21 H, Creatinine 1.52 H, Estim Creat Clear Calc 36.25, Est GFR (MDRD) Af Amer 57 L, Est GFR (MDRD) Non-Af 47 L, BUN/Creatinine Ratio 13.8, Glucose 260 H, Calcium 9.6 03/20/23 10:05: WBC 12.1 H, RBC 4.95, Hgb 14.9, Hct 45.0, MCV 90.9, MCH 30.1, MCHC 33.1, RDW Std Deviation 49.4 H, RDW Coeff of Cornelio 14.9 H, Plt Count 121 L, MPV 8.7, Immature Gran % (Auto) 0.700, Neut % (Auto) 87.3 H, Lymph % (Auto) 2.9 L, [place] % (Auto) 8.9, Eos % (Auto) 0.0, Baso % (Auto) 0.2, Absolute Neuts (auto) 10.6 H, Absolute Lymphs (auto) 0.35 L, Nucleated RBC % 0, Differential Comment SCANNED 03/20/23 11:07: Urine Color Yellow, Urine Clarity Sl. Cloudy, Urine pH 6.0, Ur Specific [place] 1.020, Urine Protein 100 H, Urine Glucose (UA) 50 H, Urine Ketones 50 H, Urine Occult Blood 25 H, Urine Nitrite Positive H, Urine Bilirubin Negative, Urine Urobilinogen Normal, Ur Leukocyte Esterase 100 H, Urine RBC 0 SEEN, Urine WBC 25-50 SEEN, Ur Squamous Epith Cells 0 SEEN, Urine Bacteria 3+, Urine Mucus 0 SEEN 03/20/23 13:51: POC Glucose 220 H 03/20/23 16:00: POC Glucose 242 H 03/21/23 06:16: POC Glucose 162 H Radiography Diagnostic Testing: Radiology Impression Chest X-Ray 03/20/23 10:10 IMPRESSION: No radiographic evidence of acute cardiopulmonary disease. Electronically Signed: Riley Leal MD at 10:42 EDT , Rhythm Strip Rhythm Strip: Sinus Rhythm Rate: 98 Ectopy: None Physical Exam Narrative GENERAL: cooperative HEENT: Atraumatic; normocephalic EYES; Anicteric, Normal Conjunctiva NECK; supple, normal thyroid, RESPIRATORY: Diminished to auscultation CARDIOVASCULAR: Regular S1 S2, GI: soft, normoactive bowel sounds, : No Renal angle tenderness; EXTREMITIES: No edema, no clubbing, MUSCULOSKELETAL: no muscle wasting NEURO: Awake; no lateralizing signs. SKIN: No Rash PSYCH; Flat affect Assessment & Plan Assessment/Plan (1) Acute UTI: PLAN: Plan Patient is an 82-year-old gentleman presented with progressive generalized weakness. Diagnosed with cystitis admitted to regular nursing floor for further management 1. Acute cystitis ? Patient started on ceftriaxone cultures sent from the ED we will follow-up on result. Patient has slightly elevated WBC count of 12.5. Subsequent follow-up with daily CBC ordered ? 03/21/2023 urine cultures pending 2. Physical deconditioning -Secondary to above. Requested for PT OT eval and rn social services to assist with discharge planning 3. Coronary artery disease ? With previous stent placement patient is on guideline directed medical therapy 4. Hypertension - Blood pressure controlled, home medications continued with dose adjustment as needed 5. BPH ? Patient is on tamsulosin difficulty 6. Class I obesity with BMI of 33.5 ? Patient is on Tirzepatide 7. 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 Patient creatinine close to baseline ? 03/21/2023 improvement in kidney function 8. Hyponatremia ? Secondary to hypovolemic hyponatremia on IV fluid with subsequent monitoring with daily BMPs ordered -03/21/2023 hyponatremia resolved with rehydration 9. DVT prophylaxis - On enoxaparin Time spent in the patient's overall evaluation,decision-making process, review of diagnostic data, adjustment of management, discussion with other providers, nursing nursing and ancillary staff involved in patient's care documentation, 35 Minutes Charges/Coding Visit Charges Inpatient E&M: 32439 Subs Hosp L2
[2023-03-21 07:50] LABS: Absolute Lymphocyte Count 0.56 X10^3/uL (0.83-4.51); Absolute Neutrophil Count 6.6 X10^3/uL (2.0-7.7); Basophil# 0.02 X10^3/uL; Basophil% 0.3 % (0-1); Eosinophil# 0.03 X10^3/uL; Eosinophils% 0.4 % (0-5); Hematocrit 40.8 % (40-54); Hemoglobin 13.6 g/dL (13.0-16.5); Lymphocyte # 0.56 X10^3/ul (0.83-4.51); Mean Corp Hgb Conc 33.3 g/dL (32-36); Mean Corpuscular Hgb 30.5 pg (27.0-32.0); Mean Corpuscular Volume 91.5 fL (80-94); Monocyte# 0.75 X10^3/uL; Monocyte% 9.4 % (0-10); NRBC Flagged by Analyzer 0 % (0-5); Neutrophil # 6.56 X10^3/uL (2.7-7.7); Neutrophil % 82.1 % (47-70); POSITIVE DIFFERENTIAL YES; Platelet Count 115 K/mm3 (150-450); RBC Distribution Width SD 49.9 fl (35.1-43.9); Red Blood Count 4.46 M/mm3 (4.6-6.2)
[2023-03-21 07:58] LABS: Differential Indicated SCAN CRITERIA MET
[2023-03-21 08:18] LABS: Anion Gap 9 (5-15); BUN 23 mg/dL (7-18); BUN/Creat Ratio 18.9 RATIO (10-20); Calcium,Total 8.5 mg/dL (8.5-10.1); Chloride 105 mmol/L (98-107); Creatinine, Serum 1.22 mg/dL (0.70-1.30); EST Glomerular Filtration Rate 60 mL/min (>60); Est Glom Filt Rate - Afr Amer 73 mL/min (>60); Estimated Creatinine Clearance 49.72 ml/min; Glucose 162 mg/dL (74-106); Magnesium 2.1 mg/dL (1.6-2.6); Phosphorus 2.5 mg/dL (2.5-4.9); Sodium Level 137 mmol/L (136-145)
[2023-03-21 08:49] LABS: Differential Comment SCANNED
[2023-03-21] MEDS: Ceftriaxone 1 GM/50 ML BAG IV (10:12)
[2023-03-21] MEDS: Finasteride 5 MG Tablet PO (10:12)
[2023-03-21] MEDS: Aspirin E.C. 81 MG Tablet PO (10:12)
[2023-03-21 10:15] VITALS: BP 141/71; PULSE 100; RESP 18; TEMP 36.9; O2SAT 94
[2023-03-21] MEDS: Enoxaparin 40 MG/0.4 ML Syringe SC (10:15)
[2023-03-21 10:36] LABS: Bedside Glucose 190 mg/dL (74-106)
[2023-03-21 12:24] LABS: Bedside Glucose 254 mg/dL (74-106)
--- NOTE | 2023-03-21 15:54 | CASEMGMT ---
RN?CM?PEST CONTROLLER ASSISTANT?CM?to room to meet with patient for initial transition planning/care coordination?assessment.?RN?CM?introduced self and role at [facility].? Pt voices understanding and consents to?assessment?at this time.? Pt resting in bed in no distress at this time.? Pt is A/O at this time and answers all questions appropriately.?? Care providers, pharmacy, and demographics verified/updated at this time. PCP: Dr Alvarez Specialists: HARRY/Dr Claudio-cardiology, Dr Pickard-nguyen mgnt, Dr Santana-GI Preferred Pharmacy: [facility] Retail Insurance: [facility] Prescription Benefit:?Yes Living Will/HPOA:?Has both LW and HCPOA, who is his , Carol. LNOK: , Carol. Dtr, Audrey, Zoey Salazar (Elma) Living Arrangements: Lives w/ in split-level home w/3-4 steps to enter thru the garage. Pt is indep w/ADL's @ baseline. manages his meds and does most IADL's. Transportation:?Pt states drives self and states no transportation concerns at this time.? also drives. DME: ?States has the following DME:?has shower chair available, but does not use. Has RTS, cane that he uses @ times, Walker available, grab bars, CPAP thru [employer], pulse ox, and functioning glucometer w/supplies. Pt states has all insulin and medications needed. Pt states no need for further DME at this time.? HHC/SNF: No hx of either. Pt states his dtr, Elma, is a nurse and works at a HHC agency, but he is not sure which one. He states he thinks she is working on getting HHC set up already. He asked RN ANTONINA to call her to discuss this w/her. Call to Elma and discussed d/c planning. Elma interested in pt going to [facility] TCU. Discussed MCR's qualifying 3 [place] IN-patient stay for SNF and made aware, if pt does not meet this, then he would be private-pay for a SNF. Elma states she thinks he would be okay @ home w/HH and would like referral made to [facility], as this is where she works, and she declines wanting list of other [facility] options at this time. Pt feels he will be safe returning home and he is agreeable to this plan as well. Call to [facility] @ [facility] and referral made for PT/OT and SN. He was made aware anticipate pt may be ready for discharge tomorrow. He asked referral be faxed to [facility]. Same done at this time and referral also sent via [facility]. Awaiting response. Pt wishes to return home and states he has no further concerns with going home at time of discharge.? CM?to follow for any further discharge plans. Advised pt and dtr to ask for?CM?if any further questions/concerns/needs arise.? Voices understanding. PLAN:??Home w/HHC. Vonnie MONTENEGRON?RN?CM
[2023-03-21 16:30] VITALS: BP 145/76; PULSE 85; RESP 18; TEMP 36.4; O2SAT 97
[2023-03-21 17:27] LABS: Bedside Glucose 131 mg/dL (74-106)
[2023-03-21] MEDS: Tamsulosin HCl 0.4 MG Capsule PO (21:06)
[2023-03-21 21:26] VITALS: BP 154/78; PULSE 73; RESP 18; TEMP 36.6; O2SAT 92
[2023-03-21 22:44] LABS: Bedside Glucose 152 mg/dL (74-106)
[2023-03-22 04:43] VITALS: BP 138/74; PULSE 72; RESP 16; TEMP 36.4; O2SAT 98
[2023-03-22] MEDS: Insulin Lispro 100 UNIT/ML INSULN.PEN SC ×3 (06:24→19:51)
[2023-03-22 06:47] LABS: Absolute Lymphocyte Count 0.56 X10^3/uL (0.83-4.51); Absolute Neutrophil Count 3.9 X10^3/uL (2.0-7.7); Basophil# 0.02 X10^3/uL; Basophil% 0.4 % (0-1); Eosinophil# 0.07 X10^3/uL; Eosinophils% 1.3 % (0-5); Hemoglobin 13.7 g/dL (13.0-16.5); Lymphocyte # 0.56 X10^3/ul (0.83-4.51); Lymphocyte % 10.5 % (19-41); Mean Corp Hgb Conc 32.6 g/dL (32-36); Mean Corpuscular Hgb 30.2 pg (27.0-32.0); Mean Corpuscular Volume 92.5 fL (80-94); Mean Platelet Vol. 8.5 fl (6.2-12.0); Monocyte# 0.72 X10^3/uL; Monocyte% 13.5 % (0-10); NRBC Flagged by Analyzer 0 % (0-5); Neutrophil # 3.93 X10^3/uL (2.7-7.7); Neutrophil % 73.7 % (47-70); POSITIVE DIFFERENTIAL YES; Platelet Count 117 K/mm3 (150-450); RBC Distribution Width CV 14.7 % (11.6-14.6); Red Blood Count 4.54 M/mm3 (4.6-6.2); White Blood Count 5.3 K/mm3 (4.4-11.0)
[2023-03-22 06:54] LABS: Differential Indicated SCAN CRITERIA MET
[2023-03-22 06:55] LABS: Bedside Glucose 201 mg/dL (74-106)
[2023-03-22 07:12] LABS: Anion Gap 8 (5-15); BUN 21 mg/dL (7-18); BUN/Creat Ratio 18.6 RATIO (10-20); Calcium,Total 8.5 mg/dL (8.5-10.1); Chloride 104 mmol/L (98-107); Creatinine, Serum 1.13 mg/dL (0.70-1.30); EST Glomerular Filtration Rate 66 mL/min (>60); Est Glom Filt Rate - Afr Amer 80 mL/min (>60); Estimated Creatinine Clearance 53.68 ml/min; Glucose 179 mg/dL (74-106); Potassium 3.8 mmol/L (3.5-5.1); Sodium Level 134 mmol/L (136-145)
[2023-03-22 07:19] LABS: Anisocytosis 1+; Platelet Estimate SLT DEC (ADEQ)
--- NOTE | 2023-03-22 08:05 | PCM.PN.HOSP ---
Reason for Visit Reason for Visit: Diagnoses Urinary tract infection, site not specified (03/20/23) Subjective Subjective Patient seen clinical condition continues to improve. Awaiting urine cultures prior to decision on disposition Objective Data Objective Data Vital Signs: Vital Signs Temp Pulse Resp BP Pulse Ox O2 Del Method O2 Flow Rate 97.6 F L 72 16 138/74 H 98 Room Air 2 03/22/23 04:43 03/22/23 04:43 03/22/23 04:43 03/22/23 04:43 03/22/23 04:43 03/22/23 04:43 03/21/23 09:39 Oxygen Flow Rate (L/min) 2 Oxygen Delivery Method Room Air Weight: 98.685 kg Body Mass Index (BMI) 30.3 Intake & Output: Intake and Output for Last 24 Hours 03/20/23 03/21/23 03/22/23 23:59 23:59 23:59 Intake Total 1910 / 2150 3340 / 3340 Output Total 300 / 600 700 / 700 Balance 1610 / 1550 2640 / 2640 Lab / Micro Data 03/22/23 05:20 03/22/23 05:20 Labs: Laboratory Results - last 24 hr 03/20/23 21:55: POC Glucose 190 H 03/21/23 06:48: Differential Comment SCANNED, Sodium 137, Potassium 4.0, Chloride 105, Carbon Dioxide 23.0, Anion Gap 9, BUN 23 H, Creatinine 1.22, Estim Creat Clear Calc 49.72, Est GFR (MDRD) Af Amer 73, Est GFR (MDRD) Non-Af 60, BUN/Creatinine Ratio 18.9, Glucose 162 H, Calcium 8.5, Phosphorus 2.5, Magnesium 2.1 03/21/23 12:02: POC Glucose 254 H 03/21/23 17:04: POC Glucose 131 H 03/21/23 22:21: POC Glucose 152 H 03/22/23 05:20: WBC 5.3, RBC 4.54 L, Hgb 13.7, Hct 42.0, MCV 92.5, MCH 30.2, MCHC 32.6, RDW Std Deviation 50.0 H, RDW Coeff of Cornelio 14.7 H, Plt Count 117 L, MPV 8.5, Immature Gran % (Auto) 0.600, Neut % (Auto) 73.7 H, Lymph % (Auto) 10.5 L, [place] % (Auto) 13.5 H, Eos % (Auto) 1.3, Baso % (Auto) 0.4, Absolute Neuts (auto) 3.9, Absolute Lymphs (auto) 0.56 L, Nucleated RBC % 0, Platelet Estimate SLT DEC, Anisocytosis 1+, Sodium 134 L, Potassium 3.8, Chloride 104, Carbon Dioxide 22.0, Anion Gap 8, BUN 21 H, Creatinine 1.13, Estim Creat Clear Calc 53.68, Est GFR (MDRD) Af Amer 80, Est GFR (MDRD) Non-Af 66, BUN/Creatinine Ratio 18.6, Glucose 179 H, Calcium 8.5 03/22/23 06:23: POC Glucose 201 H Rhythm Strip Rhythm Strip: Sinus Rhythm Rate: 98 Ectopy: None Physical Exam Narrative GENERAL: cooperative HEENT: Atraumatic; normocephalic EYES; Anicteric, Normal Conjunctiva NECK; supple, normal thyroid, RESPIRATORY: Diminished to auscultation CARDIOVASCULAR: Regular S1 S2, GI: soft, normoactive bowel sounds, : No Renal angle tenderness; EXTREMITIES: No edema, no clubbing, MUSCULOSKELETAL: no muscle wasting NEURO: Awake; no lateralizing signs. SKIN: No Rash PSYCH; Flat affect Assessment & Plan Assessment/Plan (1) Acute UTI: PLAN: Plan Patient is an 82-year-old gentleman presented with progressive generalized weakness. Diagnosed with cystitis admitted to regular nursing floor for further management 1. Acute cystitis ? Patient started on ceftriaxone cultures sent from the ED we will follow-up on result. Patient has slightly elevated WBC count of 12.5. Subsequent follow-up with daily CBC ordered ? 03/21/2023 urine cultures pending 2. Physical deconditioning -Secondary to above. Requested for PT OT eval and social media designer to assist with discharge planning 3. Coronary artery disease ? With previous stent placement patient is on guideline directed medical therapy 4. Hypertension - Blood pressure controlled, home medications continued with dose adjustment as needed 5. BPH ? Patient is on tamsulosin difficulty 6. Class I obesity with BMI of 33.5 ? Patient is on Tirzepatide 7. 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 Patient creatinine close to baseline ? 03/21/2023 improvement in kidney function 8. Hyponatremia ? Secondary to hypovolemic hyponatremia on IV fluid with subsequent monitoring with daily BMPs ordered -03/21/2023 hyponatremia resolved with rehydration 9. DVT prophylaxis - On enoxaparin Time spent in the patient's overall evaluation,decision-making process, review of diagnostic data, adjustment of management, discussion with other providers, nursing nursing and ancillary staff involved in patient's care documentation, 35 Minutes Charges/Coding Visit Charges Inpatient E&M: 84102 Subs Hosp L2
[2023-03-22 08:28] VITALS: BP 132/67; PULSE 65; RESP 18; TEMP 36.5; O2SAT 94
[2023-03-22] MEDS: Finasteride 5 MG Tablet PO (08:31)
[2023-03-22] MEDS: Aspirin E.C. 81 MG Tablet PO (08:31)
[2023-03-22] MEDS: Enoxaparin 40 MG/0.4 ML Syringe SC (08:32)
[2023-03-22] MEDS: Ceftriaxone 1 GM/50 ML BAG IV (09:44)
[2023-03-22] MEDS: 0.9% Saline Lock 10 ML Syringe IV (09:44)
[2023-03-22 12:08] LABS: Bedside Glucose 249 mg/dL (74-106)
--- NOTE | 2023-03-22 12:19 | CASEMGMT ---
SANTI SARKAR NOTE: Per [facility] @ [facility], they are able to accept pt. He was made aware physician anticipates discharge home today. He states SOC slated for tomorrow. Pt and , who is @ bedside made aware. Pt states therapy has worked w/him today but did not work on doing steps w/him. requesting they work w/him on steps today prior to discharge. Call to Nany in therapy and she was made aware. Vonnie DIETZ RN CM
[2023-03-22 14:24] VITALS: BP 135/75; PULSE 70; RESP 18; TEMP 36.7; O2SAT 97
[2023-03-22 17:02] LABS: Bedside Glucose 135 mg/dL (74-106)
[2023-03-22 20:20] VITALS: BP 146/76; PULSE 82; RESP 18; TEMP 36.7; O2SAT 94
[2023-03-22 22:40] LABS: Bedside Glucose 187 mg/dL (74-106)
[2023-03-23 02:30] VITALS: BP 138/86; PULSE 63; RESP 18; TEMP 36.6; O2SAT 95
[2023-03-23 07:38] LABS: Absolute Lymphocyte Count 1.08 X10^3/uL (0.83-4.51); Absolute Neutrophil Count 2.4 X10^3/uL (2.0-7.7); Basophil# 0.03 X10^3/uL; Basophil% 0.7 % (0-1); Eosinophil# 0.17 X10^3/uL; Eosinophils% 3.8 % (0-5); Hematocrit 43.6 % (40-54); Hemoglobin 14.3 g/dL (13.0-16.5); Lymphocyte # 1.08 X10^3/ul (0.83-4.51); Lymphocyte % 24.2 % (19-41); Mean Corp Hgb Conc 32.8 g/dL (32-36); Mean Corpuscular Volume 91.4 fL (80-94); Mean Platelet Vol. 8.8 fl (6.2-12.0); Monocyte# 0.73 X10^3/uL; Monocyte% 16.4 % (0-10); NRBC Flagged by Analyzer 0 % (0-5); Neutrophil # 2.44 X10^3/uL (2.7-7.7); Neutrophil % 54.7 % (47-70); Platelet Count 135 K/mm3 (150-450); RBC Distribution Width CV 14.6 % (11.6-14.6); RBC Distribution Width SD 48.9 fl (35.1-43.9); Red Blood Count 4.77 M/mm3 (4.6-6.2); White Blood Count 4.5 K/mm3 (4.4-11.0)
[2023-03-23 08:01] VITALS: O2SAT 94
[2023-03-23 08:04] LABS: Anion Gap 7 (5-15); BUN 25 mg/dL (7-18); BUN/Creat Ratio 21.6 RATIO (10-20); Calcium,Total 8.9 mg/dL (8.5-10.1); Chloride 108 mmol/L (98-107); Creatinine, Serum 1.16 mg/dL (0.70-1.30); EST Glomerular Filtration Rate 64 mL/min (>60); Est Glom Filt Rate - Afr Amer 77 mL/min (>60); Estimated Creatinine Clearance 52.29 ml/min; Glucose 144 mg/dL (74-106); Potassium 3.7 mmol/L (3.5-5.1); Sodium Level 139 mmol/L (136-145)
--- NOTE | 2023-03-23 08:23 | PCM.DC.SUM ---
Providers Date of Admission: 03/20/23 Date of Discharge: 03/23/23 Primary Care Physician: Dr. Stephan Alvarez, DO Reason For Visit: UTI Diagnosis Discharge Diagnosis (1) Acute UTI: Status: Acute Code(s): N39.0 - Urinary tract infection, site not specified Plan Patient is an 82-year-old gentleman presented with progressive generalized weakness. Diagnosed with cystitis admitted to regular nursing floor for further management 1. Acute cystitis Klebsiella pneumoniae ? Patient started on ceftriaxone cultures sent from the ED we will follow-up on result. Patient has slightly elevated WBC count of 12.5. Subsequent follow-up with daily CBC ordered ? 03/21/2023 urine cultures pending ? 03/23/2023; cultures came back positive for Klebsiella pneumonia patient discharged on cefdinir based on sensitivities 2. Physical deconditioning -Secondary to above. Requested for PT OT eval and social science instructor to assist with discharge planning 3. Coronary artery disease ? With previous stent placement patient is on guideline directed medical therapy 4. Hypertension - Blood pressure controlled, home medications continued with dose adjustment as needed 5. BPH ? Patient is on tamsulosin difficulty 6. Class I obesity with BMI of 33.5 ? Patient is on Tirzepatide 7. 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 Patient creatinine close to baseline ? 03/21/2023 improvement in kidney function 8. Hyponatremia ? Secondary to hypovolemic hyponatremia on IV fluid with subsequent monitoring with daily BMPs ordered -03/21/2023 hyponatremia resolved with rehydration 9. DVT prophylaxis - On enoxaparin Time spent in the patient's overall evaluation,decision-making process, review of diagnostic data, adjustment of management, discussion with other providers, nursing nursing and ancillary staff involved in patient's care documentation, 35 Minutes Medications at Discharge Home Medications sitagliptin phosphate 100 mg tablet (Januvia) 100 mg PO DAILY DIABETES 07/04/18 tamsulosin 0.4 mg capsule 0.4 mg PO DAILY PROSTATE #39 caps 10/25/19 glimepiride 4 mg tablet (Amaryl) 4 mg PO BID DIABETES 07/06/20 ascorbate calcium (vitamin C) 500 mg tablet 500 mg PO DAILY SUPPLEMENT 02/21/22 finasteride 5 mg tablet 5 mg PO DAILY PROSTATE 02/21/22 omega-3 acid ethyl esters 1 gram capsule 1 cap PO DAILY SUPPLEMENT 02/21/22 prevagen 1 tab PO DAILY MEMORY IMPROVEMENT 02/21/22 zinc gluconate 50 mg tablet 50 mg PO DAILY SUPPLEMENT 02/21/22 dupilumab 300 mg/2 mL subcutaneous pen injector (Dupixent) 300 mg subcut QWEEK ECZEMA 02/20/23 tirzepatide 5 mg/0.5 mL subcutaneous pen injector (Mounjaro) 5 mg subcut TH DIABETES 02/20/23 aspirin 81 mg tablet,delayed release 81 mg PO DAILY HEART HEALTH 03/20/23 vitamin B complex (B Complex-Vitamin B12 tablet) 1 tab PO DAILY SUPPLEMENT 03/20/23 cefdinir 300 mg capsule 300 mg PO Q12H #10 caps 03/23/23 Hospital Course Summary of Care Provided Minutes Spent on Discharge: 35 Physical Exam Narrative GENERAL: cooperative HEENT: Atraumatic; normocephalic EYES; Anicteric, Normal Conjunctiva NECK; supple, normal thyroid, RESPIRATORY: Diminished to auscultation CARDIOVASCULAR: Regular S1 S2, GI: soft, normoactive bowel sounds, : No Renal angle tenderness; EXTREMITIES: No edema, no clubbing, MUSCULOSKELETAL: no muscle wasting NEURO: Awake; no lateralizing signs. SKIN: No Rash PSYCH; Flat affect Weight / BMI Weight Weight: 98.685 kg Body Mass Index (BMI) 30.3 ABG / Lab / Microbiology Data 03/23/23 06:25 03/23/23 06:25 Laboratory: Laboratory Results - last 24 hr 03/22/23 11:45: POC Glucose 249 H 03/22/23 16:45: POC Glucose 135 H 03/22/23 19:50: POC Glucose 187 H 03/23/23 06:25: WBC 4.5, RBC 4.77, Hgb 14.3, Hct 43.6, MCV 91.4, MCH 30.0, MCHC 32.8, RDW Std Deviation 48.9 H, RDW Coeff of Cornelio 14.6, Plt Count 135 L, MPV 8.8, Immature Gran % (Auto) 0.200, Neut % (Auto) 54.7, Lymph % (Auto) 24.2, Grimes % (Auto) 16.4 H, Eos % (Auto) 3.8, Baso % (Auto) 0.7, Absolute Neuts (auto) 2.4, Absolute Lymphs (auto) 1.08, Nucleated RBC % 0, Sodium 139, Potassium 3.7, Chloride 108 H, Carbon Dioxide 24.0, Anion Gap 7, BUN 25 H, Creatinine 1.16, Estim Creat Clear Calc 52.29, Est GFR (MDRD) Af Amer 77, Est GFR (MDRD) Non-Af 64, BUN/Creatinine Ratio 21.6 H, Glucose 144 H, Calcium 8.9 Microbiology: Microbiology 03/20/23 11:07 Urine, Catheterized Urine Culture - Final Klebsiella pneumoniae sp pneum D/C Instructions Discharge Diet: 1800 Calorie Control Diet Discharge Activity: Return to Normal Activity Call your doctor if you observe: Fever of 101 or Higher, Shortness of breath, Fainting spells and Chest pain Meaningful Use Info Meaningful Use Diagnoses (Choose all that apply): None applicable Discharge Plan Admission Admit Date/Time: 03/20/23 12:00 Attending Provider: Kenji Reed Primary Care Provider: Stephan Alvarez Discharge Orders/Prescriptions Prescriptions: New cefdinir 300 mg capsule 300 mg PO Q12H Qty: 10 0RF Continued glimepiride [Amaryl] 4 mg tablet 4 mg PO BID Januvia 100 mg tablet 100 mg PO DAILY finasteride 5 mg tablet 5 mg PO DAILY Patient Comments: PT/PT FAMILY STATED THAT THEY WERE UNSURE IF THIS MEDICATION WAS BEING TAKEN OR NOT. omega-3 acid ethyl esters 1 gram capsule 1 cap PO DAILY zinc gluconate 50 mg tablet 50 mg PO DAILY ascorbate calcium (vitamin C) 500 mg tablet 500 mg PO DAILY prevagen 1 tab PO DAILY Mounjaro 5 mg/0.5 mL pen injector 5 mg subcut TH Dupixent Pen 300 mg/2 mL pen injector 300 mg subcut QWEEK tamsulosin 0.4 MG capsule 0.4 mg PO DAILY Qty: 39 1RF vitamin B complex [B Complex-Vitamin B12] Tablet 1 tab PO DAILY aspirin 81 MG tablet 81 mg PO DAILY Referrals / Follow Up: Stephan Alvarez DO [Primary Care Provider] - Within 1 Week Disposition Disposition (needs filled in before D/C Order can be placed): Home Health Service Charges/Coding Visit Charges Inpatient E&M: 23165 Disch Hosp >30min
[2023-03-23 08:29] VITALS: BP 147/71; PULSE 61; RESP 18; TEMP 36.6; O2SAT 100
[2023-03-23] MEDS: Aspirin E.C. 81 MG Tablet PO (08:36)
[2023-03-23] MEDS: Finasteride 5 MG Tablet PO (08:36)
[2023-03-23 11:52] LABS: Bedside Glucose 153 mg/dL (74-106)
== END 2023-03-23 12:04 | disposition home health service (06) | DRG 690 ==
LOC: ED 12:03 → MS3 12:28
PROVIDERS: Admitting Provider Internal Medicine; Emergency Provider Emergency Medicine; PCP Family Medicine; Visit Provider Internal Medicine
DX: N30.00 Acute cystitis without hematuria (principal); E87.1 Hypo-osmolality and hyponatremia; E11.21 Type 2 diabetes mellitus with diabetic nephropathy; I12.9 Hypertensive chronic kidney disease with stage 1 through stage 4 chronic kidney disease, or unspecified chronic kidney disease; E66.9 Obesity, unspecified; B96.1 Klebsiella pneumoniae [K. pneumoniae] as the cause of diseases classified elsewhere; N18.30 Chronic kidney disease, stage 3 unspecified; I25.10 Atherosclerotic heart disease of native coronary artery without angina pectoris; Z79.82 Long term (current) use of aspirin; Z95.5 Presence of coronary angioplasty implant and graft; Z87.891 Personal history of nicotine dependence; N40.0 Benign prostatic hyperplasia without lower urinary tract symptoms; Z68.33 Body mass index [BMI] 33.0-33.9, adult
CPT/HCPCS: 36415; 71045; 80048; 81001; 82962; 83735; 84100; 85025; 87077; 87086; 87088; 87186; 93005; 97162; 97166; 97530; 97535; 99285; J7030; J7040; P9612; A4216

== ENCOUNTER → 2023-03-28 | Outpatient (CLI) | payer MEDICARE, OTHER, SELFPAY ==
[2023-03-28 15:35] LABS: Color, Urine Yellow (Yellow); Glucose, Dipstick Normal (Normal); Ketone-Dipstick 5 mg/dl (Negative); Leukocyte Esterase-Dipstick 25 /ul (Negative); Nitrite-Dipstick Negative (Negative); Occult Blood-Urine Negative /ul (Negative); Protein-Dipstick 30 mg/dl (Negative); Specific Gravity, Urine 1.025 (1.002-1.030); Urine Bilirubin Dipstick Negative (Negative); Urine Clarity Clear (Clear); Urine Urobilinogen Normal (Normal)
== END | disposition home or self-care (01) ==
LOC: LABSPEC 13:46
PROVIDERS: PCP Family Medicine; Referring Provider Family Medicine; Visit Provider Family Medicine
DX: N39.0 Urinary tract infection, site not specified (principal)
CPT/HCPCS: 81002; 87086

== ENCOUNTER → 2023-06-26 | Outpatient (CLI) | payer MEDICARE, OTHER, SELFPAY ==
[2023-06-26 15:16] LABS: Absolute Lymphocyte Count 1.33 X10^3/uL (0.83-4.51); Absolute Neutrophil Count 4.7 X10^3/uL (2.0-7.7); Basophil# 0.02 X10^3/uL; Basophil% 0.3 % (0-1); Eosinophils% 1.5 % (0-5); Hematocrit 51.2 % (40-54); Hemoglobin 16.3 g/dL (13.0-16.5); Lymphocyte # 1.33 X10^3/ul (0.83-4.51); Lymphocyte % 19.4 % (19-41); Mean Corp Hgb Conc 31.8 g/dL (32-36); Mean Corpuscular Hgb 29.9 pg (27.0-32.0); Mean Corpuscular Volume 93.9 fL (80-94); Mean Platelet Vol. 8.6 fl (6.2-12.0); Monocyte# 0.67 X10^3/uL; Monocyte% 9.8 % (0-10); NRBC Flagged by Analyzer 0 % (0-5); Neutrophil % 68.6 % (47-70); Platelet Count 153 K/mm3 (150-450); RBC Distribution Width CV 15.7 % (11.6-14.6); RBC Distribution Width SD 54.3 fl (35.1-43.9); Red Blood Count 5.45 M/mm3 (4.6-6.2); White Blood Count 6.9 K/mm3 (4.4-11.0)
[2023-06-26 16:07] LABS: ALB/GLOB Ratio 0.8 RATIO (0.9-2.4); AST(SGOT) 43 U/L (15-37); Alanine Aminotransfer ALT/SGPT 82 U/L (16-61); Albumin, Serum 3.6 g/dL (3.2-5.0); Alkaline Phosphatase 54 U/L (45-117); Anion Gap 4 (5-15); BUN 24 mg/dL (7-18); Calcium,Total 9.5 mg/dL (8.5-10.1); Chloride 104 mmol/L (98-107); Creatinine, Serum 1.41 mg/dL (0.70-1.30); EST Glomerular Filtration Rate 51 mL/min (>60); Est Glom Filt Rate - Afr Amer 62 mL/min (>60); Estradiol 73.8 pg/mL; Globulin 4.3 g/dL (2.2-4.2); Glucose 106 mg/dL (74-106); Potassium 3.8 mmol/L (3.5-5.1); Protein, Total 7.9 g/dL (6.4-8.2); Sodium Level 138 mmol/L (136-145)
[2023-07-02 12:14] LABS: PSA, Free % 23.6 % (.); Testosterone, Total > 1500 ng/dL (264-916)
== END | disposition home or self-care (01) ==
PROVIDERS: PCP Family Medicine; Visit Provider Preventive Medicine Public Health & General Preventive Medicine
DX: E03.9 Hypothyroidism, unspecified (principal); E29.1 Testicular hypofunction; N40.1 Benign prostatic hyperplasia with lower urinary tract symptoms; R97.20 Elevated prostate specific antigen [PSA]
CPT/HCPCS: 36415; 80053; 82670; 84153; 84154; 84402; 84403; 85025

== ENCOUNTER → 2023-07-26 | Outpatient (CLI) | payer MEDICARE, OTHER, SELFPAY ==
--- NOTE | 2023-07-26 14:15 | CYST_PTH ---
PATHOLOGY RESULTS PATIENT: SHELDON MALONEY LOC: [facility] U#:[id number] AGE/SX: 82/M ROOM: RE07/26/[address]: Dr. David Fink MD : 1940 BED: DIS: 07/26/2023 SPEC #: [id number] RECD: 07/27/23 06:50 STATUS: PEPE TAYLOR #: [id number] YOHAN: 07/26/23 14:[address]: David Fink DEPT: SURGICAL PATHOLOGY RECD BY: Ayana Velasquez ENTERED: 07/27/23 06:50 SP TYPE: Cyst OTHR DR: Dr. Stephan Alvarez, DO Tissues: CYST Procedures: Surgery Specimen Level IV HEADER OPERATION: Excision of left buttock cyst PRE-OP DIAGNOSIS: Left buttock cyst TISSUE SUBMITTED: Left buttock cyst MICROSCOPIC DIAGNOSIS Left buttock cyst, excision: Acute and chronic inflammation, granulation tissue reaction and focal foreign body giant cell reaction. See comment. CLARICE:rk 07/31/2023 COMMENT No obvious cyst is noted. MICROSCOPIC DESCRIPTION Slides are reviewed. GROSS DESCRIPTION Received in fixative is one container labeled with the patient's name and designated left buttock cyst. The specimen consists of a piece of skin with underlying tissue measuring 2.0 x 0.7 cm and up to 1.0 cm in thickness. The specimen is inked, serially sectioned and submitted entirely in one cassette. / CLARICE:rk 07/27/2023 TC:5 CPT: 15112
== END | disposition home or self-care (01) ==
PROVIDERS: PCP Family Medicine; Referring Provider Surgery; Visit Provider Surgery
DX: L72.9 Follicular cyst of the skin and subcutaneous tissue, unspecified (principal)
CPT/HCPCS: 88304; 88305

== ENCOUNTER → 2023-09-20 | Outpatient (CLI) | payer MEDICARE, OTHER, SELFPAY ==
--- NOTE | 2023-09-20 09:18 | BI_ITS ---
MAMMOGRAPHY - BILATERAL DIAGNOSTIC REASON FOR EXAM: Male, 82 years old. Palpable lump in the upper outer aspect of the left breast. PERTINENT HISTORY: Patient is presently taking a suture and. History of colon cancer. TECHNIQUE: Digital bilateral breast giovanna (3D mammographic acquisition) in the CC and MLO projections. 2-D mediolateral oblique (MLO) and craniocaudad (CC) views of both breasts were obtained. CAD: Full Field Digital Mammography with Computer Added Detection was performed. COMPARISON: None. Baseline examination. FINDINGS: Breast Composition: The breasts are almost entirely fatty. There are no dominant masses or suspicious calcifications. Small benign-appearing bilateral axillary lymph nodes. No other significant abnormalities are identified. BI/DIAG MAMM W/CAD, BILAT IMPRESSION: Negative diagnostic mammogram. With the patient''s history of a palpable lump in the upper outer quadrant of the left breast, correlation with ultrasound is recommended. ASSESSMENT CATEGORY: BIRADS Category 0: Incomplete. Need additional imaging evaluation. A letter regarding these results will be sent to the patient by the facility within 30 days. Approximately 10% of breast cancers are not detected by mammography. A normal mammogram should not delay biopsy of a clinically suspicious abnormality. Electronically Signed: Waqar Pereyra MD at 13:08 EST ,
--- NOTE | 2023-09-20 09:18 | US_ITS ---
STUDY: ULTRASOUND BREAST - LEFT REASON FOR EXAM: Male, 82 years old. Painful lump in the upper-outer quadrant of the left breast. TECHNIQUE: Axial and longitudinal images of the LEFT breast were performed with a high resolution ultrasound transducer. # OF IMAGES: 45 COMPARISON: Comparison is made with prior mammogram done earlier in the day. FINDINGS: LEFT Breast: There is a dominant heterogeneous lymph node in the left axilla measuring 2.1 cm x 1.7 cm x 0.8 cm. Increased vascularity is present. Biopsy recommended. There is also evidence of a dominant 2.1 cm x 1.9 cm x 1 cm lymph node with a fatty hilum as well as to subcentimeter lymph nodes. US/Breast Limited Unilateral IMPRESSION: 4 lymph nodes are seen in the right axilla. There is a 2.1 cm x 1.7 cm x 0.8 cm lymph node with heterogeneous echotexture with increased vascularity. Biopsy recommended. ASSESSMENT CATEGORY: BIRADS Category 4: Suspicious - Biopsy Should Be Considered. A letter regarding these results will be sent to the patient by the facility within 30 days. Electronically Signed: Waqar Pereyra MD at 13:11 EST ,
--- OUTSIDE RECORDS SUMMARY | 2023-09-20 09:41 | XMS RPT_ITS | CCD ---
Author Name Unknown Address [address] [place] [address] Organization [facility] Care Team Providers Care Photography Instructor Name Role Phone Geremias Senait Leblanc Unavailable Berta Braun Unavailable Unavailable Heydi HANCOCK, Sharon Houser Unavailable Unavailable Stephan Alvarez Primary Care Provider [phone] Senait Archuleta Unavailable Allergies Allergy Classification Reported Allergen(s) Allergy Type Date of Onset Reaction(s) Facility (4 sources) Contrast media; Translations: [CONTRAST DYE] allergy to substance 06-30-2016 hives SOB [facility] Work Phone: Medications Completed/Discontinued Medications Medication Drug Class(es) Dates Sig (Normalized) Sig (Original) HYDROCODONE-ACETAMI NOPHEN (4 sources) Opioid Agonist Start: 06-29-2016 NORCO 5-325 MG TABS as direceted HYDROCODONE-ACETAMIN OPHEN [id number] Amy Car RN Problems Active Problems Problem Classification Problem Date Documented Date Episodic/Chronic Coronary atherosclerosis and other heart disease (4 sources) Atherosclerotic heart disease of [place] coronary artery without angina pectoris; Translations: [Atherosclerotic heart disease of [place] coronary artery without angina pectoris] Onset: 06-29-2016 06-29-2016 Chronic Essential hypertension (3 sources) Hypertensive disorder; Translations: [Essential (primary) hypertension] Onset: 12-28-2016 12-28-2016 Chronic Osteoarthritis (4 sources) Osteoarthritis of knee; Translations: [Osteoarthritis of knee, unspecified] Onset: 12-10-2014 12-10-2014 Chronic Other inflammatory condition of skin (4 sources) Psoriasis; Translations: [Psoriasis, unspecified] 11-24-2010 Chronic Peripheral and visceral atherosclerosis (3 sources) Intermittent claudication; Translations: [Peripheral vascular disease, unspecified] Onset: 12-28-2016 12-28-2016 Chronic Unclassified (3 sources) Percutaneous transluminal coronary angioplasty ; Translations: [Presence of coronary angioplasty implant and graft] Onset: 06-27-2016 06-27-2016 Unclassified (1 source) Long-term drug therapy; Translations: [Other long term acute care registered nurse (current) drug therapy] Onset: 06-29-2016 06-29-2016 Past or Other Problems Problem Classification Problem Date Documented Da te Episodic/Chronic Joint disorders and dislocations; trauma-related (4 sources) Tear of medial meniscus of knee; Translations: [Other tear of medial meniscus, current injury, right knee] Onset: 12-10-2014 12-10-2014 Episodic Other aftercare (3 sources) Other senior care (current) drug therapy; Translations: [Other long term acute care registered nurse (current) drug therapy] Onset: 06-29-2016 06-29-2016 Episodic Other connective tissue disease (7 sources) Ganglion cyst; Translations: [Bursitis] Onset: 12-10-2014 12-10-2014 Episodic Other connective tissue disease (1 source) Bursitis; Translations: [Bursopathy, unspecified] 11-24-2010 Episodic Other non-traumatic joint disorders (4 sources) Knee pain; Translations: [Pain in right knee] Onset: 12-10-2014 12-10-2014 Episodic Skin and subcutaneous tissue infections (4 sources) Furuncle; Translations: [Furuncle, unspecified] 11-24-2010 Episodic Results Test Name Value Interpretation Reference Range Facil ity Vital Signs Date Time Vital Sign Value Performing Clinician Faci lity 12-28-2016 10:44-0400 BMI (Body Mass Index) 34.51 kg/m2 Senait [facility] Work Phone: 12-28-2016 10:44-0400 Body weight 102.97 kg Senait [facility] Work Phone: 12-28-2016 10:44-0400 BP Diastolic 78 mm[Hg] Senait [facility] Work Phone: 12-28-2016 10:44-0400 BP Systolic 128 mm[Hg] Senait Archuleta [facility] Work Phone: 12-28-2016 10:44-0400 Pulse (Heart Rate) 88 /min [facility] Work Phone: 12-28-2016 10:44-0400 Weight 102.97 kg Senait Archuleta [facility] Work Phone: 06-30-2016 15:53-0500 Heart rate 66 /min [facility] Work Phone: 06-30-2016 15:08-0500 BMI (Body Mass Index) 32.84 kg/m2 Harumi DeFinblair [facility] Work Phone: 06-30-2016 15:08-0500 BP Diastolic 50 mm[Hg] Harumi DeFinis [facility] Work Phone: 06-30-2016 15:08-0500 BP Systolic 98 mm[Hg] Harumi DeFinis [facility] Work Phone: 06-30-2016 15:08-0500 BSA (Body Surface Area) 2.11 m2 Harumi DeFinis [facility] Work Phone: 06-30-2016 15:08-0500 Height 172.72 cm Harumi DeFinis [facility] Work Phone: 06-30-2016 15:08-0500 Pulse (Heart Rate) 68 /min Harumi DeFinis [facility] Work Phone: 06-30-2016 15:08-0500 Respiratory Rate 16 /min Harumi DeFinis [facility] Work Phone: 06-30-2016 15:08-0500 Weight 97.98 kg Harumi DeFinis [facility] Work Phone: 09-01-2011 13:55-0500 Body Temperature 97.7 [degF] Harumi DeFinis [facility] Work Phone: 03-01-2011 13:34-0400 Pulse Oximetry 95 % Harumi DeFinis [facility] Work Phone: Encounters Encounter Date Encounter Type Care Provider Facility Start: 06-30-2020 End: 06-30-2020 Subsequent hospital visit by physician Yenni Gu Work Phone: [facility] Procedures Date Procedure Procedure Detail Performing Clinician Start: 06-30-2020 Ct lumbar spine w/o contrast material Yenni Gu Work Phone: Start: 12-28-2016 End: 12-28-2016 Dietary management education, guidance, and counseling Senait Archuleta Start: 12-28-2016 End: 12-28-2016 Documentation of current medications Senait Archuleta Start: 06-30-2016 End: 06-30-2016 Electrocardiogram, complete Placido Claudio MD Start: 06-30-2016 End: 06-30-2016 Follow Up Appt 6 months Alisha Dunne Start: 06-30-2016 End: 06-30-2016 MMM Placido Claudio MD Start: 06-27-2016 End: 06-27-2016 Nurse, Teaching, Wound Check (no charge) Chad Mcduffie MD Work Phone: Start: 06-27-2016 Percutaneous translu simone coronary angioplasty Status post PTCA and/or stent Senait Archuleta Start: 01-19-2015 End: 01-19-2015 Smoking cessation education Senait Archuleta Plan of Treatment Date Care Activity Detail Author Start: 06-17-2020 Annual Wellness Visi t (AWV) Annual Wellness Visit (AWV) [place], [place] Start: 03-30-2020 Influenza vaccination Flu vaccine (# 1) [place], [place] Start: 07-03-2017 End: 07-03-2017 Appointment Appointment [facility] Work Phone: Start: 12-28-2016 End: 12-28-2016 Appointment Appointment [facility] Work Phone: Start: 12-28-2016 End: 12-28-2016 Arterial exam Arterial exam [facility] Work Phone: Start: 12-28-2016 End: 12-28-2016 ELECTRONICS TECHNICIAN ELECTRONICS TECHNICIAN [facility] Work Phone: Start: 12-28-2016 End: 12-28-2016 Follow Up Appt 6 months Follow Up Appt 6 months [facility] Work Phone: Start: 06-30-2016 End: 06-30-2016 Electrocardiogram, complete EKG (In office) [facility] Work Phone: Start: 06-30-2016 End: 06-30-2016 Follow Up Appt 6 months Follow Up Appt 6 months [facility] Work Phone: Start: 06-30-2016 End: 06-30-2016 MMM MMM [facility] Work Phone: Start: 12-10-2014 End: 12-10-2014 Mri jnt of lwr extre w/o dye MRI Joint Lower Extremity [facility] Work Phone: Start: 12-10-2014 End: 12-10-2014 X-ray exam, knee, 4 or more X-Ray, Knee [facility] Work Phone: Start: 2005 Pneumococcal 65+ yea rs Vaccine (1 of 1 - PPSV23) Pneumococcal 65+ years Vaccine (1 of 1 - PPSV23) [place], [place] Start: 1990 Shingles Vaccine (1 of 2) Ku gles Vaccine (1 of 2) [place], [place] Start: 11-08-1959 DTaP/Tdap/Td vaccine (1 - Tdap) DTaP/Tdap/Td vaccine (1 - Tdap) [place], [place] Payers Date Payer Category Payer Private Health Insurance [facility] [id number] 2019-Present [phone] [address] [place] [address] [id number] 2014 Medicare MEDICARE MEDICAR E PART A AND B [id number] 2014-Present [phone] [place] [address] [id number] Social History Date Type Detail Facility Tobacco smoking status MSIS Unknown if ev er smoked [place], [place] Sex Assigned At Not on file [place], [place] Summary Purpose Family History No Family History Records Found Advance Directives No Advanced Directives Records Found Additional Source Comments (unrecognized sect ion and content) No Status Records Found INFORMATION SOURCE (unrecogn ized section and content) FOR RECORDS PERTAINING TO PATIENTS WHO ARE OR HAVE BEEN ENROLLED IN A CHEMICAL DEPENDENCY/SUBSTANCEABUSE PROGRAM, SOME INFORMATION MAY BE OMITTED. This clinical summary was aggregated from multiple sources. Caution should be exercised in using it in the provision of clinical care. This summary normalizes information from multiple sources, and as a consequence, information in this document may materially change the coding, format and clinical context of patient data. In addition, data may be omitted in some cases. CLINICAL DECISIONS SHOULD BE BASED ON THE PRIMARY CLINICAL RECORDS. [facility]. provides no warranty or guarantee of the accuracy or completeness of information in this document.
== END | disposition home or self-care (01) ==
PROVIDERS: PCP Family Medicine; Referring Provider Family Medicine; Visit Provider Family Medicine
DX: N63.23 Unspecified lump in the left breast, lower outer quadrant (principal); N63.20 Unspecified lump in the left breast, unspecified quadrant
CPT/HCPCS: 76642; 77062; 77066; G0279

== ENCOUNTER → 2023-09-21 | Outpatient (CLI) | payer MEDICARE, OTHER, SELFPAY ==
[2023-09-21 12:31] LABS: Absolute Lymphocyte Count 1.52 X10^3/uL (0.83-4.51); Absolute Neutrophil Count 4.9 X10^3/uL (2.0-7.7); Basophil# 0.03 X10^3/uL; Basophil% 0.4 % (0-1); Eosinophil# 0.13 X10^3/uL; Eosinophils% 1.8 % (0-5); Hematocrit 47.3 % (40-54); Hemoglobin 15.4 g/dL (13.0-16.5); Lymphocyte # 1.52 X10^3/ul (0.83-4.51); Lymphocyte % 21.1 % (19-41); Mean Corp Hgb Conc 32.6 g/dL (32-36); Mean Corpuscular Hgb 29.8 pg (27.0-32.0); Mean Corpuscular Volume 91.5 fL (80-94); Mean Platelet Vol. 9.1 fl (6.2-12.0); Monocyte# 0.64 X10^3/uL; Monocyte% 8.9 % (0-10); NRBC Flagged by Analyzer 0 % (0-5); Neutrophil # 4.86 X10^3/uL (2.7-7.7); Neutrophil % 67.4 % (47-70); Platelet Count 129 K/mm3 (150-450); RBC Distribution Width CV 14.8 % (11.6-14.6); RBC Distribution Width SD 49.5 fl (35.1-43.9); Red Blood Count 5.17 M/mm3 (4.6-6.2); White Blood Count 7.2 K/mm3 (4.4-11.0)
[2023-09-21 12:44] LABS: Microalbumin:Creatinine Ratio 106.1 mg/g CRE (<30 mg/g CRE)
[2023-09-21 13:55] LABS: AST(SGOT) 41 U/L (15-37); Alanine Aminotransfer ALT/SGPT 53 U/L (16-61); Albumin, Serum 4.1 g/dL (3.2-5.0); Alkaline Phosphatase 50 U/L (45-117); Anion Gap 5 (5-15); BUN 39 mg/dL (7-18); BUN/Creat Ratio 24.7 RATIO (10-20); Calcium,Total 9.9 mg/dL (8.5-10.1); Chloride 107 mmol/L (98-107); Cholesterol 130 mg/dL (200); Creatinine, Serum 1.58 mg/dL (0.70-1.30); EST Glomerular Filtration Rate 45 mL/min (>60); Est Glom Filt Rate - Afr Amer 54 mL/min (>60); Estradiol 16.4 pg/mL; Globulin 4.1 g/dL (2.2-4.2); Glucose 130 mg/dL (74-106); High Density Lipoprotein 46 mg/dL; Potassium 4.4 mmol/L (3.5-5.1); Protein, Total 8.2 g/dL (6.4-8.2); Sodium Level 139 mmol/L (136-145); Triglycerides 189 mg/dL; Very Low Density Lipoprotein 38 mg/dL (5-40)
[2023-09-28 14:10] LABS: Testosterone Free 4.6 pg/mL (6.6-18.1)
== END | disposition home or self-care (01) ==
PROVIDERS: PCP Family Medicine; Visit Provider Family Medicine
DX: E11.9 Type 2 diabetes mellitus without complications (principal); I10 Essential (primary) hypertension; E78.5 Hyperlipidemia, unspecified; Z51.81 Encounter for therapeutic drug level monitoring; R59.9 Enlarged lymph nodes, unspecified
CPT/HCPCS: 36415; 80053; 80061; 82043; 82570; 82670; 84402; 84403; 85025

== ENCOUNTER → 2023-09-24 | Outpatient (CLI) | payer MEDICARE, OTHER, SELFPAY ==
--- NOTE | 2023-09-24 | LYMN_PTH ---
PATHOLOGY RESULTS PATIENT: SHELDON MALONEY LOC: [facility] U#:[id number] AGE/SX: 82/M ROOM: RE09/24/[address]: Dr. David Fink MD : 1940 BED: DIS: 09/24/2023 SPEC #: [id number] RECD: 09/24/23 13:39 STATUS: PEPE REBelia #: [id number] YOHAN: 09/24/23 00:[address]: David Fink DEPT: SURGICAL PATHOLOGY RECD BY: Satish Kenney ENTERED: 09/24/23 13:39 SP TYPE: LYMPH NODE OTHR DR: Dr. Stephan Alvarez, Tissues: LYMPH NODE BIOPSY Procedures: Special Stain Group II Surgery Specimen Level IV Imprint (control) HEADER OPERATION: Left axillary lymph node biopsy PRE-OP DIAGNOSIS: Enlarged lymph node left axilla TISSUE SUBMITTED: Left axillary lymph node biopsy MICROSCOPIC DIAGNOSIS Left axillary lymph node, core biopsy: Fragments of benign fatty lymph node tissue. Negative for malignancy. See comment. CLARICE:rk 09/27/2023 COMMENT The specimen is evaluated at the time of touch imprints by Dr. Garner. Immediate Evaluation = Paucicellular specimen. A few lymphocytes are noted. Case has been reviewed in consultation with Dr. Burch who concurs with the above diagnosis. IDC:AM Immunohistochemistry ([id number]) supports the above diagnosis. Flow cytometry study from [facility] was canceled due to no viable cells present. Correlation with clinical, radiologic findings and appropriate follow up are necessary. Case has been reviewed in consultation with Dr. Burch who concurs with the above diagnosis. IDC:AM MICROSCOPIC DESCRIPTION Slides are reviewed. GROSS DESCRIPTION Received fresh in saline labeled with the patient's name is a specimen designated left axillary lymph node. The specimen consists of multiple elongated fragments of san[place] soft tissue that in aggregate measure 1.5 x 0.2 x 0.1 cm. One fragment is saved for cytometry studies if needed. Two touch imprints are prepared. The entire specimen is submitted in one cassette. / CLARICE:rk 09/24/2023 TC: 5 CPT: 68944, 00118
--- NOTE | 2023-09-24 | IMM_PTH ---
PATHOLOGY RESULTS PATIENT: SHELDON MALONEY LOC: [facility] U#:[id number] AGE/SX: 82/M ROOM: RE09/24/[address]: Dr. David Fink MD : 1940 BED: DIS: 09/24/2023 SPEC #: [id number] RECD: 09/25/23 12:31 STATUS: PEPE REQ #: [id number] YOHAN: 09/24/23 00:[address]: David Fink DEPT: IMMUNOHISTOCHEMISTRY RECD BY: Nicolle Dotson ENTERED: 09/25/23 12:33 SP TYPE: IMMUNO OTHR DR: Dr. Stephan Alvarez DO Tissues: Axillary lymph node, NOS Procedures: CD20 (add) CD45 (add) CD5 (add) CD79A (add) CD3 (initial) PHYSICIAN & INSTITUTION [place] [address] SPECIMEN INFORMATION: Tissue Source: Left axillary lymph node Clinical Info: Enlarged lymph node, left axilla Specimen Number: [id number] CPT code: 62491, 79461 x4 METHODOLOGY: Deparaffinized sections of prefer/formalin-fixed tissue or PAP/DQ stained slides are incubated with monoclonal/polyclonal antibodies/oligonucleotide probes. Localization is made via biotin free immunoperoxidase method. Appropriate controls are performed and reacted as expected. Results on target cell population are indicated in the following table: RESULTS: ANTIBODY / CLONE RESULT CD3 (PS1) positive CD68 (KP-1) positive CD20 (L26) positive CD45 (RP2/18) positive CD79a (11E3) positive These tests were developed and their performance characteristics determined by [facility]. They may not have been cleared or approved by the U.S. Food and Drug Administration. The FDA has determined that such clearance or approval is not necessary. The above immunohistochemical/dualISH markers are ordered and reviewed by the Pathologist. INTERPRETATION: Left axillary lymph node, core biopsy: Fragments of fatty benign lymph node tissue. CLARICE:rk 09/26/2023
== END | disposition home or self-care (01) ==
LOC: LABSPEC 13:33
PROVIDERS: PCP Family Medicine; Visit Provider Surgery
DX: N63.20 Unspecified lump in the left breast, unspecified quadrant (principal)
CPT/HCPCS: 88305; 88313; 88341; 88342

== ENCOUNTER → 2023-10-16 | Outpatient (CLI) | payer MEDICARE, OTHER, SELFPAY ==
--- NOTE | 2023-10-16 07:29 | CT_ITS ---
STUDY: CT CHEST WITHOUT CONTRAST REASON FOR EXAM: Male, 82 years old. LEFT SIDE CHEST PAIN RADIATION DOSAGE (If Supplied By Facility): CTDIvol = ( 17.87 ) mGy, DLP = ( 701.16 ) mGycm TECHNIQUE: Transaxial imaging was performed without the administration of intravenous contrast material. Multiplanar coronal and sagittal images were reformatted. Individualized dose optimization techniques were used for this CT. COMPARISON: No relevant priors. FINDINGS: CHEST There is a 4.9 cm x 2.2 cm bulla in the lateral aspect of the right upper lobe. Small bullous formation is also seen in the lateral inferior aspect of the right upper lobe as well as in the right lower lobe. Mild bibasilar scarring. Mild scarring in the lingular segment of the left upper lobe. There is no demonstrated pleural abnormality. There are calcifications of the coronary arteries. There are small lymph nodes within the mediastinum, which are normal in size and morphology most compatible with reactive lymph hyperplasia. Calcified right hilar lymph nodes. Normal unenhanced pulmonary arteries. There is atherosclerotic calcification of the aortic arch. There are multi-level degenerative changes of the thoracic spine. There is a 1.1 cm well-defined hypodensity in the dome of the posterior aspect of the right lobe of the liver suggestive of a small cyst. Small layering gallstones within the gallbladder lumen. CT/Chest without Contrast IMPRESSION: Bullous formation in the right lung as described. Mild scarring in the lingular segment of the left upper lobe as well as in the right lung base. Electronically Signed: Waqar Pereyra MD at 10:20 EDT ,
== END | disposition home or self-care (01) ==
LOC: CT 07:28
PROVIDERS: PCP Family Medicine; Referring Provider Family Medicine; Visit Provider Family Medicine
DX: R07.9 Chest pain, unspecified (principal)
CPT/HCPCS: 71250

== ENCOUNTER 2024-03-07 18:05 | Emergency (ER) | payer MEDICARE, OTHER, SELFPAY ==
[2024-03-07 18:06] VITALS: BP 184/99; BP 185/101; PULSE 100; PULSE 106; RESP 20; TEMP 37.2; O2SAT 91; O2SAT 92
--- NOTE | 2024-03-07 19:04 | EKG12_ITS ---
Test Reason : NAUSEA/V Blood Pressure : / mmHG Vent. Rate : 096 BPM Atrial Rate : 096 BPM P-R Int : 254 ms QRS Dur : 076 ms QT Int : 322 ms P-R-T Axes : 036 003 109 degrees QTc Int : 406 ms Sinus rhythm with 1st degree A-V block Possible Anterior infarct (cited on or before 20-MAR-2023) T wave abnormality, consider lateral ischemia Abnormal ECG Confirmed by IFEOMA MOORE, ALF ([id number]), proposal editor ASHOK PITTMAN ([id number]) on 03/10/2024 9:33:48 AM Referred By: MJ Confirmed By:DOUG DIA MD
--- NOTE | 2024-03-07 19:10 | RAD_ITS ---
INDICATION: cough EXAMINATION/TECHNIQUE: X-RAY - XR Chest 1 View AP portable. 7:12 PM COMPARISON: 03/20/2023 FINDINGS: LINES/DEVICES: None. LUNGS: No consolidation. Mildly elevated right hemidiaphragm, unchanged. No pneumothorax. MEDIASTINUM: Aorta is atherosclerotic. CARDIAC SILHOUETTE: Not enlarged. BONES AND SOFT TISSUES: No acute abnormalities. RAD/Chest 1 View (Portable) IMPRESSION: No evidence of active intrathoracic disease. Electronically Signed: Courtney Dubon MD at 19:44 EDT ,
[2024-03-07 19:14] LABS: Absolute Lymphocyte Count 0.69 X10^3/uL (0.83-4.51); Absolute Neutrophil Count 6.6 X10^3/uL (2.0-7.7); Basophil# 0.03 X10^3/uL; Basophil% 0.4 % (0-1); Eosinophil# 0.02 X10^3/uL; Eosinophils% 0.2 % (0-5); Hematocrit 51.1 % (40-54); Lymphocyte # 0.69 X10^3/ul (0.83-4.51); Lymphocyte % 8.4 % (19-41); Mean Corp Hgb Conc 33.3 g/dL (32-36); Mean Corpuscular Hgb 29.8 pg (27.0-32.0); Mean Corpuscular Volume 89.6 fL (80-94); Mean Platelet Vol. 8.7 fl (6.2-12.0); Monocyte# 0.79 X10^3/uL; Monocyte% 9.7 % (0-10); NRBC Flagged by Analyzer 0 % (0-5); Neutrophil # 6.59 X10^3/uL (2.7-7.7); Neutrophil % 80.7 % (47-70); Platelet Count 131 K/mm3 (150-450); RBC Distribution Width CV 14.2 % (11.6-14.6); RBC Distribution Width SD 45.9 fl (35.1-43.9); White Blood Count 8.2 K/mm3 (4.4-11.0)
[2024-03-07 19:19] VITALS: BMI 33.2
--- NOTE | 2024-03-07 19:23 | EX.ED.DYSGE1 ---
HPI History of Present Illness Chief Complaint: Nausea/Vomiting Informant: patient, spouse/S.O. and family Narrative Narrative: 83-year-old male presenting to the emergency room with vomiting weakness and altered mental status. Family states that today they found him to be incontinent of urine, confusion, difficulty ambulating, decreased appetite, cough. Patient notes that yesterday and today had a sore throat in the morning. He notes some occasional sputum. No fevers. He did have 1500 mg of Tylenol earlier in the day. He denies any significant rhinorrhea. He denies any sores. He has a history of diabetes coronary artery disease but no CHF history. Family notes that he had similar symptoms in the past when he was admitted with UTI. At baseline the patient can perform all ADLs and still drives. Family notes that his abdomen seemed more swollen today and that he had difficulty buttoning his shirt. They note that when they got him out to the car he had an episode of vomiting. [facility] Medical History Axillary adenopathy Left buttock abscess Wears hearing aid Wears glasses Cancer Memory deficit Rash History of steroid therapy Fatty liver Back pain Dietary restriction Former smoker CPAP (continuous positive airway pressure) dependence Shortness of breath on exertion Leg cramps History of pain when walking History of stress test Cardiology follow-up encounter Obesity Essential (primary) hypertension Atherosclerosis of coronary artery of [place] heart without angina pectoris Renal calculus, left Osteoarthritis Hyperlipidemia LDL goal <100 Diabetes Home Medications ?Medication ?Instructions ?Recorded ?Last Taken ?Type ascorbate calcium (vitamin C) 500 500 mg PO DAILY SUPPLEMENT 02/21/22 03/19/23 History mg tablet finasteride 5 mg tablet 5 mg PO DAILY PROSTATE 02/21/22 Unknown History omega-3 acid ethyl esters 1 gram 1 cap PO DAILY SUPPLEMENT 02/21/22 03/19/23 History capsule zinc gluconate 50 mg tablet 50 mg PO DAILY SUPPLEMENT 02/21/22 03/19/23 History aspirin 81 mg tablet,delayed 81 mg PO DAILY HEART HEALTH 03/20/23 03/19/23 History release vitamin B complex (B 1 tab PO DAILY SUPPLEMENT 03/20/23 03/19/23 History Complex-Vitamin B12 tablet) dulaglutide 3 mg/0.5 mL 3 mg subcut QWEEK 06/28/23 Unknown History subcutaneous pen injector (Trulicity) dupilumab 300 mg/2 mL subcutaneous 300 mg subcut .QOW ECZEMA 06/28/23 Unknown History pen injector (Dupixent) glimepiride 4 mg tablet (Amaryl) 4 mg PO BID DIABETES 06/28/23 Unknown History Allergy/AdvReac Type Severity Reaction Status Date / Time metoprolol Allergy Intermediate Rash Verified 03/07/24 18:06 cephalexin Allergy Rash Verified 03/07/24 18:06 Iodinated Contrast Media Allergy Shortness Verified 03/07/24 18:06 of breath metformin AdvReac Intermediate Diarrhea Verified 03/07/24 18:06 Family History Sister Cancer Brother Cancer Surgical History H/O excision of mass History of colectomy Hx of eye surgery History of back surgery (05/05/20) History of left heart catheterization (06/17/16) H/O hernia repair History of coronary artery stent placement (06/19/16) H/O lithotripsy Social History Smoking Status: Former smoker alcohol intake: never what type of physical activity do you participate in: none ROS ROS ED ROS Narrative Generalized weakness confusion Constitutional Constitutional ED: Denies chills, fever(s) or weight loss Eyes Eyes: Denies change in vision or diplopia ENT ENT ED: Denies ear pain, rhinorrhea or sore throat Cardiovascular Cardiovascular: Denies chest pain, orthopnea, palpitations or racing heartbeat Respiratory/Chest Respiratory/Chest: Reports cough, dyspnea and dyspnea on exertion; Denies orthopnea Gastrointestinal Gastrointestinal: Reports nausea and vomiting; Denies abdominal pain or diarrhea Genitourinary Genitourinary ED: Reports other Details: Urinary incontinence ; Denies dysuria, hematuria or urinary frequency Musculoskeletal Musculoskeletal: Denies arthralgias or myalgias Integumentary Denies abscess or rash Neurologic Neurologic: Reports other Details: Dizziness/lightheadedness ; Denies headache(s), paresthesias or weakness Psychiatric Psychiatric: Denies anxiety, depression, suicidal ideation or suicidal thoughts Endocrine Endocrinology: Denies polydipsia, polyphagia or polyuria Allergic/Immunologic Allergic/Immunologic ED: Denies mouth swelling, tongue swelling or urticaria EXAM Physical Exam Const Vital Signs: 03/07/24 18:06 03/07/24 18:06 03/07/24 19:59 Temperature 99 F 98.7 F Temperature Source Temporal Oral Pulse Rate 100 106 H 96 Respiratory Rate 20 H 20 H 20 H Blood Pressure 184/99 H 185/101 H 133/88 H Blood Pressure Mean 127 129 103 Pulse Ox 92 91 95 Oxygen Delivery Method Room Air Room Air Room Air 03/07/24 20:06 Temperature 98.7 F Temperature Source Oral Pulse Rate 96 Respiratory Rate 20 H Blood Pressure 133/88 H Blood Pressure Mean 103 Pulse Ox 95 Oxygen Delivery Method Room Air Positive well nourished and well developed General Appearance ED: well developed HEENT Reports normocephalic, head/scalp atraumatic and moist mucous membranes Eyes PERRL and EOMs intact bilaterally Neck no lymphadenopathy, supple and no JVD Resp normal respiratory effort and clear to auscultation bilaterally Cardio regular rate, regular rhythm and no murmurs GI normal to inspection, nondistended, normoactive bowel sounds and non-tender Palpation: soft Back/Spine no CVA tenderness and normal ROM Extremity normal to inspection General Extremety ED: Negative for edema General Extremity: Negative for edema Neuro oriented x3 and CN's II-XII intact bilaterally Sensorium / Orientation: alert Motor Exam: strength 5/5 throughout Psych mental status grossly normal Mood & Affect: Negative for depressed or tearful Skin no rashes or lesions noted and no wounds MDM MDM MDM Narrative Medical decision making narrative: Differential diagnosis includes but not limited to viral syndrome, dehydration, electrolyte abnormalities, pneumonia bronchitis UTI gastroenteritis CHF White count 8.2 hemoglobin is 17 platelet count is 131. Glucose 202 creatinine 1.46 with a BUN of 23 BNP is 114. Normal troponin. Lipase 58. Liver enzymes demonstrate a total bilirubin of 2.5 direct bilirubin 0.47 transaminases AST/ALT at 39 and 66. Alkaline phosphatase is 60. My independent interpretation the chest x-ray is no acute process. COVID influenza and RSV swabs returned positive for COVID-19. Repeat examination finds the patient to be waiting stating that he is ready to go home. I asked nursing to ambulate him and he was able to ambulate much better. Daughter states that she gave him a shot of vitamin C zinc and glutathione before they got here which must be taken effect as he seems to be doing better than he was at home. Patient declines Paxlovid or any other medications for COVID-19. Patient was advised to this and symptoms may worsen and he may need to return. Family notes understanding will be with them. History & Record Review Discussion w/independent historian: Patient, Family and Significant other Lab Data Attestation: I reviewed the patient's lab results. Labs: Laboratory Results - last 24 hr 03/07/24 03/07/24 03/07/24 18:20 19:20 20:15 WBC 8.2 RBC 5.70 Hgb 17.0 H Hct 51.1 MCV 89.6 MCH 29.8 MCHC 33.3 RDW Std Deviation 45.9 H RDW Coeff of Cornelio 14.2 Plt Count 131 L MPV 8.7 Immature Gran % (Auto) 0.600 Neut % (Auto) 80.7 H Lymph % (Auto) 8.4 L [place] % (Auto) 9.7 Eos % (Auto) 0.2 Baso % (Auto) 0.4 Absolute Neuts (auto) 6.6 Absolute Lymphs (auto) 0.69 L Nucleated RBC % 0 PT 13.6 INR 1.0 APTT 30.3 Sodium 135 L Potassium 4.1 Chloride 103 Carbon Dioxide 25.0 Anion Gap 7 BUN 23 H Creatinine 1.46 H Estim Creat Clear Calc 43.77 Est GFR (MDRD) Af Amer 59 L Est GFR (MDRD) Non-Af 49 L BUN/Creatinine Ratio 15.8 Glucose 202 H Lactic Acid Cancelled 1.6 Calcium 9.3 Total Bilirubin 2.50 H Direct Bilirubin 0.47 H AST 39 H ALT 66 H Alkaline Phosphatase 60 Troponin I High Sens 24 B-Natriuretic Peptide 114.0 H Total Protein 8.1 Albumin 3.8 Globulin 4.3 H Lipase 58 Urine Color Urine Clarity Urine pH Ur Specific [place] Urine Protein Urine Glucose (UA) Urine Ketones Urine Occult Blood Urine Nitrite Urine Bilirubin Urine Urobilinogen Ur Leukocyte Esterase Urine RBC Urine WBC Ur Squamous Epith Cells Urine Bacteria Urine Mucus 03/07/24 20:50 WBC RBC Hgb Hct MCV MCH MCHC RDW Std Deviation RDW Coeff of Cornelio Plt Count MPV Immature Gran % (Auto) Neut % (Auto) Lymph % (Auto) [place] % (Auto) Eos % (Auto) Baso % (Auto) Absolute Neuts (auto) Absolute Lymphs (auto) Nucleated RBC % PT INR APTT Sodium Potassium Chloride Carbon Dioxide Anion Gap BUN Creatinine Estim Creat Clear Calc Est GFR (MDRD) Af Amer Est GFR (MDRD) Non-Af BUN/Creatinine Ratio Glucose Lactic Acid Calcium Total Bilirubin Direct Bilirubin AST ALT Alkaline Phosphatase Troponin I High Sens B-Natriuretic Peptide Total Protein Albumin Globulin Lipase Urine Color Yellow Urine Clarity Sl. Cloudy Urine pH 6.0 Ur Specific [place] 1.020 Urine Protein 500 H Urine Glucose (UA) 50 H Urine Ketones 15 H Urine Occult Blood 10 H Urine Nitrite Negative Urine Bilirubin Negative Urine Urobilinogen Normal Ur Leukocyte Esterase Negative Urine RBC 0 SEEN Urine WBC 0-5 SEEN Ur Squamous Epith Cells 0-5 SEEN Urine Bacteria RARE Urine Mucus 0 SEEN Radiography Diagnostic Testing: Clinical Impression(s) from Imaging Studies Chest X-Ray 03/07/24 19:10 IMPRESSION: No evidence of active intrathoracic disease. Electronically Signed: Courtney Dubon MD at 19:44 EDT , EKG Initial EKG: Attestation: I personally reviewed and interpreted this EKG as follows: Comments: Sinus rhythm with a first-degree AV block ventricular rate of 96 bpm. Discharge Plan Triage Chief Complaint: Nausea/Vomiting ED Provider: Chad Pineda Dx/Rx/DC Orders Clinical Impression: COVID-19, Diabetes, Acute alteration in mental status Instructions: Coronavirus Disease 2019 (COVID-19): Overview Prescriptions: No Action glimepiride [Amaryl] 4 mg tablet 4 mg PO BID Patient Comments: family states he has been taking bid d/t uncontrolled blood sugars finasteride 5 mg tablet 5 mg PO DAILY Patient Comments: PT/PT FAMILY STATED THAT THEY WERE UNSURE IF THIS MEDICATION WAS BEING TAKEN OR NOT. omega-3 acid ethyl esters 1 gram capsule 1 cap PO DAILY zinc gluconate 50 mg tablet 50 mg PO DAILY ascorbate calcium (vitamin C) 500 mg tablet 500 mg PO DAILY Dupixent Pen 300 mg/2 mL pen injector 300 mg subcut .QOW Trulicity 3 mg/0.5 mL pen injector 3 mg subcut QWEEK vitamin B complex [B Complex-Vitamin B12] Tablet 1 tab PO DAILY aspirin 81 MG tablet 81 mg PO DAILY Primary Care Provider: Stephan Alvarez Referrals: Stephan Alvarez, [Primary Care Provider] - 3-5 Days if not improving Print Language: Yoruba Disposition Disposition: Home, Self Care
[2024-03-07 19:24] LABS: Partial Thromboplast Time 30.3 Seconds (24.1-36.2); Prothrombin Time (Protime)PT. 13.6 SECONDS (11.7-14.9)
[2024-03-07 19:46] LABS: AST(SGOT) 39 U/L (15-37); Alanine Aminotransfer ALT/SGPT 66 U/L (16-61); Albumin, Serum 3.8 g/dL (3.2-5.0); Alkaline Phosphatase 60 U/L (45-117); Anion Gap 7 (5-15); BUN 23 mg/dL (7-18); BUN/Creat Ratio 15.8 RATIO (10-20); Bilirubin, Direct 0.47 mg/dL (0.00-0.30); Calcium,Total 9.3 mg/dL (8.5-10.1); Chloride 103 mmol/L (98-107); Creatinine, Serum 1.46 mg/dL (0.70-1.30); EST Glomerular Filtration Rate 49 mL/min (>60); Est Glom Filt Rate - Afr Amer 59 mL/min (>60); Estimated Creatinine Clearance 43.77 ml/min; Globulin 4.3 g/dL (2.2-4.2); Glucose 202 mg/dL (74-106); Lipase 58 U/L (13-75); Potassium 4.1 mmol/L (3.5-5.1); Protein, Total 8.1 g/dL (6.4-8.2); Sodium Level 135 mmol/L (136-145); Troponin-I HS 24 pg/mL (3.0-78.0)
[2024-03-07 19:59] VITALS: BP 133/88; PULSE 96; RESP 20; TEMP 37.1; O2SAT 95
[2024-03-07 20:06] VITALS: BP 133/88; PULSE 96; RESP 20; TEMP 37.1; O2SAT 95
[2024-03-07 21:00] LABS: Lactic Acid 1.6 mmol/L (0.4-1.9)
[2024-03-07 21:01] LABS: Mucous, Urine 0 SEEN /hpf (<or=2+); Red Blood Cells-Urine 0 SEEN /hpf (0-5)
[2024-03-07 21:18] LABS: Color, Urine Yellow (Yellow); Glucose, Dipstick 50 mg/dl (Normal); Ketone-Dipstick 15 mg/dl (Negative); Nitrite-Dipstick Negative (Negative); Occult Blood-Urine 10 /ul (Negative); Protein-Dipstick 500 mg/dl (Negative); Urine Bilirubin Dipstick Negative (Negative); Urine Clarity Sl. Cloudy (Clear); Urine Urobilinogen Normal (Normal)
[2024-03-07 21:30] LABS: Leukocyte Esterase-Dipstick Negative /ul (Negative)
[2024-03-07 21:31] LABS: Bacteria RARE /hpf (None Seen); Squamous Epithelial Cells - UA 0-5 SEEN /hpf (0-5); White Blood Cells 0-5 SEEN /hpf (0-5)
[2024-03-07 22:00] VITALS: BP 168/79; PULSE 85; RESP 18; O2SAT 95
== END 2024-03-07 22:31 | disposition home or self-care (01) ==
PROVIDERS: Emergency Provider Emergency Medicine; PCP Family Medicine; Visit Provider Emergency Medicine
DX: U07.1 COVID-19 (principal); E11.9 Type 2 diabetes mellitus without complications; R41.82 Altered mental status, unspecified; Z87.891 Personal history of nicotine dependence; I25.10 Atherosclerotic heart disease of native coronary artery without angina pectoris; I10 Essential (primary) hypertension; R32 Unspecified urinary incontinence; E78.5 Hyperlipidemia, unspecified; R42 Dizziness and giddiness; R06.09 Other forms of dyspnea; R11.2 Nausea with vomiting, unspecified
CPT/HCPCS: 71045; 80048; 80076; 81001; 83605; 83690; 83880; 84484; 85025; 85610; 85730; 87040; 87631; 93005; 99284; A4216

== ENCOUNTER 2024-05-19 17:30 | Outpatient (RCR) | payer SELFPAY | END 2024-05-29 23:59 | LOC: NS 17:30 | PROVIDERS: PCP Family Medicine | DX: Z71.3 Dietary counseling and surveillance (principal) ==

== ENCOUNTER → 2024-10-06 | Outpatient (CLI) | payer MEDICARE, OTHER, SELFPAY ==
[2024-10-06 16:19] LABS: ALB/GLOB Ratio 1.3 RATIO (0.9-2.4); AST(SGOT) 45 U/L (<=37); Alanine Aminotransfer ALT/SGPT 66 U/L (<=46); Albumin, Serum 4.2 g/dL (3.4-4.8); Alkaline Phosphatase 58 U/L (40-129); Anion Gap 13 (5-15); BUN 29 mg/dL (4-19); Calcium,Total 9.5 mg/dL (7.6-11.0); Carbon Dioxide 23.6 mmol/L (21.0-32.0); Chloride 104 mmol/L (98-108); Creatinine, Serum 1.22 mg/dL (0.70-1.20); EST Glomerular Filtration Rate 59 (>60); Globulin 3.3 g/dL (2.2-4.2); Glucose 147 mg/dL (70-99); Potassium 4.3 mmol/L (3.3-5.1); Protein, Total 7.5 g/dL (5.9-8.4); Sodium Level 140 mmol/L (133-145); Total Bilirubin 1.43 mg/dL (0.00-1.30)
== END | disposition home or self-care (01) ==
PROVIDERS: PCP Family Medicine; Referring Provider Family Medicine; Visit Provider Family Medicine
DX: I10 Essential (primary) hypertension (principal); K75.81 Nonalcoholic steatohepatitis (NASH)
CPT/HCPCS: 36415; 80053

== ENCOUNTER → 2024-11-12 | Outpatient (CLI) | payer MEDICARE, OTHER, SELFPAY ==
[2024-11-12 09:53] LABS: Bacteria 0 SEEN /hpf (None Seen); Mucous, Urine 0 SEEN /hpf (<or=2+); Red Blood Cells-Urine 0 SEEN /hpf (0-5)
[2024-11-12 12:52] LABS: Absolute Lymphocyte Count 0.63 X10^3/uL (0.83-4.51); Absolute Neutrophil Count 5.4 X10^3/uL (2.0-7.7); Basophil# 0.03 X10^3/uL; Basophil% 0.5 % (0-1); Eosinophil# 0.03 X10^3/uL; Eosinophils% 0.5 % (0-5); Hematocrit 46.8 % (40-54); Hemoglobin 16.2 g/dL (13.0-16.5); Lymphocyte # 0.63 X10^3/ul (0.83-4.51); Lymphocyte % 9.6 % (19-41); Mean Corp Hgb Conc 34.6 g/dL (32-36); Mean Corpuscular Hgb 31.4 pg (27.0-32.0); Mean Corpuscular Volume 90.7 fL (80-94); Mean Platelet Vol. 8.6 fl (6.2-12.0); Monocyte# 0.48 X10^3/uL; Monocyte% 7.3 % (0-10); NRBC Flagged by Analyzer 0 % (0-5); Neutrophil # 5.39 X10^3/uL (2.7-7.7); Neutrophil % 81.6 % (47-70); Platelet Count 137 K/mm3 (150-450); RBC Distribution Width CV 14.6 % (11.6-14.6); RBC Distribution Width SD 48.2 fl (35.1-43.9); Red Blood Count 5.16 M/mm3 (4.6-6.2); White Blood Count 6.6 K/mm3 (4.4-11.0)
[2024-11-12 13:11] LABS: Color, Urine Yellow (Yellow); Glucose, Dipstick Normal (Normal); Ketone-Dipstick Negative (Negative); Leukocyte Esterase-Dipstick Negative /ul (Negative); Nitrite-Dipstick Negative (Negative); Occult Blood-Urine Negative /ul (Negative); Protein-Dipstick 100 mg/dl (Negative); Specific Gravity, Urine 1.025 (1.002-1.030); Urine Bilirubin Dipstick Negative (Negative); Urine Clarity Clear (Clear); Urine Urobilinogen Normal (Normal)
[2024-11-12 13:12] LABS: ALB/GLOB Ratio 1.2 RATIO (0.9-2.4); AST(SGOT) 59 U/L (<=37); Alanine Aminotransfer ALT/SGPT 71 U/L (<=46); Albumin, Serum 4.1 g/dL (3.4-4.8); Alkaline Phosphatase 57 U/L (40-129); Anion Gap 14 (5-15); BUN 24 mg/dL (4-19); BUN/Creat Ratio 20.9 RATIO (10-20); Calcium,Total 9.5 mg/dL (7.6-11.0); Carbon Dioxide 19.8 mmol/L (21.0-32.0); Chloride 103 mmol/L (98-108); Creatinine, Serum 1.14 mg/dL (0.70-1.20); EST Glomerular Filtration Rate 63 (>60); Globulin 3.3 g/dL (2.2-4.2); Glucose 213 mg/dL (70-99); Potassium 4.2 mmol/L (3.3-5.1); Protein, Total 7.4 g/dL (5.9-8.4); Sodium Level 137 mmol/L (133-145); Total Bilirubin 1.52 mg/dL (0.00-1.30)
[2024-11-12 13:34] LABS: Calcium Oxalate Crystals Ur 4+ /hpf (<or=2+); Squamous Epithelial Cells - UA 0-5 SEEN /hpf (0-5); White Blood Cells 0-5 SEEN /hpf (0-5)
[2024-11-12 13:36] LABS: Fine Granular Cast- Urine 0-5 SEEN /lpf (0-5); Hyaline Cast 10-25 SEEN /lpf (0-5)
== END | disposition home or self-care (01) ==
LOC: LABSPEC 09:51
PROVIDERS: PCP Family Medicine; Referring Provider Family Medicine; Visit Provider Family Medicine
DX: E11.9 Type 2 diabetes mellitus without complications (principal); N39.0 Urinary tract infection, site not specified
CPT/HCPCS: 80053; 81001; 85025

== ENCOUNTER 2024-11-17 15:21 | Emergency (ER) | payer MEDICARE, OTHER, SELFPAY ==
[2024-11-17 15:22] VITALS: BP 150/77; PULSE 70; RESP 18; TEMP 36.8; O2SAT 96
[2024-11-17] MEDS: DiphenhydrAMINE 50 MG/ML Syringe 25 MG IV (15:38)
[2024-11-17] MEDS: predniSONE 20 MG Tablet 60 MG PO (15:40)
[2024-11-17] MEDS: Famotidine 200 MG/20 ML MDV 20 MG in 0.9% Normal Saline (Pres. free 8 ML 300 MG IV (15:44)
--- NOTE | 2024-11-17 15:47 | EX.ED.DYSGE1 ---
HPI History of Present Illness Chief Complaint: Allergic Reaction Detail of Chief Complaint: Allergic reaction to shrimp Informant: patient, spouse/S.O. and family Onset/Context/Timing Onset: Yesterday and Weeks Context: Sudden Onset Timing: Intermittent Quality: Patient had reaction to shrimp a week ago. He he did shrimp last night. Location: Generalized Current Severity: Mild Maximum Severity: Severe Worsened by: Shrimp Relieved by: better after epi Associated Symptoms Associated Symptoms: Change in voice, throat swelling, orthostatic symptoms Narrative Narrative: Patient is an 84-year-old male with history of fatty liver, type 2 diabetes on Trulicity, coronary artery disease with stent placement, essential hypertension and a BMI greater than 30. He presents because of allergic reaction to shrimp. He had shrimp a week ago and had reaction where he had rash and itching. His daughter recommend that he not eat shrimp again. He ate trump again his daughter states his symptoms were worse this time. She treated him with epinephrine. He had change in voice, swelling of his throat, pleuritic generalized erythematous rash. There was no swelling of his lips that anyone noted. He did have trouble swallowing. He denied cardiac symptoms. He denied shortness of breath. He denied nausea or vomiting. Patient presently states his throat feels scratchy and he has noted to have erythematous rash. His symptoms have improved markedly since daughter administered epinephrine 1 hour ago. Prior similar symptoms: Yes Recent Illness/Hospitalization: No PFSH PFS Medical History Axillary adenopathy Left buttock abscess Wears hearing aid Wears glasses Cancer Memory deficit Rash History of steroid therapy Fatty liver Back pain Dietary restriction Former smoker CPAP (continuous positive airway pressure) dependence Shortness of breath on exertion Leg cramps History of pain when walking History of stress test Cardiology follow-up encounter Obesity Essential (primary) hypertension Atherosclerosis of coronary artery of [place] heart without angina pectoris Renal calculus, left Osteoarthritis Hyperlipidemia LDL goal <100 Diabetes Home Medications ?Medication ?Instructions ?Recorded ?Last Taken ?Type ascorbate calcium (vitamin C) 500 500 mg PO DAILY SUPPLEMENT 02/21/22 03/19/23 History mg tablet finasteride 5 mg tablet 5 mg PO DAILY PROSTATE 02/21/22 Unknown History omega-3 acid ethyl esters 1 gram 1 cap PO DAILY SUPPLEMENT 02/21/22 03/19/23 History capsule zinc gluconate 50 mg tablet 50 mg PO DAILY SUPPLEMENT 02/21/22 03/19/23 History aspirin 81 mg tablet,delayed 81 mg PO DAILY HEART HEALTH 03/20/23 03/19/23 History release vitamin B complex (B 1 tab PO DAILY SUPPLEMENT 03/20/23 03/19/23 History Complex-Vitamin B12 tablet) dulaglutide 3 mg/0.5 mL 3 mg subcut QWEEK 06/28/23 Unknown History subcutaneous pen injector (Trulicity) dupilumab 300 mg/2 mL subcutaneous 300 mg subcut .QOW ECZEMA 06/28/23 Unknown History pen injector (Dupixent) glimepiride 4 mg tablet (Amaryl) 4 mg PO BID DIABETES 06/28/23 Unknown History epinephrine 0.3 mg/0.3 mL 0.3 mg (0.3 mL) IM X1 #2 ea 11/17/24 Unknown Rx injection, auto-injector famotidine 20 mg tablet (Pepcid) 20 mg PO BID #7 tabs 11/17/24 Unknown Rx Allergy/AdvReac Type Severity Reaction Status Date / Time shrimp Allergy Severe Rash Verified 11/17/24 15:49 metoprolol Allergy Intermediate Rash Verified 11/17/24 15:22 cephalexin Allergy Rash Verified 11/17/24 15:22 Iodinated Contrast Media Allergy Shortness Verified 11/17/24 15:22 of breath metformin AdvReac Intermediate Diarrhea Verified 11/17/24 15:22 Family History Sister Cancer Brother Cancer Surgical History H/O excision of mass History of colectomy Hx of eye surgery History of back surgery (05/05/20) History of left heart catheterization (06/17/16) H/O hernia repair History of coronary artery stent placement (06/19/16) H/O lithotripsy Social History Smoking Status: Former smoker alcohol intake: never what type of physical activity do you participate in: none ROS ROS ED Constitutional Constitutional ED: Denies chills, fever(s), subjective, sweats or weight loss Eyes Eyes: Denies blurry vision or change in vision ENT ENT ED: Reports other Details: Change in voice and swelling of throat with itchy ; Denies ear pain, rhinorrhea or sore throat Cardiovascular Cardiovascular: Reports other Details: Orthostatic lightheadedness. ; Denies chest pain, orthopnea, palpitations, paroxysmal nocturnal dyspnea or racing heartbeat Respiratory/Chest Respiratory/Chest: Reports dyspnea; Denies cough, dyspnea on exertion, orthopnea or paroxysmal nocturnal dyspnea Gastrointestinal Gastrointestinal: Denies abdominal pain, nausea or vomiting Musculoskeletal Musculoskeletal: Denies arthralgias or myalgias Integumentary Reports rash Neurologic Neurologic: Denies weakness Psychiatric Psychiatric: Reports anxiety Hematologic/Lymphatic Hematologic/Lymphatic: Reports systems reviewed and no addt'l complaints, except as documented Allergic/Immunologic Allergic/Immunologic ED: Reports mouth swelling and tongue swelling EXAM Physical Exam Const Vital Signs: 11/17/24 15:22 Temperature 98.3 F Temperature Source Oral Pulse Rate 70 Respiratory Rate 18 Blood Pressure 150/77 H Blood Pressure Mean 101 Pulse Ox 96 Oxygen Delivery Method Room Air Positive well nourished and well developed Constitutional Narrative: Patient's blood pressure is elevated. He is not hypoxic or hypotensive. He appears in no distress. General Appearance ED: well developed; Negative for cyanotic or diaphoretic HEENT Reports moist mucous membranes HEENT Narrative: Uvula is midline. There is no evidence of angioedema of the lips, tongue or posterior pharynx. Ears normal. Nares patent Eyes PERRL and EOMs intact bilaterally General Eye ED: Negative for pale conjunctiva or scleral icterus Neck no lymphadenopathy, supple and no JVD Neck Narrative: Trachea is midline. There is no inspiratory expiratory stridor. Resp normal respiratory effort and clear to auscultation bilaterally Cardio regular rate, regular rhythm, S1 normal heart sound, S2 normal heart sound and no murmurs GI normal to inspection, nondistended, normoactive bowel sounds, non-tender, non-distended and no masses; Negative for hepatosplenomegaly Palpation: soft Back/Spine no CVA tenderness Extremity normal to inspection Neuro oriented x3 and CN's II-XII intact bilaterally Sensorium / Orientation: alert Psych mental status grossly normal Skin Skin Narrative: Generalized erythematous blanching rash MDM MDM MDM Narrative Medical decision making narrative: Patient with systemic symptoms to shrimp. Since he received epinephrine by his daughter and is not hemodynamically stable and there is no evidence of respiratory compromise or angioedema will treat with H1 H2 aryan and systemic steroids. Will observe for 2 to 3 hours. Patient was reassessed at 1608. His erythema is no longer present on his extremities. There are slight erythema at forehead. This may be due to some. There is no evidence of angioedema. Trachea is midline. There is no stridor. Lungs are clear to auscultation. He is hemodynamically stable. Patient was reassessed at 1636. His rash has resolved. He was discharged to home with prescription for Pepcid and H1 aryan. Since he is diabetic he was not treated with systemic steroids. He was instructed follow-up with his doctor for allergy testing. History & Record Review Additional record(s) reviewed:: Prior inpatient record, Prior outpatient record (Outpatient documentation for axillary adenopathy. Biopsy was obtained May 2023.) and Prior ED visit (Most recent ER visit was February 2024 for altered mental status. He was discharged to home.) Discharge Plan Triage Chief Complaint: Allergic Reaction ED Provider: William Reinoso Dx/Rx/DC Orders Clinical Impression: Allergic reaction to seafood, Atherosclerosis of coronary artery of [place] heart without angina pectoris, Essential (primary) hypertension, History of diabetes mellitus Instructions: ED General Allergic Reactions, ED Food Allergy Prescriptions: New epinephrine 0.3 mg/0.3 mL auto-injector 0.3 mg IM X1 Qty: 2 0RF Rx Instructions: Administer if you have a allergic reaction famotidine [Pepcid] 20 mg tablet 20 mg PO BID Qty: 7 0RF No Action glimepiride [Amaryl] 4 mg tablet 4 mg PO BID Patient Comments: family states he has been taking bid d/t uncontrolled blood sugars finasteride 5 mg tablet 5 mg PO DAILY Patient Comments: PT/PT FAMILY STATED THAT THEY WERE UNSURE IF THIS MEDICATION WAS BEING TAKEN OR NOT. omega-3 acid ethyl esters 1 gram capsule 1 cap PO DAILY zinc gluconate 50 mg tablet 50 mg PO DAILY ascorbate calcium (vitamin C) 500 mg tablet 500 mg PO DAILY Dupixent Pen 300 mg/2 mL pen injector 300 mg subcut .QOW Trulicity 3 mg/0.5 mL pen injector 3 mg subcut QWEEK vitamin B complex [B Complex-Vitamin B12] Tablet 1 tab PO DAILY aspirin 81 MG tablet 81 mg PO DAILY Primary Care Provider: Stephan Alvarez Referrals: Stephan Alvarez, DO [Primary Care Provider] - 1 Week Activity Restrictions/Additional Instructions: 1. You should carry EpiPen with you at all times 2. If you eat out at any restaurant you should make sure that they use different pants etc. when they cook and do not mix anything with seafood 3. You should follow-up with your doctor for formal allergy testing 4. Take 1 Benadryl capsule 3 times a day for the next 3 days. Print Language: British Disposition Disposition: Home, Self Care
[2024-11-17 16:21] VITALS: BP 139/83; PULSE 51; O2SAT 93
[2024-11-17 16:50] VITALS: BP 139/83; PULSE 68; RESP 16; TEMP 36.8; O2SAT 97
== END 2024-11-17 16:59 | disposition home or self-care (01) ==
PROVIDERS: Emergency Provider Emergency Medicine; PCP Family Medicine; Visit Provider Emergency Medicine
DX: T78.1XXA Other adverse food reactions, not elsewhere classified, initial encounter (principal); E11.9 Type 2 diabetes mellitus without complications; I10 Essential (primary) hypertension; Z87.891 Personal history of nicotine dependence; I25.10 Atherosclerotic heart disease of native coronary artery without angina pectoris; Z95.5 Presence of coronary angioplasty implant and graft; Z79.85 Long-term (current) use of injectable non-insulin antidiabetic drugs; E78.5 Hyperlipidemia, unspecified; Z79.899 Other long term (current) drug therapy; Z79.82 Long term (current) use of aspirin; Z79.84 Long term (current) use of oral hypoglycemic drugs; Z90.49 Acquired absence of other specified parts of digestive tract
CPT/HCPCS: 96374; 96375; 99283; A4216

== ENCOUNTER → 2024-11-19 | Outpatient (CLI) | payer MEDICARE, OTHER, SELFPAY | END | disposition home or self-care (01) | LOC: LAB 15:34 | PROVIDERS: PCP Family Medicine; Referring Provider Otolaryngology Otolaryngology/Facial Plastic Surgery; Visit Provider Otolaryngology Otolaryngology/Facial Plastic Surgery | DX: T78.40XA Allergy, unspecified, initial encounter (principal) | CPT/HCPCS: 36415; 86003 ==

== ENCOUNTER 2024-12-01 14:34 | Emergency (ER) | payer MEDICARE, OTHER, SELFPAY ==
[2024-12-01 14:35] VITALS: BP 98/76; PULSE 70; RESP 18; TEMP 36.3; O2SAT 95
--- NOTE | 2024-12-01 15:11 | ED.VIS.GI ---
HPI HPI - GI History of Present Illness Chief Complaint: Foreign Body Detail of Chief Complaint: Difficulty swallowing. Informant: patient, spouse/S.O. and family Narrative Narrative: 84-year-old male for last few months has had difficulty swallowing. Denies any pain. Unknown any significant weight loss. He thought it might be foreign body. He has never had upper endoscopy. Is never had any neck or throat or tracheal surgery. He has an appointment January 12 for a cookie swallow test. At times he chokes. He has no trouble breathing. He has seen ENT. They did an ENT scope. Psychiatric help Prior similar symptoms: Yes Recent Illness/Hospitalization: No PFSH PFSH Medical History Axillary adenopathy Left buttock abscess Wears hearing aid Wears glasses Cancer Memory deficit Rash History of steroid therapy Fatty liver Back pain Dietary restriction Former smoker CPAP (continuous positive airway pressure) dependence Shortness of breath on exertion Leg cramps History of pain when walking History of stress test Cardiology follow-up encounter Obesity Essential (primary) hypertension Atherosclerosis of coronary artery of [place] heart without angina pectoris Renal calculus, left Osteoarthritis Hyperlipidemia LDL goal <100 Diabetes Home Medications ?Medication ?Instructions ?Recorded ?Last Taken ?Type omega-3 acid ethyl esters 1 gram 1 cap PO DAILY SUPPLEMENT 02/21/22 12/01/24 History capsule zinc gluconate 50 mg tablet 50 mg PO DAILY SUPPLEMENT 02/21/22 12/01/24 History aspirin 81 mg tablet,delayed 81 mg PO DAILY HEART HEALTH 03/20/23 11/30/24 History release dulaglutide 3 mg/0.5 mL 3 mg subcut QWEEK 06/28/23 11/26/24 History subcutaneous pen injector (Trulicity) glimepiride 4 mg tablet (Amaryl) 4 mg PO DAILY DIABETES 06/28/23 11/30/24 History epinephrine 0.3 mg/0.3 mL 0.3 mg (0.3 mL) IM X1 #2 ea 11/17/24 Unknown Rx injection, auto-injector ascorbic acid (vitamin C) 1,000 mg 2 g PO DAILY 12/01/24 12/01/24 History capsule dupilumab 300 mg/2 mL subcutaneous 300 mg subcut .COMPLEX 12/01/24 11/19/24 History syringe (Dupixent) oxybutynin chloride 10 mg 10 mg PO DAILY 12/01/24 11/30/24 History tablet,extended release 24 hr saw palmetto 450 mg capsule 900 mg PO TID 12/01/24 12/01/24 History Allergy/AdvReac Type Severity Reaction Status Date / Time shrimp Allergy Severe Rash Verified 12/01/24 14:35 metoprolol Allergy Intermediate Rash Verified 12/01/24 14:35 cephalexin Allergy Rash Verified 12/01/24 14:35 Iodinated Contrast Media Allergy Shortness Verified 12/01/24 14:35 of breath metformin AdvReac Intermediate Diarrhea Verified 12/01/24 14:35 Family History Sister Cancer Brother Cancer Surgical History H/O excision of mass History of colectomy Hx of eye surgery History of back surgery (05/05/20) History of left heart catheterization (06/17/16) H/O hernia repair History of coronary artery stent placement (06/19/16) H/O lithotripsy Social History Smoking Status: Former smoker alcohol intake: never what type of physical activity do you participate in: none ROS ROS ED ROS Narrative Trouble swallowing. No recent illness. Constitutional Constitutional ED: Denies chills or fever(s) ENT ENT ED: Denies ear pain Cardiovascular Cardiovascular: Denies chest pain Respiratory/Chest Respiratory/Chest: Denies cough or dyspnea Gastrointestinal Gastrointestinal: Denies abdominal pain Genitourinary Genitourinary ED: Denies dysuria or hematuria Musculoskeletal Musculoskeletal: Denies arthralgias Integumentary Denies abscess or Abrasions Neurologic Neurologic: Denies headache(s) Psychiatric Psychiatric: Denies anxiety or depression Endocrine Endocrinology: Denies polydipsia Hematologic/Lymphatic Hematologic/Lymphatic: Denies easy bleeding, easy bruising or lymphadenopathy Allergic/Immunologic Allergic/Immunologic ED: Denies mouth swelling, tongue swelling or urticaria EXAM Physical Exam Narrative Exam Narrative: 84-year-old male vital signs stable afebrile. He is sitting upright in bed. He is in no distress. Family is at bedside. His and I believe his granddaughter. H EENT exam pupils round react light. Mytrex membranes. I gave him glass of water he swallowed without any difficulty no choking. Lungs clear to auscultation bilaterally. Heart regular rhythm rate about 70 no murmur. Chest wall ribs nontender. Abdomen soft nontender. Moving all 4 extremities. 5 out of 5 principal programmer strength. Dorsi plantarflexion intact. Patient is awake alert. He is answering question following commands. Exam benign. Const Vital Signs: 12/01/24 14:35 12/01/24 15:23 Temperature 97.3 F L Temperature Source Temporal Pulse Rate 70 Respiratory Rate 18 Respiratory Effort Normal Respiratory Pattern Normal Blood Pressure 98/76 Blood Pressure Mean 83 Pulse Ox 95 Oxygen Delivery Method Room Air Positive well nourished and well developed; Negative for cachectic, contractures or unkempt General Appearance ED: well developed and NAD; Negative for unkempt, cachectic, contractures or pallor Nutritional Appearance: Negative for cachectic HEENT Reports moist mucous membranes normocephalic and atraumatic Eyes PERRL and EOMs intact bilaterally General Eye ED: Negative for pale conjunctiva or scleral icterus Neck no lymphadenopathy, supple and no JVD General: Negative for tenderness Carotids: Negative for other Resp normal respiratory effort and clear to auscultation bilaterally Cardio regular rate, regular rhythm, S1 normal heart sound, S2 normal heart sound and no murmurs Rate: Negative for bradycardia or tachycardic Rhythm: Negative for abnormal rhythm GI non-tender, non-distended and no masses Inspection: Negative for abdominal distention Auscultation: normoactive bowel sounds Palpation: soft; Negative for tender, guarding or rebound tenderness present Back/Spine no CVA tenderness General Back: Negative for CVA tenderness Cervical Spine: Negative for cervical spine tenderness Thoracic Spine / Upper Back: Negative for thoracic spinal tenderness Lumbar Spine / Lower Back: Negative for lumbar spinal tenderness Coccyx: Negative for other Extremity full ROM General Extremety ED: Negative for edema or tenderness General Extremity: Negative for edema Neuro CN's II-XII intact bilaterally, moves all extremities and no sensory deficits noted Sensorium / Orientation: alert, oriented to person, oriented to place and oriented to time; Negative for orientation impaired or confused Motor Exam: strength 5/5 throughout Psych mental status grossly normal and thought process normal Appearance: Negative for unkempt Attitude: No agitated Mood & Affect: Negative for depressed, anxious or tearful Skin no wounds General Skin Exam: Negative for jaundice or pallor Lesions: no lesions Rashes: no rashes Trauma: Negative for abrasion Nails: Negative for discolored MDM MDM MDM Narrative Medical decision making narrative: 84-year-old male difficulty swallowing. Exam is benign. He swallowed water without any difficulty. Repeat exam patient is doing well. I spoke with both GI, Dr. Ramirez and general surgery Dr. Quinn. Patient was given their office numbers to call to get in to be seen and evaluated for possible upper endoscopy for possible esophageal narrowing or other causes of his trouble swallowing. Discharge Plan Triage Chief Complaint: Foreign Body ED Provider: Fausto Malone Dx/Rx/DC Orders Clinical Impression: Swallowing difficulty Instructions: ED Dysphagia (Adult) Prescriptions: No Action glimepiride [Amaryl] 4 mg tablet 4 mg PO DAILY Patient Comments: omega-3 acid ethyl esters 1 gram capsule 1 cap PO DAILY zinc gluconate 50 mg tablet 50 mg PO DAILY Trulicity 3 mg/0.5 mL pen injector 3 mg subcut QWEEK aspirin 81 MG tablet 81 mg PO DAILY oxybutynin chloride 10 mg tablet extended release 24hr 10 mg PO DAILY Dupixent Syringe 300 mg/2 mL syringe 300 mg SUBCUT .COMPLEX Patient Comments: [NO ORIGINAL SIG] Rx Instructions: 300 mg subcutaneously EVERY OTHER WEEK; ascorbic acid (vitamin C) 1,000 mg capsule 2 g PO DAILY saw palmetto 450 mg capsule 900 mg PO TID Rx Instructions: give with food (meal/snack) epinephrine 0.3 mg/0.3 mL auto-injector 0.3 mg IM X1 Qty: 2 0RF Rx Instructions: Administer if you have a allergic reaction Primary Care Provider: Stephan Alvarez Referrals: Jefferson Arthur MD [Non-Staff] - As soon as possible (This is a GI group in [place] that also can do the upper endoscopy to evaluate you for swallowing difficulty.) Shan Quinn MD [Med Staff - Active Staff] - As soon as possible (Call their office for an appointment if you are unable to get into see GI.) Stephan Alvarez DO [Primary Care Provider] - Mansoor Ramirez DO [Med Staff - Active Staff] - As soon as possible (Call their office tomorrow. Tell them you are in the ER. Tell them that Dr. Malone spoke to Dr. Ramirez. Their offices can evaluate you for possible upper endoscopy.) Activity Restrictions/Additional Instructions: Cut up your solid foods and find pieces. Chew slowly and thoroughly. Follow-up with GI or general surgery for upper endoscopy. Print Language: Albanian Disposition Disposition: Home, Self Care
[2024-12-01 16:29] VITALS: BP 102/74; PULSE 78; RESP 18; TEMP 36.2; O2SAT 98
== END 2024-12-01 16:29 | disposition home or self-care (01) ==
PROVIDERS: Emergency Provider Emergency Medicine; PCP Family Medicine; Visit Provider Emergency Medicine
DX: R13.10 Dysphagia, unspecified (principal); E11.9 Type 2 diabetes mellitus without complications; Z87.891 Personal history of nicotine dependence; I10 Essential (primary) hypertension; I25.10 Atherosclerotic heart disease of native coronary artery without angina pectoris; E78.5 Hyperlipidemia, unspecified; Z79.82 Long term (current) use of aspirin; Z79.85 Long-term (current) use of injectable non-insulin antidiabetic drugs; Z79.84 Long term (current) use of oral hypoglycemic drugs; Z90.49 Acquired absence of other specified parts of digestive tract; Z95.5 Presence of coronary angioplasty implant and graft
CPT/HCPCS: 99282

== ENCOUNTER 2024-12-12 11:12 | Day surgery (SDC) | payer MEDICARE, OTHER, SELFPAY ==
[2024-12-12] VITALS (9 sets, daily range): BP systolic 119–170; BP diastolic 73–86; PULSE 54–70; RESP 16; TEMP 36.1–36.4; O2SAT 91–97; BMI 32.5
[2024-12-12] MEDS: Lactated Ringers 1,000 ML 15 ML IV (11:47)
--- NOTE | 2024-12-12 11:52 | PCM.PRE.AN2 ---
ASA Classification* ASA Classification ASA Classification: 3 Assessment & Plan Anesthesia* Anesthesia Assessment Anesthesia Assessment: Discussed sedation and/or anesthesia options, risks, benefits, and alternatives with patient/parents/legal guardian/POA. Questions invited. The patient/parents/legal guardian/POA seems to understand and agrees to proceed with anesthesia plan. Reviewed the physical assessment, medical history, allergy history and patient home medications list prior to surgery/procedure/anesthetic and documented any changes. Performed airway and anesthesia risk assessments. Anesthesia Type Anesthesia Type: MAC Anesthesia Focused Assessment* Temperature: 97.6 F Pulse Rate: 54 Blood Pressure: 170/86 Respiratory Rate: 16 Pulse Ox: 97 Airway Assessment Mouth opens: >3 cm Mallampati Score: II Focused Labs Anesthesia Preop lab: CBC WBC 6.6 K/mm3 (4.4-11.0) 11/12/24 09:04 11/12/24 RBC 5.16 M/mm3 (4.6-6.2) 11/12/24 09:04 11/12/24 Hgb 16.2 g/dL (13.0-16.5) 11/12/24 09:04 11/12/24 Hct 46.8 % (40-54) 11/12/24 09:04 11/12/24 Plt Count 137 K/mm3 (150-450) L 11/12/24 09:04 11/12/24 CHEMISTRY Potassium 4.2 mmol/L (3.3-5.1) 11/12/24 09:04 11/12/24 Sodium 137 mmol/L (133-145) 11/12/24 09:04 11/12/24 Magnesium 2.1 mg/dL (1.6-2.6) 03/21/23 06:48 03/21/23 Phosphorus 2.5 mg/dL (2.5-4.9) 03/21/23 06:48 03/21/23 BUN 24 mg/dL (4-19) H 11/12/24 09:04 11/12/24 Creatinine 1.14 mg/dL (0.70-1.20) 11/12/24 09:04 11/12/24 Glucose 213 mg/dL (70-99) H 11/12/24 09:04 11/12/24 POC Glucose 153 mg/dL (74-106) H 03/23/23 06:20 03/23/23 TSH 2.06 uIU/mL (0.358-3.74) 11/29/22 13:03 11/29/22 COAG PT 13.6 SECONDS (11.7-14.9) 03/07/24 18:20 03/07/24 Pre-Assessment Diagnosis/Proposed Procedure Planned Operative Procedure(s): esophagogastroduodenoscopy Anesthesia History 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 When Was Last Pacemaker Check QUESTION #4 FULL TEXT: You/Your Family Experience fever (hyperthermia) with Anesthesia Last Oral Intake Last Oral intake: Last Oral Intake NPO since 00:00 12/12/24 11:33 Meds taken in AM with sips of water? Meds patient instructed to take am of surgery PONV PONV - aerospace engineer: PONV - aerospace engineer Female No 12/12/24 11:38 HX of Motion Sickness No 12/12/24 11:38 HX of N/V After Surgery No 12/12/24 11:38 Non-Smoker Yes 12/12/24 11:38 Duration of Surgery greater No 12/12/24 11:38 than 60 minutes Number of Risk Factors 1 12/12/24 11:38 PONV Score Low Risk 12/12/24 11:38 Height & Weight Height & Weight: Anesthesia: Height & Weight Height 5 ft 8 in 12/12/24 11:33 Weight: 97 kg 12/12/24 11:33 Body Mass Index (BMI) 32.5 12/12/24 11:33 Respiratory Assessment Respiratory Assessment - aerospace engineer: Respiratory Tract Infection Hx - aerospace engineer Hx Respiratory Tract Infection No 12/12/24 11:38 STOP Sleep Apnea STOP Sleep Apnea - aerospace engineer: STOP Sleep Apnea - aerospace engineer Hx Hypertension Yes 12/12/24 11:38 Hx Sleep Apnea Yes 12/12/24 11:38 CPAP Yes 12/12/24 11:38 BIPAP No 12/12/24 11:38 Do you snore loudly (louder No 12/12/24 11:38 than talking or can be heard Do you often feel tired/ No 12/12/24 11:38 fatigued/ sleepy during daytime? Has anyone observed you stop No 12/12/24 11:38 breathing during sleep? STOP Results Positive 12/12/24 11:38 QUESTION #5 FULL TEXT : Do you snore loudly (louder than talking or can be heard through closed doors)? 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 Specify any problems Hx of Preganancy in last 3 N/A 12/12/24 11:38 Months Nurse Filling Out Transfusion CPARSONS 12/12/24 11:38 & Questions: Date: 12/12/24 12/12/24 11:38 Time: 11:44 12/12/24 11:38 Patient unable to answer at this time (ie. confused, unrespo /Reproduction History /Reproductive History - aerospace engineer: /Reproductive Hx- aerospace engineer Hx Now Gestational Age (in weeks): EDC: Hx Hx Para Hx Section SAB No 12/12/24 11:38 Active Medications Active Medications: Current Medications Generic Name Dose Route Start Last Admin Trade Name Freq PRN Reason Stop Dose Admin Lactated Ringer's 1,000 mls @ 15 mls/hr 12/12/24 12:00 12/12/24 11:47 IV 15 mls/hr .Q48H FRED Administration PFSH Medical History Prosthetic eye globe Axillary adenopathy Left buttock abscess Wears hearing aid Wears glasses Cancer Memory deficit Rash History of steroid therapy Fatty liver Back pain Dietary restriction Former smoker CPAP (continuous positive airway pressure) dependence Shortness of breath on exertion Leg cramps History of pain when walking History of stress test Cardiology follow-up encounter Obesity Essential (primary) hypertension Atherosclerosis of coronary artery of [place] heart without angina pectoris Renal calculus, left Osteoarthritis Hyperlipidemia LDL goal <100 Diabetes Home Medications ?Medication ?Instructions ?Recorded ?Last Taken ?Type omega-3 acid ethyl esters 1 gram 1 cap PO DAILY SUPPLEMENT 02/21/22 12/09/24 History capsule zinc gluconate 50 mg tablet 50 mg PO DAILY SUPPLEMENT 02/21/22 12/01/24 History aspirin 81 mg tablet,delayed 81 mg PO DAILY HEART HEALTH 03/20/23 12/09/24 History release dulaglutide 3 mg/0.5 mL 3 mg subcut QWEEK 06/28/23 11/26/24 History subcutaneous pen injector (Trulicity) glimepiride 4 mg tablet (Amaryl) 4 mg PO DAILY DIABETES 06/28/23 11/30/24 History epinephrine 0.3 mg/0.3 mL 0.3 mg (0.3 mL) IM X1 #2 ea 11/17/24 Unknown Rx injection, auto-injector ascorbic acid (vitamin C) 1,000 mg 2 g PO DAILY 12/01/24 12/01/24 History capsule dupilumab 300 mg/2 mL subcutaneous 300 mg subcut .COMPLEX 12/01/24 11/19/24 History syringe (Dupixent) oxybutynin chloride 10 mg 10 mg PO DAILY 12/01/24 11/30/24 History tablet,extended release 24 hr saw palmetto 450 mg capsule 900 mg PO TID 12/01/24 12/01/24 History fexofenadine 180 mg tablet 180 mg PO Q24H 12/04/24 Unknown History (Mishel Allergy) quercetin 500 mg capsule mg PO DAILY 12/04/24 Unknown History Allergy/AdvReac Type Severity Reaction Status Date / Time metoprolol Allergy Intermediate Rash Verified 12/12/24 11:32 cephalexin Allergy Rash Verified 12/12/24 11:32 Iodinated Contrast Media Allergy Shortness Verified 12/12/24 11:32 of breath metformin AdvReac Intermediate Diarrhea Verified 12/12/24 11:32 Family History Sister Cancer Brother Cancer Surgical History H/O excision of mass History of colectomy Hx of eye surgery History of back surgery (05/05/20) History of left heart catheterization (06/17/16) H/O hernia repair History of coronary artery stent placement (06/19/16) H/O lithotripsy Social History Smoking Status: Former smoker alcohol intake: never what type of physical activity do you participate in: none Review of Systems (Anesthesia) ROS Narrative System reviewed and no additional complaints, except as documented.
--- NOTE | 2024-12-12 12:28 | HP.PCM_ITS ---
HPI - General General Date of Admission: 12/12/24 Date of Service: 12/12/24 Chief Complaint: dysphagia HPI Narrative Chief Complaint: Difficulty Swallowing [facility] ED 11.17.24 with suspected allergic reaction to shrimp. Change in voice, throat swelling and rash. [facility] ED 5 for difficulty swallowing over the past few months. OV 5 Pt here today for f/u after ED visit for dysphagia. Pt states that over the past month he has had issues with swallowing. His food gets stuck in his esophagus and he will have to regurgitate it. He is having issues with both solids and liquids. He has never had issues prior to one month ago. He endorses a hx of smoking for amny years but quit at age 50 [facility] Medical History (Updated 12/12/24 @ 12:[address] Max Friend, DO) Swallowing difficulty Prosthetic eye globe Axillary adenopathy Left buttock abscess Wears hearing aid Wears glasses Cancer Memory deficit Rash History of steroid therapy Fatty liver Back pain Dietary restriction Former smoker CPAP (continuous positive airway pressure) dependence Shortness of breath on exertion Leg cramps History of pain when walking History of stress test Cardiology follow-up encounter Obesity Essential (primary) hypertension Atherosclerosis of coronary artery of [place] heart without angina pectoris Renal calculus, left Osteoarthritis Hyperlipidemia LDL goal <100 Diabetes Home Medications ?Medication ?Instructions ?Recorded ?Last Taken ?Type omega-3 acid ethyl esters 1 gram 1 cap PO DAILY SUPPLE MENT 02/21/22 12/09/24 History capsule zinc gluconate 50 mg tablet 50 mg PO DAILY SUPPLEMENT 02/21/22 12/01/24 History aspirin 81 mg tablet,delayed 81 mg PO DAILY HEART HEAL TH 03/20/23 12/09/24 History release dulaglutide 3 mg/0.5 mL 3 mg subcut QWEEK 06/28/23 0 11/26/24 History subcutaneous pen injector (Trulicity) glimepiride 4 mg tablet (Amaryl) 4 mg PO DAILY DIABETE S 06/28/23 11/30/24 Histo ry epinephrine 0.3 mg/0.3 mL 0.3 mg (0.3 mL) IM X1 #2 ea 11/17/24 Unknown Rx injection, auto-injector ascorbic acid (vitamin C) 1,000 mg 2 g PO DAILY 12/01/24 History capsule dupilumab 300 mg/2 mL subcutaneous 300 mg subcut .COMP CAMERON 12/01/24 11/19/24 History syringe (Dupixent) oxybutynin chloride 10 mg 10 mg PO DAILY 12/01/2411/21 History tablet,extended release 24 hr saw palmetto 450 mg capsule 900 mg PO TID 12/01/2412/21 History fexofenadine 180 mg tablet 180 mg PO Q24H 12/04/24 Unk nown History (Mishel Allergy) quercetin 500 mg capsule mg PO DAILY 12/04/24 Unknown History Allergy/AdvReac Type Severity Reaction Status Date / Time metoprolol Allergy Intermediate Rash Verified 12/12/24 11:32 cephalexin Allergy Rash Verified 12/12/24 11:32 Iodinated Contrast Media Allergy Shortness Verified 12/12/24 11:32 of breath metformin AdvReac Intermediate Diarrhea Verified 12/12/24 11:32 Family History Sister Cancer Brother Cancer Surgical History H/O excision of mass History of colectomy Hx of eye surgery History of back surgery (05/05/20) History of left heart catheterization (06/17/16) H/O hernia repair History of coronary artery stent placement (06/19/16) H/O lithotripsy Social History Smoking Status: Former smoker alcohol intake: never what type of physical activity do you participate in: none ROS Constitutional Constitutional: Denies fatigue, fever(s), poor appetite, weight gain or weight loss Gastrointestinal Gastrointestinal: Denies belching, bloating, change in bowel habits, change in stool character, chewing difficulty, coffee ground emesis, constipation, cramping, diarrhea, dyspepsia, dysphagia, early satiety, excessive flatus, fecal incontinence, heartburn, hematemesis, hematochezia, hemorrhoids, loose stools, melena, nausea, odynophagia, rectal bleeding, tenesmus, vomiting or weight changes Vital Signs Vital Signs Vital Signs: 12/12/24 11:33 12/12/24 11:33 12/12/24 11:53 Temperature 97.6 F L 97.6 F L Temperature Source Temporal Pulse Rate 54 L 54 L Respiratory Rate 16 16 Respiratory Pattern Normal Blood Pressure 170/86 H 170/86 H Blood Pressure Mean 114 Blood Pressure Source Monitor Blood Pressure Position Semi-Fowlers Blood Pressure Location Right Arm Pulse Ox 97 97 Oxygen Delivery Method Room Air Weight Weight: 213 lb 13.574 oz Body Mass Index (BMI) 32.5 Physical Exam Const alert, oriented x3, no apparent distress and healthy appearing General Appearance: cooperative GI normal to inspection, nondistended, normoactive bowel sounds, soft to palpation, non-tender and non-distended Percussion: normal to percussion Rectal Exam: deferred Assessment & Plan Assessment/Plan (1) Swallowing difficulty: PLAN: Assessment and Plan Assessment and Plan (1) Swallowing difficulty: Status: Acute Plan: This is an 84 yo male pt here today for [facility] ED f/u. Pt seen in the ED on two occasions over the past month. One visit for a suspected allergic reaction to shrimp however allergy testing was negative. The second occasion was for dysphagia. Pt now having difficulty swallowing with every meal. He is having trouble with solids and liquids. He is scheduled for a barium esophagram ordered by his PCP. He will undergo EGD for assessment and dilation if needed. -EGD -f/u after procedure
--- NOTE | 2024-12-12 12:30 | EGD_PTH ---
PATIENT: SHELDON MALONEY LOC: EN U#:[id number] AGE/SX: 84/M ROOM: RE12/12/[address]: Dr. Mansoor Ramirez DO : 1940 BED: DIS: 12/12/2024 SPEC #: [id number] RECD: 12/12/24 17:26 STATUS: PEPE TAYLOR #: [id number] YOHAN: 12/12/24 12:[address]: Mansoor Ramirez DEPT: SURGICAL PATHOLOGY RECD BY: Lina Hunter ENTERED: 12/15/24 07:45 SP TYPE: EGD BIOPSY OT DR: Dr. Stephan Alvarez DO Tissues: Esophagus, NOS Procedures: Surgery Specimen Level IV HEADER OPERATION: EGD with biopsy and dilation PRE-OP DIAGNOSIS: Swallowing difficulty TISSUE SUBMITTED: A- Distal esophagus biopsy MICROSCOPIC DIAGNOSIS A. Esophagus, distal, biopsy: Squamous mucosa with mild reactive changes. Columnar mucosa with goblet cell metaplasia - see note. Negative for dysplasia. Note: The diagnosis depends on the location of the biopsy and the extent of the mucosal irregularity. If the biopsy originates from the tubular esophagus and the mucosal irregularity extends at least 1 cm above the top of the gastric folds, this represents Sims mucosa. If the biopsy originates from the gastric cardia and/or the mucosal irregularity is less than 1 cm in extent, this represents intestinal metaplasia. MICROSCOPIC DESCRIPTION Slides are reviewed. GROSS DESCRIPTION A. Received in formalin in a container labeled with the patient's name, date of , and distal esophagus are 2 sanab[place]-pink fragments of mucosal tissue measuring 0.4 x 0.2 x 0.2 cm and 0.4 x 0.3 x 0.3 cm. Submitted in toto in A1. [facility] 12-15-2024 CPT:97992
--- NOTE | 2024-12-12 13:01 | PCM.POST.ANE ---
Anesthesia: Postop Eval I Current Vital Signs Temperature: 97 F Pulse Rate: 65 Blood Pressure: 122/74 Respiratory Rate: 16 Pulse Ox: 95 Oxygen Delivery Method: Room Air Assessment Airway patent: Yes Spontaneous unlabored respirations: Yes Mental status: Awake and Calm nausea: No Vomiting: No Anesthesia Complication: No Fluid Hydration Crystalloid volume administer (ml): 300 Total IV fluid infused: 300 Progress Note Anesthesia document: Postop Eval 1 completed: Yes
--- NOTE | 2024-12-12 13:03 | OP.EGD_ITS ---
Patient Name: Steve Adames Procedure Date: 12/12/2024 12:31 PM Date of : 1940 Age: 84 Procedure: Upper GI endoscopy Indications: Oral phase dysphagia, Esophageal dysphagia, Dysphagia Providers: Mansoor Ramirez DO Referring MD: Stephan Alvarez Medicines: Monitored Anesthesia Care Patient Profile: This is an 84 year old male. Refer to note in patient chart for documentation of history and physical. Patient has symptoms of dysphagia with both liquids and solids. Complications: No immediate complications. Procedure: Pre-Anesthesia Assessment: - Prior to the procedure, a History and Physical was performed, and patient medications and allergies were reviewed. The patient is competent. The risks and benefits of the procedure and the sedation options and risks were discussed with the patient. All questions were answered and informed consent was obtained. Patient identification and proposed procedure were verified by the physician in the pre-procedure area. Mental Status Examination: alert and oriented. Airway Examination: normal oropharyngeal airway and neck mobility. Respiratory Examination: clear to auscultation. CV Examination: normal. Prophylactic Antibiotics: The patient does not require prophylactic antibiotics. Prior Anticoagulants: The patient has taken no anticoagulant or antiplatelet agents except for NSAID medication. ASA Grade Assessment: II - A patient with mild systemic disease. After reviewing the risks and benefits, the patient was deemed in satisfactory condition to undergo the procedure. The anesthesia plan was to use monitored anesthesia care (MAC). Immediately prior to administration of medications, the patient was re-assessed for adequacy to receive sedatives. The heart rate, respiratory rate, oxygen saturations, blood pressure, adequacy of pulmonary ventilation, and response to care were monitored throughout the procedure. The physical status of the patient was re-assessed after the procedure. After obtaining informed consent, the endoscope was passed under direct vision. Throughout the procedure, the patient's blood pressure, pulse, and oxygen saturations were monitored continuously. The Endoscope was introduced through the mouth, and advanced to the second part of duodenum. The upper GI endoscopy was accomplished without difficulty. The patient tolerated the procedure well. Scope In: 12:46:31 PM Scope Out: 12:53:15 PM Total Procedure Duration Time 0 hours 6 minutes 44 seconds Findings: Abnormal motility was noted in the esophagus. The cricopharyngeus was abnormal. There is a decrease in motility of the esophageal body. The distal esophagus/lower esophageal sphincter is spastic, but gives up passage to the endoscope. Biopsies were taken with a cold forceps for histology. Verification of patient identification for the specimen was done. Estimated blood loss was minimal. A guidewire was placed and the scope was withdrawn. Dilation was performed with a Savary dilator with no resistance at 60 Fr. The dilation site was examined and showed moderate improvement in luminal narrowing. Estimated blood loss was minimal. No gross lesions were noted in the entire examined stomach. No gross lesions were noted in the entire examined duodenum. Impression: - Abnormal esophageal motility, suspicious for achalasia. Biopsied. Dilated. - No gross lesions in the entire stomach. - No gross lesions in the entire examined duodenum. Recommendation: - Discharge patient to home. - Resume previous diet. - Continue present medications. Procedure Code(s): --- Professional --- 35125, Esophagogastroduodenoscopy, flexible, transoral; with insertion of guide wire followed by passage of dilator(s) through esophagus over guide wire 84052, 59,51, Esophagogastroduodenoscopy, flexible, transoral; with biopsy, single or multiple CPT copyright 2021 [employer] [place] [employer]. All rights reserved. The codes documented in this report are preliminary and upon home teaching grades 9 thru 12 teacher review may be revised to meet current compliance requirements. Mansoor Ramirez DO 12/12/2024 1:03:14 PM This report has been signed electronically. Number of Addenda: 0 Note Initiated On: 12/12/2024 12:31 PM
--- NOTE | 2024-12-12 13:03 | OP.CCLET_ITS ---
12/12/2024 Stephan Alvarez [address] [place] [address] Re : Upper GI endoscopy procedure for Steve Adames Dear Dr. Alvarez This procedure was performed on Thursday, December 12, 2024. My impressions and recommendations are as follows: Impressions : - Abnormal esophageal motility, suspicious for achalasia. Biopsied. Dilated. - No gross lesions in the entire stomach. - No gross lesions in the entire examined duodenum. Recommendations : - Discharge patient to home. - Resume previous diet. - Continue present medications. My findings are described in the full procedure note, which is enclosed. If I can be of further assistance, please feel free to contact me at . Sincerely, Mansoor Ramirez, 12/12/2024 1:03:14 PM This report has been signed electronically.
[2024-12-12 13:08] LABS: Bedside Glucose 151 mg/dL (74-106)
== END 2024-12-12 13:54 | disposition home or self-care (01) ==
LOC: EN 11:14 → AC 11:16
PROVIDERS: PCP Family Medicine; Referring Provider Family Medicine; Visit Provider Internal Medicine Gastroenterology
PROC: 0DJ08ZZ Inspection of Upper Intestinal Tract, Via Natural or Artificial Opening Endoscopic (ICD-10-PCS; CPT 43235; principal; 2024-12-12 12:25)
DX: R13.10 Dysphagia, unspecified (principal); E11.9 Type 2 diabetes mellitus without complications; I25.10 Atherosclerotic heart disease of native coronary artery without angina pectoris; Z79.85 Long-term (current) use of injectable non-insulin antidiabetic drugs; Z87.891 Personal history of nicotine dependence; Z79.84 Long term (current) use of oral hypoglycemic drugs; I10 Essential (primary) hypertension; E78.5 Hyperlipidemia, unspecified; Z79.82 Long term (current) use of aspirin; Z90.49 Acquired absence of other specified parts of digestive tract; Z95.5 Presence of coronary angioplasty implant and graft; K22.89 Other specified disease of esophagus
CPT/HCPCS: 43248; 43239; 82962; 88305; C1769; J2405

== ENCOUNTER → 2025-01-12 | Outpatient (CLI) | payer MEDICARE, OTHER, SELFPAY ==
--- NOTE | 2025-01-12 14:43 | ST.MBS ---
Modified Barium Swallow Patient Information Study Date: 01/12/25 Study Time: 13:00 Direct Billable Minutes: 150 Total Minutes procedure & reportin Diagnosis: K22.0 - Achalasia of cardia Referring Physician: Stephan Alvarez Medical History: The patient is an 84-year-old male presenting today for follow-up after an EGD performed to evaluate difficulty swallowing. The EGD, completed on 12/26, revealed abnormal esophageal motility suspicious for achalasia. Biopsies were positive for intestinal metaplasia. He continues to experience daily swallowing difficulties, including episodes of choking and regurgitation. As a result, he has reduced his oral intake and has experienced weight loss in an effort to avoid triggering these episodes. The patient has been started on amitriptyline 10 mg daily and scheduled for a repeat EGD with Botox injections to address suspected achalasia. Additionally, pantoprazole 40 mg once daily was initiated due to biopsy findings of intestinal metaplasia. Start pantoprazole 40 mg daily Start amitriptyline 10 mg daily Schedule EGD with Botox injection 12/26 EGD Findings:?Abnormal esophageal motility suspicious for achalasia. Biopsies obtained. Esophagus dilated. No gross lesions noted in the stomach or examined duodenum. MBSS completed on this date to objectively assess swallow function. Dentition: WNL Mental Status: WNL Respiratory Status: Oxygenating on Room Air Penetration-Aspiration Scale Penetration-Aspiration Scale: OBJECTIVE ASSESSMENT OF SWALLOW FUNCTION (QUANTITATIVE ? PER TRIAL): PENETRATION / ASPIRATION SCALE (SOLANO): 1 = does not enter airway 2 = enters airway/above vocal folds/ejected 3 = enters airway/above vocal folds/not ejected 4 = enters airway/contacts vocal folds/ejected 5 = enters airway/contacts vocal folds/not ejected 6 = enters airway/below vocal folds/ejected 7 = enters airway/below vocal folds/not ejected despite effort 8 = enters airway/below vocal folds/no effort VIDEOFLOROSCOPIC SCALE SCORE (SOLANO): Grade I = aspiration of material that has penetrated into the laryngeal vestibule, intact cough reflex Grade II = aspiration < 10 % of the bolus, intact cough reflex Grade III = aspiration of < 10 % of the bolus, reduced cough reflex or aspiration of > 10 % of the bolus, intact cough reflex Grade IV = aspiration of > 10 % of the bolus, reduced cough reflex Penetration-Aspiration Scale Score Thin Liquid via teaspoon: Result: 1= does not enter airway Thin Liquid via teaspoon Trial 2: Result: 3= enters airways/above vocal folds/not ejected Thin Liquid via small single sip: cup: Result: 5= enters airways/contacts vocal folds/not ejected Thin Liquid via small single sip: cup Trial 2: Result: 3= enters airways/above vocal folds/not ejected Thin Liquid via small single sip: cup Trial 3: Result: 5= enters airways/contacts vocal folds/not ejected Thin Liquid via small single sip: cup Effortful swallow: Result: 3= enters airways/above vocal folds/not ejected Thin Liquid via small single sip: cup Effortful swallow Trial 2: Result: 3= enters airways/above vocal folds/not ejected [place] Thick Liquid via small single sip: cup: Result: 5= enters airways/contacts vocal folds/not ejected [place] Thick Liquid via small single sip: cup Trial 2: Result: 3= enters airways/above vocal folds/not ejected [place] Thick Liquid via small single sip: cup Trial 3: Result: 5= enters airways/contacts vocal folds/not ejected [place] Thick Liquid via small single sip: cup: Result: 2= enter airway/above vocal folds/ejected Pudding: Result: 1= does not enter airway [place] Thick Liquid via small single sip: cup Trial 4: Result: 1= does not enter airway Cookie: Result: 1= does not enter airway [place] Thick Liquid via small single sip: cup Trial 5: Result: 3= enters airways/above vocal folds/not ejected Thin Liquid via small single sip: cup Chin tuck: Result: 5= enters airways/contacts vocal folds/not ejected Thin Liquid via small single sip: cup Double swallow: Result: 5= enters airways/contacts vocal folds/not ejected Thin Liquid via small single sip: cup Double swallow Trial 2: Result: 3= enters airways/above vocal folds/not ejected Oral Phase Labial Seal: No Labial Escape Tongue Control During Bolus Hold: Posterior escape of less than half of bolus Bolus Preparation/Mastication: Timely and efficient chewing and mashing Bolus Transport/Lingual Motion: Brisk tongue motion Oral Residue: Trace residue lining oral structures Pharyngeal Phase Initiation of Pharyngeal Swallow: Bolus head in pyriforms Soft Palate Elevation: Trace column of contrast/air between soft palate and pharyngeal wall Laryngeal Elevation: Partial superior movement thyroid cart/partial apprx aryt-epig petiole Anterior Hyoid Excursion: Partial anterior movement Epiglottic Movement: Complete inversion Laryngeal Vestibule Closure at Height of Swallow: Incomplete; narrow column of air/contrast in laryngeal vestibule Pharyngeal Stripping Wave: Present - diminished Pharyngoesophageal Segment Opening: Parital distension and partial duration; parital obstruction of flow Tongue Base Retraction: Wide column of contrast between tongue base & post. pharyngeal wall Pharyngeal Residue: Collection of residue within or on pharyngeal structures Esophageal Phase Esophageal Clearance: Esophageal retention w/ retrograde flow through pharyngoesophageal seg Treatment Strategies Effects of treatment strategies attemped:: Chin Tuck:?Not effective in reducing aspiration or residue. Second and Third Swallows:?Provided partial benefit; somewhat effective in clearing pharyngeal residue. Liquid Wash:?Somewhat effective in reducing residuals post-swallow. 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 Mastication was adequate. Deficits were more prominent in the pharyngeal and esophageal phases than in the oral phase. BOAT FINISHER observed coughing with liquids on the second teaspoon trial - consistent with the patient's reported symptoms. Residue remained in the valleculae and pyriforms after the swallow. Patient independently initiated a double swallow, which somewhat cleared vallecular residue, but material was then seen spilling into the pyriforms and subsequently into the airway, triggering an immediate cough response. With slightly larger sips (>1 tsp such as cup), increased residue was noted post-swallow in both the valleculae and pyriforms, consistently entering the airway. Pudding and cookie trials resulted in >50% of the bolus remaining in the valleculae, indicating poor clearance. However, the patient?s immediate second and third swallows were effective in clearing pharyngeal residue. Pharyngeal residue is attributed to decreased posterior pharyngeal stripping wave, wide tongue base, and poor UES opening. Incomplete airway closure was also observed, likely due to delayed pharyngeal onset with the bolus at the posterior epiglottis or pyriforms at swallow initiation, along with decreased laryngeal elevation and closure. No improvement was noted with nectar-thick liquids compared to thin liquids. Cough was strong and effective. BOAT FINISHER recommends intermittent coughing and re-swallowing due to the degree of penetration observed. Patient and reported a GI appointment next week; unclear if GI intervention could improve UES function. Recommended Compensatory Strategies: Second and third swallows Intermittent cough and re-swallow Small sips, one at a time Slow rate of intake Alternate bites and sips Follow-up with GI or ENT for further evaluation of UES function. Outpatient speech therapy to target oropharyngeal strengthening. Recommendations Diet: Regular Textures and Thin Liquids Compensatory Strategies: Small Bites, Small Sips, Slow Rate, Multiple Swallows, Alternate bites/solids and sips/liquids, Sitting upright and Remain sitting upright for 30 minutes after PO intake Recommend Repeat Modified Barium Swallow: TBD (Consider FEES) Need for Skilled Speech Therapy Services: Yes Comment: Patient would benefit from an oropharyngeal strengthening program and training in compensatory swallowing strategies to support safe and effective diet tolerance. Recommended Referrals: GI Consult Education Completed: 1. Described result of evaluation., 2. Pt understands evaluation & agrees with goals and treatment plan. and 4. Family/caregivers understand evaluation & agree w/ goals & tx plan. Status Active ST Patient: Active Contact Information [facility] Speech Therapy:: Saige Lobo M.A., [facility]-[employer] Speech-Language Pathologist [facility] [phone]? ?FAX [phone]? [email or web address] [address] [place] [address]? ?[place] [address]
== END | disposition home or self-care (01) ==
LOC: RAD 12:48
PROVIDERS: PCP Family Medicine; Referring Provider Family Medicine; Visit Provider Family Medicine
DX: R13.10 Dysphagia, unspecified (principal)
CPT/HCPCS: 74230; 92611

== ENCOUNTER 2025-01-20 05:55 | Day surgery (SDC) | payer MEDICARE, OTHER, SELFPAY ==
--- NOTE | 2025-01-19 12:33 | PAT.ANESEVAL ---
Pre-Assessment Diagnosis/Proposed Procedure Planned Operative Procedure(s): EGD Anesthesia History Anesthesia History - drafter engineering: Anesthesia History - drafter engineering Hx Hospitalization No 01/19/25 10:28 Any Problems With Anesthesia No 01/19/25 10:28 Cholinesterase deficiency No 01/19/25 10:28 You/Your Family Experience No 01/19/25 10:28 fever (hyperthermia) with Relationship Recent Exposure to Contagious No 12/12/24 11:33 Disease Does patient have nerve No 01/19/25 10:28 stimulator Patient instructed to have device shut off --Does patient have Pacemaker or ICD? When Was Last Pacemaker Check QUESTION #4 FULL TEXT: You/Your Family Experience fever (hyperthermia) with Anesthesia Last Oral Intake Last Oral intake: Last Oral Intake NPO since Meds taken in AM with sips of water? Meds patient instructed to take am of surgery PONV PONV - drafter engineering: PONV - drafter engineering Female No 01/19/25 10:28 HX of Motion Sickness No 01/19/25 10:28 HX of N/V After Surgery No 01/19/25 10:28 Non-Smoker Yes 01/19/25 10:28 Duration of Surgery greater No 01/19/25 10:28 than 60 minutes Number of Risk Factors 1 01/19/25 10:28 PONV Score Low Risk 01/19/25 10:28 Height & Weight Height & Weight: Anesthesia: Height & Weight Height 5 ft 8 in 12/12/24 11:33 Respiratory Assessment Respiratory Assessment - drafter engineering: Respiratory Tract Infection Hx - drafter engineering Hx Respiratory Tract Infection No 01/19/25 10:28 STOP Sleep Apnea STOP Sleep Apnea - drafter engineering: STOP Sleep Apnea - drafter engineering Hx Hypertension No 01/19/25 10:28 Hx Sleep Apnea Yes 01/19/25 10:28 CPAP Yes 01/19/25 10:28 BIPAP No 01/19/25 10:28 Do you snore loudly (louder than talking or can be heard Do you often feel tired/ fatigued/ sleepy during daytime? Has anyone observed you stop breathing during sleep? STOP Results Positive 01/19/25 10:28 QUESTION #5 FULL TEXT : Do you snore loudly (louder than talking or can be heard through closed doors)? Tobacco Use History Tobacco Use History - drafter engineering: Tobacco Use History - drafter engineering Tobacco Use Smoking Status Former smoker 01/19/25 10:28 Hx Tobacco Use No 01/19/25 10:28 Years Smoking Packs Smoked per Day Smoking Cessation Date was No - quit smoking greater 01/19/25 10:28 within the last 15 years than 15 years ago Hx Smoking Cessation Date 07/30/89 01/19/25 10:28 Hx Smoking Cessation Counseling Hematologic Medial History Hematologic Hx - drafter engineering: Hematologic Medical Hx - black pickler Hx of Blood Transfusion No 01/19/25 10:28 Hx of Transfusion in last 3 No 01/19/25 10:28 Months Date of Last Transfusion (if within last 3 months) Ever experience any problems No 01/19/25 10:28 with transfusion(s)? Specify any problems Hx of Preganancy in last 3 N/A 01/19/25 10:28 Months Nurse Filling Out Transfusion MGRIFFITH 01/19/25 10:28 & Questions: Date: 01/19/25 01/19/25 10:28 Time: 10:32 01/19/25 10:28 Patient unable to answer at this time (ie. confused, unrespo /Reproduction History /Reproductive History - drafter engineering: /Reproductive Hx- drafter engineering Hx Now Gestational Age (in weeks): EDC: Hx Hx Para Hx Section SAB No 01/19/25 10:28 [facility] Medical History (Updated 01/19/25 @ 10:38 by Megan Sandoval) Prostate disease Gastric reflux History of echocardiogram Prosthetic eye globe Swallowing difficulty Axillary adenopathy Wears hearing aid Wears glasses Cancer Memory deficit Rash History of steroid therapy Fatty liver Back pain Dietary restriction Former smoker CPAP (continuous positive airway pressure) dependence Shortness of breath on exertion Leg cramps History of pain when walking History of stress test Cardiology follow-up encounter Obesity Atherosclerosis of coronary artery of [place] heart without angina pectoris Renal calculus, left Osteoarthritis Hyperlipidemia LDL goal <100 Diabetes Home Medications ?Medication ?Instructions ?Recorded ?Last Taken ?Type omega-3 acid ethyl esters 1 gram 1 cap PO DAILY SUPPLEMENT 02/21/22 12/09/24 History capsule Held on 01/19/25. Instructions: LAST DOSE 01/17/25 FOR EGD 01/20/25 zinc gluconate 50 mg tablet 50 mg PO DAILY SUPPLEMENT 02/21/22 12/01/24 History aspirin 81 mg tablet,delayed 81 mg PO DAILY HEART HEALTH 03/20/23 12/09/24 History release Held on 01/19/25. Instructions: LAST DOSE 01/17/25 FOR EGD 01/20/25 dulaglutide 3 mg/0.5 mL 3 mg subcut TU 06/28/23 11/26/24 History subcutaneous pen injector (Trulicity) Held on 01/19/25. Instructions: LAST DOSE 01/13/25 FOR EGD 01/20/25 glimepiride 4 mg tablet (Amaryl) 4 mg PO DAILY DIABETES 06/28/23 11/30/24 History Held on 01/19/25. Instructions: LAST DOSE 01/13/25 FOR EGD 01/20/25 epinephrine 0.3 mg/0.3 mL 0.3 mg (0.3 mL) IM X1 #2 ea 11/17/24 Unknown Rx injection, auto-injector ascorbic acid (vitamin C) 1,000 mg 2 g PO DAILY 12/01/24 12/01/24 History capsule dupilumab 300 mg/2 mL subcutaneous 300 mg subcut .COMPLEX 12/01/24 11/19/24 History syringe (Dupixent) oxybutynin chloride 10 mg 10 mg PO DAILY 12/01/24 11/30/24 History tablet,extended release 24 hr saw palmetto 450 mg capsule 900 mg PO TID 12/01/24 12/01/24 History fexofenadine 180 mg tablet 180 mg PO Q24H 12/04/24 Unknown History (Mishel Allergy) quercetin 500 mg capsule 500 mg PO DAILY 12/04/24 Unknown History amitriptyline 10 mg tablet 10 mg PO QDAY #30 tabs 12/26/24 Unknown Rx pantoprazole 40 mg tablet,delayed 40 mg PO QDAY #60 tabs 12/26/24 Unknown Rx release Allergy/AdvReac Type Severity Reaction Status Date / Time metoprolol Allergy Intermediate Rash Verified 01/19/25 10:21 cephalexin Allergy Rash Verified 01/19/25 10:21 Iodinated Contrast Media Allergy Shortness Verified 01/19/25 10:21 of breath metformin AdvReac Intermediate Diarrhea Verified 01/19/25 10:21 Family History Sister Cancer Brother Cancer Surgical History (Updated 01/19/25 @ 10:28 by Megan Sandoval) History of esophagogastroduodenoscopy (EGD) H/O excision of mass History of colectomy Hx of eye surgery History of back surgery (05/05/20) History of left heart catheterization (06/17/16) H/O hernia repair History of coronary artery stent placement (06/19/16) H/O lithotripsy Social History Smoking Status: Former smoker alcohol intake: never what type of physical activity do you participate in: none Audit: Pertinent Findings Pertinent Findings EKG Perinent findings: Sinus Rhythm -First degree A-V block Low voltage in precordial leads. Poor R Wave Progression -Nonspecific ST depression + Negative T-waves -Nondiagnostic Stress test pertinent findings: Conclusion: Normal pharmacologic myocardial perfusion stress test with no evidence of ischemia. Preserved ejection fraction. 01/14/2021 Echo (EF%) pertinent findings: Normal LV, LVEF 55%, Stage 1 diastolic dysfunction, Mild concentric LV hypertrophy on 03/08/2022 Heart catheterization pertinent findings: LEFT VENTRICULOGRAM: The left ventriculogram demonstrated overall preserved left ventricular systolic function, estimated ejection fraction of 60%. CONCLUSION: 1. Normal left main coronary artery. 2. Severe left anterior descending artery stenosis approximately 90% proximal vessel. 3. Left circumflex artery with ostial 60% stenosis. 4. Ramus intermedius with no significant stenosis. 5. Dominant right coronary artery with no high-grade stenosis. Based on the above angiographic findings, I would recommend angioplasty and stenting of the left anterior descending artery, I have discussed the above with the urologist and it appears that it may be safe to pursue treatment with Plavix. 06/17/2016 Consult pertinent findings: Assessment and Plan (1) Atherosclerosis of coronary artery of [place] heart without angina pectoris: Status: Chronic Plan: Patient carries a history of known atherosclerotic coronary disease. Status post stenting of the LAD in 2015. The patient's EF noted to be in the 55% range by echocardiogram done in February 2022. He had mild concentric LVH the patient is diabetic on medical therapy managed by Dr. Alvarez. The patient is not on statin therapy. He does not smoke although he is a remote smoker. His blood pressure is well-controlled. Plan 1. Patient should be able to tolerate the EGD under anesthesia as needed. 12/04/2024 Recommendation Anesthesia Recommendation Anesthesia recommendation: OPTIMIZED for anesthesia
[2025-01-20] VITALS (8 sets, daily range): BP systolic 115–146; BP diastolic 67–72; PULSE 51–84; RESP 16–18; TEMP 36.4–36.5; O2SAT 94–97; BMI 34.2
--- OUTSIDE RECORDS SUMMARY | 2025-01-20 05:58 | XMS RPT_ITS | CCD ---
Author Organization [facility] CliniSymt Care Team Providers Care Mechanical Design Engineer Products Name Role Phone Geremias Senait Leblanc Unavailable KadeBerta Benji Unavailable Unavailable Heydi HANCOCK, Sharon Houser Unavailable Unavailable Stephan Alvarez Primary Care Provider Senait Archuleta Unavailable Dr. Stephan Alvarez Primary Care Provider [phone] Stephan Alvarez Referring Provider Dr. Placido Claudio Attending Provider [phone] Dr. Stephan Alvarez Primary Care Provider [phone] Stephan Alvarez Referring Provider Matthew LOZANO, PA Genie Brito Attending Provider Dr. Stephan Alvarez Primary Care Provider [phone] Stephan Alvarez Referring Provider Roof OCEAN EXPORT ACCOUNT MANAGER, OCEAN EXPORT ACCOUNT MANAGER-C Margoth Jarrell Attending Provider [phone] Dr. Fausto Malone Emergency Provider [phone] Kenji Reed Admit Provider Unavailable Dr. Kenji Reed Attending Provider Unavailable Dr. Kenji Reed Other Provider Unavailable Dr. Stephan Alvarez Primary Care Provider [phone] Dr. Fausto Malone Emergency Provider Dr. Kenji Reed Admit Provider Unavailable Dr. Kenji Reed Attending Provider Unavailable Dr. Kenji Reed Other Provider Unavailable Dr. Stephan Alvarez Primary Care Provider [phone] Stephan Alvarez Referring Provider Dr. David Fink Attending Provider RO Yee Attending Provider Dr. Shan Hernandez Attending Provider Dr. Stephan Alvarez Primary Care Provider Dr. Stephan Alvarez Referring Provider Dr. David Fink Attending Provider RO Yee Attending Provider Dr. Shan Hernandez Attending Provider Unavailable Primary Care Provider Unavailabl e MARGOTH AMIN Attending Unavailable MARGOTH AMIN Attending Unavailable Dr. Stephan Alvarez DO Primary Care Provider Dr. Stephan Alvarez DO Attending Provider Dr. Stephan Alvarez DO Referring Provider Dr. Patricio Alvarez MD Referring Provider [phone] Kemar MOORE, Dr. Thomas Attending Provider Kemar MOORE, Dr. Thomas Emergency Provider Sandy MOORE, Dr. Homar Contreras Attending Provider Sandy MOORE, Dr. Homar Contreras Referring Provider Faisal MOORE, Dr. Lambert Attending Provider [phone] Faisal MOORE, Dr. Lambert Emergency Provider [phone] Katherine Johns Attending Provider Dr. Shan Hernandez MD Attending Provider Dr. Mansoor Ramirez DO Attending Provider Dr. Mansoor Ramirez DO Other Provider [phone] Stephan Alvarez Primary Care Unavailable Referred, Self Attending Unavailable Antonio, Stephan Primary Care Unavailable Referred, Self Attending Unavailable Stephan Alvarez Primary Care Unavailable Homar Delgado Referring Unavailable Homar Delgado Attending Unavailable Stephan Alvarez Primary Care Unavailable Stephan Alvarez Referring Unavailable Placido Claudio Attending Unavailable Stephan Alvarez Primary Care Unavailable Antonio, Stephan Referring Unavailable Shan Hernandez Attending Unavailable Antonio, Stephan Referring Unavailable FriendMansoor Attending Unavailable FriendMansoor Consulting Unavailable Antonio, Stephan Primary Care Unavailable Antonio, Stephan Primary Care Unavailable Antonio, Stephan Referring Unavailable Katherine Dawn Attending Unavailable Antonio, Stephan Referring Unavailable Shan Hernandez Attending Unavailable Antonio, Stephan Primary Care Unavailable Antonio, Stephan Referring Unavailable Katherine Dawn Attending Unavailable Antonio, Stephan Primary Care Unavailable Antonio, Stephan Referring Unavailable Antonio, Stephan Attending Unavailable Antonio, Stephan Primary Care Unavailable Antonio, Stephan Primary Care Unavailable Chad Pineda Attending Unavailable Antonio, Stephan Primary Care Unavailable William Reinoso Attending Unavailable Antonio, Stephan Primary Care Unavailable Fausto Malone Attending Unavailable Antonio, Stephan Attending Unavailable Antonio, Stephan Primary Care Unavailable Antonio, Stephan Referring Unavailable Antonio, Stephan Referring Unavailable FriendMansoor Attending Unavailable Antonio, Stephan Primary Care Unavailable Antonio, Stephan Attending Unavailable Antonio, Stephan Primary Care Unavailable Patricio Alvarez Referring Unavailable Antonio, Stephan Primary Care Unavailable Antonio, Stephan Referring Unavailable Mansoor Ramirez Attending Unavailable Allergies Allergy Classification Reported Allergen(s) Allergy Type Date of Onset Reaction(s) Facility (6 sources) Contrast media; Translations: [CONTRAST DYE] allergy to substance 6 hives SOB, dyspnea [facility] Work Phone: (20 sources) Cephalexin; Translations: [CEPHALEXIN] Drug Allergy 2 [facility] (19 sources) Metoprolol; Translations: [METOPROLOL] Drug Allergy 2 [facility] (16 sources) Triiodobenzoic Acids; Translations: [IODINATED CONTRAST MEDIA] Allergy to substance 6 Shortness of breath [facility] (13 sources) metFORMIN; Translations: [METFORMIN] Drug Allergy 3 Diarrhea [facility] (2 sources) Iodinated Contrast Media Drug Allergy 6 Other, Hives [facility] Work Phone: (1 source) shrimp allergenic extract Drug Allergy 5 [facility] Comment on above: Patient with general ized erythematous rash and systemic symptoms that improved after daughter administered epinephrine (1 source) Cephalexin Drug Allergy 5 [facility] (1 source) metFORMIN Drug Allergy 5 [facility] (1 source) Metoprolol Drug Allergy 5 [facility] (1 source) Shrimp product Drug allergy (disorder) 5 [facility] (1 source) Iodinated Contrast Media Drug allergy (disorder) 5 [facility] Medications Current Medications Medication Drug Class(es) Dates Sig (Normalized) Sig (Original) amitriptyline hydrochloride 10 mg oral tablet (2 sources) Tricyclic Antidepressant Start: 12-26-2024 take 1 tablet by mouth once daily Amitriptyline 10 mg tablet Active 10 mg PO daily December 26, 2024 12:00am ascorbic acid 1000 mg oral capsule (3 sources) Vitamin C Start: 12-01-2024 take 2 g by mouth once daily Ascorbic Acid (Vitamin C) 1,000 mg capsule Active 2 g PO DAILY December 01, 2024 12:00am aspirin 81 mg delayed release oral tablet (20 sources) Nonsteroidal Anti-inflammatory Drug Start: 06-18-2016 End: 03-20-2023 take 1 tablet by mouth once daily Aspirin 81 MG tablet Active 81 mg PO DAILY March 20, 2023 12:00am cefdinir 300 mg oral capsule (20 sources) Cephalosporin Antibacterial Start: 01-28-2024 take 1 capsule by mouth every twelve hours cefdinir (Omnicef) 300 mg capsule Take 1 capsule (300 mg) by mouth every 12 hours. 01/28/2024 Active Start: 03-23-2023 End: 06-28-2023 take 1 capsule by mouth every twelve hours Cefdinir 300 mg capsule Discontinued 300 mg PO Q12H March 23, 2023 12:00am June 28, 2023 3:46pm Start: 10-25-2019 End: 12-12-2019 take 1 capsule by mouth twice daily Cefdinir 300 MG capsule Discontinued 300 mg PO TWICE A DAY October 25, 2019 12:00am December 12, 2019 1:42pm Dulaglutide (10 sources) GLP-1 Receptor Agonist Start: 06-28-2023 Dulaglu tide (Trulicity) 3 mg/0.5 mL pen injector Active 3 mg SC EVERY WEEK June 28, 2023 1:00am Start: 06-28-2023 Dulaglutide (T rulicity) 3 mg/0.5 mL pen injector Active 3 MG SC EVERY WEEK June 28, 2023 1:00am Start: 06-28-2023 Dulaglutide (T rulicity) 3 mg/0.5 mL pen injector Active 3 MG SC EVERY WEEK June 28, 2023 12:00am 2 ml dupilumab 150 mg/ml prefilled syringe (20 sources) Interleukin-4 Receptor alpha Antagonist Start: 12-01-2024 inject 300 mg by subcutaneous injection every other week Dupilumab (Dupixent Syringe) 300 mg/2 mL syringe Active 300 mg SC .COMPLEX December 01, 2024 12:00am 300 mg subcutaneously EVERY OTHER WEEK; Start: 06-28-2023 End: 12-01-2024 Dupilumab (Dupixent Pen) 300 mg/2 mL pen injector Discontinued 300 mg SC .QOW June 28, 2023 3:46pm December 01, 2024 2:59pm Start: 02-20-2023 End: 06-28-2023 Dupilumab (Dupixent Pen) 300 mg/2 mL pen injector Discontinued 300 mg SC EVERY WEEK February 20, 2023 12:00am June 28, 2023 3:48pm Start: 07-08-2019 End: 07-06-2020 Dupilumab 300 mg/2 mL syring e Discontinued 300 mg SC every 2 weeks July 08, 2019 1:00am July 06, 2020 11:57am [id number] 0.3 ml EPINEPHrine 1 mg/ml auto-injector (4 sources) alpha-Adrenergic Agonist, beta-Adrenergic Agonist, Catecholamine Start: 11-17-2024 Epinephrine 0.3 mg/0.3 mL auto-injector Active 0.3 mg IM ONE TIME 2 November 17, 2024 12:00am Administer if you have a allergic reaction fexofenadine hydrochloride 180 mg oral tablet (3 sources) Histamine-1 Receptor Antagonist Start: 12-04-2024 take 1 tablet by mouth every twenty-four hours Fexofenadine (Mishel Allergy) 180 mg tablet Active 180 mg PO Q24H December 04, 2024 12:00am fluocinolone acetonide 0.1 mg/ml otic solution (4 sources) Corticosteroid Start: 12-22-2023 fluocinolone (DermOtic) 0.01 % ear drops INSTILL 5 DROPS INTO BOTH EARS EVERY NIGHT AT BEDTIME NEEDED 12/22/2023 Active Start: 11-14-2010 FLUOCINOLONE A CETONIDE CREA FLUOCINOLONE ACETONIDE CREA [id number] Rose Nelson Start: 11-14-2010 End: 06-29-2016 FLUOCINOLONE ACETONIDE CREA FLUOCINOLONE ACETONIDE CREA [id number] Amy Car, SANTI glimepiride 4 mg oral tablet (20 sources) Sulfonylurea Start: 06-28-2023 take 1 tablet by mouth once daily Glimepiride (Amaryl) 4 mg tablet Active 4 mg PO DAILY June 28, 2023 3:44pm Start: 07-06-2020 End: 06-28-2023 take 1 tablet by mouth twice daily Glimepiride (Amaryl) 4 mg tablet Discontinued 4 mg PO TWICE A DAY July 06, 2020 11:57am June 28, 2023 3:48pm Start: 07-08-2019 End: 07-06-2020 take 2 mg by mouth once daily Glimepiride (Amaryl) 4 m g tablet Discontinued 2 mg PO DAILY July 08, 2019 12:10pm July 06, 2020 11:59am Start: 07-02-2017 End: 07-03-2017 Glimepiride 4 mg tablet Disc ontinued PO July 02, 2017 1:00am July 03, 2017 12:42pm Start: 06-29-2016 End: 07-08-2019 take 1 tablet by mouth twice daily Glimepiride (Amaryl) 4 mg tablet Discontinued 4 mg PO TWICE A DAY July 03, 2017 1:00am July 08, 2019 12:10pm Start: 06-14-2016 End: 07-03-2017 take 1 tablet by mouth once daily Glimepiride 4 MG tablet Discontinued 4 mg PO DAILY June 14, 2016 1:00am July 02, 2017 7:18pm omega-3 acid ethyl esters (u sp) 1000 mg oral capsule (17 sources) Start: 02-21-2022 [place]-3 Acid E thyl Esters 1 gram capsule Active 1 NMA PO DAILY February 21, 2022 12:00am Start: 02-21-2022 take 1 capsule by mouth once d aily [place]-3 Acid Ethyl Esters Active 1 CAP PO DAILY February 21, 2022 12:00am 24 hr oxybutynin chloride 10 mg extended release oral tablet (20 sources) Cholinergic Muscarinic Antagonist Start: 06-18-2024 End: 06-18-2025 take 1 tablet by mouth once daily Oxybutynin Chloride 10 mg tablet extended release 24hr Active 10 mg PO DAILY December 01, 2024 12:00am Start: 06-13-2024 End: 06-13-2025 take 1 tablet by mouth twice daily oxybutynin (Ditropan) 5 mg tablet Indications: Urinary frequency Take 1 tablet (5 mg) by mouth 2 times a day. 60 tablet 11 06/13/2024 06/13/2025 Active Start: 06-29-2016 take 1 tablet by henna once daily OXYBUTYNIN CHLORIDE 5 MG TABS One tablet by mouth daily OXYBUTYNIN CHLORIDE [id number] Amy Car RN Start: 06-22-2016 End: 07-04-2018 take 1 tablet by mouth three times daily Oxybutynin Chloride 5 MG tablet Discontinued 5 mg PO THREE TIMES A DAY June 22, 2016 1:00am July 04, 2018 12:37pm pantoprazole 40 mg delayed release oral tablet (2 sources) Proton Pump Inhibitor Start: 12-26-2024 take 1 tablet by mouth once daily Pantoprazole 40 mg tablet,delayed release (DR/EC) Active 40 mg PO daily 60 December 26, 2024 12:00am quercetin 500 mg oral capsule (3 sources) Start: 12-04-2024 take 1 mg by mouth once daily Quercetin 500 mg capsule Active mg PO DAILY December 04, 2024 12:00am Saw Baldwin (11 sources) Start: 12-01-2024 take 1 capsule by mouth three times daily at mealtime Saw Baldwin 450 mg capsule Active 900 mg PO THREE TIMES A DAY December 01, 2024 12:00am give with food (meal/snack) Start: 11-14-2010 End: 06-29-2016 SAW PALMETTO CAPS SAW PALMETTO (SERENOA REPENS) [facility] [id number] Rose Nelson Trulicity 3 mg/0.5 mL pen injector (2 sources) inject 3 mg by subcutaneous injection every week Trulicity 3 mg/0.5 mL pen injector Inject 3 mg under the skin 1 (one) time per week. Active zinc gluconate 50 mg oral tablet (17 sources) Start: 02-21-2022 take 1 tablet by mouth once daily Zinc Gluconate 50 mg tablet Active 50 mg PO DAILY February 21, 2022 12:00am Completed/Discontinued Medications Medication Drug Class(es) Dates Sig (Normalized) Sig (Original) acetaminophen 300 mg / HYDROcodone bitartrate 5 mg oral tablet (20 sources) Opioid Agonist Start: 07-07-2016 End: 07-04-2018 Hydrocodone-Acetami nophen 1 EACH tablet Discontinued 1 {tbl} PO EVERY 6 HOURS NEEDED as needed for Pain July 07, 2016 1:00am July 04, 2018 12:37pm Start: 07-07-2016 End: 07-04-2018 take 1 tablet by mouth every six hours as needed Hydrocodone-Acetaminophen Discontinued 1 TABLET PO EVERY 6 HOURS NEEDED July 07, 2016 1:00am July 04, 2018 12:37pm Start: 06-29-2016 NORCO 5-325 MG TABS as direceted HYDROCODONE-ACETAMINOPHEN [id number] Amy Car RN Start: 06-29-2016 NORCO 5-325 MG TABS as direceted HYDROCODONE-ACETAMINOPHEN [id number] Amy Car RN Start: 06-29-2016 NORCO 5-325 MG TABS as direceted HYDROCODONE-ACETAMINOPHEN [id number] Amy Car RN Start: 06-18-2016 End: 07-04-2018 Hydrocodone-Acetaminophen 1 TABLET tablet Discontinued 1 {tbl} PO EVERY 6 HOURS NEEDED as needed for Moderate-severe pain (4-10/10) 0 June 18, 2016 1:00am July 04, 2018 12:37pm Start: 06-18-2016 End: 07-04-2018 take 1 tablet by mouth every six hours as needed Hydrocodone-Acetaminophen Discontinued 1 TABLET PO EVERY 6 HOURS NEEDED June 18, 2016 1:00am July 04, 2018 12:37pm atorvastatin 40 mg oral tablet (20 sources) HMG-CoA Reductase Inhibitor Start: 06-18-2016 End: 02-20-2023 take 1 tablet by mouth at bedtime Atorvastatin 40 MG tablet Discontinued 40 mg PO AT BEDTIME June 18, 2016 1:00am February 20, 2023 11:19am betamethasone 0.5 mg/ml topical cream (8 sources) Corticosteroid Start: 11-14-2010 End: 06-29-2016 BETAMETHASONE DIPROPIONATE 0.05 % CREA BETAMETHASONE DIPROPIONATE [id number] Amy Car RN CALCIPOTRIENE (8 sources) Vitamin D Analog Start: 03-01-2011 DOVONEX 0.005 % CREA apply twice daily CALCIPOTRIENE [id number] Jorge Avila DO Start: 03-01-2011 End: 06-29-2016 DOVONEX 0.005 % CREA apply t wice daily CALCIPOTRIENE [id number] Amy Car RN Start: 03-01-2011 End: 06-29-2016 DOVONEX 0.005 % CREA apply t wice daily CALCIPOTRIENE [id number] Jorge Avila DO Start: 03-01-2011 End: 06-29-2016 DOVONEX 0.005 % CREA apply t wice daily CALCIPOTRIENE [id number] Amy Car RN Start: 03-01-2011 DOVONEX 0.005 % CREA apply twice daily CALCIPOTRIENE [id number] Jorge Avila DO calcium ascorbate 500 mg oral tablet (17 sources) Start: 02-21-2022 End: 12-01-2024 take 1 tablet by mouth once daily Ascorbate Calcium (Vitamin C) 500 mg tablet Discontinued 500 mg PO DAILY February 21, 2022 12:00am December 01, 2024 3:05pm Start: 02-21-2022 take 1 g by mouth once daily A scorbate Calcium (Vitamin C) Active 1 GM PO DAILY February 21, 2022 12:00am ciprofloxacin 500 mg oral tablet (17 sources) Quinolone Antimicrobial Start: 07-07-2016 End: 07-04-2018 take 1 tablet by mouth twice daily Ciprofloxacin Hcl 500 MG tablet Discontinued 500 mg PO TWICE A DAY July 07, 2016 1:00am July 04, 2018 12:37pm clobetasol propionate 0.0005 mg/mg topical ointment (12 sources) Corticosteroid Start: 03-01-2011 End: 03-15-2011 CLOBETASOL PROPIONATE 0.05 % OINT apply twice daily for two weeks the as needed. Avoid face, groin, and axilla CLOBETASOL PROPIONATE [id number] Jorge Avila DO Start: 11-14-2010 CLOBEX 0.05 % LOTN CLOBETASOL PROPIONATE [id number] Rose Nelson Start: 11-14-2010 End: 06-29-2016 CLOBEX 0.05 % LOTN 8 CLOBETASOL PROPIONATE [id number] Amy Car RN Start: 11-14-2010 End: 06-29-2016 CLOBEX 0.05 % LOTN 8 CLOBETASOL PROPIONATE [id number] Amy Car RN Start: 11-14-2010 CLOBEX 0.05 % LOTN CLOBETASOL PROPIONATE [id number] Rose Nelson Start: 11-14-2010 End: 06-29-2016 CLOBEX 0.05 % LOTN 8 CLOBETASOL PROPIONATE [id number] Amy Car RN CLOBETASOL & CLOBETASOL EMUL (6 sources) Start: 11-14-2010 OLMELIDA NIEVES-E CO MPLETE PACK 0.05 & 0.05 % [facility] CLOBETASOL & CLOBETASOL EMUL [id number] Rose Nelson Start: 11-14-2010 End: 06-29-2016 OLUX OLMELIDA-E COMPLETE PACK 0. 05 & 0.05 % [facility] CLOBETASOL & CLOBETASOL EMUL [id number] Amy Car RN CLOBETASOL & CLOBETASOL EMUL (2 sources) Start: 11-14-2010 EZEQUIEL NIEVES-E CO MPLETE PACK 0.05 & 0.05 % [facility] CLOBETASOL & CLOBETASOL EMUL [id number] Rose Nelson Start: 11-14-2010 End: 06-29-2016 OLMELIDA OLUX-E COMPLETE PACK 0. 05 & 0.05 % [facility] CLOBETASOL & CLOBETASOL EMUL [id number] Amy Car RN clopidogrel 75 mg oral tablet (7 sources) [id number] Platelet Inhibitor Start: 06-29-2016 take 1 tablet by mouth once daily PLAVIX 75 MG TABS One tablet by mouth daily CLOPIDOGREL BISULFATE [id number] Genie Castro PA-C CREAM BASE (6 sources) Start: 11-14-2010 PCCA ANHYDROUS LIPODERM BASE CREA CREAM BASE [id number] Rose Nelson Start: 11-14-2010 End: 06-29-2016 PCCA ANHYDROUS LIPODERM BASE CREA CREAM BASE [id number] Amy Car RN CREAM BASE (2 sources) Start: 11-14-2010 PCCA ANHYDROUS LIPODERM BASE CREA CREAM BASE [id number] Rose Nelson Start: 11-14-2010 End: 06-29-2016 PCCA ANHYDROUS LIPODERM BASE CREA CREAM BASE [id number] Amy Car RN DIGESTIVE ENZYMES (6 sources) Start: 11-14-2010 End: 03-01-2011 DIGESTIVE ENZYMES TABS 11/14 DIGESTIVE ENZYMES [id number] Jorge Avila DO Start: 11-14-2010 DIGESTIVE ENZY MES TABS DIGESTIVE ENZYMES [id number] Rose Nelson Start: 11-14-2010 DIGESTIVE ENZY MES TABS DIGESTIVE ENZYMES [id number] Rose Nelson Start: 11-14-2010 End: 03-01-2011 DIGESTIVE ENZYMES TABS 11/14 DIGESTIVE ENZYMES [id number] Jorge Avila DO DIGESTIVE ENZYMES (2 sources) Start: 11-14-2010 DIGESTIVE ENZY MES TABS DIGESTIVE ENZYMES [id number] Rose Nelson Start: 11-14-2010 End: 03-01-2011 DIGESTIVE ENZYMES TABS 11/14 DIGESTIVE ENZYMES [id number] Jorge Avila DO famotidine 20 mg oral tablet (4 sources) Histamine-2 Receptor Antagonist Start: 11-17-2024 End: 12-01-2024 take 1 tablet by mouth twice daily Famotidine (Pepcid) 20 mg tablet Discontinued 20 mg PO TWICE A DAY November 17, 2024 12:00am December 01, 2024 3:06pm finasteride 5 mg oral tablet (19 sources) 5-alpha Reductase Inhibitor Start: 02-21-2022 End: 12-01-2024 take 1 tablet by mouth once daily Finasteride 5 mg tablet Discontinued 5 mg PO DAILY February 21, 2022 12:00am December 01, 2024 3:06pm fluocinolone acetonide (6 sources) Corticosteroid Start: 11-14-2010 FLUOCINOLONE ACETONIDE CREA FLUOCINOLONE ACETONIDE CREA [id number] Rose Nelson Start: 11-14-2010 End: 06-29-2016 FLUOCINOLONE ACETONIDE CREA FLUOCINOLONE ACETONIDE CREA [id number] Amy Car RN fluocinonide 0.5 mg/ml topical cream (8 sources) Corticosteroid Start: 11-14-2010 End: 06-29-2016 FLUOCINONIDE 0.05 % CREA FLUOCINONIDE [id number] Amy Car RN gabapentin 300 mg oral capsule (17 sources) Anti-epileptic Agent Start: 01-03-2021 End: 04-06-2021 take 1 capsule by mouth three times daily Gabapentin 300 mg capsule Discontinued 300 mg PO THREE TIMES A DAY January 03, 2021 12:00am April 06, 2021 11:14am Garlic (17 sources) Non-Standardized Food Allergenic Extract Start: 06-14-2016 End: 06-18-2016 take 2 capsules by mouth once daily Garlic 1,000 MG capsule Discontinued 2000 mg PO DAILY June 14, 2016 1:00am June 18, 2016 12:43pm Start: 06-14-2016 End: 06-18-2016 take 2000 mg by mouth once daily Garlic Discontinued 2000 MG PO DAILY June 14, 2016 12:00am June 18, 2016 11:43am Start: 06-14-2016 End: 06-18-2016 take 2000 mg by mouth once daily Garlic Discontinued 2000 MG PO DAILY June 14, 2016 1:00am June 18, 2016 12:43pm [id number] (3 sources) Start: 06-29-2016 take 1 tablet by mouth once daily FOLTANX 3-35-2 MG TABS One tablet by mouth daily [id number] [id number] Amy Car RN [id number] (1 source) Start: 06-29-2016 take 1 tablet by mouth once daily FOLTANX 3-35-2 MG TABS One tablet by mouth daily [id number] [id number] Amy Car RN Tbieihunk-T0-Qhv22-Algal Oil (20 sources) Start: 12-12-2019 End: 12-12-2019 Lbcpowodv-J8-Emy36-Algal Oil Discontinued CAP PO December 11, 2019 11:00pm December 12, 2019 12:45pm Start: 12-12-2019 End: 12-12-2019 Tiulcfioi-J9-Xlt28-Algal Oil Discontinued CAP PO December 12, 2019 12:00am December 12, 2019 1:45pm Start: 06-14-2016 End: 07-02-2017 Nfgkzfkbx-Z4-Hrz24-Algal Oil Discontinued 1 EACH PO TWICE A DAY June 14, 2016 12:00am July 02, 2017 6:18pm Start: 06-14-2016 End: 07-02-2017 Zkcgpaytx-Q9-Cmi22-Algal Oil Discontinued 1 EACH PO TWICE A DAY June 14, 2016 1:00am July 02, 2017 7:18pm Ljdmhfeml-S3-Ugw63-Algal Oil 1 EACH capsule (6 sources) Start: 06-14-2016 End: 07-02-2017 Ecsidtryn-S6-Zrt04-Algal Oil 1 EACH capsule Discontinued 1 NMA PO TWICE A DAY June 14, 2016 1:00am July 02, 2017 7:18pm Fxwroeyoh-Z6-Pms78-Algal Oil 3 mg-35 mg-2 mg -90.314 mg capsule (6 sources) Start: 12-12-2019 End: 12-12-2019 Zvdentubt-M7-Auc98-Algal Oil 3 mg-35 mg-2 mg -90.314 mg capsule Discontinued NMA PO December 12, 2019 12:00am December 12, 2019 1:45pm lisinopril 5 mg oral tablet (20 sources) Angiotensin Converting Enzyme Inhibitor Start: 06-22-2016 End: 07-02-2017 take 1 tablet by mouth once daily Lisinopril 5 MG tablet Discontinued 5 mg PO DAILY June 22, 2016 1:00am July 02, 2017 7:19pm losartan potassium 25 mg oral tablet (20 sources) Angiotensin 2 Receptor Rox Start: 12-28-2016 End: 02-20-2023 take 1 tablet by mouth once daily Losartan 25 mg tablet Discontinued 0 .ROUTE .COMPLEX December 11, 2022 8:40am February 20, 2023 11:19am TAKE 1 TABLET BY MOUTH EVERY DAY metFORMIN hydrochloride 500 mg oral tablet (20 sources) Biguanide Start: 06-29-2016 End: 12-28-2016 take 1 tablet by mouth once daily METFORMIN HCL 500 MG TABS One tablet by mouth daily METFORMIN HCL [id number] Genie Castro PA-C Start: 06-22-2016 End: 07-02-2017 Metformin 500 MG tablet Discontinued 250 mg PO TWICE DAILY WITH MEALS June 22, 2016 1:00am July 02, 2017 7:18pm Start: 06-22-2016 End: 07-02-2017 take 250 mg by mouth twice daily at mealtime Metformin Discontinued 250 MG PO TWICE DAILY WITH MEALS June 22, 2016 1:00am July 02, 2017 7:18pm Start: 06-14-2016 End: 06-18-2016 take 1 tablet by mouth twice daily at mealtime Metformin 500 MG tablet Discontinued 500 mg PO TWICE DAILY WITH MEALS June 14, 2016 1:00am June 18, 2016 12:44pm METOPROLOL SUCCINATE (20 sources) beta-Adrenergic Rox Start: 06-29-2016 take 1 tablet by mouth once daily TOPROL XL 25 MG [id number] One tablet by mouth daily METOPROLOL SUCCINATE [id number] Margoth Jarrell Milady BEARDEN Start: 06-29-2016 take 1 tablet by henna once daily TOPROL XL 25 MG [id number] One tablet by mouth daily METOPROLOL SUCCINATE [id number] Amy Car RN Start: 06-18-2016 End: 06-16-2022 take 1 tablet by mouth once daily Metoprolol Succinate 25 MG tablet Discontinued 25 mg PO DAILY June 18, 2016 1:00am June 16, 2022 11:26am On Hold: rash [facility] NATURAL PRODUCTS (6 sources) Start: 11-14-2010 End: 03-01-2011 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 2 [facility] [employer] [id number] Jorge Avila DO Start: 11-14-2010 COLON HERBAL C LEANSER CAPS [facility] [employer] [id number] Rose Nelson Start: 11-14-2010 COLON HERBAL C LEANSER CAPS [facility] [employer] [id number] Rose Nelson Start: 11-14-2010 End: 03-01-2011 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 CAPS 2 [facility] [employer] [id number] Jorge Avila DO [facility] NATURAL [employer]ODUCTS (2 sources) Start: 11-14-2010 COLON HERBAL C LEANSER CAPS [facility] [employer] [id number] Rose Nelson Start: 11-14-2010 End: 03-01-2011 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 CAPS 2 [facility] NATURAL PRODUCTS [id number] Jorge Avila DO MULTIPLE VITAMIN (2 sources) Start: 11-14-2010 MULTI-VITAMIN TABS MULTIPLE VITAMIN [id number] Rose Nelson Start: 11-14-2010 End: 06-29-2016 MULTI-VITAMIN TABS 8 MULTIPLE VITAMIN [id number] Amy Car RN multivitamin (6 sources) Start: 11-14-2010 End: 06-29-2016 MULTI-VITAMIN TABS 8 MULTIPLE VITAMIN [id number] Amy Car RN Start: 11-14-2010 MULTI-VITAMIN TABS MULTIPLE VITAMIN [id number] Rose Nelson nitroglycerin 0.4 mg sublingual tablet (20 sources) Nitrate Vasodilator Start: 06-29-2016 NITROGLYCE RIN 0.4 MG SUBL one tablet under tongue every 5 minutes x 3 for chest pain as needed NITROGLYCERIN [id number] Amy Car RN Start: 06-18-2016 End: 03-20-2023 Nitroglycerin 0.4 MG tablet Discontinued 0.4 mg SL Q5M as needed for Chest Pain 0 June 18, 2016 1:00am March 20, 2023 12:23pm Start: 06-18-2016 End: 03-20-2023 Nitroglycerin Discontinued 0 .4 MG SL Q5M 0 June 18, 2016 1:00am March 20, 2023 12:23pm OMEGA-3 FATTY ACIDS CAPS (6 sources) Start: 11-14-2010 OMEGA-3 CAPS 2 OMEGA-3 FATTY ACIDS CAPS [id number] Rose Nelson Start: 11-14-2010 End: 06-29-2016 OMEGA-3 CAPS 2015 OMEGA-3 FATTY ACIDS CAPS [id number] Amy Car RN OMEGA-3 FATTY ACIDS CAPS (2 sources) Start: 11-14-2010 OMEGA-3 CAPS 2 OMEGA-3 FATTY ACIDS CAPS [id number] Rose Nelson Start: 11-14-2010 End: 06-29-2016 OMEGA-3 CAPS 2015 OMEGA-3 FATTY ACIDS CAPS [id number] Amy Car RN phenazopyridine hydrochloride 95 mg oral tablet (20 sources) Start: 06-29-2016 take 1 tablet by mouth once daily AZO TABS 95 MG TABS One tablet by mouth daily PHENAZOPYRIDINE HCL [id number] Amy Car RN Start: 06-22-2016 End: 07-02-2017 take 1 tablet by mouth three times daily as needed Phenazopyridine 97.5 MG tablet Discontinued 97.5 mg PO THREE TIMES A DAY as needed for DYSURIA June 22, 2016 1:00am July 02, 2017 7:20pm predniSONE 20 mg oral tablet (16 sources) Start: 06-10-2022 End: 06-15-2022 take 2 tablets by mouth once daily Prednisone 20 mg tablet Discontinued 40 mg PO DAILY 10 June 10, 2022 1:00am June 14, 2022 1:00am June 15, 2022 1:04am Start: 06-10-2022 End: 06-15-2022 take 40 mg by mouth once daily Prednisone Discontinued 40 MG PO DAILY 10 June 10, 2022 1:00am June 15, 2022 1:04am prevagen (17 sources) Start: 02-21-2022 End: 06-28-2023 prevagen Discontinued 1 {tbl } PO DAILY February 21, 2022 12:00am June 28, 2023 3:46pm Start: 02-21-2022 End: 06-28-2023 take 1 tablet by mouth once daily prevagen Discontinued 1 TABLET PO DAILY February 21, 2022 12:00am June 28, 2023 3:46pm Start: 02-21-2022 End: 06-28-2023 take 1 tablet by mouth once daily prevagen Discontinued 1 TABLET PO DAILY February 20, 2022 11:00pm June 28, 2023 2:46pm Start: 02-21-2022 take 1 tablet by henna th once daily prevagen Active 1 TABLET PO DAILY February 20, 2022 11:00pm Start: 02-21-2022 take 1 tablet by henna th once daily prevagen Active 1 TABLET PO DAILY February 21, 2022 12:00am rosuvastatin calcium 20 mg oral tablet (9 sources) HMG-CoA Reductase Inhibitor Start: 08-31-2023 End: 03-07-2024 take 1 tablet by mouth once daily Rosuvastatin 20 mg tablet Discontinued 20 mg PO DAILY August 31, 2023 1:00am March 07, 2024 7:25pm silymarin (8 sources) Start: 11-14-2010 SILYMARIN CAPS [facility] [place] [employer] CAPS [id number] Rose Pearl Jorgebrittany Start: 11-14-2010 End: 06-29-2016 SILYMARIN CAPS 20 14/07/01 [facility] [place] [employer] CAPS [id number] Amy Car RN SITagliptin 100 mg oral tablet (20 sources) Dipeptidyl Peptidase 4 Inhibitor Start: 07-04-2018 End: 03-07-2024 take 1 tablet by mouth once daily Sitagliptin Phosphate (Januvia) 100 mg tablet Discontinued 100 mg PO DAILY June 28, 2023 1:00am March 07, 2024 7:25pm tamsulosin hydrochloride 0.4 mg oral capsule (20 sources) alpha-Adrenergic Rox Start: 10-25-2019 End: 06-28-2023 take 1 capsule by mouth once daily Tamsulosin 0.4 MG capsule Discontinued 0.4 mg PO DAILY October 25, 2019 12:00am June 28, 2023 3:45pm Start: 06-22-2016 End: 07-04-2018 take 1 capsule by mouth once daily Tamsulosin 0.4 MG capsule Discontinued 0.4 mg PO DAILY June 22, 2016 1:00am July 04, 2018 12:38pm Tirzepatide (Mounjaro) 5 mg/ 0.5 mL pen injector (14 sources) Start: 02-20-2023 End: 06-28-2023 Tirzepatide (Mounjaro) 5 mg/ 0.5 mL pen injector Discontinued 5 mg SC February 20, 2023 12:00am June 28, 2023 3:46pm Start: 02-20-2023 End: 06-28-2023 Tirzepatide (Mounjaro) 5 mg/ 0.5 mL pen injector Discontinued 5 MG SC February 20, 2023 12:00am June 28, 2023 3:46pm Start: 02-20-2023 End: 06-28-2023 Tirzepatide (Mounjaro) 5 mg/ 0.5 mL pen injector Discontinued 5 MG SC February 19, 2023 11:00pm June 28, 2023 2:46pm Start: 02-20-2023 Tirzepatide (Alisha jara) 5 mg/0.5 mL pen injector Active 5 MG SC February 19, 2023 11:00pm Start: 02-20-2023 Tirzepatide (Alisha tijerinaro) 5 mg/0.5 mL pen injector Active 5 MG SC February 20, 2023 12:00am Vitamin B Complex (B Complex-Vitamin B12) tablet (20 sources) Start: 03-20-2023 End: 12-01-2024 Vitamin B Complex (B Complex-Vitamin B12) tablet Discontinued 1 {tbl} PO DAILY March 20, 2023 12:00am December 01, 2024 3:07pm Start: 03-20-2023 Vitamin B Comp dejah (B Complex-Vitamin B12) tablet Active 1 {tbl} PO DAILY March 20, 2023 12:00am Start: 03-20-2023 take 1 tablet by henna th once daily Vitamin B Complex (B Complex-Vitamin B12) tablet Active 1 TABLET PO DAILY March 19, 2023 11:00pm Start: 03-20-2023 take 1 tablet by henna th once daily Vitamin B Complex (B Complex-Vitamin B12) tablet Active 1 TABLET PO DAILY March 20, 2023 12:00am Start: 07-04-2018 End: 03-20-2023 Vitamin B Complex (B Complex -Vitamin B12) tablet Discontinued 1 {tbl} PO DAILY July 04, 2018 1:00am March 20, 2023 12:22pm vitamin B complex tablet (11 sources) Start: 07-04-2018 End: 03-20-2023 take 1 tablet by mouth once daily vitamin B complex tablet Discontinued 1 TABLET PO DAILY July 04, 2018 12:00am March 20, 2023 11:22am Start: 07-04-2018 End: 03-20-2023 take 1 tablet by mouth once daily vitamin B complex tablet Discontinued 1 TABLET PO DAILY July 04, 2018 1:00am March 20, 2023 12:22pm Start: 07-04-2018 take 1 tablet by henna th once daily vitamin B complex tablet Active 1 TABLET PO DAILY July 04, 2018 12:00am Start: 07-04-2018 take 1 tablet by henna th once daily vitamin B complex tablet Active 1 TABLET PO DAILY July 04, 2018 1:00am Problems Active Problems Problem Classification Problem Date Documented Da te Episodic/Chronic Allergic reactions (2 sources) Allergy, unspecified, initial encounter; Translations: [Other adverse food reactions, not elsewhere classified, initial encounter] Onset: 11-19-2024 Episodic Coronary atherosclerosis and other heart disease (20 sources) Atherosclerotic heart disease of [place] coronary artery without angina pectoris; Translations: [Coronary atherosclerosis] Onset: 06-29-2016 06-29-2016 Chronic Comment on above: Patient carries a hi story of known atherosclerotic coronary disease. Status post stenting of the LAD in 2015. The patient's EF noted to be in the 55% range by echocardiogram done in February 2022. He had mild concentric LVH the patient is diabetic on medical therapy managed by Dr. Alvarez. The patient is not on statin therapy. He does not smoke although he is a remote smoker. His blood pressure is well-controlled. Diabetes mellitus without complication (20 sources) Diabetes mellitus; Translations: [Type 2 diabetes mellitus without complications] Onset: 11-13-2024 03-10-2022 Chronic Comment on above: ON MEDS patient has a history of atherosclerotic coronary artery disease. He should be on intensive statin therapy as tolerated. He does have a history of fatty liver disease and a family predisposition to avoid statins. Disorders of lipid metabolism (20 sources) Hyperlipidemia; Translations: [Hyperlipidemia, unspecified] Chronic Comment on above: The patient's lipids have not been treated with statin therapy due to the patient's reluctance to take a statin. I did discuss given the fact that he is diabetic and has known coronary disease that if he can tolerate statin therapy it would be greatly beneficial long-term. Esophageal disorders (2 sources) Achalasia of esophagus; Translations: [Achalasia of cardia] 12-26-2024 Episodic Essential hypertension (20 sources) Hypertensive disorder; Translations: [Essential hypertension] Onset: 12-28-2016 12-28-2016 Chronic Genitourinary symptoms and ill-defined conditions (20 sources) History of renal insufficiency; Translations: [Personal history of other diseases of urinary system] Onset: 05-14-2024 03-20-2023 Episodic Hyperplasia of prostate (6 sources) Benign prostatic hypertrophy without outflow obstruction; Translations: [Benign prostatic hyperplasia with lower urinary tract symptoms] Onset: 05-14-2024 05-14-2024 Chronic Lymphadenitis (13 sources) Axillary lymphadenopathy; Translations: [Localized enlarged lymph nodes] 09-24-2023 Episodic Malaise and fatigue (18 sources) Asthenia; Translations: [Weakness] 03-20-2023 Episodic Nonspecific chest pain (17 sources) Chest pain; Translations: [Chest pain, unspecified] 02-20-2022 Episodic Osteoarthritis (4 sources) Osteoarthritis of knee; Translations: [Osteoarthritis of knee, unspecified] Onset: 12-10-2014 12-10-2014 Chronic Other gastrointestinal disorders (10 sources) Dysphagia; Translations: [Dysphagia, unspecified] 12-12-2024 Episodic Other gastrointestinal disorders (2 sources) Dysphagia, unspecified; Translations: [Dysphagia, unspecified] Onset: 12-24-2024 Episodic Other inflammatory condition of skin (4 sources) Psoriasis; Translations: [Psoriasis, unspecified] 11-24-2010 Chronic Other liver diseases (9 sources) Steatosis of liver; Translations: [Fatty (change of) liver, not elsewhere classified] 08-31-2023 Chronic Comment on above: The patient's LFTs a re minimally elevated these will be monitored closely as we trial him on rosuvastatin Other liver diseases (3 sources) Fatty (change of) liver, not elsewhere classified; Translations: [Other chronic nonalcoholic liver disease] 08-31-2023 Chronic Other nutritional; endocrine; and metabolic disorders (17 sources) Obesity; Translations: [Obesity, unspecified] 02-20-2022 Chronic Other nutritional; endocrine; and metabolic disorders (14 sources) H/O: diabetes mellitus; Translations: [Personal history of other endocrine, nutritional and metabolic disease] 03-20-2023 Episodic Other nutritional; endocrine; and metabolic disorders (4 sources) Personal history of other endocrine, nutritional and metabolic disease; Translations: [Personal history of other endocrine, metabolic, and immunity disorders] 03-20-2023 Episodic Other skin disorders (10 sources) Skin lesion; Translations: [Disorder of the skin and subcutaneous tissue, unspecified] 06-28-2023 Episodic Comment on above: The patient's has a couple of pustules on his abdomen these are new. Other skin disorders (14 sources) Disorder of the skin and subcutaneous tissue, unspecified; Translations: [Unspecified disorder of skin and subcutaneous tissue] 06-28-2023 Episodic Peripheral and visceral atherosclerosis (3 sources) Intermittent claudication; Translations: [Peripheral vascular disease, unspecified] Onset: 12-28-2016 12-28-2016 Chronic Poisoning by nonmedicinal substances (4 sources) Allergic reaction caused by seafood; Translations: [Toxic effect of unspecified seafood, accidental (unintentional), initial encounter] 11-17-2024 Episodic Residual codes; unclassified (6 sources) Altered mental status; Translations: [Altered mental status, unspecified] 03-15-2024 Episodic Unclassified (3 sources) Percutaneous transluminal coronary angioplasty ; Translations: [Presence of coronary angioplasty implant and graft] Onset: 06-27-2016 06-27-2016 Unclassified (1 source) Long-term drug therapy; Translations: [Other buttermaker continuous churn (current) drug therapy] Onset: 06-29-2016 06-29-2016 Unclassified (3 sources) This is a GI group in [place] that also can do the upper endoscopy to evaluate you for swallowing difficulty. Unclassified (3 sources) Call their office for an appointment if you are unable to get into see GI. Unclassified (3 sources) Call their office tomorrow. Tell them you are in the ER. Tell them that Dr. Malone spoke to Dr. Ramirez. Their offices can evaluate you for possible upper endoscopy. Urinary tract infections (20 sources) Urinary tract infectious disease; Translations: [Acute urinary tract infection] 12-11-2019 Episodic Viral infection (6 sources) Disease caused by 2019-nCoV; Translations: [COVID-19] 03-07-2024 Episodic Past or Other Problems Problem Classification Problem Date Documented Da te Episodic/Chronic Coronary atherosclerosis and other heart disease (4 sources) Presence of coronary angioplasty implant and graft; Translations: [Percutaneous transluminal coronary angioplasty status] Onset: 06-19-2016 Episodic Joint disorders and dislocations; trauma-related (4 sources) Tear of medial meniscus of knee; Translations: [Other tear of medial meniscus, current injury, right knee] Onset: 12-10-2014 12-10-2014 Episodic Nausea and vomiting (1 source) Nausea with vomiting, unspecified; Translations: [Nausea with vomiting, unspecified] Onset: 03-21-2024 Episodic Other aftercare (3 sources) Other residential (current) drug therapy; Translations: [Other residential (current) drug therapy] Onset: 06-29-2016 06-29-2016 Episodic Other connective tissue disease (7 sources) Ganglion cyst; Translations: [Bursitis] Onset: 12-10-2014 12-10-2014 Episodic Other connective tissue disease (1 source) Bursitis; Translations: [Bursopathy, unspecified] 11-24-2010 Episodic Other non-traumatic joint disorders (4 sources) Knee pain; Translations: [Pain in right knee] Onset: 12-10-2014 12-10-2014 Episodic Skin and subcutaneous tissue infections (4 sources) Furuncle; Translations: [Furuncle, unspecified] 11-24-2010 Episodic Unclassified (2 sources) Onset: 05-14-2024 Resolved: 06-18-2024 05-14-2024 Results Test Name Value Interpretation Reference Range Facility Modified Barium Swallow Stud [facility] 01-12-2025 Modified Barium Swallow Study [facility] Speech Pathology [address] [place] [address] Modified Barium Swallow Study MR#: [id number] Acct: [id number] Name: STEVE ADAMES Rep #: [id number] : 1940 84 From: Saige Lobo Modified Barium Swallow Patient Information Study Date: 01/12/25 Study Time: 13:00 Direct Billable Minutes: 150 Total Minutes procedure reportin Diagnosis: K22.0 - Achalasia of cardia Referring Physician: Stephan Alvarez Medical History: The patient is an 84-year-old male presenting today for follow-up after an EGD performed to evaluate difficulty swallowing. The EGD, completed on 12/26, revealed abnormal esophageal motility suspicious for achalasia. Biopsies were positive for intestinal metaplasia. He continues to experience daily swallowing difficulties, including episodes of choking and regurgitation. As a result, he has reduced his oral intake and has experienced weight loss in an effort to avoid triggering these episodes. The patient has been started on amitriptyline 10 mg daily and scheduled for a repeat EGD with Botox injections to address suspected achalasia. Additionally, pantoprazole 40 mg once daily was initiated due to biopsy findings of intestinal metaplasia. * Start pantoprazole 40 mg daily * Start amitriptyline 10 mg daily * Schedule EGD with Botox injection 12/26 EGD Findings:???Abnormal esophageal motility suspicious for achalasia. Biopsies obtained. Esophagus dilated. No gross lesions noted in the stomach or examined duodenum. MBSS completed on this date to objectively assess swallow function. Dentition: WNL Mental Status: WNL Respiratory Status: Oxygenating on Room Air Penetration-Aspiration Scale Penetration-Aspiration Scale: OBJECTIVE ASSESSMENT OF SWALLOW FUNCTION (QUANTITATIVE ??? PER TRIAL): PENETRATION / ASPIRATION SCALE (SOLANO): 1 = does not enter airway 2 = enters airway/above vocal folds/ejected 3 = enters airway/above vocal folds/not ejected 4 = enters airway/contacts vocal folds/ejected 5 = enters airway/contacts vocal folds/not ejected 6 = enters airway/below vocal folds/ejected 7 = enters airway/below vocal folds/not ejected despite effort 8 = enters airway/below vocal folds/no effort VIDEOFLOROSCOPIC SCALE SCORE (SOLANO): Grade I = aspiration of material that has penetrated into the laryngeal vestibule, intact cough reflex Grade II = aspiration < 10 % of the bolus, intact cough reflex Grade III = aspiration of < 10 % of the bolus, reduced cough reflex or aspiration of > 10 % of the bolus, intact cough reflex Grade IV = aspiration of > 10 % of the bolus, reduced cough reflex Penetration-Aspiration Scale Score Thin Liquid via teaspoon: Result: 1= does not enter airway Thin Liquid via teaspoon Trial 2: Result: 3= enters airways/above vocal folds/not ejected Thin Liquid via small single sip: cup: Result: 5= enters airways/contacts vocal folds/not ejected Thin Liquid via small single sip: cup Trial 2: Result: 3= enters airways/above vocal folds/not ejected Thin Liquid via small single sip: cup Trial 3: Result: 5= enters airways/contacts vocal folds/not ejected Thin Liquid via small single sip: cup Effortful swallow: Result: 3= enters airways/above vocal folds/not ejected Thin Liquid via small single sip: cup Effortful swallow Trial 2: Result: 3= enters airways/above vocal folds/not ejected [place] Thick Liquid via small single sip: cup: Result: 5= enters airways/contacts vocal folds/not ejected [place] Thick Liquid via small single sip: cup Trial 2: Result: 3= enters airways/above vocal folds/not ejected [place] Thick Liquid via small single sip: cup Trial 3: Result: 5= enters airways/contacts vocal folds/not ejected [place] Thick Liquid via small single sip: cup: Result: 2= enter airway/above vocal folds/ejected Pudding: Result: 1= does not enter airway [place] Thick Liquid via small single sip: cup Trial 4: Result: 1= does not enter airway Cookie: Result: 1= does not enter airway [place] Thick Liquid via small single sip: cup Trial 5: Result: 3= enters airways/above vocal folds/not ejected Thin Liquid via small single sip: cup [place]: Result: 5= enters airways/contacts vocal folds/not ejected Thin Liquid via small single sip: cup Double swallow: Result: 5= enters airways/contacts vocal folds/not ejected Thin Liquid via small single sip: cup Double swallow Trial 2: Result: 3= enters airways/above vocal folds/not ejected Oral Phase Labial Seal: No Labial Escape Tongue Control During Bolus Hold: Posterior escape of less than half of bolus Bolus Preparation/Mastication: Timely and efficient chewing and mashing Bolus Transport/Lingual Motion: Brisk tongue motion Oral Residue: Trace residue lining oral structures Pharyngeal Phase Initiation of Pharyngeal Swallow: Bolus head in pyriforms Soft Palate Elevation: Trace column of contrast/air between soft pal (more content not included)... Normal [facility] Gastroenterology Visit Repor ton 12-26-2024 Gastroenterology Visit Report [facility] Gastroenterology [address] [place] [address] OFFICE VISIT Date of Service: 12/26/24 MR#: [id number] Acct: [id number] Name: STEVE ADAMES Rep #: [id number] : 1940 Provider: BLAKE Nunes Age/Sex: 84/M Location: [facility] [place].[facility] Status: Signed Intake Vital Signs 12/01/24 14:35 12/12/24 11:33 12/26/24 09:57 Height 5 ft 8 in 5 ft 8 in Weight: 218 lb 2 oz Intake Visit Reasons: Test Result Chief Complaint: Difficulty Swallowing Allergies metoprolol Allergy (Intermediate, Verified 12/26/24 10:00) Rash cephalexin Allergy (Verified 12/26/24 10:00) Rash Iodinated Contrast Media Allergy (Verified 12/26/24 10:00) Shortness of breath metformin Adverse Reaction (Intermediate, Verified 12/26/24 10:00) Diarrhea Medications ???Medication ???Instructions ???Recorded ???Confirmed ???Type omega-3 acid ethyl esters 1 gram 1 cap PO DAILY SUPPLEMENT 02/21/22 12/26/24 History capsule zinc gluconate 50 mg tablet 50 mg PO DAILY SUPPLEMENT 02/21/22 12/26/24 History aspirin 81 mg tablet,delayed 81 mg PO DAILY HEART HEALTH 12/26/24 History release dulaglutide 3 mg/0.5 mL 3 mg subcut QWEEK 06/28/23 5 History subcutaneous pen injector (Trulicity) glimepiride 4 mg tablet (Amaryl) 4 mg PO DAILY DIABETES 06/28/23 History epinephrine 0.3 mg/0.3 mL 0.3 mg (0.3 mL) IM X1 #2 ea 12/26/24 Rx injection, auto-injector ascorbic acid (vitamin C) 1,000 mg 2 g PO DAILY 12/01/24 12/26/24 H istory capsule dupilumab 300 mg/2 mL subcutaneous 300 mg subcut .COMPLEX 12/01/24 12/26/24 History syringe (Dupixent) oxybutynin chloride 10 mg 10 mg PO DAILY 12/01/24 12/26/24 H istory tablet,extended release 24 hr saw palmetto 450 mg capsule 900 mg PO TID 12/01/24 12/26/24 Hi story fexofenadine 180 mg tablet 180 mg PO Q24H 12/04/24 12/26/24 H istory (Mishel Allergy) quercetin 500 mg capsule mg PO DAILY 12/04/24 12/26/24 Hist ory amitriptyline 10 mg tablet 10 mg PO QDAY #30 tabs 12/26/24 Rx pantoprazole 40 mg tablet,delayed 40 mg PO QDAY #60 tabs 12/26/24 0 12/26/24 Rx release Have you fallen in the past year?: Yes Nurse's Note: Patient is here for a follow up and some test results for his Endoscopy. Still choking on foods and having difficulty eating. No abdominal pain, nausea or vomiting. [facility] Medical History Swallowing difficulty Prosthetic eye globe Axillary adenopathy Left buttock abscess Wears hearing aid Wears glasses Cancer Memory deficit Rash History of steroid therapy Fatty liver Back pain Dietary restriction Former smoker CPAP (continuous positive airway pressure) dependence Shortness of breath on exertion Leg cramps History of pain when walking History of stress test Cardiology follow-up encounter Obesity Essential (primary) hypertension Atherosclerosis of coronary artery of [place] heart without angina pectoris Renal calculus, left Osteoarthritis Hyperlipidemia LDL goal <100 Diabetes Surgical History H/O excision of mass History of colectomy Hx of eye surgery History of back surgery (05/05/20) History of left heart catheterization (06/17/16) H/O hernia repair History of coronary artery stent placement (06/19/16) H/O lithotripsy Family History Sister Cancer Brother Cancer Social History Smoking Status: Former smoker alcohol intake: never what type of physical activity do you participate in: none HPI HPI Chief Complaint: Difficulty Swallowing Details: STEVE ADAMES, is a 84 M who presents to the office today for f/u. [facility] . with suspected allergic reaction to shrimp. Change in voice, throat swelling and rash. [facility] 5..25 for difficulty swallowing over the past few months. [facility]GI established 5.7.25 with dysphagia x1 month. Food gets stuck in his esophagus and he will have to regurgitate it. Dysphagia to both solids and liquids. Hx of smoking but quit at age 50. EGD 12.12.24; - Abnormal esophageal motility, suspicious for achalasia. Biopsied. Dilated. - No gross lesions in the entire stomach. - No gross lesions in the entire examined duodenum. 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 He continues to have difficulty swallowing his foods. He has been eating smaller bites and drinking warm beverages. He finds himself eating less due to not wanting to have a choking episodes. ROS Const Constitutional: Positive for weight change Eyes Eyes: No change in vision ENT ENT: Positive f (more content not included)... Normal [facility] Bedside Glucoseon 12-12-2024 FINGERSTICK GLU 151 mg/dL High 74-106 [facility] Comment on above: Result Comment: EL [facility] OF PATIENT CARE PER NURSING PROTOCOL Performed By: #### L 501.080 ####[facility] [address] [place], [address] EGD Reporton 12-12-2024 EGD Report [facility] Medical Records Department [address] [place] [address] EGD Report MR#: [id number] Acct: [id number] Name: STEVE ADAMES Rep #: [id number] : 1940 84 From: Mansoor Ramirez DO PCP: Dr. Stephan Alvarez DO [place] [place] Name: Steve Adames Procedure Date: 12/12/2024 12:31 PM Date of : 1940 Age: 84 Procedure: Upper GI endoscopy Indications: Oral phase dysphagia, Esophageal dysphagia, Dysphagia Providers: Mansoor Ramirez DO Referring MD: Stephan Alvarez Medicines: Monitored Anesthesia Care Patient Profile: This is an 84 year old male. Refer to note in patient chart for documentation of history and physical. Patient has symptoms of dysphagia with both liquids and solids. Complications: No immediate complications. Procedure: Pre-Anesthesia Assessment: - Prior to the procedure, a History and Physical was performed, and patient medications and allergies were reviewed. The patient is competent. The risks and benefits of the procedure and the sedation options and risks were discussed with the patient. All questions were answered and informed consent was obtained. Patient identification and proposed procedure were verified by the physician in the pre-procedure area. Mental Status Examination: alert and oriented. Airway Examination: normal oropharyngeal airway and neck mobility. Respiratory Examination: clear to auscultation. CV Examination: normal. Prophylactic Antibiotics: The patient does not require prophylactic antibiotics. Prior Anticoagulants: The patient has taken no anticoagulant or antiplatelet agents except for NSAID medication. ASA Grade Assessment: II - A patient with mild systemic disease. After reviewing the risks and benefits, the patient was deemed in satisfactory condition to undergo the procedure. The anesthesia plan was to use monitored anesthesia care (MAC). Immediately prior to administration of medications, the patient was re-assessed for adequacy to receive sedatives. The heart rate, respiratory rate, oxygen saturations, blood pressure, adequacy of pulmonary ventilation, and response to care were monitored throughout the procedure. The physical status of the patient was re-assessed after the procedure. After obtaining informed consent, the endoscope was passed under direct vision. Throughout the procedure, the patient's blood pressure, pulse, and oxygen saturations were monitored continuously. The Endoscope was introduced through the mouth, and advanced to the second part of duodenum. The upper GI endoscopy was accomplished without difficulty. The patient tolerated the procedure well. Scope In: 12:46:31 PM Scope Out: 12:53:15 PM Total Procedure Duration Time 0 hours 6 minutes 44 seconds Findings: Abnormal motility was noted in the esophagus. The cricopharyngeus was abnormal. There is a decrease in motility of the esophageal body. The distal esophagus/lower esophageal sphincter is spastic, but gives up passage to the endoscope. Biopsies were taken with a cold forceps for histology. Verification of patient identification for the specimen was done. Estimated blood loss was minimal. A guidewire was placed and the scope was withdrawn. Dilation was performed with a Savary dilator with no resistance at 60 Fr. The dilation site was examined and showed moderate improvement in luminal narrowing. Estimated blood loss was minimal. No gross lesions were noted in the entire examined stomach. No gross lesions were noted in the entire examined duodenum. Impression: - Abnormal esophageal motility, suspicious for achalasia. Biopsied. Dilated. - No gross lesions in the entire stomach. - No gross lesions in the entire examined duodenum. Recommendation: - Discharge patient to home. - Resume previous diet. - Continue present medications. Procedure Code(s): --- Professional --- 40069, Esophagogastroduodenosco py, flexible, transoral; with insertion of guide wire followed by passage of dilator(s) through esophagus over guide wire 55825, 59,51, Esophagogastroduodenosco py, flexible, transoral; with biopsy, single or multiple CPT copyright 2021 [employer]. All rights reserved. The codes documented in this report are preliminary and upon paste up worker review may be revised to meet current compliance requirements. Mansoor Ramirez DO 12/12/2024 1:03:14 PM This report has been signed electronically. Number of Addenda: 0 Note Initiated On: 12/12/2024 12:31 PM 12/12/24 1303 Date Mansoor Ramirez DO Desmond Signature: Date (if indicated) CC: Dr. Stephan Alvarez DO; Mansoor Ramirez DO Date Dictated: 12/12/24 1231 Date Transcribed: Local Sales Associate: PEGGY Signed [facility] Glucose measurement at [facility] deOrdered By: Mansoor Ramirez on 12-12-2024 Glucose [Mass/Vol] 151 mg/dL High 74-106 [facility] Comment on above: MANAGEMENT OF PATIEN T CARE PER NURSING PROTOCOL MR/POSTOP.Romero 12-12-2024 MR/POSTOP.[facility] Medical Records Department [address] [place] [address] Anesthesia Postop Eval I 12/12/24 1301 MR#: [id number] Acct: [id number] Name: STEVE ADAMES Rep #: [id number] : 1940 84 From: Dustin Johnson PCP: Dr. Stephan Alvarez DO Status:REG SDC Y Race: C Location: [place] [address] Anesthesia: Postop Eval I Current Vital Signs Temperature: 97 F Pulse Rate: 65 Blood Pressure: 122/74 Respiratory Rate: 16 Pulse Ox: 95 Oxygen Delivery Method: Room Air Assessment Airway patent: Yes Spontaneous unlabored respirations: Yes Mental status: Awake and Calm nausea: No Vomiting: No Anesthesia Complication: No Fluid Hydration Crystalloid volume administer (ml): 300 Total IV fluid infused: 300 Progress Note Anesthesia document: Postop Eval 1 completed: Yes 12/12/24 1302 Date Dustin Hobbsigner Signature: Date CC: Signed Normal [facility] MR/[id number] 12-12-2024 MR/POSTOPAN2 [facility] Medical Records Department [address] [place] [address] Anesthesia Postop Eval II 12/12/24 1301 MR#: [id number] Acct: [id number] Name: STEVE ADAMES Rep #: [id number] : 1940 84 From: Roderick Agee MD PCP: Dr. Stephan Alvarez, DO Status:REG SDC Y Race: C Location: [place] [address] Anesthesia Postop Eval I Sum Anesthesia Postop Eval I Summary Anesthesia Postop Eval I Summary: Anesthesia Postop Eval I: Assessment Summary Airway patent Spontaneous unlabored respirations Mental status nausea Vomiting Anesthesia Postop Eval I: Fluid Summary Crystalloid volume administer (ml) Colloids volume administered ( ml) Blood Product volume administered (ml) Total IV fluid infused Anesthesia Postop Eval I: Summary Notes Anesthesia Complication Anesthesia Complication Comment: Post-operative progress note Anesthesia: Postop Eval II Evaluation Mental status: Awake Pain Level: 0 nausea: No Vomiting: No 12/12/24 1301 Date Roderick Hobbsigner Signature: Date CC: Signed Normal [facility] Surgery Specimen Level Dilma 12-12-2024 Surgery Specimen Level IV Patient Age/Sex Location Account Attending Physician STEVE ADAMES 84/M EN [id number] Mansoor Ramirez DO Specimen: [id number] Received: 12/12/24 Status: PEPE Galvan Num: [id number] Spec Type: EGD BIOPSY Subm Dr: DO FRANCISCO Castro OPERATION: EGD with biopsy and dilation PRE-OP DIAGNOSIS: Swallowing difficulty TISSUE SUBMITTED: A- Distal esophagus biopsy MICROSCOPIC DIAGNOSIS A. Esophagus, distal, biopsy: Squamous mucosa with mild reactive changes. Columnar mucosa with goblet cell metaplasia - see note. Negative for dysplasia. Note: The diagnosis depends on the location of the biopsy and the extent of the mucosal irregularity. If the biopsy originates from the tubular esophagus and the mucosal irregularity extends at least 1 cm above the top of the gastric folds, this represents Sims mucosa. If the biopsy originates from the gastric cardia and/or the mucosal irregularity is less than 1 cm in extent, this represents intestinal metaplasia. MICROSCOPIC DESCRIPTION Slides are reviewed. GROSS DESCRIPTION A. Received in formalin in a container labeled with the patient's name, date of , and distal esophagus are 2 sanabria-pink fragments of mucosal tissue measuring 0.4 x 0.2 x 0.2 cm and 0.4 x 0.3 x 0.3 cm. Submitted in toto in A1. [facility] 12-15-2024 [facility]:[id number] Patient Age/Sex Location Account Attending Physician STEVE ADAMES 84/M EN [id number] Mansoor Ramirez DO Signed (signature on file) Dr. Eloisa Aguilar MD 12/23/24 1733 Normal [facility] Comment on above: Performed By: #### P SUIV ####[facility] [address] [place], [address] 12 Lead EKG performed by [facility] on 12-04-2024 12 Lead EKG performed by [facility] [address] [place] [address] 12 Lead EKG performed by [facility] 12/04/24818 MR#: [id number] Acct: [id number] Name: STEVE ADAMES Rep #: [id number] : 1940 84 From: Shan Hernandez MD Attending Dr: Dr. Shan Hernandez MD Status: DE P [facility] Ordering Dr: Shan Hernandez MD Date: 12/04/24 [place] [facility] [place]: M C Admitted: [facility]/12 Lead EKG performed by [facility] ECG Report Interpretation --Sinus Rhythm -First degree A-V block Low voltage in precordial leads. Poor R Wave Progression -Nonspecific ST depression + Negative T-waves -Nondiagnostic ABNORMAL Electronically signed on 12/04/2024 at 12:[address] Shan Hernandez [employer] Version 8610 12/04/24 1227 Date Shan Hernandez MD CC: Dr. Stephan Alvarez DO Date Dictated: 12/04/24818 Date Transcribed: 12/04/24818 Local Sales Associate: DANITZA Signed Normal [facility] Cardiology Visit Reporton Cardiology Visit Report [facility] [address] [place] [address] OFFICE VISIT Date of Service: 12/04/24 MR#: [id number] Acct: [id number] Name: STEVE ADAMES Rep #: [id number] : 1940 Provider: Dr. Shan amos MD Age/Sex: 84/M [place] [facility] [place]: Signed with Addenda ADDENDUM by Dr. Shan Hernandez MD on 12/04/24 at 1143 HPI History of Present Illness Details: ECG done in office today shows sinus rhythm with a first-degree AV block low voltage in the precordial leads and poor R wave progression consistent with his body habitus. Nonspecific ST-T wave changes. Assessment and Plan Assessment and Plan (1) Atherosclerosis of coronary artery of [place] heart without angina pectoris: Status: Chronic (2) Diabetes: Status: Chronic Qualifiers: Diabetes mellitus type: type 2 Diabetes mellitus buttermaker continuous churn insulin use: without residential use Diabetes mellitus complication status: with circulatory complication Diabetes mellitus complication detail: with other circulatory complications Qualified Code(s): E11.59 - Type 2 diabetes mellitus with other circulatory complications (3) Hyperlipidemia LDL goal <100: Status: Chronic Orders: Orders 12 Lead EKG performed by [facility] Today I25.10 - Atherosclerotic heart disease of [place] coronary artery without angina pectoris Plan Details Follow Up: 1 Year (With Dr. Hernandez and as needed) 12/04/24 1143 Date Shan Hernandez MD cc: Dr. Stephan Alvarez DO * Signed HPI HPI History of Present Illness Details: Patient is a very pleasant 84-year-old white female who comes in with his today. They are long-term acquaintances of Osmel Lomeli. Patient reports that he has been having issue with a sensation in his throat like it is tightening up and he is having trouble swallowing his food. It was thought that he might be allergic to strep it started when he tried to eat a strip and got a piece of the tail stuck in his throat. However apparently he was tested and is not allergic to strep. He is scheduled to see Dr. Trotter to have an EGD done in the near future. Patient denies any anginal type symptoms. His original stenting to his LAD was done when he had a lithotripsy that was complicated by profound hypotension. He was taken urgently to the [facility] where subtotal LAD was stented. This was in 2015. He had a negative stress test in December 2020 and February 2022 had an echocardiogram which showed normal LV function EF of 55% and mild concentric LVH. The patient reports that he can walk a flight of stairs although he uses a cane when walking flat ground due to his neuropathy. He is diabetic hypertensive blood pressure is slightly elevated in office today at 157/87. He is resistant to statin therapy and his last lipids August 2023 his total cholesterol was 130 HDL was 46 LDL was 46 and triglycerides were 189. The patient recently had an accident where a 0 turn mower when he was using it wound up with him in the [place] near their house where he was cutting grass. His was able to pull them out but this was 1 of a couple of times that this has happened. Intake Vital Signs 11/17/24 15:22 12/01/24 14:35 12/04/24 10:58 Height 5 ft 8 in 5 ft 8 in 5 ft 8 in Weight: 216 lb BMI 32.8 BP 157/87 H Blood Pressure Location Lt brachial Position Sitting Respiration 18 Pulse 84 Pulse Source Monitor Pulse Oximetry (%) 94 Oxygen Delivery Method room air Intake Visit Reasons: 1 Y FU [employer] Required: No Accompanied by: Self Is patient in pain?: No Allergies metoprolol Allergy (Intermediate, Verified 12/04/24 10:59) Rash cephalexin Allergy (Verified 12/04/24 10:59) Rash Iodinated Contrast Media Allergy (Verified 12/04/24 10:59) Shortness of breath metformin Adverse Reaction (Intermediate, Verified 12/04/24 10:59) Diarrhea Medications ???Medication ???Instructions ???Recorded ???Confirmed ???Type omega-3 acid ethyl esters 1 gram 1 cap PO DAILY SUPPLEMENT 02/21/22 12/04/24 History capsule zinc gluconate 50 mg tablet 50 mg PO DAILY SUPPLEMENT 02/21/22 12/04/24 History aspirin 81 mg tablet,delayed 81 mg PO DAILY HEART HEALTH 12/04/24 History release dulaglutide 3 mg/0.5 mL 3 mg subcut QWEEK 06/28/23 5 History subcutaneous pen injector (Trulicity) glimepiride 4 mg tablet (Amaryl) 4 mg PO DAILY DIABETES 06/28/23 History epinephrine 0.3 mg/0.3 mL 0.3 mg (0.3 mL) IM X1 #2 ea 12/04/24 Rx injection, auto-injector ascorbic acid (vitamin C) 1,000 mg 2 g PO DAILY 12/01/24 12/04/24 H istory capsule dupilumab 300 mg/2 mL subcutaneous 300 mg subcut .COMPLEX 12/01/24 12/04/24 History syringe (Dupixent) oxyb (more content not included)... Normal [facility] Gastroenterology Visit Repor ton 12-03-2024 Gastroenterology Visit Report [facility] [address] [place] [address] OFFICE VISIT Date of Service: 12/03/24 MR#: [id number] Acct: [id number] Name: ZACARIASSTEVE FROST Rep #: [id number] : 1940 Provider: BLAKE Nunes Age/Sex: 84/M Location: [facility] Status: Signed Intake Vital Signs 12/01/24 14:35 Height 5 ft 8 in Intake Visit Reasons: DIFFICULTY SWALLOWING Chief Complaint: Difficulty Swallowing Is patient in pain?: No Allergies metoprolol Allergy (Intermediate, Verified 12/01/24 14:35) Rash cephalexin Allergy (Verified 12/01/24 14:35) Rash Iodinated Contrast Media Allergy (Verified 12/01/24 14:35) Shortness of breath metformin Adverse Reaction (Intermediate, Verified 12/01/24 14:35) Diarrhea Medications ???Medication ???Instructions ???Recorded ???Confirmed ???Type omega-3 acid ethyl esters 1 gram 1 cap PO DAILY SUPPLEMENT 02/21/22 12/03/24 History capsule zinc gluconate 50 mg tablet 50 mg PO DAILY SUPPLEMENT 02/21/22 12/03/24 History aspirin 81 mg tablet,delayed 81 mg PO DAILY HEART HEALTH 12/03/24 History release dulaglutide 3 mg/0.5 mL 3 mg subcut QWEEK 06/28/23 5 History subcutaneous pen injector (Trulicity) glimepiride 4 mg tablet (Amaryl) 4 mg PO DAILY DIABETES 06/28/23 History epinephrine 0.3 mg/0.3 mL 0.3 mg (0.3 mL) IM X1 #2 ea 12/03/24 Rx injection, auto-injector ascorbic acid (vitamin C) 1,000 mg 2 g PO DAILY 12/01/24 12/03/24 H istory capsule dupilumab 300 mg/2 mL subcutaneous 300 mg subcut .COMPLEX 12/01/24 12/03/24 History syringe (Dupixent) oxybutynin chloride 10 mg 10 mg PO DAILY 12/01/24 12/03/24 H istory tablet,extended release 24 hr saw palmetto 450 mg capsule 900 mg PO TID 12/01/24 12/03/24 Hi story Have you fallen in the past year?: No Nurse's Note: Difficulty swallowing which then leads to a choking and he gets pain with the choking. [facility] Medical History Axillary adenopathy Left buttock abscess Wears hearing aid Wears glasses Cancer Memory deficit Rash History of steroid therapy Fatty liver Back pain Dietary restriction Former smoker CPAP (continuous positive airway pressure) dependence Shortness of breath on exertion Leg cramps History of pain when walking History of stress test Cardiology follow-up encounter Obesity Essential (primary) hypertension Atherosclerosis of coronary artery of [place] heart without angina pectoris Renal calculus, left Osteoarthritis Hyperlipidemia LDL goal <100 Diabetes Surgical History H/O excision of mass History of colectomy Hx of eye surgery History of back surgery (05/05/20) History of left heart catheterization (06/17/16) H/O hernia repair History of coronary artery stent placement (06/19/16) H/O lithotripsy Family History Sister Cancer Brother Cancer Social History Smoking Status: Former smoker alcohol intake: never what type of physical activity do you participate in: none HPI HPI Chief Complaint: Difficulty Swallowing Details: STEVE ADAMES, is a 84 M who presents to the office today for establishment with [facility]. [facility] ED 11.17.24 with suspected allergic reaction to shrimp. Change in voice, throat swelling and rash. [facility] ED 5 for difficulty swallowing over the past few months. OV 5 Pt here today for f/u after ED visit for dysphagia. Pt states that over the past month he has had issues with swallowing. His food gets stuck in his esophagus and he will have to regurgitate it. He is having issues with both solids and liquids. He has never had issues prior to one month ago. He endorses a hx of smoking for amny years but quit at age 50 ROS Const Constitutional: Positive for weight change ENT ENT: Positive for difficulty swallowing Gastro GI: Positive for difficulty swallowing and nausea/dyspepsia Musc Musculoskeletal: Positive for abnormal gait, numbness, tingling and Arthritis Neuro Neurology: Positive for abnormal gait, numbness and tingling Endo Endocrine: Positive for weight change Exam Const General: cooperative, healthy appearing and comfortable Orientation: alert and awake HENMT Head: normal to inspection Neck Neck: normal visual inspection Chest Chest palpation inspection: normal inspection of the chest Resp Effort Inspection: normal respiratory effort Cardio Rate: regular rate Rhythm: regular rhythm GI Inspection: normal to inspection Auscultation: normal bowel sounds Palpation: firm Assessment and Plan Assessment and Plan (1) Swallowing (more content not included)... Normal [facility] Emergency Department Summary on 12-01-2024 Emergency Department Summary [facility] Medical Records Department [address] [place] [address] Emergency Department Summary 12/01/24 MR#: [id number] Acct: [id number] Name: STEVE ADAMES Rep #: [id number] : 1940 84 From: Fausto Malone MD PCP: Dr. Stephan Alvarez, DO Status:REG ER Location: ED HPI HPI - GI History of Present Illness Chief Complaint: Foreign Body Detail of Chief Complaint: Difficulty swallowing. Informant: patient, spouse/S.O. and family Narrative Narrative: 84-year-old male for last few months has had difficulty swallowing. Denies any pain. Unknown any significant weight loss. He thought it might be foreign body. He has never had upper endoscopy. Is never had any neck or throat or tracheal surgery. He has an appointment January 12 for a cookie swallow test. At times he chokes. He has no trouble breathing. He has seen ENT. They did an ENT scope. Psychiatric help Prior similar symptoms: Yes Recent Illness/Hospitalization: No PFSH [facility] Medical History Axillary adenopathy Left buttock abscess Wears hearing aid Wears glasses Cancer Memory deficit Rash History of steroid therapy Fatty liver Back pain Dietary restriction Former smoker CPAP (continuous positive airway pressure) dependence Shortness of breath on exertion Leg cramps History of pain when walking History of stress test Cardiology follow-up encounter Obesity Essential (primary) hypertension Atherosclerosis of coronary artery of [place] heart without angina pectoris Renal calculus, left Osteoarthritis Hyperlipidemia LDL goal <100 Diabetes Home Medications ???Medication ???Instructions ???Recorded ???Last Taken ???Type omega-3 acid ethyl esters 1 gram 1 cap PO DAILY SUPPLEMENT 02/21/22 12/01/24 History capsule zinc gluconate 50 mg tablet 50 mg PO DAILY SUPPLEMENT 02/21/22 12/01/24 History aspirin 81 mg tablet,delayed 81 mg PO DAILY HEART HEALTH 11/30/24 History release dulaglutide 3 mg/0.5 mL 3 mg subcut QWEEK 06/28/23 5 History subcutaneous pen injector (Trulicity) glimepiride 4 mg tablet (Amaryl) 4 mg PO DAILY DIABETES 06/28/23 History epinephrine 0.3 mg/0.3 mL 0.3 mg (0.3 mL) IM X1 #2 ea Unknown Rx injection, auto-injector ascorbic acid (vitamin C) 1,000 mg 2 g PO DAILY 12/01/24 12/01/24 H istory capsule dupilumab 300 mg/2 mL subcutaneous 300 mg subcut .COMPLEX 12/01/24 11/19/24 History syringe (Dupixent) oxybutynin chloride 10 mg 10 mg PO DAILY 12/01/24 11/30/24 H istory tablet,extended release 24 hr saw palmetto 450 mg capsule 900 mg PO TID 12/01/24 12/01/24 Hi story Allergy/AdvReac Type Severity Reaction Status Date / Time shrimp Allergy Severe Rash Verified 12/01/24 14:35 metoprolol Allergy Intermediate Rash Verified 12/01/24 14:35 cephalexin Allergy Rash Verified 12/01/24 14:35 Iodinated Contrast Media Allergy Shortness Verified 12/01/24 14:35 of breath metformin AdvReac Intermediate Diarrhea Verified 12/01/24 14:35 Family History Sister Cancer Brother Cancer Surgical History H/O excision of mass History of colectomy Hx of eye surgery History of back surgery (05/05/20) History of left heart catheterization (06/17/16) H/O hernia repair History of coronary artery stent placement (06/19/16) H/O lithotripsy Social History Smoking Status: Former smoker alcohol intake: never what type of physical activity do you participate in: none ROS ROS ED ROS Narrative Trouble swallowing. No recent illness. Constitutional Constitutional ED: Denies chills or fever(s) ENT ENT ED: Denies ear pain Cardiovascular Cardiovascular: Denies chest pain Respiratory/Chest Respiratory/Chest: Denies cough or dyspnea Gastrointestinal Gastrointestinal: Denies abdominal pain Genitourinary Genitourinary ED: Denies dysuria or hematuria Musculoskeletal Musculoskeletal: Denies arthralgias Integumentary Denies abscess or Abrasions Neurologic Neurologic: Denies headache(s) Psychiatric Psychiatric: Denies anxiety or depression Endocrine Endocrinology: Denies polydipsia Hematologic/Lymphatic Hematologic/Lymphatic: Denies easy bleeding, easy bruising or lymphadenopathy Allergic/Immunologic Allergic/Immunologic ED: Denies mouth swelling, tongue swelling or urticaria EXAM Physical Exam Narrative Exam Narrative: 84-year-old male vital signs stable afebrile. He is sitting upright in bed. He is in no distress. Family is at bedside. His and I believe his granddaughter. H EENT exam pupils round react light. Mytrex membranes. I gave hi (more content not included)... Normal [facility] Allergen, Food Profileon CLAM <0.10 Normal Class 0 [facility] Comment on above: Performed By: #### L 5530.1419, L5530.0879, L5530.0009, L5500.0410, L5530.0499, L5530.1609 ####[facility] [address] [place], [place], [id number] CODFISH <0.10 Normal Class 0 [facility] Comment on above: Performed By: #### L 5530.1419, L5530.0879, L5530.0009, L5500.0410, L5530.0499, L5530.1609 ####[facility] [address] [place], [place], [id number] COMMENT Comment Normal . [facility] Comment on above: Result Comment: Florian waite of Specific IgE Class Description of Class ----- < 0.10 0 Negative 0.10 - 0.31 0/I Equivocal/Low 0.32 - 0.55 I Low 0.56 - 1.40 II Moderate 1.41 - 3.90 III High 3.91 - 19.00 IV Very High 19.01 - 100.00 V Very High >100.00 Very High Performed By: #### L 5530.1419, L5530.0879, L5530.0009, L5500.0410, L5530.0499, L5530.1609 ####[facility] [address] [address] [place], [place], [id number] CORN <0.10 Normal Class 0 [facility] Comment on above: Performed By: #### L 5530.1419, L5530.0879, L5530.0009, L5500.0410, L5530.0499, L5530.1609 ####[facility] [address] [place], [place], [id number] EGG, WHITE <0.10 Normal Class 0 [facility] Comment on above: Performed By: #### L 5530.1419, L5530.0879, L5530.0009, L5500.0410, L5530.0499, L5530.1609 ####[facility] [address] [place], [address] MILK (COW) <0.10 Normal Class 0 [facility] Comment on above: Performed By: #### L 5530.1419, L5530.0879, L5530.0009, L5500.0410, L5530.0499, L5530.1609 ####[facility] [address] [place], [place], [phone] PEANUT 0.11 kU/L Abnormal Class 0/I [facility] Comment on above: Performed By: #### L 5530.1419, L5530.0879, L5530.0009, L5500.0410, L5530.0499, L5530.1609 ####[facility] [address] [place], [place], [phone] SCALLOP <0.10 Normal Class 0 [facility] Comment on above: Performed By: #### L 5530.1419, L5530.0879, L5530.0009, L5500.0410, L5530.0499, L5530.1609 ####[facility] [address] [place], [place], [phone] SESAME SEED <0.10 Normal Class 0 [facility] Comment on above: Performed By: #### L 5530.1419, L5530.0879, L5530.0009, L5500.0410, L5530.0499, L5530.1609 ####[facility] [address] [place], [place], [phone] SHRIMP <0.10 Normal Class 0 [facility] Comment on above: Performed By: #### L 5530.1419, L5530.0879, L5530.0009, L5500.0410, L5530.0499, L5530.1609 ####[facility] [address] [place], [address] SOYBEAN <0.10 Normal Class 0 [facility] Comment on above: Performed By: #### L 5530.1419, L5530.0879, L5530.0009, L5500.0410, L5530.0499, L5530.1609 ####[facility] [address] [place], [address] WALNUT,(Food) <0.10 Normal Class 0 [facility] Comment on above: Performed By: #### L 5530.1419, L5530.0879, L5530.0009, L5500.0410, L5530.0499, L5530.1609 ####[facility] [address] [place], [address] WHEAT 0.11 kU/L Abnormal Class 0/I [facility] Comment on above: Performed By: #### L 5530.1419, L5530.0879, L5530.0009, L5500.0410, L5530.0499, L5530.1609 ####[facility] [address] [place], [address] Almondon 11-26-2024 ALMOND <0.10 Normal Class 0 [facility] Comment on above: Performed By: #### L 5530.1419, L5530.0879, L5530.0009, L5500.0410, L5530.0499, L5530.1609 ####[facility] [address] [place], [address] Crabon 11-26-2024 CRAB <0.10 Normal Class 0 [facility] Comment on above: Performed By: #### L 5530.1419, L5530.0879, L5530.0009, L5500.0410, L5530.0499, L5530.1609 ####[facility] [address] [place], [address] Lobsteron 11-26-2024 LOBSTER <0.10 Normal Class 0 [facility] Comment on above: Performed By: #### L 5530.1419, L5530.0879, L5530.0009, L5500.0410, L5530.0499, L5530.1609 ####[facility] [address] [place], [place], [id number] Salmonon 11-26-2024 SALMON <0.10 Normal Class 0 [facility] Comment on above: Performed By: #### L 5530.1419, L5530.0879, L5530.0009, L5500.0410, L5530.0499, L5530.1609 ####[facility] [address] [place], [place], [id number] Tunaon 11-26-2024 TUNA <0.10 Normal Class 0 [facility] Comment on above: Result Comment: Perf ormed at: - [facility] [id number] Paraprofessional Interpreter: Marybel James MD, Phone: [phone] Performed By: #### L 5530.1419, L5530.0879, L5530.0009, L5500.0410, L5530.0499, L5530.1609 ####[facility] [address] [place], [place], [id number] Laboratory - Miscellaneous t estsOrdered By: Homar Delgdao on 11-19-2024 Service comment (Unsp spec) [Interp] Comment . [facility] Comment on above: Levels of Specific I gE Class Description of Class ----- < 0.10 0 Negative 0.10 - 0.31 0/I Equivocal/Low 0.32 - 0.55 I Low 0.56 - 1.40 II Moderate 1.41 - 3.90 III High 3.91 - 19.00 IV Very High 19.01 - 100.00 V Very High >100.00 Very High Serum almond IgE antibody as say (units/volume)Ordered By: Homar Delgado on 11-19-2024 [place] IgE Qn (S) <0.10 kU/L Class 0 [facility] Serum black walnut IgE antib angella assay (units/volume)Ordered By: Homar Delgado on 11-19-2024 Black [place] IgE Qn (S) <0.10 kU/L Class 0 [facility] Serum clam IgE antibody assa y (units/volume)Ordered By: Homar Delgado on 11-19-2024 Clam IgE Qn (S) <0.10 kU/L Class 0 [facility] Serum codfish IgE antibody a ssay (units/volume)Ordered By: Homar Delgado on 11-19-2024 Codfish IgE Qn (S) <0.10 kU/L Class 0 [facility] Serum corn IgE antibody assa y (units/volume)Ordered By: Homar Delgado on 11-19-2024 [place] IgE Qn (S) <0.10 kU/L Class 0 [facility] Serum cow milk IgE antibody assay (units/volume)Ordered By: Homar Delgado on 11-19-2024 Cow milk IgE Qn (S) <0.10 kU/L Class 0 [facility] Serum crab IgE antibody assa y (units/volume)Ordered By: Homar Delgado on 11-19-2024 Crab IgE Qn (S) <0.10 kU/L Class 0 [facility] Serum egg white IgE antibody assay (units/volume)Ordered By: Homar Delgado on 11-19-2024 Egg white IgE Qn (S) <0.10 kU/L Class 0 [facility] Serum lobster IgE antibody a ssay (units/volume)Ordered By: Homar Delgado on 11-19-2024 Lobster IgE Qn (S) <0.10 kU/L Class 0 [facility] Serum peanut IgE antibody as say (units/volume)Ordered By: Homar Delgado on 11-19-2024 Peanut IgE Qn (S) 0.11 kU/L High Class 0/I [facility] Serum salmon IgE antibody as say (units/volume)Ordered By: Homar Delgado on 11-19-2024 [place] IgE Qn (S) <0.10 kU/L Class 0 [facility] Serum soybean IgE antibody a ssay (units/volume)Ordered By: Homar Delgado on 11-19-2024 Soybean IgE Qn (S) <0.10 kU/L Class 0 [facility] Serum tuna IgE antibody assa y (units/volume)Ordered By: Homar Delgado on 11-19-2024 Tuna IgE Qn (S) <0.10 kU/L Class 0 [facility] Comment on above: Performed at: [address] [id number] Director: Marybel James MD, Phone: [phone] Serum wheat IgE antibody ass ay (units/volume)Ordered By: Homar Delgado on 11-19-2024 Wheat IgE Qn (S) 0.11 kU/L High Class 0/I [facility] Emergency Department Summary on 11-17-2024 Emergency Department Summary [facility] Medical Records Department [address] [place] [address] Emergency Department Summary 11/17/24 MR#: [id number] Acct: [id number] Name: STEVE ADAMES Rep #: [id number] : 1940 84 From: William Reinoso MD PCP: Dr. Stephan Alvarez, DO Status:[facility] Location: ED HPI History of Present Illness Chief Complaint: Allergic Reaction Detail of Chief Complaint: Allergic reaction to shrimp Informant: patient, spouse/S.O. and family Onset/Context/Timing Onset: Yesterday and Weeks Context: Sudden Onset Timing: Intermittent Quality: Patient had reaction to shrimp a week ago. He he did shrimp last night. Location: Generalized Current Severity: Mild Maximum Severity: Severe Worsened by: Shrimp Relieved by: better after epi Associated Symptoms Associated Symptoms: Change in voice, throat swelling, orthostatic symptoms Narrative Narrative: Patient is an 84-year-old male with history of fatty liver, type 2 diabetes on Trulicity, coronary artery disease with stent placement, essential hypertension and a BMI greater than 30. He presents because of allergic reaction to shrimp. He had shrimp a week ago and had reaction where he had rash and itching. His daughter recommend that he not eat shrimp again. He ate trump again his daughter states his symptoms were worse this time. She treated him with epinephrine. He had change in voice, swelling of his throat, pleuritic generalized erythematous rash. There was no swelling of his lips that anyone noted. He did have trouble swallowing. He denied cardiac symptoms. He denied shortness of breath. He denied nausea or vomiting. Patient presently states his throat feels scratchy and he has noted to have erythematous rash. His symptoms have improved markedly since daughter administered epinephrine 1 hour ago. Prior similar symptoms: Yes Recent Ill[facility] Medical History Axillary adenopathy Left buttock abscess Wears hearing aid Wears glasses Cancer Memory deficit Rash History of steroid therapy Fatty liver Back pain Dietary restriction Former smoker CPAP (continuous positive airway pressure) dependence Shortness of breath on exertion Leg cramps History of pain when walking History of stress test Cardiology follow-up encounter Obesity Essential (primary) hypertension Atherosclerosis of coronary artery of [place] heart without angina pectoris Renal calculus, left Osteoarthritis Hyperlipidemia LDL goal <100 Diabetes Home Medications ???Medication ???Instructions ???Recorded ???Last Taken ???Type ascorbate calcium (vitamin C) 500 500 mg PO DAILY SUPPLEMENT 03/19/23 History mg tablet finasteride 5 mg tablet 5 mg PO DAILY PROSTATE 02/21/22 Un known History omega-3 acid ethyl esters 1 gram 1 cap PO DAILY SUPPLEMENT 02/21/22 03/19/23 History capsule zinc gluconate 50 mg tablet 50 mg PO DAILY SUPPLEMENT 02/21/22 03/19/23 History aspirin 81 mg tablet,delayed 81 mg PO DAILY HEART HEALTH 03/19/23 History release vitamin B complex (B 1 tab PO DAILY SUPPLEMENT 03/20/23 03/19/23 History Complex-Vitamin B12 tablet) dulaglutide 3 mg/0.5 mL 3 mg subcut QWEEK 06/28/23 Unknown History subcutaneous pen injector (Trulicity) dupilumab 300 mg/2 mL subcutaneous 300 mg subcut .QOW ECZEMA Unknown History pen injector (Dupixent) glimepiride 4 mg tablet (Amaryl) 4 mg PO BID DIABETES 06/28/23 Unkn own History epinephrine 0.3 mg/0.3 mL 0.3 mg (0.3 mL) IM X1 #2 ea Unknown Rx injection, auto-injector famotidine 20 mg tablet (Pepcid) 20 mg PO BID #7 tabs 11/17/24 Unkn own Rx Allergy/AdvReac Type Severity Reaction Status Date / Time shrimp Allergy Severe Rash Verified 11/17/24 15:49 metoprolol Allergy Intermediate Rash Verified 11/17/24 15:22 cephalexin Allergy Rash Verified 11/17/24 15:22 Iodinated Contrast Media Allergy Shortness Verified 11/17/24 15:22 of breath metformin AdvReac Intermediate Diarrhea Verified 11/17/24 15:22 Family History Sister Cancer Brother Cancer Surgical History H/O excision of mass History of colectomy Hx of eye surgery History of back surgery (05/05/20) History of left heart catheterization (06/17/16) H/O hernia repair History of coronary artery stent placement (06/19/16) H/O lithotripsy Social History Smoking Status: Former smoker alcohol intake: never what type of physical activity do you participate in: none ROS ROS ED Constitutional Constitutional ED: Denies chills, fever(s), subjective, sweats or weight loss Eyes Eyes: Den (more content not included)... Normal [facility] Absolute lymphocyte countOrd ered By: Stephan Alvarez on 11-12-2024 Lymphocytes Auto (Unsp spec) [#/Vol] 0.63 10*3/uL Low 0.83-4.51 [facility] Absolute neutrophil countOrd ered By: Stephan Alvarez on 11-12-2024 Neutrophils (Bld) [#/Vol] 5.4 10*3/uL 2.0-7.7 [facility] Anion gap in Serum or Plasma Ordered By: Stephan Alvarez on 11-12-2024 Anion gap [Moles/Vol] 14 mmol/L 5-15 [facility] Automated lymphocyte count a s percentage of total leukocytesOrdered By: Stephan Alvarez on 11-12-2024 Lymphocytes/100 WBC Auto (Unsp spec) 9.6 % Low 19-41 [facility] BUN/creatinine ratioOrdered By: Stephan Alvarez on 11-12-2024 Urea nitrogen/Creatinine [Mass ratio] 20.9 mg/mg High 10-20 [facility] Basophil percentageOrdered B y: Stephan Alvarez on 11-12-2024 Basophils/100 WBC (Bld) 0.5 % 0-1 [facility] Bilirubin Test strip Ql (U)O rdered By: Stephan MirandaAntonio on 11-12-2024 Bilirubin Ql (U) Negative Negative [facility] Bilirubin, totalOrdered By: Stephan MirandaAntonio on 11-12-2024 Bilirubin [Mass/Vol] 1.52 mg/dL High 0.00-1.30 [facility] CBC W/Diff, Automatedon 10-28 Absolute Lymph 0.63 X10 3/uL Low 0.83-4.51 [facility] Comment on above: Performed By: #### L 500.4050, L400.0001, L100.0100 ####[facility] [address] [place], [address] Absolute Neut 5.4 X10 3/uL Normal 2.0-7.7 [facility] Comment on above: Performed By: #### L 500.4050, L400.0001, L100.0100 ####[facility] [address] [place], [address] Basophils/100 WBC (Bld) 0.5 % Normal 0-1 [facility] Comment on above: Performed By: #### L 500.4050, L400.0001, L100.0100 ####[facility] [address] [place], [address] Eosinophils/100 WBC (Bld) 0.5 % Normal 0-5 [facility] Comment on above: Performed By: #### L 500.4050, L400.0001, L100.0100 ####[facility] [address] [place], [address] Erythrocyte distribution width (RBC) [Ratio] 14.6 % Normal 11.6-14.6 [facility] Comment on above: Performed By: #### L 500.4050, L400.0001, L100.0100 ####[facility] [address] [place], [address] Hematocrit (Bld) [Volume fraction] 46.8 % Normal 40-54 [facility] Comment on above: Performed By: #### L 500.4050, L400.0001, L100.0100 ####[facility] [address] [place], [address] Hemoglobin (Bld) [Mass/Vol] 16.2 g/dL Normal 13.0-16.5 [facility] Comment on above: Performed By: #### L 500.4050, L400.0001, L100.0100 ####[facility] [address] [place], [address] IG% 0.500 Normal 0.0-0.9 [facility] Comment on above: Result Comment: IG% - Immature Granulocytes (promyelocytes, myelocytes and metamyelocytes) > 1% indicates that a LEFT SHIFT is Present. Performed By: #### L 500.4050, L400.0001, L100.0100 ####[facility] [address] [place], [address] Lymphocytes/100 WBC (Bld) 9.6 % Low 19-41 [facility] Comment on above: Performed By: #### L 500.4050, L400.0001, L100.0100 ####[facility] [address] [place], [address] MCH (RBC) [Entitic mass] 31.4 pg Normal 27.0-32.0 [facility] Comment on above: Performed By: #### L 500.4050, L400.0001, L100.0100 ####[facility] [address] [place], [address] MCHC (RBC) [Mass/Vol] 34.6 g/dL Normal 32-36 [facility] Comment on above: Performed By: #### L 500.4050, L400.0001, L100.0100 ####[facility] [address] [place], [address] MCV (RBC) [Entitic vol] 90.7 fL Normal 80-94 [facility] Comment on above: Performed By: #### L 500.4050, L400.0001, L100.0100 ####[facility] [address] [place], [address] Monocytes/100 WBC (Bld) 7.3 % Normal 0-10 [facility] Comment on above: Performed By: #### L 500.4050, L400.0001, L100.0100 ####[facility] [address] [place], [address] Neutrophils/100 WBC (Bld) 81.6 % High 47-70 [facility] Comment on above: Performed By: #### L 500.4050, L400.0001, L100.0100 ####[facility] [address] [place], [address] Nucleated RBC (Bld) [#/Vol] 0 10*3/uL Normal 0-5 [facility] Comment on above: Performed By: #### L 500.4050, L400.0001, L100.0100 ####[facility] [address] [place], [address] Platelet mean volume (Bld) [Entitic vol] 8.6 fL Normal 6.2-12.0 [facility] Comment on above: Performed By: #### L 500.4050, L400.0001, L100.0100 ####[facility] [address] [place], [address] Platelets (Bld) [#/Vol] 137 10*3/uL Low 150-450 [facility] Comment on above: Performed By: #### L 500.4050, L400.0001, L100.0100 ####[facility] [address] [place], [address] RBC (Bld) [#/Vol] 5.16 10*6/uL Normal 4.6-6.2 [facility] Comment on above: Performed By: #### L 500.4050, L400.0001, L100.0100 ####[facility] [address] [place], [address] RDW SD 48.2 fl High 35.1-43.9 [facility] Comment on above: Performed By: #### L 500.4050, L400.0001, L100.0100 ####[facility] [address] [place], [address] WBC (Bld) [#/Vol] 6.6 10*3/uL Normal 4.4-11.0 [facility] Comment on above: Performed By: #### L 500.4050, L400.0001, L100.0100 ####[facility] [address] [place], [address] Calcium oxalate crystals LM Ql (Urine sed)Ordered By: Stephan Alvarez on 11-12-2024 Urine Calcium Oxalate Crystals 4+ /hpf [facility] Calcium oxalate crystals det ection in urine sediment by light microscopyOrdered By: Stephan Alvarez on 11-12-2024 Calcium oxalate crystals LM Ql (Urine sed) 4+ /hpf [facility] Carbon dioxide, total [Moles /volume] in Central venous bloodOrdered By: Stephan Alvarez on 11-12-2024 CO2 [Moles/Vol] 19.8 mmol/L Low 21.0-32.0 [facility] Chloride assayOrdered By: Kiara Alvarez on 11-12-2024 Chloride [Moles/Vol] 103 mmol/L 98-108 [facility] Comprehensive Metabolic Prof ilon 11-12-2024 Albumin [Mass/Vol] 4.1 g/dL Normal 3.4-4.8 [facility] Comment on above: Performed By: #### L 500.4050, L400.0001, L100.0100 ####[facility] [address] [place], [address] Albumin/Globulin [Mass ratio] 1.2 {ratio} Normal 0.9-2.4 [facility] Comment on above: Performed By: #### L 500.4050, L400.0001, L100.0100 ####[facility] [address] [place], [address] ALK PHOS 57 U/L Normal 40-129 [facility] Comment on above: Performed By: #### L 500.4050, L400.0001, L100.0100 ####[facility] [address] [place], [address] ALT [Catalytic activity/Vol] 71 U/L High <=46 [facility] Comment on above: Performed By: #### L 500.4050, L400.0001, L100.0100 ####[facility] [address] [place], [address] AST [Catalytic activity/Vol] 59 U/L High <=37 [facility] Comment on above: Performed By: #### L 500.4050, L400.0001, L100.0100 ####[facility] [address] [place], [address] Bilirubin [Mass/Vol] 1.52 mg/dL High 0.00-1.30 [facility] Comment on above: Performed By: #### L 500.4050, L400.0001, L100.0100 ####[facility] [address] [place], [address] BUN/CRE 20.9 RATIO High 10-20 [facility] Comment on above: Performed By: #### L 500.4050, L400.0001, L100.0100 ####[facility] [address] [place], [address] Calcium [Mass/Vol] 9.5 mg/dL Normal 7.6-11.0 [facility] Comment on above: Performed By: #### L 500.4050, L400.0001, L100.0100 ####[facility] [address] [place], [address] Chloride [Moles/Vol] 103 mmol/L Normal 98-108 [facility] Comment on above: Performed By: #### L 500.4050, L400.0001, L100.0100 ####[facility] [address] [place], [address] CO2 [Moles/Vol] 19.8 mmol/L Low 21.0-32.0 [facility] Comment on above: Performed By: #### L 500.4050, L400.0001, L100.0100 ####[facility] [address] [place], [address] Creatinine [Mass/Vol] 1.14 mg/dL Normal 0.70-1.20 [facility] Comment on above: Performed By: #### L 500.4050, L400.0001, L100.0100 ####[facility] [address] [place], [address] GAP 14 Normal 5-15 [facility] Comment on above: Performed By: #### L 500.4050, L400.0001, L100.0100 ####[facility] [address] [place], [address] GFR/1.73 sq M.predicted among non-blacks MDRD (S/P/Bld) [Vol rate/Area] 63 mL/min/{1.73_m2} Normal >60 [facility] Comment on above: Result Comment: mL/m in/1.73m2 CKD-EPI Creatinine Equation (2020) Performed By: #### L 500.4050, L400.0001, L100.0100 ####[facility] [address] [place], [address] Globulin (S) [Mass/Vol] 3.3 g/dL Normal 2.2-4.2 [facility] Comment on above: Performed By: #### L 500.4050, L400.0001, L100.0100 ####[facility] [address] [place], [address] Glucose [Mass/Vol] 213 mg/dL High 70-99 [facility] Comment on above: Performed By: #### L 500.4050, L400.0001, L100.0100 ####[facility] [address] [place], [address] Potassium [Moles/Vol] 4.2 mmol/L Normal 3.3-5.1 [facility] Comment on above: Performed By: #### L 500.4050, L400.0001, L100.0100 ####[facility] [address] [place], [address] Sodium [Moles/Vol] 137 mmol/L Normal 133-145 [facility] Comment on above: Performed By: #### L 500.4050, L400.0001, L100.0100 ####[facility] [address] [place], [address] T PROT 7.4 g/dL Normal 5.9-8.4 [facility] Comment on above: Performed By: #### L 500.4050, L400.0001, L100.0100 ####[facility] [address] [place], [address] Urea nitrogen [Mass/Vol] 24 mg/dL High 4-19 [facility] Comment on above: Performed By: #### L 500.4050, L400.0001, L100.0100 ####[facility] [address] [place], [address] Eosinophil percentageOrdered By: Stephan Alvarez on 11-12-2024 Eosinophils/100 WBC (Bld) 0.5 % 0-5 [facility] Epithelial cells.squamous LM Ql (Urine sed)Ordered By: Stephan Alvarez on 11-12-2024 Epithelial cells.squamous LM.HPF (Urine sed) [#/Area] 0 /[HPF] 0-5 [facility] Erythrocyte distribution wid th (RBC) [Ratio]Ordered By: Stephan Alvarez on 11-12-2024 Erythrocyte distribution width (RBC) [Entitic vol] 48.2 fL High 35.1-43.9 [facility] Erythrocyte distribution wid th ratioOrdered By: Stephan Alvarez on 11-12-2024 Erythrocyte distribution width (RBC) [Ratio] 14.6 % 11.6-14.6 [facility] Erythrocyte distribution wid th standard deviationOrdered By: Stephan Alvarez on 11-12-2024 Erythrocyte distribution width (RBC) [Ratio] 48.2 fl High 35.1-43.9 [facility] Fine Granular Casts LM.LPF ( Urine sed) [#/Area]Ordered By: Stephan Alvarez on 11-12-2024 Urine Fine Granular Casts 0-5 SEEN /lpf 0-5 [facility] GFR/1.73 sq M.predicted lj g non-blacks MDRD (S/P/Bld) [Vol rate/Area]Ordered By: tSephan Alvarez on 11-12-2024 Estimated GFR (MDRD) Non-Af Amer 63 >60 [facility] Comment on above: mL/min/1.73m2 CKD-EP I Creatinine Equation (2020) Glomerular filtration rate ( GFR) estimation/1.73 sq m using serum, plasma, or whole bOrdered By: Stephan Alvarez on 11-12-2024 GFR/1.73 sq M.predicted among non-blacks MDRD (S/P/Bld) [Vol rate/Area] 63 mL/min/{1.73_m2} >60 [facility] Comment on above: mL/min/1.73m2 CKD-EP I Creatinine Equation (2020) Glucose Ql (U)Ordered By: Kiara Alvarez on 11-12-2024 Urine Glucose (UA) Normal mg/dl Normal [facility] Hematocrit Auto (Bld) [Volum e fraction]Ordered By: Stephan Alvarez on 11-12-2024 Hematocrit (Bld) [Volume fraction] 46.8 % 40-54 [facility] Hemoglobin measurementOrdere d By: Stephan Alvarez on 11-12-2024 Hemoglobin (Bld) [Mass/Vol] 16.2 g/dL 13.0-16.5 [facility] Hyaline casts LM.LPF (Urine sed) [#/Area]Ordered By: Stephan Alvarez on 11-12-2024 Hyaline casts (Urine sed) [#/Area] 10 /[LPF] 0-5 [facility] Hyaline casts LM Ql (Urine sed) 10-25 SEEN /lpf 0-5 [facility] Immature granulocytes/100 WB C Auto (Bld)Ordered By: Stephan Alvarez on 11-12-2024 Immature granulocytes/100 WBC (Bld) 0.500 % 0.0-0.9 [facility] Comment on above: IG% - Immature Granu locytes (promyelocytes, myelocytes and metamyelocytes) > 1% indicates that a LEFT SHIFT is Present. Ketones Test strip Ql (U)Ord ered By: Stephan Alvarez on 11-12-2024 Ketones Ql (U) Negative Negative [facility] Laboratory - Chemistry and C hemistry - challengeOrdered By: Stephan Alvarez on 11-12-2024 AST [Catalytic activity/Vol] 59 U/L High <38 [facility] Lymphocytes Auto (Unsp spec) [#/Vol]Ordered By: Stephan Alvarez on 11-12-2024 Lymphocytes (Bld) [#/Vol] 0.63 10*3/uL Low 0.83-4.51 [facility] Lymphocytes/100 WBC Auto (Un sp spec)Ordered By: Stephan Alvarez on 11-12-2024 Lymphocytes/100 WBC (Bld) 9.6 % Low 19-41 [facility] MCV (mean corpuscular volume ) determinationOrdered By: Stephan Alvarez on 11-12-2024 MCV (RBC) [Entitic vol] 90.7 fL 80-94 [facility] Mean corpuscular hemoglobin (MCH) determinationOrdered By: Stephan Alvarez on 11-12-2024 MCH (RBC) [Entitic mass] 31.4 pg 27.0-32.0 [facility] Mean corpuscular hemoglobin concentration (MCHC) determinationOrdered By: Stephan Alvarez on 11-12-2024 MCHC (RBC) [Mass/Vol] 34.6 g/dL 32-36 [facility] Mean platelet volume determi nationOrdered By: Stephan Alvarez on 11-12-2024 Platelet mean volume (Bld) [Entitic vol] 8.6 fL 6.2-12.0 [facility] Microscopic analysis of urin e for red blood cells (RBC)Ordered By: Stephan Alvarez on 11-12-2024 Microscopic analysis of urine for red blood cells (RBC) 0 SEEN /hpf 0-5 [facility] Urine RBC 0 SEEN /hpf 0-5 [facility] Monocyte percentageOrdered B y: Stephan Alvarez on 11-12-2024 Monocytes/100 WBC (Bld) 7.3 % 0-10 [facility] Mucus LM Ql (Urine sed)Order ed By: Stephan Alvarez on 11-12-2024 Mucus Ql (Urine sed) 0 SEEN /hpf [facility] Neutrophil percentageOrdered By: Stephan Alvarez on 11-12-2024 Neutrophils/100 WBC (Bld) 81.6 % High 47-70 [facility] Nitrite Test strip Ql (U)Ord ered By: Stephan Alvarez on 11-12-2024 Nitrite Ql (U) Negative Negative [facility] Nucleated red blood cell per centageOrdered By: Stephan Alvarez on 11-12-2024 Nucleated RBC/100 WBC (Bld) [Ratio] 0 % 0-5 [facility] Platelet countOrdered By: Kiara Alvarez on 11-12-2024 Platelets (Bld) [#/Vol] 137 10*3/uL Low 150-450 [facility] Potassium (Unsp spec) [Mass/ Vol]Ordered By: Stephan Alvarez on 11-12-2024 Potassium [Moles/Vol] 4.2 mmol/L 3.3-5.1 [facility] Potassium measurement (mass/ volume)Ordered By: Stephan Alvarez on 11-12-2024 Potassium (Unsp spec) [Mass/Vol] 4.2 mmol/L 3.3-5.1 [facility] Protein Test strip Ql (U)Ord ered By: Stephan Alvarez on 11-12-2024 Protein Ql (U) 100 mg/dl High Negative [facility] RBC Auto (Bld) [#/Vol]Ordere d By: Stephan Alvarez on 11-12-2024 RBC (Bld) [#/Vol] 5.16 10*6/uL 4.6-6.2 [facility] Serum creatinine measurement (mass/volume)Ordered By: Stephan Alvarez on 11-12-2024 Creatinine [Mass/Vol] 1.14 mg/dL 0.70-1.20 [facility] Serum globulin measurementOr dered By: Stephan Alvarez on 11-12-2024 Globulin (S) [Mass/Vol] 3.3 g/dL 2.2-4.2 [facility] Serum glucose measurement (m ass/volume)Ordered By: Stephan Alvarez on 11-12-2024 Glucose [Mass/Vol] 213 mg/dL High 70-99 [facility] Serum or plasma alanine gandhi otransferase (ALT) measurementOrdered By: Stephan Alvarez on 11-12-2024 ALT [Catalytic activity/Vol] 71 U/L High <47 [facility] Serum or plasma albumin jacinta urement (mass/volume)Ordered By: Stephan Alvarez on 11-12-2024 Albumin [Mass/Vol] 4.1 g/dL 3.4-4.8 [facility] Serum or plasma albumin/glob ulin mass ratioOrdered By: Stephan Alvarez on 11-12-2024 Albumin/Globulin [Mass ratio] 1.2 {ratio} 0.9-2.4 [facility] Serum or plasma alkaline john sphatase measurementOrdered By: Stephan Alvarez on 11-12-2024 ALP [Catalytic activity/Vol] 57 U/L 40-129 [facility] Serum or plasma calcium jacinta urement (mass/volume)Ordered By: Stephan Alvarez on 11-12-2024 Calcium [Mass/Vol] 9.5 mg/dL 7.6-11.0 [facility] Serum or plasma urea nitroge n measurement (mass/volume)Ordered By: Stephan Alvarez on 11-12-2024 Urea nitrogen [Mass/Vol] 24 mg/dL High 4-19 [facility] Sodium levelOrdered By: Stephan Alvarez on 11-12-2024 Sodium [Moles/Vol] 137 mmol/L 133-145 [facility] Squamous epithelial cells de tection in urine sediment by light microscopyOrdered By: Stephan Alvarez on 11-12-2024 Epithelial cells.squamous LM Ql (Urine sed) 0-5 SEEN /hpf 0-5 [facility] Total proteinOrdered By: Lata Alvarez on 11-12-2024 Protein [Mass/Vol] 7.4 g/dL 5.9-8.4 [facility] Urinalysis, Completeon 11-12 CAST,FINE GRAN 0-5 SEEN Normal 0-5 [facility] Comment on above: Order Comment: Urine , Random Performed By: #### L 500.4050, L400.0001, L100.0100 ####[facility] [address] [place], [address] CAST,HYALINE 10-25 SEEN Normal 0-5 [facility] Comment on above: Order Comment: Urine , Random Performed By: #### L 500.4050, L400.0001, L100.0100 ####[facility] [address] [place], [address] CA OX CRYSTAL 4+ /hpf Normal [facility] Comment on above: Order Comment: Urine , Random Performed By: #### L 500.4050, L400.0001, L100.0100 ####[facility] [address] [place], [address] EPI,SQUAMOUS 0-5 SEEN Normal 0-5 [facility] Comment on above: Order Comment: Urine , Random Performed By: #### L 500.4050, L400.0001, L100.0100 ####[facility] [address] [place], [address] WBC 0-5 SEEN Normal 0-5 [facility] Comment on above: Order Comment: Urine , Random Performed By: #### L 500.4050, L400.0001, L100.0100 ####[facility] [address] [place], [address] BACTERIA 0 SEEN Normal None Seen [facility] Comment on above: Order Comment: Urine , Random Performed By: #### L 500.4050, L400.0001, L100.0100 ####[facility] [address] [place], [address] Mucus Ql (Urine sed) 0 SEEN Normal [facility] Comment on above: Order Comment: Urine , Random Performed By: #### L 500.4050, L400.0001, L100.0100 ####[facility] [address] [place], [address] RBC 0 SEEN Normal 0-5 [facility] Comment on above: Order Comment: Urine , Random Performed By: #### L 500.4050, L400.0001, L100.0100 ####[facility] [address] [place], [address] Urine blood detectionOrdered By: Stephan Alvarez on 11-12-2024 Urine Occult Blood Negative Negative [facility] Urine clarityOrdered By: Lata Alvarez on 11-12-2024 Clarity (U) Clear Clear [facility] Urine color determinationOrd ered By: Stephan Alvarez on 11-12-2024 Color (U) Yellow Yellow [facility] Urine glucose detectionOrder ed By: Stephan Alvarez on 11-12-2024 Glucose Ql (U) Normal mg/dl Normal [facility] Urine leukocyte esterase det ection by dipstickOrdered By: Stephan Alvarez on 11-12-2024 Leukocyte esterase Test strip Ql (U) Negative Negative [facility] Urine pHOrdered By: Stephan lopez on 11-12-2024 pH (U) 5.0 [pH] 5.0 - 8.0 [facility] Urine sediment bacteria coun t by microscopy (number/high power field)Ordered By: Stephan Alvarez on 11-12-2024 Bacteria LM.HPF (Urine sed) [#/Area] 0 /[HPF] None Seen [facility] Urine sediment fine granular cast count by microscopy (number/low power field)Ordered By: Stephan Alvarez on 11-12-2024 Fine Granular Casts LM.LPF (Urine sed) [#/Area] 0-5 SEEN /lpf 0-5 [facility] Urine specific gravity measu rementOrdered By: Stephan Alvarez on 11-12-2024 Specific gravity (U) [Rel density] 1.025 1.002-1.030 [facility] Urine urobilinogen measureme ntOrdered By: Stephan Alvarez on 11-12-2024 Urobilinogen Ql (U) Normal mg/dl Normal [facility] Urobilinogen Ql (U)Ordered B y: Stephan Alvarez on 11-12-2024 Urine Urobilinogen Normal mg/dl Normal [facility] White blood cell (WBC) count Ordered By: Stephan Alvarez on 11-12-2024 WBC (Bld) [#/Vol] 6.6 10*3/uL 4.4-11.0 [facility] White blood cell countOrdere d By: Stephan Alvarez on 11-12-2024 Urine WBC 0-5 SEEN /hpf 0-5 [facility] White blood cell count 0-5 SEEN /hpf 0-5 [facility] Anion gap in Serum or Plasma Ordered By: Stephan Alvarez on 10-06-2024 Anion gap [Moles/Vol] 13 mmol/L 5-15 [facility] BUN/creatinine ratioOrdered By: Stephan Alvarez on 10-06-2024 Urea nitrogen/Creatinine [Mass ratio] 24.0 mg/mg High 10-20 [facility] Bilirubin, totalOrdered By: Stephan Alvarez on 10-06-2024 Bilirubin [Mass/Vol] 1.43 mg/dL High 0.00-1.30 [facility] Carbon dioxide, total [Moles /volume] in Central venous bloodOrdered By: Stephan Alvarez on 10-06-2024 CO2 [Moles/Vol] 23.6 mmol/L 21.0-32.0 [facility] Chloride assayOrdered By: Kiara Alvarez on 10-06-2024 Chloride [Moles/Vol] 104 mmol/L 98-108 [facility] Comprehensive Metabolic Prof ilon 10-06-2024 Albumin [Mass/Vol] 4.2 g/dL Normal 3.4-4.8 [facility] Comment on above: Performed By: #### L 500.4050 ####[facility] [address] [place], [address] Albumin/Globulin [Mass ratio] 1.3 {ratio} Normal 0.9-2.4 [facility] Comment on above: Performed By: #### L 500.4050 ####[facility] [address] [place], [address] ALK PHOS 58 U/L Normal 40-129 [facility] Comment on above: Performed By: #### L 500.4050 ####[facility] [address] [place], [address] ALT [Catalytic activity/Vol] 66 U/L High <=46 [facility] Comment on above: Performed By: #### L 500.4050 ####[facility] [address] [place], [address] AST [Catalytic activity/Vol] 45 U/L High <=37 [facility] Comment on above: Performed By: #### L 500.4050 ####[facility] [address] [place], [address] Bilirubin [Mass/Vol] 1.43 mg/dL High 0.00-1.30 [facility] Comment on above: Performed By: #### L 500.4050 ####[facility] [address] [place], [address] BUN/CRE 24.0 RATIO High 10-20 [facility] Comment on above: Performed By: #### L 500.4050 ####[facility] [address] [place], [address] Calcium [Mass/Vol] 9.5 mg/dL Normal 7.6-11.0 [facility] Comment on above: Performed By: #### L 500.4050 ####[facility] [address] [place], [address] Chloride [Moles/Vol] 104 mmol/L Normal 98-108 [facility] Comment on above: Performed By: #### L 500.4050 ####[facility] [address] [place], [address] CO2 [Moles/Vol] 23.6 mmol/L Normal 21.0-32.0 [facility] Comment on above: Performed By: #### L 500.4050 ####[facility] [address] [place], [address] Creatinine [Mass/Vol] 1.22 mg/dL High 0.70-1.20 [facility] Comment on above: Performed By: #### L 500.4050 ####[facility] [address] [place], [address] GAP 13 Normal 5-15 [facility] Comment on above: Performed By: #### L 500.4050 ####[facility] [address] [place], [address] GFR/1.73 sq M.predicted among non-blacks MDRD (S/P/Bld) [Vol rate/Area] 59 mL/min/{1.73_m2} Low >60 [facility] Comment on above: Result Comment: mL/m in/1.73m2 CKD-EPI Creatinine Equation (2020) Performed By: #### L 500.4050 ####[facility] [address] [place], [address] Globulin (S) [Mass/Vol] 3.3 g/dL Normal 2.2-4.2 [facility] Comment on above: Performed By: #### L 500.4050 ####[facility] [address] [place], [address] Glucose [Mass/Vol] 147 mg/dL High 70-99 [facility] Comment on above: Performed By: #### L 500.4050 ####[facility] [address] [place], [address] Potassium [Moles/Vol] 4.3 mmol/L Normal 3.3-5.1 [facility] Comment on above: Performed By: #### L 500.4050 ####[facility] [address] [place], [address] Sodium [Moles/Vol] 140 mmol/L Normal 133-145 [facility] Comment on above: Performed By: #### L 500.4050 ####[facility] [address] [place], [address] T PROT 7.5 g/dL Normal 5.9-8.4 [facility] Comment on above: Performed By: #### L 500.4050 ####[facility] [address] [place], [address] Urea nitrogen [Mass/Vol] 29 mg/dL High 4-19 [facility] Comment on above: Performed By: #### L 500.4050 ####[facility] [address] [place], [address] GFR/1.73 sq M.predicted lj g non-blacks MDRD (S/P/Bld) [Vol rate/Area]Ordered By: Stephan Alvarez on 10-06-2024 Estimated GFR (MDRD) Non-Af Amer 59 Low >60 [facility] Comment on above: mL/min/1.73m2 CKD-EP I Creatinine Equation (2020) Glomerular filtration rate ( GFR) estimation/1.73 sq m using serum, plasma, or whole bOrdered By: Stephan Alvarez on 10-06-2024 GFR/1.73 sq M.predicted among non-blacks MDRD (S/P/Bld) [Vol rate/Area] 59 mL/min/{1.73_m2} Low >60 [facility] Comment on above: mL/min/1.73m2 CKD-EP I Creatinine Equation (2020) Laboratory - Chemistry and C hemistry - challengeOrdered By: Stephan Alvarez on 10-06-2024 AST [Catalytic activity/Vol] 45 U/L High <38 [facility] Potassium (Unsp spec) [Mass/ Vol]Ordered By: Stephan Alvarez on 10-06-2024 Potassium [Moles/Vol] 4.3 mmol/L 3.3-5.1 [facility] Potassium measurement (mass/ volume)Ordered By: Stephan Alvarez on 10-06-2024 Potassium (Unsp spec) [Mass/Vol] 4.3 mmol/L 3.3-5.1 [facility] Serum creatinine measurement (mass/volume)Ordered By: Stephan Alvarez on 10-06-2024 Creatinine [Mass/Vol] 1.22 mg/dL High 0.70-1.20 [facility] Serum globulin measurementOr dered By: Stephan Alvarez on 10-06-2024 Globulin (S) [Mass/Vol] 3.3 g/dL 2.2-4.2 [facility] Serum glucose measurement (m ass/volume)Ordered By: Stephan Alvarez on 10-06-2024 Glucose [Mass/Vol] 147 mg/dL High 70-99 [facility] Serum or plasma alanine gandhi otransferase (ALT) measurementOrdered By: Stephan Alvarez on 03-10-2025 ALT [Catalytic activity/Vol] 66 U/L High <47 [facility] Serum or plasma albumin jacinta urement (mass/volume)Ordered By: Stephan Alvarez on 10-06-2024 Albumin [Mass/Vol] 4.2 g/dL 3.4-4.8 [facility] Serum or plasma albumin/glob ulin mass ratioOrdered By: Stephan Alvarez on 10-06-2024 Albumin/Globulin [Mass ratio] 1.3 {ratio} 0.9-2.4 [facility] Serum or plasma alkaline john sphatase measurementOrdered By: Stephan Alvarez on 10-06-2024 ALP [Catalytic activity/Vol] 58 U/L 40-129 [facility] Serum or plasma calcium jacinta urement (mass/volume)Ordered By: Stephan Alvarez on 10-06-2024 Calcium [Mass/Vol] 9.5 mg/dL 7.6-11.0 [facility] Serum or plasma urea nitroge n measurement (mass/volume)Ordered By: Stephan Alvarez on 10-06-2024 Urea nitrogen [Mass/Vol] 29 mg/dL High 4-19 [facility] Sodium levelOrdered By: Stephan Alvarez on 10-06-2024 Sodium [Moles/Vol] 140 mmol/L 133-145 [facility] Total proteinOrdered By: Lata Alvarez on 10-06-2024 Protein [Mass/Vol] 7.5 g/dL 5.9-8.4 [facility] Culture, Blood (WB)on 2023 CUB Blood cultures x2, f rom two different sites No growth in 5 days. Normal [facility] Comment on above: Performed By: #### M 200.1000 #### [facility] [address] [place], [address] 12 Lead EKGon 03-07-2024 12 Lead EKG [facility] [address] [place] [address] 12 Lead EKG 03/07/24 1910 MR#: [id number] Acct: [id number] Name: STEVE ADAMES Rep #: [id number] : 1940 83 From: Ilene Mccall MD Attending Dr: Status: DEP ER Ordering Dr: Chad Pineda DO Date: 03/07/24 Location: ED Sex: M C Admitted: Test Reason : NAUSEA/V Blood Pressure : / mmHG Vent. Rate : 096 BPM Atrial Rate : 096 BPM P-R Int : 254 ms QRS Dur : 076 ms QT Int : 322 ms P-R-T Axes : 036 003 109 degrees QTc Int : 406 ms Sinus rhythm with 1st degree A-V block Possible Anterior infarct (cited on or before 20-MAR-2023) T wave abnormality, consider lateral ischemia Abnormal ECG Confirmed by IFEOMA MOORE, ALF ([id number]), videotape editor ASHOK PITTMAN ([id number]) on 03/10/2024 9:33:48 AM Referred By: Confirmed By:DOUG MCCALL MD 03/10/24932 Date Ilene Mccall MD CC: Dr. Chad Pineda DO; Dr. Stephan Alvarez DO Signed Normal [facility] BNP,B-Type NATRIURETIC PEPTI Sandra 03-07-2024 Natriuretic peptide B (Bld) [Mass/Vol] 114.0 pg/mL High 0-100 [facility] Comment on above: Performed By: #### L 300.3900, L100.0100, L500.2500, L503.6620, L500.3400, L300.4310, L501.2450, L501.4020 #### [facility] [address] [facility] [place], [address] Basic Metabolic Profile (BMP )on 03-07-2024 BUN/CRE 15.8 RATIO Normal 10-20 [facility] Comment on above: Order Comment: 'TROP ' Serial specimen #1, #2 or #3: 1 Performed By: #### L 300.3900, L100.0100, L500.2500, L503.6620, L500.3400, L300.4310, L501.2450, L501.4020 #### [facility] [address] [place], [address] CA,Total 9.3 mg/dL Normal 8.5-10.1 [facility] Comment on above: Order Comment: 'TROP ' Serial specimen #1, #2 or #3: 1 Performed By: #### L 300.3900, L100.0100, L500.2500, L503.6620, L500.3400, L300.4310, L501.2450, L501.4020 #### [facility] [address] [place], [address] Chloride [Moles/Vol] 103 mmol/L Normal 98-107 [facility] Comment on above: Order Comment: 'TROP ' Serial specimen #1, #2 or #3: 1 Performed By: #### L 300.3900, L100.0100, L500.2500, L503.6620, L500.3400, L300.4310, L501.2450, L501.4020 #### [facility] [address] [place], [address] CO2 [Moles/Vol] 25.0 mmol/L Normal 21.0-32.0 [facility] Comment on above: Order Comment: 'TROP ' Serial specimen #1, #2 or #3: 1 Performed By: #### L 300.3900, L100.0100, L500.2500, L503.6620, L500.3400, L300.4310, L501.2450, L501.4020 #### [facility] [address] [place], [address] Creatinine [Mass/Vol] 1.46 mg/dL High 0.70-1.30 [facility] Comment on above: Order Comment: 'TROP ' Serial specimen #1, #2 or #3: 1 Result Comment: The validity of the calculated GFR GFRAA in patients over 70 years has not been determined. Clinical correlation is essential. Performed By: #### L 300.3900, L100.0100, L500.2500, L503.6620, L500.3400, L300.4310, L501.2450, L501.4020 #### [facility] [address] [place], [address] ECRCL 43.77 ml/min Normal [facility] Comment on above: Order Comment: 'TROP ' Serial specimen #1, #2 or #3: 1 Performed By: #### L 300.3900, L100.0100, L500.2500, L503.6620, L500.3400, L300.4310, L501.2450, L501.4020 #### [facility] [address] [place], [address] EST GFR - AA 59 mL/min Low >60 [facility] Comment on above: Order Comment: 'TROP ' Serial specimen #1, #2 or #3: 1 Result Comment: Afri can [place] GFR Calc Performed By: #### L 300.3900, L100.0100, L500.2500, L503.6620, L500.3400, L300.4310, L501.2450, L501.4020 #### [facility] [address] [place], [place], [id number] (690) GAP 7 Normal 5-15 [facility] Comment on above: Order Comment: 'TROP ' Serial specimen #1, #2 or #3: 1 Performed By: #### L 300.3900, L100.0100, L500.2500, L503.6620, L500.3400, L300.4310, L501.2450, L501.4020 #### [facility] [address] [place], [address] GFR/1.73 sq M.predicted among non-blacks MDRD (S/P/Bld) [Vol rate/Area] 49 mL/min/{1.73_m2} Low >60 [facility] Comment on above: Order Comment: 'TROP ' Serial specimen #1, #2 or #3: 1 Result Comment: Non- GFR Calc Performed By: #### L 300.3900, L100.0100, L500.2500, L503.6620, L500.3400, L300.4310, L501.2450, L501.4020 #### [facility] [address] [place], [address] Glucose [Mass/Vol] 202 mg/dL High 74-106 [facility] Comment on above: Order Comment: 'TROP ' Serial specimen #1, #2 or #3: 1 Result Comment: Gluc ose result greater than or equal to 200 mg/dL suggests DIABETES MELLITUS per A.D.A. criteria. Performed By: #### L 300.3900, L100.0100, L500.2500, L503.6620, L500.3400, L300.4310, L501.2450, L501.4020 #### [facility] [address] [place], [address] Potassium [Moles/Vol] 4.1 mmol/L Normal 3.5-5.1 [facility] Comment on above: Order Comment: 'TROP ' Serial specimen #1, #2 or #3: 1 Performed By: #### L 300.3900, L100.0100, L500.2500, L503.6620, L500.3400, L300.4310, L501.2450, L501.4020 #### [facility] [address] [place], [address] Sodium [Moles/Vol] 135 mmol/L Low 136-145 [facility] Comment on above: Order Comment: 'TROP ' Serial specimen #1, #2 or #3: 1 Performed By: #### L 300.3900, L100.0100, L500.2500, L503.6620, L500.3400, L300.4310, L501.2450, L501.4020 #### [facility] [address] [place], [address] Urea nitrogen [Mass/Vol] 23 mg/dL High 7-18 [facility] Comment on above: Order Comment: 'TROP ' Serial specimen #1, #2 or #3: 1 Performed By: #### L 300.3900, L100.0100, L500.2500, L503.6620, L500.3400, L300.4310, L501.2450, L501.4020 #### [facility] [address] [place], [address] CBC W/Diff, Automatedon 08-0 9-2023 Absolute Lymph 0.69 X10 3/uL Low 0.83-4.51 [facility] Comment on above: Performed By: #### L 300.3900, L100.0100, L500.2500, L503.6620, L500.3400, L300.4310, L501.2450, L501.4020 #### [facility] [address] [place], [address] Absolute Neut 6.6 X10 3/uL Normal 2.0-7.7 [facility] Comment on above: Performed By: #### L 300.3900, L100.0100, L500.2500, L503.6620, L500.3400, L300.4310, L501.2450, L501.4020 #### [facility] [address] [place], [address] Basophils/100 WBC (Bld) 0.4 % Normal 0-1 [facility] Comment on above: Performed By: #### L 300.3900, L100.0100, L500.2500, L503.6620, L500.3400, L300.4310, L501.2450, L501.4020 #### [facility] [address] [place], [address] Eosinophils/100 WBC (Bld) 0.2 % Normal 0-5 [facility] Comment on above: Performed By: #### L 300.3900, L100.0100, L500.2500, L503.6620, L500.3400, L300.4310, L501.2450, L501.4020 #### [facility] [address] [place], [address] Erythrocyte distribution width (RBC) [Ratio] 14.2 % Normal 11.6-14.6 [facility] Comment on above: Performed By: #### L 300.3900, L100.0100, L500.2500, L503.6620, L500.3400, L300.4310, L501.2450, L501.4020 #### [facility] [address] [place], [address] Hematocrit (Bld) [Volume fraction] 51.1 % Normal 40-54 [facility] Comment on above: Performed By: #### L 300.3900, L100.0100, L500.2500, L503.6620, L500.3400, L300.4310, L501.2450, L501.4020 #### [facility] [address] [place], [address] Hemoglobin (Bld) [Mass/Vol] 17.0 g/dL High 13.0-16.5 [facility] Comment on above: Performed By: #### L 300.3900, L100.0100, L500.2500, L503.6620, L500.3400, L300.4310, L501.2450, L501.4020 #### [facility] Laboratory [address] [place], [address] IG% 0.600 Normal 0.0-0.9 [facility] Comment on above: Result Comment: IG% - Immature Granulocytes (promyelocytes, myelocytes and metamyelocytes) > 1% indicates that a LEFT SHIFT is Present. Performed By: #### L 300.3900, L100.0100, L500.2500, L503.6620, L500.3400, L300.4310, L501.2450, L501.4020 #### [facility] [address] [place], [address] Lymphocytes/100 WBC (Bld) 8.4 % Low 19-41 [facility] Comment on above: Performed By: #### L 300.3900, L100.0100, L500.2500, L503.6620, L500.3400, L300.4310, L501.2450, L501.4020 #### [facility] [address] [place], [address] MCH (RBC) [Entitic mass] 29.8 pg Normal 27.0-32.0 [facility] Comment on above: Performed By: #### L 300.3900, L100.0100, L500.2500, L503.6620, L500.3400, L300.4310, L501.2450, L501.4020 #### [facility] [address] [place], [address] MCHC (RBC) [Mass/Vol] 33.3 g/dL Normal 32-36 [facility] Comment on above: Performed By: #### L 300.3900, L100.0100, L500.2500, L503.6620, L500.3400, L300.4310, L501.2450, L501.4020 #### [facility] [address] [place], [address] MCV (RBC) [Entitic vol] 89.6 fL Normal 80-94 [facility] Comment on above: Performed By: #### L 300.3900, L100.0100, L500.2500, L503.6620, L500.3400, L300.4310, L501.2450, L501.4020 #### [facility] [address] [place], [address] Monocytes/100 WBC (Bld) 9.7 % Normal 0-10 [facility] Comment on above: Performed By: #### L 300.3900, L100.0100, L500.2500, L503.6620, L500.3400, L300.4310, L501.2450, L501.4020 #### [facility] [address] [place], [address] Neutrophils/100 WBC (Bld) 80.7 % High 47-70 [facility] Comment on above: Performed By: #### L 300.3900, L100.0100, L500.2500, L503.6620, L500.3400, L300.4310, L501.2450, L501.4020 #### [facility] [address] [place], [address] Nucleated RBC (Bld) [#/Vol] 0 10*3/uL Normal 0-5 [facility] Comment on above: Performed By: #### L 300.3900, L100.0100, L500.2500, L503.6620, L500.3400, L300.4310, L501.2450, L501.4020 #### [facility] [address] [facility] [place], [address] Platelet mean volume (Bld) [Entitic vol] 8.7 fL Normal 6.2-12.0 [facility] Comment on above: Performed By: #### L 300.3900, L100.0100, L500.2500, L503.6620, L500.3400, L300.4310, L501.2450, L501.4020 #### [facility] [address] [place], [address] Platelets (Bld) [#/Vol] 131 10*3/uL Low 150-450 [facility] Comment on above: Performed By: #### L 300.3900, L100.0100, L500.2500, L503.6620, L500.3400, L300.4310, L501.2450, L501.4020 #### [facility] [address] [place], [address] RBC (Bld) [#/Vol] 5.70 10*6/uL Normal 4.6-6.2 [facility] Comment on above: Performed By: #### L 300.3900, L100.0100, L500.2500, L503.6620, L500.3400, L300.4310, L501.2450, L501.4020 #### [facility] [address] [place], [address] RDW SD 45.9 fl High 35.1-43.9 [facility] Comment on above: Performed By: #### L 300.3900, L100.0100, L500.2500, L503.6620, L500.3400, L300.4310, L501.2450, L501.4020 #### [facility] [address] [place], [address] WBC (Bld) [#/Vol] 8.2 10*3/uL Normal 4.4-11.0 [facility] Comment on above: Performed By: #### L 300.3900, L100.0100, L500.2500, L503.6620, L500.3400, L300.4310, L501.2450, L501.4020 #### [facility] Laboratory [address] [place], [place], [id number] (029) Chest 1 View (Portable)on Chest 1 View (Portable) [facility] Imaging Services [address] [place], [place] [phone] ([phone]) Chest 1 View (Portable) MR#: [id number] Acct: [id number] Name: STEVE ADAMES Rep #: [id number] : 1940 M 83 From: Courtney Barkley PCP: Dr. Stephan Alvarez DO Status: REG ER Study: Chest 1 View (Portable) Date of Exam: 03/07/24 Exam# [id number] Ordering Dr: Chad Pineda DO [id number] INDICATION: cough EXAMINATION/TECHNIQUE: X-RAY - XR Chest 1 View AP portable. 7:12 PM COMPARISON: 03/20/2023 FINDINGS: LINES/DEVICES: None. LUNGS: No consolidation. Mildly elevated right hemidiaphragm, unchanged. No pneumothorax. MEDIASTINUM: Aorta is atherosclerotic. CARDIAC SILHOUETTE: Not enlarged. BONES AND SOFT TISSUES: No acute abnormalities. RAD/Chest 1 View (Portable) IMPRESSION: No evidence of active intrathoracic disease. Electronically Signed: Courtney Dubon MD at 19:44 EDT , CC: Dr. Chad Pineda DO; Dr. Stephan Alvarez DO Local Sales Associate: Signed Normal [facility] Emergency Department Summary on 03-07-2024 Emergency Department Summary [facility] Medical Records Department [address] [place] [address] Emergency Department Summary 03/07/24 MR#: [id number] Acct: [id number] Name: STEVE ADAMES Rep #: [id number] : 1940 83 From: Chad Pineda DO PCP: Dr. Stephan Alvarez DO Status:DEP ER Location: ED HPI History of Present Illness Chief Complaint: Nausea/Vomiting Informant: patient, spouse/S.O. and family Narrative Narrative: 83-year-old male presenting to the emergency room with vomiting weakness and altered mental status. Family states that today they found him to be incontinent of urine, confusion, difficulty ambulating, decreased appetite, cough. Patient notes that yesterday and today had a sore throat in the morning. He notes some occasional sputum. No fevers. He did have 1500 mg of Tylenol earlier in the day. He denies any significant rhinorrhea. He denies any sores. He has a history of diabetes coronary artery disease but no CHF history. Family notes that he had similar symptoms in the past when he was admitted with UTI. At baseline the patient can perform all ADLs and still drives. Family notes that his abdomen seemed more swollen today and that he had difficulty buttoning his shirt. They note that when they got him out to the car he had an episode of vomiting. [facility] Medical History Axillary adenopathy Left buttock abscess Wears hearing aid Wears glasses Cancer Memory deficit Rash History of steroid therapy Fatty liver Back pain Dietary restriction Former smoker CPAP (continuous positive airway pressure) dependence Shortness of breath on exertion Leg cramps History of pain when walking History of stress test Cardiology follow-up encounter Obesity Essential (primary) hypertension Atherosclerosis of coronary artery of [place] heart without angina pectoris Renal calculus, left Osteoarthritis Hyperlipidemia LDL goal <100 Diabetes Home Medications ???Medication ???Instructions ???Recorded ???Last Taken ???Type ascorbate calcium (vitamin C) 500 500 mg PO DAILY SUPPLEMENT 02/21/22 03/19/23 History mg tablet finasteride 5 mg tablet 5 mg PO DAILY PROSTATE 02/21/22 Unknown History omega-3 acid ethyl esters 1 gram 1 cap PO DAILY SUPPLEMENT 02/21/22 03/19/23 History capsule zinc gluconate 50 mg tablet 50 mg PO DAILY SUPPLEMENT 02/21/22 03/19/23 History aspirin 81 mg tablet,delayed 81 mg PO DAILY HEART HEALTH 03/20/23 03/19/23 History release vitamin B complex (B 1 tab PO DAILY SUPPLEMENT 03/20/23 03/19/23 History Complex-Vitamin B12 tablet) dulaglutide 3 mg/0.5 mL 3 mg subcut QWEEK 06/28/23 Unknown History subcutaneous pen injector (Trulicity) dupilumab 300 mg/2 mL subcutaneous 300 mg subcut .QOW ECZEMA 06/28/23 Unknown History pen injector (Dupixent) glimepiride 4 mg tablet (Amaryl) 4 mg PO BID DIABETES 06/28/23 Unknown History Allergy/AdvReac Type Severity Reaction Status Date / Time metoprolol Allergy Intermediate Rash Verified 03/07/24 18:06 cephalexin Allergy Rash Verified 03/07/24 18:06 Iodinated Contrast Media Allergy Shortness Verified 03/07/24 18:06 of breath metformin AdvReac Intermediate Diarrhea Verified 03/07/24 18:06 Family History Sister Cancer Brother Cancer Surgical History H/O excision of mass History of colectomy Hx of eye surgery History of back surgery (05/05/20) History of left heart catheterization (06/17/16) H/O hernia repair History of coronary artery stent placement (06/19/16) H/O lithotripsy Social History Smoking Status: Former smoker alcohol intake: never what type of physical activity do you participate in: none ROS ROS ED ROS Narrative Generalized weakness confusion Constitutional Constitutional ED: Denies chills, fever(s) or weight loss Eyes Eyes: Denies change in vision or diplopia ENT ENT ED: Denies ear pain, rhinorrhea or sore throat Cardiovascular Cardiovascular: Denies chest pain, orthopnea, palpitations or racing heartbeat Respiratory/Chest Respiratory/Chest: Reports cough, dyspnea and dyspnea on exertion; Denies orthopnea Gastrointestinal Gastrointestinal: Reports nausea and vomiting; Denies abdominal pain or diarrhea Genitourinary Genitourinary ED: Reports other Details: Urinary incontinence ; Denies dysuria, hematuria or urinary frequency Musculoskeletal Musculoskeletal: Denies arthralgias or myalgias Integumentary Denies abscess or rash Neurologic Neurologic: Reports other Details: Dizziness/lightheadednes s ; Denies headache(s), paresthesias or weakness Psychiatric Psychiatric: Denies anxiety, depression, (more content not included)... Normal [facility] L501.4020on 03-07-2024 TROPONIN-I HS 24 pg/mL Normal 3.0-78.0 [facility] Comment on above: Order Comment: 'TROP ' Serial specimen #1, #2 or #3: 1 Result Comment: Plea se Note: New Test Units and Gender Specific Reference Ranges. For more information see Policy Stat Procedure [place] High Sensitivity Troponin (TNIH) and attachments. Performed By: #### L 300.3900, L100.0100, L500.2500, L503.6620, L500.3400, L300.4310, L501.2450, L501.4020 ####[facility] [address] [place], [address] Lactic Acidon 03-07-2024 Lactate [Moles/Vol] 1.6 mmol/L Normal 0.4-1.9 [facility] Comment on above: Order Comment: Y Performed By: #### L 503.6005 ####[facility] [address] [place], [place], [id number] Lipaseon 03-07-2024 Lipase [Catalytic activity/Vol] 58 U/L Normal 13-75 [facility] Comment on above: Order Comment: 'TROP ' Serial specimen #1, #2 or #3: 1 Result Comment: Plea se note: LIPASE revised reference range effective 22. New Lipase methodology. Expected to produce lower values than the previous assay method. NEW Reference Range: 13 - 75 U/L Performed By: #### L 300.3900, L100.0100, L500.2500, L503.6620, L500.3400, L300.4310, L501.2450, L501.4020 ####[facility] [address] [place], [address] Liver Profileon 03-07-2024 Albumin [Mass/Vol] 3.8 g/dL Normal 3.2-5.0 [facility] Comment on above: Order Comment: 'TROP ' Serial specimen #1, #2 or #3: 1 Performed By: #### L 300.3900, L100.0100, L500.2500, L503.6620, L500.3400, L300.4310, L501.2450, L501.4020 #### [facility] Laboratory [address] [place], [address] ALK P 60 U/L Normal 45-117 [facility] Comment on above: Order Comment: 'TROP ' Serial specimen #1, #2 or #3: 1 Performed By: #### L 300.3900, L100.0100, L500.2500, L503.6620, L500.3400, L300.4310, L501.2450, L501.4020 #### [facility] [address] [place], [address] ALT [Catalytic activity/Vol] 66 U/L High 16-61 [facility] Comment on above: Order Comment: 'TROP ' Serial specimen #1, #2 or #3: 1 Performed By: #### L 300.3900, L100.0100, L500.2500, L503.6620, L500.3400, L300.4310, L501.2450, L501.4020 #### [facility] [address] [place], [address] AST [Catalytic activity/Vol] 39 U/L High 15-37 [facility] Comment on above: Order Comment: 'TROP ' Serial specimen #1, #2 or #3: 1 Performed By: #### L 300.3900, L100.0100, L500.2500, L503.6620, L500.3400, L300.4310, L501.2450, L501.4020 #### [facility] [address] [place], [address] Bilirubin [Mass/Vol] 2.50 mg/dL High 0.20-1.00 [facility] Comment on above: Order Comment: 'TROP ' Serial specimen #1, #2 or #3: 1 Result Comment: For patients on eltrombopag therapy, use of Dimension [place] TBIL is not recommended. Performed By: #### L 300.3900, L100.0100, L500.2500, L503.6620, L500.3400, L300.4310, L501.2450, L501.4020 #### [facility] [address] [place], [address] Bilirubin.direct [Mass/Vol] 0.47 mg/dL High 0.00-0.30 [facility] Comment on above: Order Comment: 'TROP ' Serial specimen #1, #2 or #3: 1 Performed By: #### L 300.3900, L100.0100, L500.2500, L503.6620, L500.3400, L300.4310, L501.2450, L501.4020 #### [facility] [address] [place], [place], [id number] (972) Globulin (S) [Mass/Vol] 4.3 g/dL High 2.2-4.2 [facility] Comment on above: Order Comment: 'TROP ' Serial specimen #1, #2 or #3: 1 Performed By: #### L 300.3900, L100.0100, L500.2500, L503.6620, L500.3400, L300.4310, L501.2450, L501.4020 #### [facility] [address] [place], [address] T PROT 8.1 g/dL Normal 6.4-8.2 [facility] Comment on above: Order Comment: 'TROP ' Serial specimen #1, #2 or #3: 1 Performed By: #### L 300.3900, L100.0100, L500.2500, L503.6620, L500.3400, L300.4310, L501.2450, L501.4020 #### [facility] [address] [place], [address] M100.678on 03-07-2024 M100.678 Pending SARS-CoV-2 (COVID 19) A Positive A INFLUENZA A Negative INFLUENZA B Negative RSV PCR Negative SARS-CoV-2 (COVID 19 PCR) Normal [facility] Comment on above: Performed By: #### M 100.678, L400.0001 ####[facility] [address] [place], [address] Partial Thromboplast Timeon 03-07-2024 aPTT Coag (Bld) [Time] 30.3 s Normal 24.1-36.2 [facility] Comment on above: Performed By: #### L 300.3900, L100.0100, L500.2500, L503.6620, L500.3400, L300.4310, L501.2450, L501.4020 #### [facility] [address] [place], [address] Prothrombin Time w/INRon INR Coag (PPP) [Relative time] 1.0 {INR} Normal [facility] Comment on above: Performed By: #### L 300.3900, L100.0100, L500.2500, L503.6620, L500.3400, L300.4310, L501.2450, L501.4020 #### [facility] [address] [place], [address] PT Coag (PPP) [Time] 13.6 s Normal 11.7-14.9 [facility] Comment on above: Performed By: #### L 300.3900, L100.0100, L500.2500, L503.6620, L500.3400, L300.4310, L501.2450, L501.4020 #### [facility] [address] [place], [address] Urinalysis, Completeon 03-07 BACTERIA RARE Normal None Seen [facility] Comment on above: Order Comment: CLEAN CATCH Performed By: #### M 100.678, L400.0001 ####[facility] [address] [place], [address] EPI,SQUAMOUS 0-5 SEEN Normal 0-5 [facility] Comment on above: Order Comment: CLEAN CATCH Performed By: #### M 100.678, L400.0001 ####[facility] [address] [place], [address] WBC 0-5 SEEN Normal 0-5 [facility] Comment on above: Order Comment: CLEAN CATCH Performed By: #### M 100.678, L400.0001 ####[facility] [address] [place], [address] Mucus Ql (Urine sed) 0 SEEN Normal [facility] Comment on above: Order Comment: CLEAN CATCH Performed By: #### M 100.678, L400.0001 ####[facility] [address] [place], [address] RBC 0 SEEN Normal 0-5 [facility] Comment on above: Order Comment: CLEAN CATCH Performed By: #### M 100.678, L400.0001 ####[facility] [address] [place], [address] Absolute lymphocyte countOrd ered By: Stephan Alvarez on 09-21-2023 Lymphocytes Auto (Unsp spec) [#/Vol] 1.52 10*3/uL 0.83-4.51 [facility] Automated lymphocyte count a s percentage of total leukocytesOrdered By: Stephan Alvarez on 09-21-2023 Lymphocytes/100 WBC Auto (Unsp spec) 21.1 % 19-41 [facility] Basophil percentageOrdered B y: Stephan Alvarez on 09-21-2023 Basophils/100 WBC (Bld) 0.4 % 0-1 [facility] Bilirubin [Mass/Vol] 2.10 mg/dL 0.20-1.00 [facility] Comment on above: For patients on eltr ombopag therapy, use of Dimension [place] TBIL is not recommended. Chloride [Moles/Vol] 107 mmol/L 98-107 [facility] Cholesterol [Mass/Vol] 130 mg/dL <200 [facility] Comment on above: <200 mg/dL Desirable 200-240 mg/dL Borderline >240 mg/dL High Risk Eosinophils/100 WBC (Bld) 1.8 % 0-5 [facility] Glucose [Mass/Vol] 130 mg/dL 74-106 [facility] Comment on above: Fasting Glucose resu lt greater than or equal to 126 mg/dL suggests DIABETES MELLITUS per A.D.A. criteria. Hemoglobin (Bld) [Mass/Vol] 15.4 g/dL 13.0-16.5 [facility] Monocytes/100 WBC (Bld) 8.9 % 0-10 [facility] Neutrophils (Bld) [#/Vol] 4.9 10*3/uL 2.0-7.7 [facility] Neutrophils/100 WBC (Bld) 67.4 % 47-70 [facility] Potassium [Moles/Vol] 4.4 mmol/L 3.5-5.1 [facility] Protein [Mass/Vol] 8.2 g/dL 6.4-8.2 [facility] Sodium [Moles/Vol] 139 mmol/L 136-145 [facility] Testosterone [Mass/Vol] 382.92 ng/dL [facility] Comment on above: CENTRAL 90% REFERENC E RANGES MALE AGE <50 197.44 - 669.58 ng/dL MALE AGE > or = 50 187.72 - 684.19 ng/dL FEMALE AGE <50 8.38 - 35.01 ng/dL FEMALE AGE > or = 50 <7.00 - 35.92 ng/dL Effective as of 02/22/21 Triglyceride [Mass/Vol] 189 mg/dL <199 [facility] Comment on above: The drugs N-Acetylcy steine and Metamizole may falsely depress this assay.Serum Triglycerides Reference Interval Normal <150 mg/dL Borderline high 150 - 199 mg/dL High 200 - 499 mg/dL Very High > or = 500 mg/dL WBC (Bld) [#/Vol] 7.2 10*3/uL 4.4-11.0 [facility] Determination of erythrocyte mean corpuscular volume (MCV)Ordered By: Stephan Alvarez on 09-21-2023 MCV (RBC) [Entitic vol] 91.5 fL 80-94 [facility] Erythrocyte distribution wid th ratioOrdered By: Stephan Alvarez on 09-21-2023 Erythrocyte distribution width (RBC) [Ratio] 14.8 % 11.6-14.6 [facility] Erythrocyte distribution wid th standard deviationOrdered By: Stephan Alvarez on 09-21-2023 Erythrocyte distribution width (RBC) [Entitic vol] 49.5 fL 35.1-43.9 [facility] Hematocrit Auto (Bld) [Volum e fraction]Ordered By: Stephan Alvarez on 09-21-2023 Hematocrit (Bld) [Volume fraction] 47.3 % 40-54 [facility] Immature granulocytes/100 WB C Auto (Bld)Ordered By: Stephan Alvarez on 09-21-2023 Immature granulocytes/100 WBC (Bld) 0.400 % 0.0-0.9 [facility] Comment on above: IG% - Immature Granu locytes (promyelocytes, myelocytes and metamyelocytes) > 1% indicates that a LEFT SHIFT is Present. Laboratory - Chemistry and C hemistry - challengeOrdered By: Stephan Alvarez on 09-21-2023 Albumin/Globulin [Mass ratio] 1.0 {ratio} 0.9-2.4 [facility] ALP [Catalytic activity/Vol] 50 U/L 45-117 [facility] ALT [Catalytic activity/Vol] 53 U/L 16-61 [facility] Cholesterol in HDL [Mass/Vol] 46 mg/dL >40 [facility] Comment on above: The drugs N-Acetylcy steine and Metamizole may falsely depress this assay. Reference Range HDL <40 mg/dL Low HDL Cholesterol HDL >or= 60 mg/dL High HDL Cholesterol Cholesterol in LDL [Mass/Vol] 46 mg/dL 0-130 [facility] CO2 [Moles/Vol] 27.0 mmol/L 21.0-32.0 [facility] Globulin (S) [Mass/Vol] 4.1 g/dL 2.2-4.2 [facility] Urea nitrogen/Creatinine [Mass ratio] 24.7 mg/mg 10-20 [facility] Laboratory - Hematology and Cell countsOrdered By: Stephan Alvarez on 09-21-2023 MCH (RBC) [Entitic mass] 29.8 pg 27.0-32.0 [facility] MCHC (RBC) [Mass/Vol] 32.6 g/dL 32-36 [facility] Nucleated RBC/100 WBC (Bld) [Ratio] 0 % 0-5 [facility] Platelet mean volume (Bld) [Entitic vol] 9.1 fL 6.2-12.0 [facility] Platelets (Bld) [#/Vol] 129 10*3/uL 150-450 [facility] No Panel InformationOrdered By: Stephan Alvarez on 09-21-2023 Estimated GFR (MDRD) Amer 54 mL/min >60 [facility] Comment on above: GFR Calc Estimated GFR (MDRD) Non-Af Amer 45 mL/min >60 [facility] Comment on above: Non- GFR Calc Estradiol (E2) Level 16.4 pg/mL [facility] Comment on above: NORMAL REFERENCE RAN GES FEMALE FOLLICULAR 21.4 - 164.8 pg/mL MID-CYCLE PEAK 49.9 - 367.2 pg/mL LUTEAL 40.2 - 259.0 pg/mL POST-MENOPAUSAL ON MHT <11.0 - 462.1 pg/mL NOT ON MHT <11.0 - 58.3 pg/mL MALE <11.0 - 52.5 pg/mL NOTE:[employer] HAS CONFIRMED THE DRUG FULVETRANT (FASLODEX) MAY CAUSE FALSELY ELEVATED ESTRADIOL RESULTS WHEN USING THIS TEST METHOD. IF PATIENT IS TAKING FULVESTRANT AN ALTERNATIVE METHOD SHOULD BE USED TO DETERMINE ESTRADIOL CONCENTRATION. Urine Microalbumin/Creatinine Ratio 106.1 mg/g CRE <30 [facility] VLDL Cholesterol 38 mg/dL 5-40 [facility] RBC Auto (Bld) [#/Vol]Ordere d By: Stephan Alvarez on 09-21-2023 RBC (Bld) [#/Vol] 5.17 10*6/uL 4.6-6.2 [facility] Serum or plasma calcium jacinta urement (mass/volume)Ordered By: Stephan Alvarez on 09-21-2023 Calcium [Mass/Vol] 9.9 mg/dL 8.5-10.1 [facility] Serum or plasma creatinine m easurement (mass/volume)Ordered By: Stephan Alvarez on 09-21-2023 Creatinine [Mass/Vol] 1.58 mg/dL 0.70-1.30 [facility] Comment on above: The validity of the calculated GFR & GFRAA in patients over 70 years has not been determined. Clinical correlation is essential. Serum or plasma testosterone free measurement (mass/volume)Ordered By: Stephan Alvarez on 09-21-2023 Testosterone Free [Mass/Vol] 4.6 pg/mL 6.6-18.1 [facility] Comment on above: Performed at: [address] [id number] Director: Marybel James MD, Phone: [phone] Serum or plasma urea nitroge n measurement (mass/volume)Ordered By: Stephan Alvarez on 09-21-2023 Urea nitrogen [Mass/Vol] 39 mg/dL 7-18 [facility] Thin prep Papanicolaou smear with manual screeningOrdered By: Stephan Alvarez on 09-21-2023 Thin prep Papanicolaou smear with manual screening 4.1 g/dL 3.2-5.0 [facility] Thin prep Papanicolaou smear with manual screening 41 U/L 15-37 [facility] Thin prep Papanicolaou smear with manual screening 5 5-15 [facility] Thin prep Papanicolaou smear with manual screening 209.0 mg/L NO RANGE EST. [facility] Urine creatinine measurement (mass/volume)Ordered By: Stephan Alvarez on 09-21-2023 Creatinine (U) [Mass/Vol] 197.00 mg/dL NO RANGE EST. [facility] Absolute lymphocyte countOrd ered By: Jacoby Mckoy on 06-26-2023 Lymphocytes Auto (Unsp spec) [#/Vol] 1.33 10*3/uL 0.83-4.51 [facility] Basophil percentageOrdered B y: Jacoby Mckoy on 06-26-2023 Basophils/100 WBC (Bld) 0.3 % 0-1 [facility] Bilirubin [Mass/Vol] 1.40 mg/dL 0.20-1.00 [facility] Comment on above: For patients on eltr ombopag therapy, use of Dimension [place] TBIL is not recommended. Chloride [Moles/Vol] 104 mmol/L 98-107 [facility] Eosinophils/100 WBC (Bld) 1.5 % 0-5 [facility] Glucose [Mass/Vol] 106 mg/dL 74-106 [facility] Comment on above: Fasting Glucose resu lt from 100 to 125 mg/dL suggests IMPAIRED HOMEOSTASIS per A.D.A. criteria. Neutrophils (Bld) [#/Vol] 4.7 10*3/uL 2.0-7.7 [facility] Neutrophils/100 WBC (Bld) 68.6 % 47-70 [facility] Potassium [Moles/Vol] 3.8 mmol/L 3.5-5.1 [facility] Protein [Mass/Vol] 7.9 g/dL 6.4-8.2 [facility] Sodium [Moles/Vol] 138 mmol/L 136-145 [facility] Testosterone [Mass/Vol] ng/dL 264-916 [facility] [facility] Comment on above: Adult male reference interval is based on a population ofhealthy nonobese males (BMI <30) between 19 and 39 yearsold. ondina Wayne.al. JCEM 2017,102;[id number]. PMID:[id number]. WBC (Bld) [#/Vol] 6.9 10*3/uL 4.4-11.0 [facility] Blood erythrocytes count (nu mber/volume)Ordered By: Jacoby Mckoy on 06-26-2023 RBC (Bld) [#/Vol] 5.45 10*6/uL 4.6-6.2 [facility] Blood hemoglobin measurement (mass/volume)Ordered By: Jacoby Mckoy on 06-26-2023 Hemoglobin (Bld) [Mass/Vol] 16.3 g/dL 13.0-16.5 [facility] Blood lymphocytes/100 leukoc ytesOrdered By: Jacoby Mckoy on 06-26-2023 Lymphocytes/100 WBC (Bld) 19.4 % 19-41 [facility] Blood monocytes/100 leukocyt esOrdered By: Jacoby Mckoy on 06-26-2023 Monocytes/100 WBC (Bld) 9.8 % 0-10 [facility] Blood platelet mean volumeOr dered By: Jacoby Mckoy on 06-26-2023 Platelet mean volume (Bld) [Entitic vol] 8.6 fL 6.2-12.0 [facility] Determination of erythrocyte mean corpuscular volume (MCV)Ordered By: Jacoby Mckoy on 06-26-2023 MCV (RBC) [Entitic vol] 93.9 fL 80-94 [facility] Free testosterone percentage Ordered By: Jacobyalannah Mckoy on 06-26-2023 Testosterone Free/Testosterone.total [Mass fraction] 4.40 % 1.50-4.20 [facility] Hematocrit Auto (Bld) [Volum e fraction]Ordered By: Wysox Ean on 06-26-2023 Hematocrit (Bld) [Volume fraction] 51.2 % 40-54 [facility] - Chemistry and C hemistry - challengeOrdered By: Wysox Ean on 06-26-2023 ALP [Catalytic activity/Vol] 54 U/L 45-117 [facility] ALT [Catalytic activity/Vol] 82 U/L 16-61 [facility] CO2 [Moles/Vol] 30.0 mmol/L 21.0-32.0 [facility] Globulin (S) [Mass/Vol] 4.3 g/dL 2.2-4.2 [facility] Urea nitrogen/Creatinine [Mass ratio] 17.0 mg/mg 10-20 [facility] - Hematology and Cell countsOrdered By: Jacobyalannah Mckoy on 06-26-2023 Erythrocyte distribution width (RBC) [Entitic vol] 54.3 fL 35.1-43.9 [facility] Erythrocyte distribution width (RBC) [Ratio] 15.7 % 11.6-14.6 [facility] Immature granulocytes/100 WBC (Bld) 0.400 % 0.0-0.9 [facility] Comment on above: IG% - Immature Granu locytes (promyelocytes, myelocytes and metamyelocytes) > 1% indicates that a LEFT SHIFT is Present. MCH (RBC) [Entitic mass] 29.9 pg 27.0-32.0 [facility] Nucleated RBC/100 WBC (Bld) [Ratio] 0 % 0-5 [facility] MCHC Auto (RBC) [Mass/Vol]Or dered By: Jacoby Mckoy on 06-26-2023 MCHC (RBC) [Mass/Vol] 31.8 g/dL 32-36 [facility] No Panel InformationOrdered By: Jacoby Mckoy on 06-26-2023 Estimated GFR (MDRD) Amer 62 mL/min >60 [facility] Comment on above: GFR Calc Estimated GFR (MDRD) Non-Af Amer 51 mL/min >60 [facility] Comment on above: Non- GFR Calc Percent Free Prostate Specific Ag 0.50 ng/mL N/A [facility] Comment on above: Art ECLIA methodol ogy. Prostate Specific Ag, Ultra-Sensitv 2.120 ng/mL 0.000-4.000 [facility] Comment on above: Art ECLIA methodol ogy.According to the [employer], Serum PSAshould decrease and remain at undetectable levels afterradical prostatectomy. The AUA defines biochemicalrecurrence as an initial PSA value 0.200 ng/mL or greaterfollowed by a subsequent confirmatory PSA value 0.200 ng/mLor greater. Values obtained with different assay methods orkits cannot be used interchangeably. Results cannot beinterpreted as absolute evidence of the presence or absenceof malignant disease. Platelets bldOrdered By: Pooja Mckoy on 06-26-2023 Platelets (Bld) [#/Vol] 153 10*3/uL 150-450 [facility] Serum or plasma albumin jacinta urement (mass/volume)Ordered By: Jacoby Mckoy on 06-26-2023 Albumin [Mass/Vol] 3.6 g/dL 3.2-5.0 [facility] Serum or plasma albumin/glob ulin mass ratioOrdered By: Jacoby Mckoy on 06-26-2023 Albumin/Globulin [Mass ratio] 0.8 {ratio} 0.9-2.4 [facility] Serum or plasma calcium jacinta urement (mass/volume)Ordered By: Jacoby Mckoy on 06-26-2023 Calcium [Mass/Vol] 9.5 mg/dL 8.5-10.1 [facility] Serum or plasma creatinine m easurement (mass/volume)Ordered By: Jacoby Mckoy on 06-26-2023 Creatinine [Mass/Vol] 1.41 mg/dL 0.70-1.30 [facility] Comment on above: The validity of the calculated GFR & GFRAA in patients over 70 years has not been determined. Clinical correlation is essential. Serum or plasma estradiol (E 2) measurement (mass/volume)Ordered By: Jacoby Mckoy on 06-26-2023 E2 [Mass/Vol] 73.8 pg/mL [facility] Comment on above: NORMAL REFERENCE RAN GES FEMALE FOLLICULAR 21.4 - 164.8 pg/mL MID-CYCLE PEAK 49.9 - 367.2 pg/mL LUTEAL 40.2 - 259.0 pg/mL POST-MENOPAUSAL ON MHT <11.0 - 462.1 pg/mL NOT ON MHT <11.0 - 58.3 pg/mL MALE <11.0 - 52.5 pg/mL NOTE:[employer] HAS CONFIRMED THE DRUG FULVETRANT (FASLODEX) MAY CAUSE FALSELY ELEVATED ESTRADIOL RESULTS WHEN USING THIS TEST METHOD. IF PATIENT IS TAKING FULVESTRANT AN ALTERNATIVE METHOD SHOULD BE USED TO DETERMINE ESTRADIOL CONCENTRATION. Serum or plasma free prostat e specific antigen/total prostate specific antigen ratioOrdered By: Jacoby Mckoy on 06-26-2023 Free PSA/Total PSA [Mass fraction] 23.6 % . [facility] Comment on above: The table below list s the probability of prostate cancer formen with non-suspicious REG results and total PSA between4 and 10 ng/mL, by patient age (Madalyn et al, KIAN 1998,279:1542). % Free PSA 50-64 yr 65-75 yr 0.00-10.00% 56% 55% 10.01-15.00% 24% 35% 15.01-20.00% 17% 23% 20.01-25.00% 10% 20% >25.00% 5% 9%Please note: Madalyn et al did not make specific recommendations regarding the use of percent free PSA for any other population of men.Performed at: [facility] - [facility] [id number] [place], [place] [id number] Director: Yehuda Morris PhD, Phone: [phone] at: [facility] [id number] Director: Marybel James MD, Phone: [phone] Serum or plasma testosterone free measurement (mass/volume)Ordered By: Jacoby Mckoy on 06-26-2023 Testosterone Free [Mass/Vol] > 66.00 ng/dL 5.00-21.00 [facility] Serum or plasma urea nitroge n measurement (mass/volume)Ordered By: Jacoby Mckoy on 06-26-2023 Urea nitrogen [Mass/Vol] 24 mg/dL 7-18 [facility] Thin prep Papanicolaou smear with manual screeningOrdered By: Jacboy Mckoy on 06-26-2023 Thin prep Papanicolaou smear with manual screening 43 U/L 15-37 [facility] Thin prep Papanicolaou smear with manual screening 4 5-15 [facility] Bilirubin Test strip Ql (U)O rdered By: Stephan Alvarez on 03-28-2023 Bilirubin Ql (U) Negative Negative [facility] Culture, urineOrdered By: Kiara Alvarez on 03-28-2023 Bacteria identified Cx Nom (U) Culture exhibits no growth. [facility] Bacteria identified Cx Nom (U) Culture exhibits no growth. [facility] Ketones Test strip Ql (U)Ord ered By: Stephan Alvarez on 03-28-2023 Ketones Ql (U) 5 mg/dl Negative [facility] Nitrite Test strip Ql (U)Ord ered By: Stephan Alvarez on 03-28-2023 Nitrite Ql (U) Negative Negative [facility] Protein Test strip Ql (U)Ord ered By: Stephan Alvarez on 03-28-2023 Protein Ql (U) 30 mg/dl Negative [facility] Urine blood detectionOrdered By: Stephan Alvarez on 03-28-2023 RBC Ql (U) Negative Negative [facility] Urine clarityOrdered By: Lata Alvarez on 03-28-2023 Clarity (U) Clear Clear [facility] Urine color determinationOrd ered By: Stephan Alvarez on 03-28-2023 Color (U) Yellow Yellow [facility] Urine glucose detectionOrder ed By: Stephan Alvarez on 03-28-2023 Glucose Ql (U) Normal mg/dl Normal [facility] Urine leukocyte esterase det ection by dipstickOrdered By: Stephan Alvarez on 03-28-2023 Leukocyte esterase Test strip Ql (U) 25 /ul Negative [facility] Urine pHOrdered By: Stephan lopez on 03-28-2023 pH (U) 5.0 [pH] 5.0 - 8.0 [facility] Urine specific gravity measu rementOrdered By: Stephan Alvarez on 03-28-2023 Specific gravity (U) [Rel density] 1.025 1.002-1.030 [facility] Urobilinogen Auto test strip Ql (U)Ordered By: Stephan Alvarez on 03-28-2023 Urobilinogen Ql (U) Normal mg/dl Normal [facility] Absolute lymphocyte countOrd ered By: Kenji Reed on 03-23-2023 Lymphocytes Auto (Unsp spec) [#/Vol] 1.08 10*3/uL 0.83-4.51 [facility] Basophil percentageOrdered B y: Kenji Reed on 03-23-2023 Basophils/100 WBC (Bld) 0.7 % 0-1 [facility] Chloride [Moles/Vol] 108 mmol/L 98-107 [facility] Eosinophils/100 WBC (Bld) 3.8 % 0-5 [facility] Glucose [Mass/Vol] 144 mg/dL 74-106 [facility] Comment on above: Fasting Glucose resu lt greater than or equal to 126 mg/dL suggests DIABETES MELLITUS per A.D.A. criteria. Neutrophils (Bld) [#/Vol] 2.4 10*3/uL 2.0-7.7 [facility] Neutrophils/100 WBC (Bld) 54.7 % 47-70 [facility] Potassium [Moles/Vol] 3.7 mmol/L 3.5-5.1 [facility] Sodium [Moles/Vol] 139 mmol/L 136-145 [facility] WBC (Bld) [#/Vol] 4.5 10*3/uL 4.4-11.0 [facility] Blood erythrocytes count (nu mber/volume)Ordered By: Kenji Reed on 03-23-2023 RBC (Bld) [#/Vol] 4.77 10*6/uL 4.6-6.2 [facility] Blood hemoglobin measurement (mass/volume)Ordered By: Kenji Reed on 03-23-2023 Hemoglobin (Bld) [Mass/Vol] 14.3 g/dL 13.0-16.5 [facility] Blood lymphocytes/100 leukoc ytesOrdered By: Kenji Reed on 03-23-2023 Lymphocytes/100 WBC (Bld) 24.2 % 19-41 [facility] Blood monocytes/100 leukocyt esOrdered By: Kenji Reed on 03-23-2023 Monocytes/100 WBC (Bld) 16.4 % 0-10 [facility] Blood platelet mean volumeOr dered By: Kenji Reed on 03-23-2023 Platelet mean volume (Bld) [Entitic vol] 8.8 fL 6.2-12.0 [facility] Determination of erythrocyte mean corpuscular volume (MCV)Ordered By: Kenji Reed on 03-23-2023 MCV (RBC) [Entitic vol] 91.4 fL 80-94 [facility] Glucose Glucometer (BldC) [M ass/Vol]Ordered By: Kenji Reed on 03-23-2023 Glucose [Mass/Vol] 153 mg/dL 74-106 [facility] Comment on above: MANAGEMENT OF PATIEN T CARE PER NURSING PROTOCOL Hematocrit Auto (Bld) [Volum e fraction]Ordered By: Kenji Reed on 03-23-2023 Hematocrit (Bld) [Volume fraction] 43.6 % 40-54 [facility] - Chemistry and C hemistry - challengeOrdered By: Kenji Reed on 03-23-2023 CO2 [Moles/Vol] 24.0 mmol/L 21.0-32.0 [facility] Urea nitrogen/Creatinine [Mass ratio] 21.6 mg/mg 10-20 [facility] - Hematology and Cell countsOrdered By: Kenji Reed on 03-23-2023 Erythrocyte distribution width (RBC) [Entitic vol] 48.9 fL 35.1-43.9 [facility] Erythrocyte distribution width (RBC) [Ratio] 14.6 % 11.6-14.6 [facility] Immature granulocytes/100 WBC (Bld) 0.200 % 0.0-0.9 [facility] Comment on above: IG% - Immature Granu locytes (promyelocytes, myelocytes and metamyelocytes) > 1% indicates that a LEFT SHIFT is Present. MCH (RBC) [Entitic mass] 30.0 pg 27.0-32.0 [facility] Nucleated RBC/100 WBC (Bld) [Ratio] 0 % 0-5 [facility] MCHC Auto (RBC) [Mass/Vol]Or dered By: Kenji Reed on 03-23-2023 MCHC (RBC) [Mass/Vol] 32.8 g/dL 32-36 [facility] No Panel InformationOrdered By: Kenji Reed on 03-23-2023 Estimated Creatinine Clearance Calc 52.29 ml/min [facility] Estimated GFR (MDRD) Amer 77 mL/min >60 [facility] Comment on above: GFR Calc Estimated GFR (MDRD) Non-Af Amer 64 mL/min >60 [facility] Comment on above: Non- GFR Calc Platelets bldOrdered By: Darius Reed on 03-23-2023 Platelets (Bld) [#/Vol] 135 10*3/uL 150-450 [facility] Serum or plasma calcium jacinta urement (mass/volume)Ordered By: Kenji Reed on 03-23-2023 Calcium [Mass/Vol] 8.9 mg/dL 8.5-10.1 [facility] Serum or plasma creatinine m easurement (mass/volume)Ordered By: Kenji Reed on 03-23-2023 Creatinine [Mass/Vol] 1.16 mg/dL 0.70-1.30 [facility] Comment on above: The validity of the calculated GFR & GFRAA in patients over 70 years has not been determined. Clinical correlation is essential. Serum or plasma urea nitroge n measurement (mass/volume)Ordered By: Kenji Reed on 03-23-2023 Urea nitrogen [Mass/Vol] 25 mg/dL 7-18 [facility] Thin prep Papanicolaou smear with manual screeningOrdered By: Kenji Reed on 03-23-2023 Thin prep Papanicolaou smear with manual screening 7 5-15 [facility] Blood platelet adequacy dete ction by light microscopyOrdered By: Kenji Reed on 03-22-2023 Platelets LM Ql (Bld) SLT DEC ADEQ [facility] - Hematology and Cell countsOrdered By: Kenji Reed on 03-22-2023 Anisocytosis Ql (Bld) 1+ [facility] Basophil percentageOrdered B y: Kenji Reed on 03-21-2023 Basophil percentage 2.5 mg/dL 2.5-4.9 [facility] Blood manual differential co mment interpretation (narrative result)Ordered By: Kenji Reed on 03-21-2023 Manual differential comment Issac (Bld) [Interp] SCANNED [facility] - Chemistry and C hemistry - challengeOrdered By: Kenji Reed on 03-21-2023 Magnesium [Mass/Vol] 2.1 mg/dL 1.6-2.6 [facility] Absolute lymphocyte countOrd ered By: Fausto Malone on 03-20-2023 Lymphocytes Auto (Unsp spec) [#/Vol] 0.35 10*3/uL 0.83-4.51 [facility] Basophil percentageOrdered B y: Fausto Malone on 03-20-2023 Basophil percentage 25-50 SEEN /hpf 0-5 [facility] Basophils/100 WBC (Bld) 0.2 % 0-1 [facility] Eosinophils/100 WBC (Bld) 0.0 % 0-5 [facility] Neutrophils (Bld) [#/Vol] 10.6 10*3/uL 2.0-7.7 [facility] Neutrophils/100 WBC (Bld) 87.3 % 47-70 [facility] WBC (Bld) [#/Vol] 12.1 10*3/uL 4.4-11.0 [facility] Chloride [Moles/Vol] 99 mmol/L 98-107 [facility] Glucose [Mass/Vol] 260 mg/dL 74-106 [facility] Comment on above: Glucose result great er than or equal to 200 mg/dLsuggests DIABETES MELLITUS per A.D.A. criteria. Potassium [Moles/Vol] 4.5 mmol/L 3.5-5.1 [facility] Sodium [Moles/Vol] 131 mmol/L 136-145 [facility] Bilirubin Test strip Ql (U)O rdered By: Fausto Malone on 03-20-2023 Bilirubin Ql (U) Negative Negative [facility] Blood erythrocytes count (nu mber/volume)Ordered By: Fausto Malone on 03-20-2023 RBC (Bld) [#/Vol] 4.95 10*6/uL 4.6-6.2 [facility] Blood hemoglobin measurement (mass/volume)Ordered By: Fausto Malone on 03-20-2023 Hemoglobin (Bld) [Mass/Vol] 14.9 g/dL 13.0-16.5 [facility] Blood lymphocytes/100 leukoc ytesOrdered By: aFusto Malone on 03-20-2023 Lymphocytes/100 WBC (Bld) 2.9 % 19-41 [facility] Blood manual differential co mment interpretation (narrative result)Ordered By: Fausto Malone on 03-20-2023 Manual differential comment Issac (Bld) [Interp] SCANNED [facility] Blood monocytes/100 leukocyt esOrdered By: Fausto Malone on 03-20-2023 Monocytes/100 WBC (Bld) 8.9 % 0-10 [facility] Blood platelet mean volumeOr dered By: Fausto Malone on 03-20-2023 Platelet mean volume (Bld) [Entitic vol] 8.7 fL 6.2-12.0 [facility] Culture, urineOrdered By: Mohit Malone on 03-20-2023 Bacteria identified Cx Nom (U) Klebsiella pneumoniae sp pneum [facility] Bacteria identified Cx Nom (U) Klebsiella pneumoniae sp pneum [facility] Determination of erythrocyte mean corpuscular volume (MCV)Ordered By: Fausto Malone on 03-20-2023 MCV (RBC) [Entitic vol] 90.9 fL 80-94 [facility] Hematocrit Auto (Bld) [Volum e fraction]Ordered By: Fausto Malone on 03-20-2023 Hematocrit (Bld) [Volume fraction] 45.0 % 40-54 [facility] Ketones Test strip Ql (U)Ord ered By: Fausto Malone on 03-20-2023 Ketones Ql (U) 50 mg/dl Negative [facility] - Chemistry and C hemistry - challengeOrdered By: Fausto Malone on 03-20-2023 CO2 [Moles/Vol] 24.0 mmol/L 21.0-32.0 [facility] Urea nitrogen/Creatinine [Mass ratio] 13.8 mg/mg 10-20 [facility] - Hematology and Cell countsOrdered By: Fausto Malone on 03-20-2023 Erythrocyte distribution width (RBC) [Entitic vol] 49.4 fL 35.1-43.9 [facility] Erythrocyte distribution width (RBC) [Ratio] 14.9 % 11.6-14.6 [facility] Immature granulocytes/100 WBC (Bld) 0.700 % 0.0-0.9 [facility] Comment on above: IG% - Immature Granu locytes (promyelocytes, myelocytes and metamyelocytes) > 1% indicates that a LEFT SHIFT is Present. MCH (RBC) [Entitic mass] 30.1 pg 27.0-32.0 [facility] Nucleated RBC/100 WBC (Bld) [Ratio] 0 % 0-5 [facility] MCHC Auto (RBC) [Mass/Vol]Or dered By: Fausto Malone on 03-20-2023 MCHC (RBC) [Mass/Vol] 33.1 g/dL 32-36 [facility] Mucus LM Ql (Urine sed)Order ed By: Fausto Malone on 03-20-2023 Mucus Ql (Urine sed) 0 SEEN /hpf [facility] Nitrite Test strip Ql (U)Ord ered By: Fausto Malone on 03-20-2023 Nitrite Ql (U) Positive Negative [facility] No Panel InformationOrdered By: Fausto Malone on 03-20-2023 Estimated Creatinine Clearance Calc 36.25 ml/min [facility] Estimated GFR (MDRD) Amer 57 mL/min >60 [facility] Comment on above: GFR Calc Estimated GFR (MDRD) Non-Af Amer 47 mL/min >60 [facility] Comment on above: Non- GFR Calc Platelets bldOrdered By: Manuel Malone on 03-20-2023 Platelets (Bld) [#/Vol] 121 10*3/uL 150-450 [facility] Protein Test strip Ql (U)Ord ered By: Fausto Malone on 03-20-2023 Protein Ql (U) 100 mg/dl Negative [facility] Serum or plasma calcium jacinta urement (mass/volume)Ordered By: Fausto Malone on 03-20-2023 Calcium [Mass/Vol] 9.6 mg/dL 8.5-10.1 [facility] Serum or plasma creatinine m easurement (mass/volume)Ordered By: Fausto Malone on 03-20-2023 Creatinine [Mass/Vol] 1.52 mg/dL 0.70-1.30 [facility] Comment on above: The validity of the calculated GFR & GFRAA in patients over 70 years has not been determined. Clinical correlation is essential. Serum or plasma urea nitroge n measurement (mass/volume)Ordered By: Fausto Malone on 03-20-2023 Urea nitrogen [Mass/Vol] 21 mg/dL 7-18 [facility] Squamous epithelial cells de tection in urine sediment by light microscopyOrdered By: Fausto Malone on 03-20-2023 Epithelial cells.squamous LM Ql (Urine sed) 0 SEEN /hpf 0-5 [facility] Thin prep Papanicolaou smear with manual screeningOrdered By: Fausto Malone on 03-20-2023 Thin prep Papanicolaou smear with manual screening 8 5-15 [facility] Urine blood detectionOrdered By: Fausto Malone on 03-20-2023 RBC Ql (U) 25 /ul Negative [facility] RBC Ql (U) 0 SEEN /hpf 0-5 [facility] Urine clarityOrdered By: Manuel Malone on 03-20-2023 Clarity (U) Sl. Cloudy Clear [facility] Urine color determinationOrd ered By: Fausto Malone on 03-20-2023 Color (U) Yellow Yellow [facility] Urine glucose detectionOrder ed By: Fausto Malone on 03-20-2023 Glucose Ql (U) 50 mg/dl Normal [facility] Urine leukocyte esterase det ection by dipstickOrdered By: Fausto Malone on 03-20-2023 Leukocyte esterase Test strip Ql (U) 100 /ul Negative [facility] Urine pHOrdered By: Fausto wong on 03-20-2023 pH (U) 6.0 [pH] 5.0 - 8.0 [facility] Urine sediment bacteria coun t by microscopy (number/high power field)Ordered By: Fausto Malone on 03-20-2023 Bacteria LM.HPF (Urine sed) [#/Area] 3 /[HPF] None Seen [facility] Urine specific gravity measu rementOrdered By: Fausto Malone on 03-20-2023 Specific gravity (U) [Rel density] 1.020 1.002-1.030 [facility] Urobilinogen Auto test strip Ql (U)Ordered By: Fausto Malone on 03-20-2023 Urobilinogen Ql (U) Normal mg/dl Normal [facility] Basophil percentageOrdered B y: Dr. Mckoy on 11-29-2022 Testosterone [Mass/Vol] 323 ng/dL 264-916 [facility] Comment on above: Adult male reference interval is based on a population ofhealthy nonobese males (BMI <30) between 19 and 39 yearsold. Rosana et.al. JCEM 2017,102;6622-4549. PMID:[id number]. Free testosterone percentage Ordered By: Dr. Mckoy on 11-29-2022 Testosterone Free/Testosterone.total [Mass fraction] 1.55 % 1.50-4.20 [facility] - Chemistry and C hemistry - challengeOrdered By: Dr. Mckoy on 11-29-2022 Free T4 [Mass/Vol] 1.07 ng/dL 0.76-1.46 [facility] No Panel InformationOrdered By: Dr. Mckoy on 11-29-2022 Free Triiodothyronine (T3) pg/dL 2.3 pg/mL 2.18-3.98 [facility] Percent Free Prostate Specific Ag 0.25 ng/mL N/A [facility] Comment on above: Art ECLIA methodol ogy. Prostate Specific Ag, Ultra-Sensitv 1.020 ng/mL 0.000-4.000 [facility] Comment on above: Art ECLIA methodol ogy.According to the [employer], Serum PSAshould decrease and remain at undetectable levels afterradical prostatectomy. The AUA defines biochemicalrecurrence as an initial PSA value 0.200 ng/mL or greaterfollowed by a subsequent confirmatory PSA value 0.200 ng/mLor greater. Values obtained with different assay methods orkits cannot be used interchangeably. Results cannot beinterpreted as absolute evidence of the presence or absenceof malignant disease. Thyroid Stimulating Hormone (TSH) 2.06 uIU/mL 0.358-3.74 [facility] Serum or plasma estradiol (E 2) measurement (mass/volume)Ordered By: Dr. Mckoy on 11-29-2022 E2 [Mass/Vol] 27.1 pg/mL [facility] Comment on above: NORMAL REFERENCE RAN GES FEMALE FOLLICULAR 21.4 - 164.8 pg/mL MID-CYCLE PEAK 49.9 - 367.2 pg/mL LUTEAL 40.2 - 259.0 pg/mL POST-MENOPAUSAL ON MHT <11.0 - 462.1 pg/mL NOT ON MHT <11.0 - 58.3 pg/mL MALE <11.0 - 52.5 pg/mL NOTE:[employer] HAS CONFIRMED THE DRUG FULVETRANT (FASLODEX) MAY CAUSE FALSELY ELEVATED ESTRADIOL RESULTS WHEN USING THIS TEST METHOD. IF PATIENT IS TAKING FULVESTRANT AN ALTERNATIVE METHOD SHOULD BE USED TO DETERMINE ESTRADIOL CONCENTRATION. Serum or plasma free prostat e specific antigen/total prostate specific antigen ratioOrdered By: Dr. Mckoy on 11-29-2022 Free PSA/Total PSA [Mass fraction] 24.5 % . [facility] Comment on above: The table below list s the probability of prostate cancer formen with non-suspicious REG results and total PSA between4 and 10 ng/mL, by patient age (Madalyn et al, KIAN 1998,279:1542). % Free PSA 50-64 yr 65-75 yr 0.00-10.00% 56% 55% 10.01-15.00% 24% 35% 15.01-20.00% 17% 23% 20.01-25.00% 10% 20% >25.00% 5% 9%Please note: Madalyn et al did not make specific recommendations regarding the use of percent free PSA for any other population of men. Serum or plasma testosterone free measurement (mass/volume)Ordered By: Dr. Mckoy on 11-29-2022 Testosterone Free [Mass/Vol] 5.01 ng/dL 5.00-21.00 [facility] Serum or plasma thyroperoxid ase antibody assay (units/volume)Ordered By: Dr. Mckoy on 11-29-2022 TPO Ab Qn [IU]/mL 0-34 [facility] Comment on above: Performed at: [address] [id number] Director: Yehuda Morris PhD, Phone: [phone] at: [facility] [id number] Director: Marybel James MD, Phone: [phone] Absolute lymphocyte countOrd ered By: Dr. Alvarez on 09-11-2022 Lymphocytes Auto (Unsp spec) [#/Vol] 1.28 10*3/uL 0.83-4.51 [facility] Basophil percentageOrdered B y: Dr. Alvarez on 09-11-2022 Basophils/100 WBC (Bld) 0.5 % 0-1 [facility] [facility] Bilirubin [Mass/Vol] 1.60 mg/dL 0.20-1.00 [facility] Comment on above: For patients on eltr ombopag therapy, use of Dimension [place] TBIL is not recommended. Chloride [Moles/Vol] 106 mmol/L 98-107 [facility] Cholesterol [Mass/Vol] 170 mg/dL <200 [facility] Comment on above: <200 mg/dL Desirable 200-240 mg/dL Borderline >240 mg/dL High Risk Eosinophils/100 WBC (Bld) 2.3 % 0-5 [facility] Glucose [Mass/Vol] 156 mg/dL 74-106 [facility] Comment on above: Fasting Glucose resu lt greater than or equal to 126 mg/dL suggests DIABETES MELLITUS per A.D.A. criteria. Neutrophils (Bld) [#/Vol] 4.0 10*3/uL 2.0-7.7 [facility] Neutrophils/100 WBC (Bld) 66.5 % 47-70 [facility] Potassium [Moles/Vol] 4.0 mmol/L 3.5-5.1 [facility] Protein [Mass/Vol] 8.0 g/dL 6.4-8.2 [facility] Sodium [Moles/Vol] 138 mmol/L 136-145 [facility] Triglyceride [Mass/Vol] 191 mg/dL <199 [facility] Comment on above: The drugs N-Acetylcy steine and Metamizole may falsely depress this assay.Serum Triglycerides Reference Interval Normal <150 mg/dL Borderline high 150 - 199 mg/dL High 200 - 499 mg/dL Very High > or = 500 mg/dL WBC (Bld) [#/Vol] 6.0 10*3/uL 4.4-11.0 [facility] Blood erythrocytes count (nu mber/volume)Ordered By: Dr. Alvarez on 09-11-2022 RBC (Bld) [#/Vol] 4.42 10*6/uL 4.6-6.2 [facility] Blood hemoglobin measurement (mass/volume)Ordered By: Dr. Alvarez on 09-11-2022 Hemoglobin (Bld) [Mass/Vol] 13.5 g/dL 13.0-16.5 [facility] Blood lymphocytes/100 leukoc ytesOrdered By: Dr. Alvarez on 09-11-2022 Lymphocytes/100 WBC (Bld) 21.5 % 19-41 [facility] Blood monocytes/100 leukocyt esOrdered By: Dr. Alvarez on 09-11-2022 Monocytes/100 WBC (Bld) 8.7 % 0-10 [facility] Blood platelet mean volumeOr dered By: Dr. Alvarez on 09-11-2022 Platelet mean volume (Bld) [Entitic vol] 9.1 fL 6.2-12.0 [facility] Determination of erythrocyte mean corpuscular volume (MCV)Ordered By: Dr. Alvarez on 09-11-2022 MCV (RBC) [Entitic vol] 92.3 fL 80-94 [facility] Hematocrit Auto (Bld) [Volum e fraction]Ordered By: Dr. Alvarez on 09-11-2022 Hematocrit (Bld) [Volume fraction] 40.8 % 40-54 [facility] Laboratory - Chemistry and C hemistry - challengeOrdered By: Dr. Alvarez on 09-11-2022 ALP [Catalytic activity/Vol] 51 U/L 45-117 [facility] ALT [Catalytic activity/Vol] 98 U/L 16-61 [facility] CO2 [Moles/Vol] 23.0 mmol/L 21.0-32.0 [facility] Globulin (S) [Mass/Vol] 4.3 g/dL 2.2-4.2 [facility] Urea nitrogen/Creatinine [Mass ratio] 21.7 mg/mg 10-20 [facility] - Hematology and Cell countsOrdered By: Dr. Alvarez on 09-11-2022 Erythrocyte distribution width (RBC) [Entitic vol] 50.4 fL 35.1-43.9 [facility] Erythrocyte distribution width (RBC) [Ratio] 14.9 % 11.6-14.6 [facility] Immature granulocytes/100 WBC (Bld) 0.500 % 0.0-0.9 [facility] Comment on above: IG% - Immature Granu locytes (promyelocytes, myelocytes and metamyelocytes) > 1% indicates that a LEFT SHIFT is Present. MCH (RBC) [Entitic mass] 30.5 pg 27.0-32.0 [facility] Nucleated RBC/100 WBC (Bld) [Ratio] 0 % 0-5 [facility] MCHC Auto (RBC) [Mass/Vol]Or dered By: Dr. Alvarez on 09-11-2022 MCHC (RBC) [Mass/Vol] 33.1 g/dL 32-36 [facility] No Panel InformationOrdered By: Dr. Alvarez on 09-11-2022 Estimated GFR (MDRD) Amer 55 mL/min >60 [facility] Comment on above: GFR Calc Estimated GFR (MDRD) Non-Af Amer 45 mL/min >60 [facility] Comment on above: Non- GFR Calc Urine Microalbumin/Creatinine Ratio 16.0 mg/g CRE <30 [facility] Platelets bldOrdered By: Dr. Alvarez on 09-11-2022 Platelets (Bld) [#/Vol] 142 10*3/uL 150-450 [facility] Serum or plasma albumin jacinta urement (mass/volume)Ordered By: Dr. Alvarez on 09-11-2022 Albumin [Mass/Vol] 3.7 g/dL 3.2-5.0 [facility] Serum or plasma albumin/glob ulin mass ratioOrdered By: Dr. Alvarez on 09-11-2022 Albumin/Globulin [Mass ratio] 0.9 {ratio} 0.9-2.4 [facility] Serum or plasma calcium jacinta urement (mass/volume)Ordered By: Dr. Alvarez on 09-11-2022 Calcium [Mass/Vol] 9.6 mg/dL 8.5-10.1 [facility] Serum or plasma cholesterol in HDL measurement (mass/volume)Ordered By: Dr. Alvarez on 09-11-2022 Cholesterol in HDL [Mass/Vol] 34 mg/dL >40 [facility] Comment on above: The drugs N-Acetylcy steine and Metamizole may falsely depress this assay. Reference Range HDL <40 mg/dL Low HDL Cholesterol HDL >or= 60 mg/dL High HDL Cholesterol Serum or plasma cholesterol in VLDL measurement (mass/volume)Ordered By: Dr. Alvarez on 09-11-2022 Cholesterol in VLDL [Mass/Vol] 38 mg/dL 5-40 [facility] Serum or plasma creatinine m easurement (mass/volume)Ordered By: Dr. Alvarez on 09-11-2022 Creatinine [Mass/Vol] 1.57 mg/dL 0.70-1.30 [facility] Comment on above: The validity of the calculated GFR & GFRAA in patients over 70 years has not been determined. Clinical correlation is essential. Serum or plasma low density lipoprotein (LDL) cholesterol measurement (mass/volume)Ordered By: Dr. Alvarez on 09-11-2022 Cholesterol in LDL [Mass/Vol] 98 mg/dL 0-130 [facility] Serum or plasma urea nitroge n measurement (mass/volume)Ordered By: Dr. Alvarez on 09-11-2022 Urea nitrogen [Mass/Vol] 34 mg/dL 7-18 [facility] Thin prep Papanicolaou smear with manual screeningOrdered By: Dr. Alvarez on 09-11-2022 Thin prep Papanicolaou smear with manual screening 55 U/L 15-37 [facility] Thin prep Papanicolaou smear with manual screening 9 5-15 [facility] Thin prep Papanicolaou smear with manual screening 42.7 mg/L NO RANGE EST. [facility] Urine creatinine measurement (mass/volume)Ordered By: Dr. Alvarez on 09-11-2022 Creatinine (U) [Mass/Vol] 267.00 mg/dL NO RANGE EST. [facility] Whole blood hemoglobin A1c/t otal hemoglobin ratio (mass fraction)Ordered By: Dr. Alvarez on 09-11-2022 HbA1c (Bld) [Mass fraction] 6.2 % 3.8-5.6 [facility] Comment on above: Normal < 5.7 % Predi abetic 5.7 - 6.4 % Diabetic >or= 6.5 % Please note range changes. CT Spine Lumbar w/ Contrasto n 05-20-2021 CT Spine Lumbar w/ Contrast Patient Name: STEVE ADAMES Computed Tomography ACCESSION EXAM DATE/TIME PROCEDURE ORDERING PROVIDER [id number] 05/20/2021 08:[address] Spine Lumbar w/ JOVON MIRANDA KATHLEEN Contrast A CPT code 61700 Reason For Exam (CT Spine Lumbar w/ Contrast) spinal stenosis post myelogram Report Lumbar myelogram and post myelogram lumbar spine CT The benefits and risks of the procedure were discussed with the patient. The patient agreed to proceed. Sterile technique was utilized. The skin was cleaned with 2% chlorhexidine. Sterile drapes were placed. I washed my hands prior to the procedure. I wore a cap, mask, sterile gown and sterile gloves during the procedure. Lidocaine was applied for local anesthesia. Using fluoroscopic guidance, a 20-gauge spinal needle was inserted from a posterior approach into the thecal sac at L4/L5 level and 20 mL of Isovue-M 200 contrast injected. Fluoroscopic time: Less than six seconds Fluoroscopic images: Zero Post myelogram lumbar spine CT Protocol: 1 mm axial images with intrathecal contrast, multiplanar reconstructions Pedicle screws and fixation rods from L2 through L5. Lumbar spinal scoliosis. Vertebral body heights are maintained. Slight retrolisthesis of L2 on L3 and L3 on L4. At L1/L2 there is a disc bulge which results in minimal spinal canal narrowing. No neuroforaminal stenosis. At L2/L3 the posterior disc osteophyte complex results in moderate left neuroforaminal stenosis. At L3/L4 the posterior disc osteophyte complex results in moderate right neuroforaminal stenosis. At L4/L5 facet hypertrophy largely contributes to mild left and moderate right neuroforaminal stenosis. At L5/S1 the right pedicle screw courses along the upper margin of the right neuroforamina adjacent to the right L5 nerve root. Computed Tomography Report Infrarenal abdominal aortic aneurysm with a maximum diameter of 4.1 cm. IMPRESSION: Lumbar spinal scoliosis. Slight retrolisthesis of L2 on L3 and L3 on L4. No significant spinal canal stenosis at any level. Multiple levels of neural foraminal stenosis as described above. Infrarenal abdominal aortic aneurysm with a maximum diameter of 4.1 cm. Report Dictated on Final Dictated: 05/21/2021 9:11 am Dictating Physician: MD GARCIA MALAY Signed Date and Time: 05/21/2021 9:25 am Signed by: MD GARCIA MALAY Transcribed Date and Time: 05/21/2021 9:11 Normal [facility] Glucose,Bedsideon 05-20-2021 Glucose [Mass/Vol] 137 mg/dL High 70-100 [facility] Comment on above: Result Comment: Test performed by glucose meter. Results may be 10%-15% lower than serum/plasma values. (CLIA ID [id number]) Performed By: #### B GLU #### [address] Hemogramon 05-20-2021 Erythrocyte distribution width (RBC) [Ratio] 16.8 % High 11.5-14.5 [facility] Comment on above: Performed By: #### P T, HEMOG #### [address] Hematocrit (Bld) [Volume fraction] 36.2 % Low 40.0-52.0 [facility] Comment on above: Performed By: #### P T, HEMOG #### [address] Hemoglobin (Bld) [Mass/Vol] 12.4 g/dL Low 13.0-18.0 [facility] Comment on above: Performed By: #### P T, HEMOG #### [facility] [address], [place] MCH (RBC) [Entitic mass] 31.6 pg Normal 26.0-34.0 [facility] Comment on above: Performed By: #### P T, HEMOG #### [facility] [address] [place] [address] MCHC 34.2 % Normal 32.0-36.0 [facility] Comment on above: Performed By: #### P T, HEMOG #### [facility] [address], [place] MCV (RBC) [Entitic vol] 92.3 fL Normal 80.0-98.0 S [facility] Comment on above: Performed By: #### P T, HEMOG #### [facility] [address], [place] Platelet mean volume (Bld) [Entitic vol] 6.9 fL Low 7.4-10.4 [facility] Comment on above: Performed By: #### P T, HEMOG #### [facility] [address], [place] Platelets (Bld) [#/Vol] 119 10*3/uL Low 140-440 [facility] Comment on above: Performed By: #### P T, HEMOG #### [facility] [address], [place] RBC (Bld) [#/Vol] 3.92 10*6/uL Low 4.40-5.90 [facility] Comment on above: Performed By: #### P T, HEMOG #### [facility] [address], [place] WBC (Bld) [#/Vol] 5.1 10*3/uL Normal 3.6-10.7 [facility] Comment on above: Performed By: #### P T, HEMOG #### [facility] [address] [place] [address] Prothrombin Timeon 1 INR 1.0 Normal 0.9-1.1 [facility] Comment on above: Result Comment: Bertram mmended Anticoagulant Therapy: SEE BELOW ----- INR of 2.0 - 3.0 : - Prophylaxis of Venous Thrombosis (high-risk surgery) - Treatment of Venous Thrombosis - Treatment of Pulmonary Embolism (Includes tissue heart valves, Acute Myocardial Infarction to prevent systemic embolism, Valvular Heart Disease, and Atrial Fibrillation) ----- INR of 2.5 - 3.5 : - Mechanical Prosthetic Valves (high risk) - If oral anticoagulant therapy is used to prevent Myocardial Infarction Performed By: #### P T, HEMOG #### [facility] [address] [place] [address] PT Coag (PPP) [Time] 10.8 s Normal 9.0-12.0 [facility] Comment on above: Result Comment: . Performed By: #### P T, HEMOG #### [address] [address] [facility] XA Special Angiography Procedure Patient Name: STEVE ADAMES Special Procedures ACCESSION EXAM DATE/TIME PROCEDURE ORDERING PROVIDER [id number] 05/20/2021 08:29 EDT XA Special Angiography JOVON MIRANDA KATHLEEN Procedure A Reason For Exam (XA Special Angiography Procedure) Myelogram with CT Lumbar; Spinal stenosis lumbar region without neurogenic claudication, S/P Lumbar fusion Report Lumbar myelogram and post myelogram lumbar spine CT The benefits and risks of the procedure were discussed with the patient. The patient agreed to proceed. Sterile technique was utilized. The skin was cleaned with 2% chlorhexidine. Sterile drapes were placed. I washed my hands prior to the procedure. I wore a cap, mask, sterile gown and sterile gloves during the procedure. Lidocaine was applied for local anesthesia. Using fluoroscopic guidance, a 20-gauge spinal needle was inserted from a posterior approach into the thecal sac at L4/L5 level and 20 mL of Isovue-M 200 contrast injected. Fluoroscopic time: Less than six seconds Fluoroscopic images: Zero Post myelogram lumbar spine CT Protocol: 1 mm axial images with intrathecal contrast, multiplanar reconstructions Pedicle screws and fixation rods from L2 through L5. Lumbar spinal scoliosis. Vertebral body heights are maintained. Slight retrolisthesis of L2 on L3 and L3 on L4. At L1/L2 there is a disc bulge which results in minimal spinal canal narrowing. No neuroforaminal stenosis. At L2/L3 the posterior disc osteophyte complex results in moderate left neuroforaminal stenosis. At L3/L4 the posterior disc osteophyte complex results in moderate right neuroforaminal stenosis. At L4/L5 facet hypertrophy largely contributes to mild left and moderate right neuroforaminal stenosis. At L5/S1 the right pedicle screw courses along the upper margin of the right neuroforamina adjacent to the right L5 nerve root. Infrarenal abdominal aortic aneurysm with a maximum diameter of 4.1 cm. Special Procedures Report IMPRESSION: Lumbar spinal scoliosis. Slight retrolisthesis of L2 on L3 and L3 on L4. No significant spinal canal stenosis at any level. Multiple levels of neural foraminal stenosis as described above. Infrarenal abdominal aortic aneurysm with a maximum diameter of 4.1 cm. Report Dictated on Final Dictated: 05/21/2021 9:11 am Dictating Physician: MD GARCIA MALAY Signed Date and Time: 05/21/2021 9:25 am Signed by: MD GARCIA MALAY Transcribed Date and Time: 05/21/2021 9:11 Normal [facility] CT LUMBAR SPINE WO CONTRASTo n 06-30-2020 Patient Name: STEVE ADAMES ---CT--- Exam Date/Time 06/30/2020 12:26:[address] Spine Lumbar w/o Contrast Ordering Physician JOVON GU BRANDY M Accession Number [id number] CPT4 Codes 21901 () Reason For Exam S/P Spinal Fusion, Spinal Stenosis Report Reasons for examination: Fusion surgery 05/05/2020. Now complaining of numbness left leg and left foot. Axial scans of the lumbar spine performed from T11 to the sacrum, with sagittal and coronal reconstructions. There is normal alignment of the lumbar vertebral bodies on the sagittal reconstructions except for trace degenerative retrolisthesis at L2-L3 and L3-L4 and levoscoliosis . There is no evidence of fracture or significant subluxation in the lumbar spine. The paravertebral soft-tissues show 4 cm abdominal aortic aneurysm, postsurgical changes lumbar spine about the long laminectomy defects. Degenerative disc disease changes are seen at every level with disc space narrowing at L4-L5 L3-L4 L2-L3 at L1-L2. This is asymmetric at L4-L5 (more narrowing on the left), L3-L4 (more narrowing on the right), and L2-L3 (more narrowing on the right). Mild neural foraminal narrowing is present at these levels bilaterally. Hypertrophic facet degenerative changes throughout the lumbar spine. Prior fusion with pedicle screws and rods and lateral fusion bone at L4-L5 L3-L4 and L2-L3. A pedicle screw on the left-hand side of L2 courses superiorly into the intervertebral disc space on the left-hand side at L1-L2. IMPRESSION: No evidence of lumbar spine fracture or dislocation. Degenerative and postsurgical changes, as described above. 4 cm AAA Report Dictated on --- Final --- Dictated: 06/30/2020 2:34 pm Dictating Physician: MD CORREA WILLIAM Signed Date and Time: 06/30/2020 2:46 pm Signed by: MD CORREA WILLIAM Transcribed Date and Time: 06/30/2020 2:34 [place], [place] [facility] Incoming Radiology Results From [facility] - 06/30/2020 2:47 PM EST Patient Name: STEVE ADAMES ---CT--- Exam Date/Time 06/30/2020 12:26:[address] Spine Lumbar w/o Contrast Ordering Physician JOVON GU BRANDY M Accession Number [id number] CPT4 Codes 92376 () Reason For Exam S/P Spinal Fusion, Spinal Stenosis Report Reasons for examination: Fusion surgery 05/05/2020. Now complaining of numbness left leg and left foot. Axial scans of the lumbar spine performed from T11 to the sacrum, with sagittal and coronal reconstructions. There is normal alignment of the lumbar vertebral bodies on the sagittal reconstructions except for trace degenerative retrolisthesis at L2-L3 and L3-L4 and levoscoliosis . There is no evidence of fracture or significant subluxation in the lumbar spine. The paravertebral soft-tissues show 4 cm abdominal aortic aneurysm, postsurgical changes lumbar spine about the long laminectomy defects. Degenerative disc disease changes are seen at every level with disc space narrowing at L4-L5 L3-L4 L2-L3 at L1-L2. This is asymmetric at L4-L5 (more narrowing on the left), L3-L4 (more narrowing on the right), and L2-L3 (more narrowing on the right). Mild neural foraminal narrowing is present at these levels bilaterally. Hypertrophic facet degenerative changes throughout the lumbar spine. Prior fusion with pedicle screws and rods and lateral fusion bone at L4-L5 L3-L4 and L2-L3. A pedicle screw on the left-hand side of L2 courses superiorly into the intervertebral disc space on the left-hand side at L1-L2. IMPRESSION: No evidence of lumbar spine fracture or dislocation. Degenerative and postsurgical changes, as described above. 4 cm AAA Report Dictated on --- Final --- Dictated: 06/30/2020 2:34 pm Dictating Physician: MD CORREA WILLIAM Signed Date and Time: 06/30/2020 2:46 pm Signed by: MD CORREA WILLIAM Transcribed Date and Time: 06/30/2020 2:34 [place], [place] CT Spine Lumbar w/o Contrast on 06-30-2020 CT Spine Lumbar w/o Contrast Patient Name: STEVE ADAMES CT Exam Date/Time 06/30/2020 12:26:[address] Spine Lumbar w/o Contrast Ordering Physician JOVON GU BRANDY M Accession Number [id number] CPT4 Codes 92384 () Reason For Exam S/P Spinal Fusion, Spinal Stenosis Report Reasons for examination: Fusion surgery 05/05/2020. Now complaining of numbness left leg and left foot. Axial scans of the lumbar spine performed from T11 to the sacrum, with sagittal and coronal reconstructions. There is normal alignment of the lumbar vertebral bodies on the sagittal reconstructions except for trace degenerative retrolisthesis at L2-L3 and L3-L4 and levoscoliosis . There is no evidence of fracture or significant subluxation in the lumbar spine. The paravertebral soft-tissues show 4 cm abdominal aortic aneurysm, postsurgical changes lumbar spine about the long laminectomy defects. Degenerative disc disease changes are seen at every level with disc space narrowing at L4-L5 L3-L4 L2-L3 at L1-L2. This is asymmetric at L4-L5 (more narrowing on the left), L3-L4 (more narrowing on the right), and L2-L3 (more narrowing on the right). Mild neural foraminal narrowing is present at these levels bilaterally. Hypertrophic facet degenerative changes throughout the lumbar spine. Prior fusion with pedicle screws and rods and lateral fusion bone at L4-L5 L3-L4 and L2-L3. A pedicle screw on the left-hand side of L2 courses superiorly into the intervertebral disc space on the left-hand side at L1-L2. IMPRESSION: No evidence of lumbar spine fracture or dislocation. Degenerative and postsurgical changes, as described above. 4 cm AAA Report Dictated on Final Dictated: 06/30/2020 2:34 pm Dictating Physician: MD CORREA WILLIAM Signed Date and Time: 06/30/2020 2:46 pm Signed by: MD CORREA WILLIAM Transcribed Date and Time: 06/30/2020 2:34 Normal [facility] Lab Report: Basic Metabolic Profile (BMP)on 08-09-2017 Anion gap 11 mmol/L Invalid Interpretation Code 5-15 [employer] Work Phone: [phone] BUN/Creatinine Ratio 20.4 RATIO High 10-20 [facility] [employer] Work Phone: [phone] Calcium 8.7 mg/dL Invalid Interpretation Code 8.5-10.1 [employer] Work Phone: [phone] Chloride 100 mmol/L Invalid Interpretation Code 98-107 [employer] Work Phone: [phone] CO2 24.0 mmol/L Invalid Interpretation Code 21.0-32.0 [employer] Work Phone: [phone] Creatinine 1.52 mg/dL High 0.70-1.30 [employer] Work Phone: [phone] eGFR (non-black) 48 mL/min/{1.73_m2} Low >60 [employer] Work Phone: [phone] eGFR (non-black) 58 mL/min/{1.73_m2} Low >60 [employer] Work Phone: [phone] Glucose 283 mg/dL High 70-110 [employer] Work Phone: [phone] Potassium 4.4 mmol/L Invalid Interpretation Code 3.5-5.1 [employer] Work Phone: [phone] Sodium 135 mmol/L Low 136-145 [employer] Work Phone: [phone] Urea nitrogen 31 mg/dL High 7-18 [employer] Work Phone: [phone] Lab Report: Lipid Profileon 08-09-2017 Cholesterol 100 mg/dL Invalid Interpretation Code 200 [employer] Work Phone: [phone] HDL Cholesterol 42 mg/dL Invalid Interpretation Code [employer] Work Phone: [phone] LDL Cholesterol 27 mg/dL Invalid Interpretation Code 0-130 [employer] Work Phone: [phone] Triglyceride 154 mg/dL Invalid Interpretation Code [employer] Work Phone: [phone] very low density lipoproteins 31 mg/dL Invalid Interpretation Code 5-40 [employer] Work Phone: [phone] Lab Report: Liver Profileon 08-09-2017 Alanine aminotransferase (ALT) 47 U/L Invalid Interpretation Code 12-78 [employer] Work Phone: [phone] Albumin 4.0 g/dL Invalid Interpretation Code 3.4-5.0 [employer] Work Phone: [phone] Alkaline phosphatase (ALP) 51 U/L Invalid Interpretation Code 45-117 [employer] Work Phone: [phone] Aspartate aminotransferase (AST) 32 U/L Invalid Interpretation Code 15-37 [employer] Work Phone: [phone] Bilirubin (direct) 0.30 mg/dL Invalid Interpretation Code 0.00-0.30 [employer] Work Phone: [phone] Bilirubin (total) 3.10 mg/dL High 0.20-1.00 [employer] Work Phone: [phone] Globulin 4.2 g/dL Invalid Interpretation Code 2.2-4.2 [employer] Work Phone: [phone] Protein 8.2 g/dL Invalid Interpretation Code 6.4-8.2 [employer] Work Phone: [phone] Office Visit: [facility] 12-29-19 17 Dietary management education, guidance, and counseling (procedure) yes Invalid Interpretation Code [facility] Work Phone: [phone] Documentation of current medications (procedure) Done Invalid Interpretation Code [facility] Work Phone: [phone] Fall risk assessment No Invalid Interpretation Code [facility] Work Phone: [phone] Clinical Lists 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: 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 Erythrocytes (RBC) 4.88 10*6/uL Invalid Interpretation Code [facility] Work Phone: [phone] Hematocrit (Bld) [Volume fraction] 44.8 % [facility] Work Phone: [phone] Hematocrit (HCT) 44.8 % Invalid Interpretation Code [facility] Work Phone: [phone] Hemoglobin (HGB) 15.7 g/dL Invalid Interpretation Code [facility] Work Phone: [phone] Platelets 163 10*3/mm3 Invalid Interpretation Code [facility] Work Phone: [phone] Platelets (Bld) [#/Vol] 163 10*3/mm3 [facility] Work Phone: [phone] RBC (Bld) [#/Vol] 4.88 10*6/uL [facility] Work Phone: [phone] WBC (Bld) [#/Vol] 8.6 10*3/uL [facility] Work Phone: [phone] WBC (Leukocytes) 8.6 10*3/uL Invalid Interpretation Code [facility] Work Phone: [phone] Office Visiton 06-30-2016 Documentation of current medications (procedure) Done Invalid Interpretation Code [facility] Work Phone: [phone] Tobacco smoking status NHIS Tobacco smoking status NHIS Invalid Interpretation Code [facility] Work Phone: [phone] Tobacco smoking status NHIS Former smoker [facility] Work Phone: [phone] Tobacco use HS Former smoker Invalid Interpretation Code [facility] Work Phone: [phone] Replaced Document: [facility] E CG Observationson 06-30-2016 EKG QRS axis 20 deg [facility] Work Phone: [phone] electrocardiogram interpretation Sinus Rhythm -Nonspecific ST depression + Nonspecific T-abnormality -Nondiagnostic. ABNORMAL Invalid Interpretation Code [facility] [employer] [facility] Work Phone: [phone] GE use only - for [employer] import when terms are not otherwise specified 398 ms Invalid Interpretation Code [facility] [employer] [facility] Work Phone: [phone] Interpretation Sinus Rhythm -Nonspecific ST depression + Nonspecific T-abnormality -Nondiagnostic. ABNORMAL [employer] Work Phone: [phone] P [place] 35 deg [employer] Work Phone: [phone] P wave axis, electrocardiogram 35 deg Invalid Interpretation Code [facility] [employer] [facility] Work Phone: [phone] [place] Interval 166 ms [employer] [employer] [facility] Work Phone: [phone] MN interval, electrocardiogram 166 ms Invalid Interpretation Code [facility] [employer] [facility] Work Phone: [phone] Pulse (Heart Rate) 66 /min Invalid Interpretation Code [employer] [employer] [facility] Work Phone: [phone] QRS axis, electrocardiogram 20 deg Invalid Interpretation Code [employer] [employer] Work Phone: [phone] QRS Duration 88 ms [employer] [employer] [facility] Work Phone: [phone] QRS duration, electrocardiogram 88 ms Invalid Interpretation Code [facility] [employer] [facility] Work Phone: [phone] QT Interval new path ms [employer] Work Phone: [phone] QT interval, electrocardiogram new path ms Invalid Interpretation Code [employer] Work Phone: [phone] QTc [place] 398 ms [employer] Work Phone: [phone] T [place] 90 deg [employer] Work Phone: [phone] T wave axis, electrocardiogram 90 deg Invalid Interpretation Code [employer] [employer] [facility] Work Phone: [phone] Clinical Lists Update: [facility]2016 Cholesterol 173 mg/dL [employer] Work Phone: [phone] HDL Cholesterol 42 mg/dL [employer] Work Phone: [phone] LDL Cholesterol 104 mg/dL [employer] Work Phone: [phone] Triglyceride 135 mg/dL [employer] Work Phone: [phone] Clinical Lists Update: [employer] 06-17-2016 Anion gap 11 mmol/L Invalid Interpretation Code [facility] Work Phone: [phone] Anion gap [Moles/Vol] 11 mmol/L [facility] Work Phone: [phone] BUN/Creatinine Ratio 16.9 mg/mg [facility] Work Phone: [phone] Calcium 8.7 mg/dL [facility] Work Phone: [phone] Chloride 100 mmol/L [facility] Work Phone: [phone] CO2 26 mmol/L Invalid Interpretation Code [facility] Work Phone: [phone] CO2 (BldV) [Partial pressure] 26 mmol/L [facility] Work Phone: [phone] Creatinine 1.18 mg/dL High [facility] Work Phone: [phone] Glucose 128 mg/dL High [facility] Work Phone: [phone] Glucose [Mass/Vol] 128 mg/dL [facility] Work Phone: [phone] Left ventricular Ejection fraction 65 % Invalid Interpretation Code [facility] Work Phone: [phone] Potassium 4.2 mmol/L [facility] Work Phone: [phone] Sodium 137 mmol/L [facility] Work Phone: [phone] Urea nitrogen 20 mg/dL [facility] Work Phone: [phone] Office Visiton 01-19-2015 Dietary management education, guidance, and counseling (procedure) yes Invalid Interpretation Code [facility] Work Phone: [phone] Smoking cessation education (procedure) yes Invalid Interpretation Code [facility] Work Phone: [phone] Vital Signs Date Time Vital Sign Value Performing Clinician Facility 12-26-2024 09:57-0400 Body weight 98.[address] Stephan Alvarez DO Work Phone: [facility] 12-12-2024 13:15-0400 Body temperature 97 [degF] Dr. Stephan Alvarez DO Work Phone: [facility] 12-12-2024 13:15-0400 Diastolic blood pressure 73 mm[Hg] Dr. Stephan Alvarez DO Work Phone: [facility] 12-12-2024 13:15-0400 Heart rate 60 /min Dr. Stephan Alvarez DO Work Phone: [facility] 12-12-2024 13:15-0400 Respiratory rate 16 /min Dr. Stephan Alvarez DO Work Phone: [facility] 12-12-2024 13:15-0400 SaO2% (BldA) [Mass fraction] 94 % Dr. Stephan Alvarez DO Work Phone: [facility] 12-12-2024 13:15-0400 Systolic blood pressure 138 mm[Hg] Dr. Stephan Alvarez DO Work Phone: [facility] 12-12-2024 11:33-0400 Body height 172.[address] Stephan Alvarez DO Work Phone: [facility] 12-12-2024 11:33-0400 Body mass index (BMI) [Ratio] 32.5 kg/m2 Dr. Stephan Alvarez DO Work Phone: [facility] 12-12-2024 11:33-0400 Body weight [address] Stephan Alvarez DO Work Phone: [facility] 12-04-2024 10:58-0400 Body mass index (BMI) [Ratio] 32.8 kg/m2 Dr. Stephan Alvarez DO Work Phone: [facility] 12-04-2024 10:58-0400 Body weight 97.[address] Stephan Alvarez DO Work Phone: [facility] 12-04-2024 10:58-0400 Diastolic blood pressure 87 mm[Hg] Dr. Stephan Alvarez DO Work Phone: [facility] 12-04-2024 10:58-0400 Heart rate 84 /min Dr. Stephan Alvarez DO Work Phone: [facility] 12-04-2024 10:58-0400 Respiratory rate 18 /min Dr. Stephan Alvarez DO Work Phone: [facility] 12-04-2024 10:58-0400 SaO2% (BldA) [Mass fraction] 94 % Dr. Stephan Alvarez DO Work Phone: [facility] 12-04-2024 10:58-0400 Systolic blood pressure 157 mm[Hg] Dr. Stephan Alvarez DO Work Phone: [facility] 12-01-2024 16:29-0400 Body temperature 97.2 [degF] Dr. Stephan Alvarez DO Work Phone: [facility] 12-01-2024 16:29-0400 Diastolic blood pressure 74 mm[Hg] Dr. Stephan Alvarez DO Work Phone: [facility] 12-01-2024 16:29-0400 Heart rate 78 /min Dr. Stephan Alvarez DO Work Phone: [facility] 12-01-2024 16:29-0400 Respiratory rate 18 /min Dr. Stephan Alvarez DO Work Phone: [facility] 12-01-2024 16:29-0400 SaO2% (BldA) [Mass fraction] 98 % Dr. Stephan Alvarez DO Work Phone: [facility] 12-01-2024 16:29-0400 Systolic blood pressure 102 mm[Hg] Dr. Stephan Alvarez DO Work Phone: [facility] 11-17-2024 16:50-0400 Body temperature 98.3 [degF] Dr. Stephan Alvarez DO Work Phone: [facility] 11-17-2024 16:50-0400 Diastolic blood pressure 83 mm[Hg] Dr. Stephan Alvarez DO Work Phone: [facility] 11-17-2024 16:50-0400 Heart rate 68 /min Dr. Stephan lAvarez DO Work Phone: [facility] 11-17-2024 16:50-0400 Respiratory rate 16 /min Dr. Stephan Alvarez DO Work Phone: [facility] 11-17-2024 16:50-0400 SaO2% (BldA) [Mass fraction] 97 % Dr. Stephan Alvarez DO Work Phone: [facility] 11-17-2024 16:50-0400 Systolic blood pressure 139 mm[Hg] Dr. Stephan Alvarez DO Work Phone: [facility] 11-17-2024 15:22-0400 Body height 172.[address] Stephan Alvarez DO Work Phone: [facility] 06-18-2024 14:08-0500 Body weight 100.25 kg Margoth Amin MD Work Phone: [facility] 06-18-2024 14:08-0500 Diastolic blood pressure 61 mm[Hg] Margoth Amin MD Work Phone: [facility] 06-18-2024 14:08-0500 Heart rate 65 /min Margoth Amin MD Work Phone: [facility] 06-18-2024 14:08-0500 Systolic blood pressure 159 mm[Hg] Margoth Amin MD Work Phone: [facility] 05-14-2024 08:49-0400 Body weight 99.34 kg Margoth Amin MD Work Phone: [facility] 05-14-2024 08:49-0400 Respiratory rate 18 /min Margoth Amin MD Work Phone: [facility] 08-31-2023 09:28-0500 Body height 172.[address] Stephan Alvarez Work Phone: [facility] 08-31-2023 09:28-0500 Body mass index (BMI) [Ratio] 33.4 kg/m2 Dr. Stephan Alvarez Work Phone: [facility] 08-31-2023 09:28-0500 Body weight 99.[address] Stephan Alvarez Work Phone: [facility] 08-31-2023 09:28-0500 Diastolic blood pressure 81 mm[Hg] Dr. Stephan Alvarez Work Phone: [facility] 08-31-2023 09:28-0500 Heart rate 63 /min Dr. Stephan Alvarez Work Phone: [facility] 08-31-2023 09:28-0500 Respiratory rate 18 /min Dr. Stephan Alvarez Work Phone: [facility] 08-31-2023 09:28-0500 Systolic blood pressure 133 mm[Hg] Dr. Stephan Alvarez Work Phone: [facility] 06-28-2023 14:42-0500 Body height 172.[address] Stephan Alvarez Work Phone: [facility] 06-28-2023 14:42-0500 Body mass index (BMI) [Ratio] 33.7 kg/m2 Dr. Stephan Alvarez Work Phone: [facility] 06-28-2023 14:42-0500 Body temperature 97.4 [degF] Dr. Stephan Alvarez Work Phone: [facility] 06-28-2023 14:42-0500 Body weight 100.[address] Stephan Alvarez Work Phone: [facility] 06-28-2023 14:42-0500 Diastolic blood pressure 88 mm[Hg] Dr. Stephan Alvarez Work Phone: [facility] 06-28-2023 14:42-0500 Heart rate 67 /min Dr. Stephan Alvarez Work Phone: [facility] 06-28-2023 14:42-0500 Respiratory rate 18 /min Dr. Stephan Alvarez Work Phone: [facility] 06-28-2023 14:42-0500 SaO2% (BldA) [Mass fraction] 96 % Dr. Stephan Alvarez Work Phone: [facility] 06-28-2023 14:42-0500 Systolic blood pressure 148 mm[Hg] Dr. Stephan Alvarez Work Phone: [facility] 03-23-2023 08:29-0400 Body temperature 97.8 [degF] Dr. Stephan Alvarez Work Phone: [facility] 03-23-2023 08:29-0400 Diastolic blood pressure 71 mm[Hg] Dr. Stephan Alvarez Work Phone: [facility] 03-23-2023 08:29-0400 Heart rate 61 /min Dr. Stephan Alvarez Work Phone: [facility] 03-23-2023 08:29-0400 Respiratory rate 18 /min Dr. Stephan Alvarez Work Phone: [facility] 03-23-2023 08:29-0400 SaO2% (BldA) [Mass fraction] 100 % Dr. Stephan Alvarez Work Phone: [facility] 03-23-2023 08:29-0400 Systolic blood pressure 147 mm[Hg] Dr. Stephan Alvarez Work Phone: [facility] 03-21-2023 09:39-0400 Inhaled oxygen flow rate 2 L/min Dr. Stephan Alvarez Work Phone: [facility] 03-20-2023 13:25-0400 Body height 180.[address] Stephan Alvarez Work Phone: [facility] 03-20-2023 13:25-0400 Body mass index (BMI) [Ratio] 30.3 kg/m2 Dr. Stephan Alvarez Work Phone: [facility] 03-20-2023 13:25-0400 Body weight 98.[address] Stephan Alvarez Work Phone: [facility] 03-20-2023 12:00-0400 Body temperature 99 [degF] Dr. Stephan Alvarez Work Phone: [facility] 03-20-2023 12:00-0400 Diastolic blood pressure 66 mm[Hg] Dr. Stephan Alvarez Work Phone: [facility] 03-20-2023 12:00-0400 Heart rate 92 /min Dr. Stephan Alvarez Work Phone: [facility] 03-20-2023 12:00-0400 Respiratory rate 16 /min Dr. Stephan Alvarez Work Phone: [facility] 03-20-2023 12:00-0400 SaO2% (BldA) [Mass fraction] 95 % Dr. Stephan Alvarez Work Phone: [facility] 03-20-2023 12:00-0400 Systolic blood pressure 131 mm[Hg] Dr. Stephan Alvarez Work Phone: [facility] 03-20-2023 09:04-0400 Body height 172.[address] Stephan Alvarez Work Phone: [facility] 03-20-2023 09:04-0400 Body mass index (BMI) [Ratio] 33.4 kg/m2 Dr. Stephan Alvarez Work Phone: [facility] 03-20-2023 09:04-0400 Body weight 99.[address] Stephan Alvarez Work Phone: [facility] 02-20-2023 11:07-0400 Body mass index (BMI) [Ratio] 34 kg/m2 Dr. Stephan Alvarez Work Phone: [facility] 02-20-2023 11:07-0400 Body weight 101.[address] Stephan Alvarez Work Phone: [facility] 02-20-2023 11:07-0400 Diastolic blood pressure 76 mm[Hg] Dr. Stephan Alvarez Work Phone: [facility] 02-20-2023 11:07-0400 Heart rate 68 /min Dr. Stephan Alvarez Work Phone: [facility] 02-20-2023 11:07-0400 Respiratory rate 18 /min Dr. Stephan Alvarez Work Phone: [facility] 02-20-2023 11:07-0400 SaO2% (BldA) [Mass fraction] 96 % Dr. Stephan Alvarez Work Phone: [facility] 02-20-2023 11:07-0400 Systolic blood pressure 135 mm[Hg] Dr. Stephan Alvarez Work Phone: [facility] 06-10-2022 10:46-0500 Body temperature 97.6 [degF] Dr. Stephan Alvarez Work Phone: [facility] 06-10-2022 10:46-0500 Diastolic blood pressure 62 mm[Hg] Dr. Stephan Alvarez Work Phone: [facility] 06-10-2022 10:46-0500 Heart rate 80 /min Dr. Stephan Alvarez Work Phone: [facility] 06-10-2022 10:46-0500 Respiratory rate 14 /min Dr. Stephan Alvarez Work Phone: [facility] 06-10-2022 10:46-0500 SaO2% (BldA) [Mass fraction] 98 % Dr. Stephan Alvarez Work Phone: [facility] 06-10-2022 10:46-0500 Systolic blood pressure 126 mm[Hg] Dr. Stephan Alvarez Work Phone: [facility] 02-21-2022 11:47-0400 Body height 172.[address] Stephan Alvarez Work Phone: [facility] Work Phone: 02-21-2022 11:47-0400 Body mass index (BMI) [Ratio] 35.6 kg/m2 Dr. Stephan Alvarez Work Phone: [facility] Work Phone: 02-21-2022 11:47-0400 Body weight 106.[address] Stephan Alvarez Work Phone: [facility] Work Phone: 02-21-2022 11:47-0400 Diastolic blood pressure 68 mm[Hg] Dr. Stephan Alvarez Work Phone: [facility] Work Phone: 02-21-2022 11:47-0400 Heart rate 78 /min Dr. Stephan Alvarez Work Phone: [facility] Work Phone: 02-21-2022 11:47-0400 Respiratory rate 16 /min Dr. Stephan Alvarez Work Phone: [facility] Work Phone: 02-21-2022 11:47-0400 SaO2% (BldA) [Mass fraction] 95 % Dr. Stephan Alvarez Work Phone: [facility] Work Phone: 02-21-2022 11:47-0400 Systolic blood pressure 147 mm[Hg] Dr. Stephan Alvarez Work Phone: [facility] Work Phone: 12-28-2016 10:44-0400 BMI (Body Mass Index) 34.51 kg/m2 [facility] Work Phone: 12-28-2016 10:44-0400 Body weight 102.97 kg [facility] Work Phone: 12-28-2016 10:44-0400 BP Diastolic 78 mm[Hg] [facility] Work Phone: 12-28-2016 10:44-0400 BP Systolic 128 mm[Hg] [facility] Work Phone: 12-28-2016 10:44-0400 Pulse (Heart Rate) 88 /min Sen[facility] Arch[facility] Work Phone: 12-28-2016 10:44-0400 Weight 102.97 kg Senait Archuleta [facility] Work Phone: 06-30-2016 15:53-0500 Heart rate 66 /min [facility] Work Phone: 06-30-2016 15:08-0500 BMI (Body Mass Index) 32.84 kg/m2 Harjeff DeFinblair [facility] Work Phone: 06-30-2016 15:08-0500 BP Diastolic 50 mm[Hg] Harumi DeFinis [facility] Work Phone: 06-30-2016 15:08-0500 BP Systolic 98 mm[Hg] Harjeff DeFinis [facility] Work Phone: 06-30-2016 15:08-0500 BSA (Body Surface Area) 2.11 m2 Harumi [facility] Work Phone: 06-30-2016 15:08-0500 Height 172.72 cm [facility] Work Phone: 06-30-2016 15:08-0500 Pulse (Heart Rate) 68 /min Harumi DeFinis [facility] Work Phone: 06-30-2016 15:08-0500 Respiratory Rate 16 /min [facility] Work Phone: 06-30-2016 15:08-0500 Weight 97.98 kg Harumi DeFinis [facility] Work Phone: 09-01-2011 13:55-0500 Body Temperature 97.7 [degF] Harumi DeFinis [facility] Work Phone: 03-01-2011 13:34-0400 Pulse Oximetry 95 % Harumi DeFinis [facility] Work Phone: Encounters Encounter Date Encounter Type Care Provider Facility Start: 01-20-2025 ambulatory Stephan Alvarez Facility: [facility] Start: 01-12-2025 End: 01-12-[address] Stephan Alvarez DO Work Phone: [facility] Work Phone: Start: 01-12-2025 End: 01-12-[address] Stephan Alvarez DO -Radiology [facility] Work Phone: Start: 01-12-2025 End: 01-12-2025 ambulatory Stephan Alvarez Facility:[facility] Start: 12-26-2024 End: 12-26-2024 Patient encounter procedure Katherine LOZANO -[facility] Work Phone: Start: 12-26-2024 End: 12-26-[address] Stephan Alvarez DO Work Phone: [facility] Work Phone: Start: 12-12-2024 ambulatory Stephan Alvarez Facility: [facility] Start: 12-12-2024 Non-patient / Non-visit Mansoor Ramirez DO -[facility] Start: 12-12-2024 End: 12-12-2024 Admission to same day surgery center Mansoor Ramirez DO -Endoscopy Work Phone: Start: 12-12-2024 End: 12-12-[address] Stephan Alvarez DO Work Phone: [facility] Work Phone: Start: 12-04-2024 End: 12-04-[address] Shan Hernandez MD -[facility] Work Phone: Start: 12-04-2024 End: 12-04-2024 ambulatory Stephan Alvarez Facility:[facility] Start: 12-03-2024 End: 12-03-2024 Patient encounter procedure Katherine LOZANO -[facility] Work Phone: Start: 12-03-2024 End: 12-03-2024 ambulatory Stephan Alvarez Facility:[facility] Start: 12-01-2024 End: 12-01-2024 Emergency department patient visit Dr. Fausto Malone MD -Emergency Department Work Phone: Start: 11-19-2024 End: 11-19-[address] Stephan Alvarez DO Work Phone: [facility] Work Phone: Start: 11-19-2024 End: 11-19-[address] Homar Delgado MD -Laboratory Work Phone: Start: 11-19-2024 End: 11-19-2024 ambulatory Stephan Alvarez Facility:[facility] Start: 11-17-2024 End: 11-17-2024 Emergency department patient visit Dr. William Reinoso MD -Emergency Department Work Phone: Start: 11-12-2024 End: 11-12-[address] Stephan Alvarez DO Work Phone: [facility] Work Phone: Start: 11-12-2024 End: 11-12-[address] Stephan Alvarez DO -Laboratory, Specimen Work Phone: Start: 11-12-2024 End: 11-12-2024 ambulatory Stephan Alvarez Facility:[facility] Start: 10-07-2024 ambulatory Stephan Alvarez Facility: [facility] Start: 10-06-2024 End: 10-06-[address] Stephan Alvarez DO Work Phone: [facility] Work Phone: Start: 10-06-2024 End: 10-06-[address] 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 Facility: [facility] Start: 05-19-2024 End: 05-29-[address] 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 Start: 03-07-2024 End: 03-07-2024 Emergency department patient visit Stephan Antonio Facility:[facility] Start: 10-17-2023 End: 10-17-[address] Stephan Alvarez Work Phone: [facility] Work Phone: Start: 10-16-2023 End: 10-16-[address] Stephan Alvarez Work Phone: [facility] Work Phone: Start: 10-16-2023 End: 10-16-[address] Stephan Alvarez Work Phone: [facility] Work Phone: Start: 09-24-2023 End: 09-24-[address] Stephan Alvarez Work Phone: [facility] Work Phone: Start: 09-24-2023 End: 09-24-[address] [facility] Work [facility] Start: 09-24-2023 End: 09-24-[address] Stephan Alvarez Work Phone: [facility] Work Phone: Start: 09-21-2023 End: 09-21-[address] Stephan Alvarez Work Phone: [facility] Work Phone: Start: 09-21-2023 End: 09-21-[address] [facility] Work [facility]: Start: 09-20-2023 End: 09-20-[address] Stephan Alvarez Work Phone: [facility]-Outpatient Breast Imaging Work Phone: Start: 08-31-2023 End: 08-31-[address] Stephan Alvarez Work Phone: [facility] Work Phone: Start: 08-02-2023 End: 08-02-[address] Stephan Alvarez Work Phone: [facility] Work Phone: Start: 07-26-2023 End: 07-26-[address] Stephan Alvarez Work Phone: [facility] Work Phone: Start: 07-26-2023 End: 07-26-[address] [facility] Work [facility] Start: 07-26-2023 End: 07-26-[address] Stephan Alvarez Work Phone: [facility] Work Phone: Start: 06-28-2023 End: 06-28-[address] Stephan Alvarez Work Phone: [facility] Work Phone: Start: 06-26-2023 End: 06-26-[address] Stephan Alvarez Work Phone: [facility] Work Phone: Start: 06-26-2023 End: 06-26-[address] Stephan Alvarez Work Phone: [facility], [place] [facility] Start: 03-28-2023 End: 03-28-[address] Stephan Alvarez Work Phone: [facility] Work Phone: Start: 03-28-2023 End: 03-28-[address] [facility] Work [facility]: Start: 03-23-2023 Non-patient / Non-visit Dr. Stephan Alvarez Work Phone: [facility] Work Phone: Start: 03-22-2023 Non-patient / Non-visit Dr. Stephan Alvarez Work Phone: [facility] Work Phone: Start: 03-21-2023 Non-patient / Non-visit Dr. Stephan Alvarez Work Phone: [facility] Work Phone: Start: 03-20-2023 End: 03-23-2023 Evaluation and management of inpatient Dr. Stephan [facility]varez [facility] Work Phone: Start: 02-20-2023 End: 02-20-[address] Stephan Alvarez Work Phone: [facility] Work Phone: Start: 11-29-2022 End: 11-29-2022 ambulatory [facility] Work Phone: Start: 11-29-2022 End: 11-29-2022 Patient encounter procedure [facility] Start: 09-11-2022 End: 09-11-[address] Stephan Alvarez Work Phone: [facility] Work Phone: Start: 09-11-2022 End: 09-11-[address] Stephan Alvarez Work Phone: [facility] Start: 06-10-2022 End: 06-10-[address] Stephan Alvarez Work Phone: [facility] Start: 03-08-2022 Non-patient / Non-visit Dr. Stephan Alvarez Work Phone: [facility] Start: 03-08-2022 End: 03-08-[address] [facility] Start: 02-21-2022 End: 02-21-[address] Stephan Alvarez Work Phone: [facility] Start: 06-30-2020 End: 06-30-2020 Subsequent hospital visit by physician Yenni Gu Work Phone: [facility] Comment on above: Arrived Procedures Date Procedure Procedure Detail Performing Clinician Start: 01-12-[address] Stephan Alvarez DO Work Phone: Start: 12-12-[address] Stephan aguilar DO Work Phone: Start: 12-04-2024 Evaluation of diagnostic study results Dr. Stephan Alvarez DO Work Phone: Start: 11-19-2024 Scallop ALEXANDER Alvarez DO Work Phone: Start: 11-19-[address] Stephan Alvarez DO Work Phone: Start: 11-19-[address] Stephan Alvarez DO Work Phone: Start: 11-12-2024 Urnls dip stick/tablet reagent auto microscopy Dr. Stephan Alvarez DO Work Phone: Start: 10-16-2023 CT of chest without contrast Dr. Stephan Hicks Work Phone: Start: 09-20-[address] Stephan Alvarez Work Phone: Start: 09-20-[address] Stephan dumont Work Phone: Start: 03-28-[address] Stephan Alvarez Work Phone: Start: 03-20-[address] Stephan Alvarez Work Phone: Start: 03-20-2023 Plain chest X-ray Dr. Stephan Alvarez Work Phone: Start: 06-30-2020 Ct lumbar spine w/o contrast material Yenni Gu Work Phone: Start: 12-28-2016 End: 12-28-2016 Dietary management education, guidance, and counseling Senait Archuleta Start: 12-28-2016 End: 12-28-2016 Documentation of current medications Senait Archuleta Start: 06-30-2016 End: 06-30-2016 Electrocardiogram, complete Placido Ivy i, MD Start: 06-30-2016 End: 06-30-2016 Follow Up Appt 6 months Alisha Dunne Start: 06-30-2016 End: 06-30-2016 MAURISIO Claudio MD Start: 06-27-2016 End: 06-27-2016 Nurse, Teaching, Wound Check (no charge) Chad Mcduffie MD Work Phone: Start: 06-27-2016 Percutaneous transluminal coronary angioplasty Status post PTCA and/or stent Senait Archuleta Start: 06-19-2016 History of placement of stent for coronary artery disease History of coronary artery stent placement Dr. Stephan Alvarez Work Phone: Comment on above: PCI-LAI- Prox-Mid LAD w/ 3.5 x 24 mm Syn ergy Stent and POBA-D1 06/19/16 Start: 01-19-2015 End: 01-19-2015 Smoking cessation education Senait Penny Plan of Treatment Date Care Activity Detail Author Start: 12-12-2024 Egd insert guide wir e dilator passage esophagus EGD GUIDE WIRE INSERTION [facility] Start: 12-12-2024 Egd transoral biopsy single/multiple EGD BIOPSY SINGLE/MULTIPLE [facility] Start: 12-12-2024 Patient discharge [facility] Start: 12-10-2024 End: 12-10-2024 Patient encounter procedure 12/10/2024 3:00 PM EDT Office Visit [address] [address] Margoth Amin MD [facility] [place] [address] [facility] Start: 12-01-2024 [facility] Start: 11-27-2024 End: 06-18-2025 Prostate specific Ag [Mass/volume] in Serum or Plasma Prostate Specific Antigen Lab Routine Nocturia Expected: 11/27/2024 (Approximate), Expires: 06/18/2025 [facility] Service Area Work Phone: Comment on above: Expected: 11/27/2024 (Approximate), Expires: 06/18/2025 Start: 11-19-2024 [facility] Start: 11-17-2024 [facility] Start: 06-18-2024 End: 06-18-2024 Patient encounter procedure 06/18/2024 2:00 PM EST Office Visit [facility] [address] [place] [id number] Margoth Amin MD [address] [place] [address] [facility] Start: 03-30-2024 COVID-19 Vaccine ( season) COVID-19 Vaccine () [facility] Start: 03-30-2024 Influenza vaccination Influenza Vacc ine (#1) [facility] Start: 03-23-2023 Patient discharge [facility] Start: 03-21-2023 Referral to service [facility] Start: 03-21-2023 Oxygen therapy [facility] Start: 03-20-2023 Referral to occupati onal therapist [facility] Start: 03-20-2023 Referral to service [facility] Start: 03-20-2023 Following clinical pathway protocol [facility] Start: 03-20-2023 Ambulation without limitation [facility] Start: 03-20-2023 Assessment of risk o f venous thromboembolism [facility] Start: 03-20-2023 Care regimes management [facility] Start: 03-20-2023 Insertion of cathete r into peripheral vein [facility] Start: 03-20-2023 Notification of physician [facility] Start: 03-20-2023 Providing care accor ding to standard [facility] Start: 03-20-2023 [facility] Start: 03-20-2023 Verification routine [facility] Start: 03-20-2023 Admission procedure [facility] Start: 03-20-2023 [facility] Start: 08-20-2020 Zoster Vaccines (2 of 2) Zoste r Vaccines (2 of 2) [facility] Start: 06-17-2020 Annual Wellness Visi t (AWV) Annual Well[facility]AWV) [facility] Start: 03-30-2020 Influenza vaccination Flu vaccine (# 1) [facility] Start: 07-03-2017 End: 07-03-2017 Appointment Appointment [facility] Work Phone: Start: 12-28-2016 End: 12-28-2016 Appointment Appointment [facility] Work Phone: Start: 12-28-2016 End: 12-28-2016 Arterial exam Arterial exam [facility] Work Phone: Start: 12-28-2016 End: 12-28-2016 BUILDING CARPENTER BUILDING CARPENTER [facility] Work Phone: Start: 12-28-2016 End: 12-28-2016 Follow Up Appt 6 months Follow Up Appt 6 months [facility] Work Phone: Start: 06-30-2016 End: 06-30-2016 Electrocardiogram, complete EKG (In office) [facility] Work Phone: Start: 06-30-2016 End: 06-30-2016 Follow Up Appt 6 months Follow Up Appt 6 months [facility] Work Phone: Start: 06-30-2016 End: 06-30-2016 MMM MMM [facility] Work Phone: Start: 11-08-2015 RSV High Risk: (Elde rly (60+) or Population) (1 - 1-dose 75+ series) RSV High Risk: (Elderly (60+) or Population) (1 - 1-dose 75+ series) [facility] Start: 12-10-2014 End: 12-10-2014 Mri jnt of lwr extre w/o dye MRI Joint Lower Extremity [facility] Work Phone: Start: 12-10-2014 End: 12-10-2014 X-ray exam, knee, 4 or more X-Ray, Knee [facility] Work Phone: Start: 2005 Pneumococcal 65+ yea rs Vaccine (1 of 1 - PPSV23) Pneumococcal 65+ years Vaccine (1 of 1 - PPSV23) [place] Start: 2000 Hepatitis B Vaccines (1 of 3 - Risk 3-dose series) Hepatitis B Vaccines (1 of 3 - Risk 3-dose series) [facility] Start: 1990 Shingles Vaccine (1 of 2) Ku gles Vaccine (1 of 2) [place] Start: 1962 DTaP/Tdap/Td Vaccine s (1 - Tdap) DTaP/Tdap/Td Vaccines (1 - Tdap) [facility] Start: 11-08-1959 DTaP/Tdap/Td vaccine (1 - Tdap) DTaP/Tdap/Td vaccine (1 - Tdap) [place] Start: 11-08-1959 Hepatitis A Vaccines (1 of 2 - Risk 2-dose series) Hepatitis A Vaccines (1 of 2 - Risk 2-dose series) [facility] Start: 1940 Lipid panel Lipid Panel [facility] Start: 1940 Yearly Adult Physical Yearly Adult P hysical [facility] [place] IgE Ab [Units/volume] in Serum [facility] Clam IgE Ab [Units/volume] in Serum [facility] Codfish IgE Ab [Units/volume] in Serum [facility] [place] IgE Ab [Units/volume] in Serum [facility] Cow milk IgE Ab [Units/volume] in Serum [facility] Crab IgE Ab [Units/volume] in Serum [facility] Egg white [facility] Free:total prostate specific antigen ratio [facility] Lipid 1996 panel - S nancy or Plasma [facility] Lobster IgE Ab [Units/volume] in Serum [facility] Patient Education [facility] Work Phone: Patient referral [facility] Work Phone: Peanut IgE Ab [Units/volume] in Serum [facility] Prostate specific Ag [Mass/volume] in Serum or Plasma [facility] Prostate Specific Ag Free [Mass/volume] in Serum or Plasma [facility] [place] IgE Ab [Units/volume] in Serum [facility] Scallop RAST [facility] Sesame seed RAST [facility] Shrimp IgE Ab [Units/volume] in Serum [facility] Soybean IgE Ab [Units/volume] in Serum [facility] Testosterone Free [Mass/volume] in Serum or Plasma [facility] Testosterone Free [Mass/volume] in Serum or Plasma [facility] Testosterone measurement [facility] Tuna IgE Ab [Units/volume] in Serum [facility] [place] [facility] Wheat IgE Ab [Units/volume] in Serum [facility] Immunizations Immunization Date Immunization Notes Care Provider Fa [facility] 06-14-2023 influenza virus vaccine, unspecified formulation Margoth Amin MD Work Phone: [facility] Work Phone: 04-29-[address] Stephan Alvarez Work Phone: [facility] Payers Date Payer Category Payer Self-pay [id number] 2024 Self-pay [id number] 2023 Managed Care (Private) [facility] [id number] 2019 Private Health Insurance [id number] 2015 Unknown [id number] 2005 Medicare MEDICARE PART A AND B [id number] 2005 Medicare [id number] 1940 Unknown [id number] 2.16.840.1.248573.3.579. 2.1244 1940 Unknown [id number] 2.16.840.1.062742.3.579. 2.1244 Unknown [id number] 2.16.840.1.447650.3.579. 2.462 Unknown [id number] 2.16.840.1.605527.3.579. 2.462 Unknown [id number] 2.16.840.1.182889.3.579. 2.462 Unknown [id number] 2.16.840.1.410764.3.579. 2.462 Unknown [id number] 2.16.840.1.353795.3.579. 2.462 Unknown [id number] 2.16.840.1.718725.3.579. 2.462 Unknown [id number] 2.16.840.1.810755.3.579. 2.462 Unknown [id number] 2.16.840.1.616017.3.579. 2.462 Unknown [id number] 2.16.840.1.961309.3.579. 2.462 Unknown [id number] 2.16.840.1.570689.3.579. 2.462 Unknown [id number] 2.16.840.1.746609.3.579. 2.462 Unknown [id number] 2.16.840.1.935119.3.579. 2.462 Unknown [id number] 2.16.840.1.751446.3.579. 2.462 Unknown [id number] 2.16.840.1.795091.3.579. 2.462 Unknown [id number] 2.16.840.1.271473.3.579. 2.462 Unknown [id number] 2.16.840.1.538548.3.579. 2.462 Unknown [id number] 2.16.840.1.207967.3.579. 2.462 Social History Date Type Detail Facility [facility] [place] Start: 1940 Sex Assigned At Not on file [place], [place] Start: 03-10-2022 End: 10-17-2023 Tobacco smoking status [facility]IS Unknown if ever smoked [facility] Start: 10-24-2019 Non-smoker [facility] Start: 1940 Sex Assigned At Male [facility] Start: 05-14-2024 [facility] Never smoked tobacco [facility] Work Phone: Start: 05-14-2024 Tobacco use and exposure Smokeless tobacco non-user [facility] Work Phone: Start: 06-18-2024 Gender identity Not on file [facility] Work Phone: Start: 05-04-2024 End: 06-18-2024 Exposure to SARS-CoV-2 (event) Not sure [facility] Start: 06-18-2024 History of Social function [facility] Work Phone: Start: 03-07-2024 End: 12-12-2024 Tobacco smoking status NHIS Ex-smoker (finding) [facility] Start: 10-16-2024 End: 11-24-2024 Sex Male (finding) [facility] Goals Date Patient Goal Desired Activity /State Functional Status Date Assessment Result Facility 03-23-2023 Functional status Ambulates [facility] Work Phone: 03-22-2023 Functional status Tolerates Activity Well [facility] Work Phone: Mental Status Date Assessment Result Facility 12-12-2024 Cognitive function Voice/Name [facility] Work Phone: 12-01-2024 Cognitive function Level Of Cons ciousness Awake;Alert;Appropriate;Follow s Commands [facility] Work Phone: 03-23-2023 Cognitive function Level Of Cons ciousness Awake;Alert [facility] Work Phone: 03-22-2023 Cognitive function Voice/Name [facility] Work Phone: 03-20-2023 Cognitive function Level Of Cons ciousness Awake;Alert [facility] Work Phone: Clinical Notes 06-19-2016 to 01-13-2025 Note Date & Type Note Facility 01-13-2025 Procedure note [facility] 12-12-2024 Consult note Note Date/Time December 12, 2024 11:53am [facility] Medical Records Department [address] [place] [address] Pre-Anesthesia Evaluation 12/12/24 1152 MR#: [id number] Acct: [id number] Name: STEVE ADAMES Rep #:[id number] : 1940 84 From: Roderick Agee MD PCP: Dr. Stephan Alvarez, DO Status:REG SDC Y Race: C Location: [place] [address] ASA Classification* ASA Classification ASA Classification: 3 Assessment & Plan Anesthesia* Anesthesia Assessment Anesthesia Assessment: Discussed sedation and/or anesthesia options, risks, benefits, and alternatives with patient/parents/legal guardian/POA. Questions invited. The patient/parents/legal guardian/POA seems to understand and agrees to proceedwith anesthesia plan. Reviewed the physical assessment, medical history, allergy history and patient home medications list prior to surgery/procedure/anesthetic and documented any changes. Performed airway and anesthesia risk assessments. Anesthesia Type Anesthesia Type: MAC Anesthesia Focused Assessment* Temperature: 97.6 F Pulse Rate: 54 Blood Pressure: 170/86 Respiratory Rate: 16 Pulse Ox: 97 Airway Assessment Mouth opens: >3 cm Mallampati Score: II Focused Labs Anesthesia Preop lab: CBC WBC 6.6 K/mm3 (4.4-11.0) 11/12/24 09:04 11/12/24 RBC 5.16 M/mm3 (4.6-6.2) 11/12/24 09:04 11/12/24 Hgb 16.2 g/dL (13.0-16.5) 11/12/24 09:04 11/12/24 Hct 46.8 % (40-54) 11/12/24 09:04 11/12/24 Plt Count 137 K/mm3 (150-450) L 11/12/24 09:04 11/12/24 CHEMISTRY Potassium 4.2 mmol/L (3.3-5.1) 11/12/24 09:04 11/12/24 Sodium 137 mmol/L (133-145) 11/12/24 09:04 11/12/24 Magnesium 2.1 mg/dL (1.6-2.6) 03/21/23 06:48 03/21/23 Phosphorus 2.5 mg/dL (2.5-4.9) 03/21/23 06:48 03/21/23 BUN 24 mg/dL (4-19) H 11/12/24 09:04 11/12/24 Creatinine 1.14 mg/dL (0.70-1.20) 11/12/24 09:04 11/12/24 Glucose 213 mg/dL (70-99) H 11/12/24 09:04 11/12/24 POC Glucose 153 mg/dL (74-106) H 03/23/23 06:20 03/23/23 TSH 2.06 uIU/mL (0.358-3.74) 11/29/22 13:03 COAG PT 13.6 SECONDS (11.7-14.9) 03/07/24 18:20 Pre-Assessment Diagnosis/Proposed Procedure Planned Operative Procedure(s): esophagogastroduodenoscopy Anesthesia History 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 When Was Last Pacemaker Check QUESTION #4 FULL TEXT: You/Your Family Experience fever (hyperthermia) with Anesthesia Last Oral Intake Last Oral intake: Last Oral Intake NPO since 00:00 12/12/24 11:33 Meds taken in AM with sips of water? Meds patient instructed to take am of surgery PONV PONV - synchronous motor assembler: PONV - synchronous motor assembler Female No 12/12/24 11:38 HX of Motion Sickness No 12/12/24 11:38 HX of N/V After Surgery No 12/12/24 11:38 Non-Smoker Yes 12/12/24 11:38 Duration of Surgery greater No 12/12/24 11:38 than 60 minutes Number of Risk Factors 1 12/12/24 11:38 PONV Score Low Risk 12/12/24 11:38 Height & Weight Height & Weight: Anesthesia: Height & Weight Height 5 ft 8 in 12/12/24 11:33 Weight: 97 kg 12/12/24 11:33 Body Mass Index (BMI) 32.5 12/12/24 11:33 Respiratory Assessment Respiratory Assessment - synchronous motor assembler: Respiratory Tract Infection Hx - synchronous motor assembler Hx Respiratory Tract Infection No 12/12/24 11:38 STOP Sleep Apnea STOP Sleep Apnea - synchronous motor assembler: STOP Sleep Apnea - synchronous motor assembler Hx Hypertension Yes 12/12/24 11:38 Hx Sleep Apnea Yes 12/12/24 11:38 CPAP Yes 12/12/24 11:38 BIPAP No 12/12/24 11:38 Do you snore loudly (louder No 12/12/24 11:38 than talking or can be heard Do you often feel tired/ No 12/12/24 11:38 fatigued/ sleepy during daytime? Has anyone observed you stop No 12/12/24 11:38 breathing during sleep? STOP Results Positive 12/12/24 11:38 QUESTION #5 FULL TEXT : Do you snore loudly (louder than talking or can be heard through closed doors)? 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 Specify any problems Hx of Preganancy in last 3 N/A 12/12/24 11:38 Months Nurse Filling Out Transfusion CPARSONS 12/12/24 11:38 & Questions: Date: 12/12/24 12/12/24 11:38 Time: 11:44 12/12/24 11:38 Patient unable to answer at this time (ie. confused, unrespo /Reproduction History /Reproductive History - synchronous motor assembler: /Reproductive Hx- synchronous motor assembler Hx Now Gestational Age (in weeks): EDC: Hx Hx Para Hx Section SAB No 12/12/24 11:38 Active Medications Active Medications: Current Medications Generic Name Dose Route Start Last Admin Trade Name Freq PRN Reason Stop Dose Admin Lactated Ringer's 1,000 mls @ 15 mls/hr 12/12/24 12:00 12/12/24 11:47 IV 15 mls/hr .Q48H FRED Administration PFSH Medical History Prosthetic eye globe Axillary adenopathy Left buttock abscess Wears hearing aid Wears glasses Cancer Memory deficit Rash History of steroid therapy Fatty liver Back pain Dietary restriction Former smoker CPAP (continuous positive airway pressure) dependence Shortness of breath on exertion Leg cramps History of pain when walking History of stress test Cardiology follow-up encounter Obesity Essential (primary) hypertension Atherosclerosis of coronary artery of [place] heart without angina pectoris Renal calculus, left Osteoarthritis Hyperlipidemia LDL goal <100 Diabetes Home Medications ?Medication ?Instructions ?Recorded ?Last Taken ?Type omega-3 acid ethyl esters 1 gram 1 cap PO DAILY SUPPLE MENT 02/21/22 12/09/24 History capsule zinc gluconate 50 mg tablet 50 mg PO DAILY SUPPLEMENT 02/21/22 12/01/24 History aspirin 81 mg tablet,delayed 81 mg PO DAILY HEART HEAL TH 03/20/23 12/09/24 History release dulaglutide 3 mg/0.5 mL 3 mg subcut QWEEK 06/28/23 0 11/26/24 History subcutaneous pen injector (Trulicity) glimepiride 4 mg tablet (Amaryl) 4 mg PO DAILY DIABETE S 06/28/23 11/30/24 History epinephrine 0.3 mg/0.3 mL 0.3 mg (0.3 mL) IM X1 #2 ea 11/17/24 Unknown Rx injection, auto-injector ascorbic acid (vitamin C) 1,000 mg 2 g PO DAILY 12/01/24 History capsule dupilumab 300 mg/2 mL subcutaneous 300 mg subcut .COMP DEJAH 12/01/24 11/19/24 History syringe (Dupixent) oxybutynin chloride 10 mg 10 mg PO DAILY 12/01/24 05/11/21 History tablet,extended release 24 hr saw palmetto 450 mg capsule 900 mg PO TID 12/01/2412/21 History fexofenadine 180 mg tablet 180 mg PO Q24H 12/04/24 Unk nown History (Mishel Allergy) quercetin 500 mg capsule mg PO DAILY 12/04/24 Unknown History Allergy/AdvReac Type Severity Reaction Status Date / Time metoprolol Allergy Intermediate Rash Verified 12/12/24 11:32 cephalexin Allergy Rash Verified 12/12/24 11:32 Iodinated Contrast Media Allergy Shortness Verified 12/12/24 11:32 of breath metformin AdvReac Intermediate Diarrhea Verified 12/12/24 11:32 Family History Sister Cancer Brother Cancer Surgical History H/O excision of mass History of colectomy Hx of eye surgery History of back surgery (05/05/20) History of left heart catheterization (06/17/16) H/O hernia repair History of coronary artery stent placement (06/19/16) H/O lithotripsy Social History Smoking Status: Former smoker alcohol intake: never what type of physical activity do you participate in: none Review of Systems (Anesthesia) ROS Narrative System reviewed and no additional complaints, except as documented. 12/12/24 1153 <Electronically signed by Roderick Agee MD> Date _ Roderick Agee MD Cosigner Signature: Date CC: ~ Signed [facility] Work Phone: [phone] 104-101405-16-2025 Procedure note [facility] Medical Records Department [address] [place] [id number] EGD Report MR#: [id number] Acct: [id number] Name: STEVE ADAMES Rep #:[id number] : 1940 84 From: Mansoor Ramirez DO PCP: Dr. Stephan Alvarez DO Status:REG NJ[facility] Patient Name: Steve Adames Procedure Date: 12/12/2024 12:31 PM Date of : 1940 Age: 84 Procedure: Upper GI endoscopy Indications: Oral phase dysphagia, Esophageal dysphagia, Dysphagia Providers: Mansoor Ramirez DO Referring MD: Stephan Alvarez Medicines: Monitored Anesthesia Care Patient Profile: This is an 84 year old male. Refer to note in patient chart for documentation of history and physical. Patient has symptoms of dysphagia with both liquids and solids. Complications: No immediate complications. Procedure: Pre-Anesthesia Assessment: - Prior to the procedure, a History and Physical was performed, and patient medications and allergies were reviewed. The patient is competent. The risks and benefits of the procedure and the sedation options and risks were discussed with the patient. All questions were answered and informed consent was obtained. Patient identification and proposed procedure were verified by the physician in the pre-procedure area. Mental Status Examination: alert and oriented. Airway Examination: normal oropharyngeal airway and neck mobility. Respiratory Examination: clear to auscultation. CV Examination: normal. Prophylactic Antibiotics: The patient does not require prophylactic antibiotics. Prior Anticoagulants: The patient has taken no anticoagulant or antiplatelet agents except for NSAID medication. ASA Grade Assessment: II - A patient with mild systemic disease. After reviewing the risks and benefits, the patient was deemed in satisfactory condition to undergo the procedure. The anesthesia plan was to use monitored anesthesia care (MAC). Immediately prior to administration of medications, the patient was re-assessed for adequacy to receive sedatives. The heart rate, respiratory rate, oxygen saturations, blood pressure, adequacy of pulmonary ventilation, and response to care were monitored throughout the procedure. The physical status of the patient was re-assessed after the procedure. After obtaining informed consent, the endoscope was passed under direct vision. Throughout the procedure, the patient's blood pressure, pulse, and oxygen saturations were monitored continuously. The Endoscope was introduced through the mouth, and advanced to the second part of duodenum. The upper GI endoscopy was accomplished without difficulty. The patient tolerated the procedure well. Scope In: 12:46:31 PM Scope Out: 12:53:15 PM Total Procedure Duration Time 0 hours 6 minutes 44 seconds Findings: Abnormal motility was noted in the esophagus. The cricopharyngeus was abnormal. There is a decrease in motility of the esophageal body. The distal esophagus/lower esophageal sphincter is spastic, but gives up passage to the endoscope. Biopsies were taken with a cold forceps for histology. Verification of patient identification for the specimen was done. Estimated blood loss was minimal. A guidewire was placed and the scope was withdrawn. Dilation was performed with a Savary dilator with no resistance at 60 Fr. The dilation site was examined and showed moderate improvement in luminal narrowing. Estimated blood loss was minimal. No gross lesions were noted in the entire examined stomach. No gross lesions were noted in the entire examined duodenum. Impression: - Abnormal esophageal motility, suspicious for achalasia. Biopsied. Dilated. - No gross lesions in the entire stomach. - No gross lesions in the entire examined duodenum. Recommendation: - Discharge patient to home. - Resume previous diet. - Continue present medications. Procedure Code(s): --- Professional --- 97620, Esophagogastroduodenoscopy, flexible, transoral; with insertion of guide wire followed by passage of dilator(s) through esophagus over guide wire 50021, 59,51, Esophagogastroduodenoscopy, flexible, transoral; with biopsy, single or multiple CPT copyright 2021 [employer]. All rights reserved. The codes documented in this report are preliminary and upon paste up worker review may be revised to meet current compliance requirements. Mansoor Ramirez DO 12/12/2024 1:03:14 PM This report has been signed electronically. Number of Addenda: 0 Note Initiated On: 12/12/2024 12:31 PM 12/12/24 1303 Date _ Mansoor Ramirez DO Cosigner Signature: Date (if indicated) CC: Dr. Stephan Alvarez DO; Mansoor Ramirez DO ~ Date Dictated: 12/12/24 1231 Date Transcribed: Local Sales Associate: RF Signed [facility]05-16-2025 Procedure note [facility] Medical Records Department [address] [place] [address] Operative Report - CC Letter MR#: [id number] Acct: [id number] Name: STEVE ADAMES Rep #:[id number] : 1940 84 From: Mansoor Ramirez DO PCP: Dr. Stephan Alvarez DO [place] [facility] [place] Stephan Alvarez [address] [facility] [place] [address] [place] [address] Re : Upper GI endoscopy procedure for Steve Zacarias Dear Dr. Alvarez This procedure was performed on Thursday, December 12, 2024. My impressions and recommendations are as follows: Impressions : - Abnormal esophageal motility, suspicious for achalasia. Biopsied. Dilated. - No gross lesions in the entire stomach. - No gross lesions in the entire examined duodenum. Recommendations : - Discharge patient to home. - Resume previous diet. - Continue present medications. My findings are described in the full procedure note, which is enclosed. If I can be of further assistance, please feel free to contact me at . Sincerely, Mansoor Ramirez DO 12/12/2024 1:03:14 PM This report has been signed electronically. 12/12/24 1303 Date _ Mansoor Ramirez DO Cosigner Signature: Date (if indicated) CC: Dr. Stephan Alvarez DO; Mansoor Ramirez DO ~ Date Dictated: 12/12/24 1231 Date Transcribed: Local Sales Associate: RF Signed [facility]05-16-2025 Consult note [facility] Medical Records Department [address] [place] [id number] Anesthesia Postop Eval I 12/12/24 1301 MR#: [id number] Acct: [id number] Name: STEVE ADAMES Rep #:[id number] : 1940 84 From: Dustin Johnson PCP: Dr. Stephan Alvarez DO Status:REG SDC Y Race: C Location: [place] [address] Anesthesia: Postop Eval I Current Vital Signs Temperature: 97 F Pulse Rate: 65 Blood Pressure: 122/74 Respiratory Rate: 16 Pulse Ox: 95 Oxygen Delivery Method: Room Air Assessment Airway patent: Yes Spontaneous unlabored respirations: Yes Mental status: Awake and Calm nausea: No Vomiting: No Anesthesia Complication: No Fluid Hydration Crystalloid volume administer (ml): 300 Total IV fluid infused: 300 Progress Note Anesthesia document: Postop Eval 1 completed: Yes 12/12/24 1302 > Date _ Dustin Hobbsignbrittany Signature: CC: ~ Signed [facility]05-16-2025 Consult note [facility] Medical Records Department [address] [place] [id number] Anesthesia Postop Eval II 12/12/24 1301 MR#: [id number] Acct: [id number] Name: STEVE ADAMES Rep #:[id number] : 1940 84 From: Roderick Agee MD PCP: Dr. Stephan Alvarez, DO Status:REG SDC Y Race: C Location: [place] [address] Anesthesia Postop Eval I Sum Anesthesia Postop Eval I Summary Anesthesia Postop Eval I Summary: Anesthesia Postop Eval I: Assessment Summary Airway patent Spontaneous unlabored respirations Mental status nausea Vomiting Anesthesia Postop Eval I: Fluid Summary Crystalloid volume administer (ml) Colloids volume administered ( ml) Blood Product volume administered (ml) Total IV fluid infused Anesthesia Postop Eval I: Summary Notes Anesthesia Complication Anesthesia Complication Comment: Post-operative progress note Anesthesia: Postop Eval II Evaluation Mental status: Awake Pain Level: 0 nausea: No Vomiting: No 12/12/24 1301 MD> Date _ Roderick Hobbsignbrittany Signature: CC: ~ Signed [facility]05-16-2025 History and physical note [facility] Medical Records Department [address] [place] [address] History & Physical Exam 12/12/24 1228 MR#: [id number] Acct: [id number] Name: STEVE ADAMES Rep #:[id number] : 1940 84 From: Mansoor Friend PCP: Dr. Stephan Alvarez, DO [place] [facility] [place] [address] HPI - General General Date of Admission: 12/12/24 Date of Service: 12/12/24 Chief Complaint: dysphagia HPI Narrative Chief Complaint: Difficulty Swallowing [facility] 4..25 with suspected allergic reaction to shrimp. Change in voice, throat swelling and rash. [facility] 5.5.25 for difficulty swallowing over the past few months. OV 5.7.25 Pt here today for f/u after ED visit for dysphagia. Pt states that over the past month hehas had issues with swallowing. His food gets stuck in his esophagus and he will have to regurgitate it. He is having issues with both solids and liquids. He has never had issues prior to one month ago. He endorses a hx of smoking for amny years but quit at age 50 [facility] Medical History (Updated 12/12/24 @ 12:[address] Max Friend, ) Swallowing difficulty Prosthetic eye globe Axillary adenopathy Left buttock abscess Wears hearing aid Wears glasses Cancer Memory deficit Rash History of steroid therapy Fatty liver Back pain Dietary restriction Former smoker CPAP (continuous positive airway pressure) dependence Shortness of breath on exertion Leg cramps History of pain when walking History of stress test Cardiology follow-up encounter Obesity Essential (primary) hypertension Atherosclerosis of coronary artery of [place] heart without angina pectoris Renal calculus, left Osteoarthritis Hyperlipidemia LDL goal <100 Diabetes Home Medications ?Medication ?Instructions ?Recorded ?Last Taken ?Type omega-3 acid ethyl esters 1 gram 1 cap PO DAILY SUPPLE MENT 02/21/22 12/09/24 History capsule zinc gluconate 50 mg tablet 50 mg PO DAILY SUPPLEMENT 02/21/22 12/01/24 History aspirin 81 mg tablet,delayed 81 mg PO DAILY HEART HEAL TH 03/20/23 12/09/24 History release dulaglutide 3 mg/0.5 mL 3 mg subcut QWEEK 06/28/23 0 11/26/24 History subcutaneous pen injector (Trulicity) glimepiride 4 mg tablet (Amaryl) 4 mg PO DAILY DIABETE S 06/28/23 11/30/24 Hi story epinephrine 0.3 mg/0.3 mL 0.3 mg (0.3 mL) IM X1 #2 ea 11/17/24 Unknown Rx injection, auto-injector ascorbic acid (vitamin C) 1,000 mg 2 g PO DAILY 12/01/24 History capsule dupilumab 300 mg/2 mL subcutaneous 300 mg subcut .COMP DEJAH 12/01/24 11/19/24 History syringe (Dupixent) oxybutynin chloride 10 mg 10 mg PO DAILY 12/01/2411/21 History tablet,extended release 24 hr saw palmetto 450 mg capsule 900 mg PO TID 12/01/2412/21 History fexofenadine 180 mg tablet 180 mg PO Q24H 12/04/24 Unk nown History (Mishel Allergy) quercetin 500 mg capsule mg PO DAILY 12/04/24 Unknown History Allergy/AdvReac Type Severity Reaction Status Date / Time metoprolol Allergy Intermediate Rash Verified 12/12/24 11:32 cephalexin Allergy Rash Verified 12/12/24 11:32 Iodinated Contrast Media Allergy Shortness Verified 12/12/24 11:32 of breath metformin AdvReac Intermediate Diarrhea Verified 12/12/24 11:32 Family History Sister Cancer Brother Cancer Surgical History H/O excision of mass History of colectomy Hx of eye surgery History of back surgery (05/05/20) History of left heart catheterization (06/17/16) H/O hernia repair History of coronary artery stent placement (06/19/16) H/O lithotripsy Social History Smoking Status: Former smoker alcohol intake: never what type of physical activity do you participate in: none ROS Constitutional Constitutional: Denies fatigue, fever(s), poor appetite, weight gain or weight loss Gastrointestinal Gastrointestinal: Denies belching, bloating, change in bowel habits, change in stool character, chewing difficulty, coffee ground emesis, constipation, cramping, diarrhea, dyspepsia, dysphagia, earlysatiety, excessive flatus, fecalincontinence, heartburn, hematemesis, hematochezia, hemorrhoids, loose stools, melena, nausea, odynophagia, rectal bleeding, tenesmus, vomiting or weight changes Vital Signs Vital Signs Vital Signs: 12/12/24 11:33 12/12/24 11:33 12/12/24 11:53 Temperature 97.6 F L 97.6 F L Temperature Source Temporal Pulse Rate 54 L 54 L Respiratory Rate 16 16 Respiratory Pattern Normal Blood Pressure 170/86 H 170/86 H Blood Pressure Mean 114 Blood Pressure Source Monitor Blood Pressure Position Semi-Fowlers Blood Pressure Location Right Arm Pulse Ox 97 97 Oxygen Delivery Method Room Air Weight Weight: 213 lb 13.574 oz Body Mass Index (BMI) 32.5 Physical Exam Const alert, oriented x3, no apparent distress and healthy appearing General Appearance: cooperative GI normal to inspection, nondistended, normoactive bowel sounds, soft to palpation,non-tender and non-distended Percussion: normal to percussion Rectal Exam: deferred Assessment & Plan Assessment/Plan (1) Swallowing difficulty: PLAN: Assessment and Plan Assessment and Plan (1) Swallowing difficulty: Status: Acute Plan: This is an 84 yo male pt here today for [facility] f/u. Pt seen in the ED on two occasions over the past month. One visit for a suspected allergic reaction to shrimp however allergy testing was negative.The second occasion was for dysphagia. Pt now having difficulty swallowing with every meal. He is having trouble with solids and liquids. He is scheduled for a barium esophagram orderedby his PCP. Hewill undergo EGD for assessment and dilation if needed. -EGD -f/u after procedure 12/12/24 1230 Cosigner Signature (if applicable): CC: Dr. Stephan Alvarez, ; Mansoor Friend, DO~ Signed [facility]05-16-2025 [facility] Medical Records Department [address] [place] [address] History Physical Exam 12/12/24 1228 MR#: [id number] Acct: [id number] Name: STEVE ADAMES Rep #: [id number] : 1940 84 From: Mansoor Ramirez DO PCP: Dr. Stephan Alvarez, DO Status:[facility] Location: [place] [address] HPI - General General Date of Admission: 12/12/24 Date of Service: 12/12/24 Chief Complaint: dysphagia HPI Narrative Chief Complaint: Difficulty Swallowing [facility] 11.17.24 with suspected allergic reaction to shrimp. Change in voice, throat swelling and rash. [facility] 5..25 for difficulty swallowing over the past few months. OV 5..25 Pt here today for f/u after ED visit for dysphagia. Pt states that over the past month he has had issues with swallowing. His food gets stuck in his esophagus and he will have to regurgitate it. He is having issues with both solids and liquids. He has never had issues prior to one month ago. He endorses a hx of smoking for amny years but quit at age 50 [facility] Medical History (Updated 12/12/24 @ 12:[address] Max Friend, DO) Swallowing difficulty Prosthetic eye globe Axillary adenopathy Left buttock abscess Wears hearing aid Wears glasses Cancer Memory deficit Rash History of steroid therapy Fatty liver Back pain Dietary restriction Former smoker CPAP (continuous positive airway pressure) dependence Shortness of breath on exertion Leg cramps History of pain when walking History of stress test Cardiology follow-up encounter Obesity Essential (primary) hypertension Atherosclerosis of coronary artery of [place] heart without angina pectoris Renal calculus, left Osteoarthritis Hyperlipidemia LDL goal <100 Diabetes Home Medications ???Medication ???Instructions ???Recorded ???Last Taken ???Type omega-3 acid ethyl esters 1 gram 1 cap PO DAILY SUPPLEMENT 02/21/22 12/09/24 History capsule zinc gluconate 50 mg tablet 50 mg PO DAILY SUPPLEMENT 02/21/22 12/01/24 History aspirin 81 mg tablet,delayed 81 mg PO DAILY HEART HEALTH 12/09/24 History release dulaglutide 3 mg/0.5 mL 3 mg subcut QWEEK 06/28/23 5 History subcutaneous pen injector (Trulicity) glimepiride 4 mg tablet (Amaryl) 4 mg PO DAILY DIABETES 06/28/23 History epinephrine 0.3 mg/0.3 mL 0.3 mg (0.3 mL) IM X1 #2 ea Unknown Rx injection, auto-injector ascorbic acid (vitamin C) 1,000 mg 2 g PO DAILY 12/01/24 12/01/24 H istory capsule dupilumab 300 mg/2 mL subcutaneous 300 mg subcut .COMPLEX 12/01/24 11/19/24 History syringe (Dupixent) oxybutynin chloride 10 mg 10 mg PO DAILY 12/01/24 11/30/24 H istory tablet,extended release 24 hr saw palmetto 450 mg capsule 900 mg PO TID 12/01/24 12/01/24 Hi story fexofenadine 180 mg tablet 180 mg PO Q24H 12/04/24 Unknown Hi story (Mishel Allergy) quercetin 500 mg capsule mg PO DAILY 12/04/24 Unknown Histo ry Allergy/AdvReac Type Severity Reaction Status Date / Time metoprolol Allergy Intermediate Rash Verified 12/12/24 11:32 cephalexin Allergy Rash Verified 12/12/24 11:32 Iodinated Contrast Media Allergy Shortness Verified 12/12/24 11:32 of breath metformin AdvReac Intermediate Diarrhea Verified 12/12/24 11:32 Family History Sister Cancer Brother Cancer Surgical History H/O excision of mass History of colectomy Hx of eye surgery History of back surgery (05/05/20) History of left heart catheterization (06/17/16) H/O hernia repair History of coronary artery stent placement (06/19/16) H/O lithotripsy Social History Smoking Status: Former smoker alcohol intake: never what type of physical activity do you participate in: none ROS Constitutional Constitutional: Denies fatigue, fever(s), poor appetite, weight gain or weight loss Gastrointestinal Gastrointestinal: Denies belching, bloating, change in bowel habits, change in stool character, chewing difficulty, coffee ground emesis, constipation, cramping, diarrhea, dyspepsia, dysphagia, early satiety, excessive flatus, fecal incontinence, heartburn, hematemesis, hematochezia, hemorrhoids, loose stools, melena, nausea, odynophagia, rectal bleeding, tenesmus, vomiting or weight changes Vital Signs Vital Signs Vital Signs: 12/12/24 11:33 12/12/24 11:33 12/12/24 11:53 Temperature 97.6 F L 97.6 F L Temperature Source Temporal Pulse Rate 54 L 54 L Respiratory Rate 16 16 Respiratory Pattern Normal Blood Pressure 170/86 H 170/86 H Blood Pressure Mean 114 Blood Pressure Source Monitor Blood Pressure Position Semi-Fowlers Blood Pre (more content not included)...[facility]05-16-2025 Consult note [facility] Medical Records Department [address] [place] [address] Pre-Anesthesia Evaluation 12/12/24 1152 MR#: [id number] Acct: [id number] Name: STEVE ADAMES Rep #:[id number] : 1940 84 From: Roderick Agee MD PCP: Dr. Stephan Alvarez, DO Status:REG SDC Y Race: C Location: [place] [address] ASA Classification* ASA Classification ASA Classification: 3 Assessment & Plan Anesthesia* Anesthesia Assessment Anesthesia Assessment: Discussed sedation and/or anesthesia options, risks, benefits, and alternatives with patient/parents/legal guardian/POA. Questions invited. The patient/parents/legal guardian/POA seems to understand and agrees to proceedwith anesthesia plan. Reviewed the physical assessment, medical history, allergy history and patient home medications list prior to surgery/procedure/anesthetic and documented any changes. Performed airway and anesthesia risk assessments. Anesthesia Type Anesthesia Type: MAC Anesthesia Focused Assessment* Temperature: 97.6 F Pulse Rate: 54 Blood Pressure: 170/86 Respiratory Rate: 16 Pulse Ox: 97 Airway Assessment Mouth opens: >3 cm Mallampati Score: II Focused Labs Anesthesia Preop lab: CBC WBC 6.6 K/mm3 (4.4-11.0) 11/12/24 09:04 11/12/24 RBC 5.16 M/mm3 (4.6-6.2) 11/12/24 09:04 11/12/24 Hgb 16.2 g/dL (13.0-16.5) 11/12/24 09:04 11/12/24 Hct 46.8 % (40-54) 11/12/24 09:04 11/12/24 Plt Count 137 K/mm3 (150-450) L 11/12/24 09:04 11/12/24 CHEMISTRY Potassium 4.2 mmol/L (3.3-5.1) 11/12/24 09:04 11/12/24 Sodium 137 mmol/L (133-145) 11/12/24 09:04 11/12/24 Magnesium 2.1 mg/dL (1.6-2.6) 03/21/23 06:48 03/21/23 Phosphorus 2.5 mg/dL (2.5-4.9) 03/21/23 06:48 03/21/23 BUN 24 mg/dL (4-19) H 11/12/24 09:04 11/12/24 Creatinine 1.14 mg/dL (0.70-1.20) 11/12/24 09:04 11/12/24 Glucose 213 mg/dL (70-99) H 11/12/24 09:04 11/12/24 POC Glucose 153 mg/dL (74-106) H 03/23/23 06:20 03/23/23 TSH 2.06 uIU/mL (0.358-3.74) 11/29/22 13:03 COAG PT 13.6 SECONDS (11.7-14.9) 03/07/24 18:20 Pre-Assessment Diagnosis/Proposed Procedure Planned Operative Procedure(s): esophagogastroduodenoscopy Anesthesia History 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 When Was Last Pacemaker Check QUESTION #4 FULL TEXT: You/Your Family Experience fever (hyperthermia) with Anesthesia Last Oral Intake Last Oral intake: Last Oral Intake NPO since 00:00 12/12/24 11:33 Meds taken in AM with sips of water? Meds patient instructed to take am of surgery PONV PONV - synchronous motor assembler: PONV - synchronous motor assembler Female No 12/12/24 11:38 HX of Motion Sickness No 12/12/24 11:38 HX of N/V After Surgery No 12/12/24 11:38 Non-Smoker Yes 12/12/24 11:38 Duration of Surgery greater No 12/12/24 11:38 than 60 minutes Number of Risk Factors 1 12/12/24 11:38 PONV Score Low Risk 12/12/24 11:38 Height & Weight Height & Weight: Anesthesia: Height & Weight Height 5 ft 8 in 12/12/24 11:33 Weight: 97 kg 12/12/24 11:33 Body Mass Index (BMI) 32.5 12/12/24 11:33 Respiratory Assessment Respiratory Assessment - synchronous motor assembler: Respiratory Tract Infection Hx - synchronous motor assembler Hx Respiratory Tract Infection No 12/12/24 11:38 STOP Sleep Apnea STOP Sleep Apnea - synchronous motor assembler: STOP Sleep Apnea - synchronous motor assembler Hx Hypertension Yes 12/12/24 11:38 Hx Sleep Apnea Yes 12/12/24 11:38 CPAP Yes 12/12/24 11:38 BIPAP No 12/12/24 11:38 Do you snore loudly (louder No 12/12/24 11:38 than talking or can be heard Do you often feel tired/ No 12/12/24 11:38 fatigued/ sleepy during daytime? Has anyone observed you stop No 12/12/24 11:38 breathing during sleep? STOP Results Positive 12/12/24 11:38 QUESTION #5 FULL TEXT : Do you snore loudly (louder than talking or can be heard through closeddoors)? 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 Specify any problems Hx of Preganancy in last 3 N/A 12/12/24 11:38 Months Nurse Filling Out Transfusion CPARSONS 12/12/24 11:38 & Questions: Date: 12/12/24 12/12/24 11:38 Time: 11:44 12/12/24 11:38 Patient unable to answer at this time (ie. confused, unrespo /Reproduction History /Reproductive History - synchronous motor assembler: /Reproductive Hx- synchronous motor assembler Hx Now Gestational Age (in weeks): EDC: Hx Hx Para Hx Section SAB No 12/12/24 11:38 Active Medications Active Medications: Current Medications Generic Name Dose Route Start Last Admin Trade Name Freq PRN Reason Stop Dose Admin Lactated Ringer's 1,000 mls @ 15 mls/hr 12/12/24 12:00 12/12/24 11:47 IV 15 mls/hr .Q48H FRED Administration PFSH Medical History Prosthetic eye globe Axillary adenopathy Left buttock abscess Wears hearing aid Wears glasses Cancer Memory deficit Rash History of steroid therapy Fatty liver Back pain Dietary restriction Former smoker CPAP (continuous positive airway pressure) dependence Shortness of breath on exertion Leg cramps History of pain when walking History of stress test Cardiology follow-up encounter Obesity Essential (primary) hypertension Atherosclerosis of coronary artery of [place] heart without angina pectoris Renal calculus, left Osteoarthritis Hyperlipidemia LDL goal <100 Diabetes Home Medications ?Medication ?Instructions ?Recorded ?Last Taken ?Type omega-3 acid ethyl esters 1 gram 1 cap PO DAILY SUPPLE MENT 02/21/22 12/09/24 History capsule zinc gluconate 50 mg tablet 50 mg PO DAILY SUPPLEMENT 02/21/22 12/01/24 History aspirin 81 mg tablet,delayed 81 mg PO DAILY HEART HEAL TH 03/20/23 12/09/24 History release dulaglutide 3 mg/0.5 mL 3 mg subcut QWEEK 06/28/23 0 11/26/24 History subcutaneous pen injector (Trulicity) glimepiride 4 mg tablet (Amaryl) 4 mg PO DAILY DIABETE S 06/28/23 11/30/24 History epinephrine 0.3 mg/0.3 mL 0.3 mg (0.3 mL) IM X1 #2 ea 11/17/24 Unknown Rx injection, auto-injector ascorbic acid (vitamin C) 1,000 mg 2 g PO DAILY 12/01/24 History capsule dupilumab 300 mg/2 mL subcutaneous 300 mg subcut .COMP DEJAH 12/01/24 11/19/24 History syringe (Dupixent) oxybutynin chloride 10 mg 10 mg PO DAILY 12/01/2411/21 History tablet,extended release 24 hr saw palmetto 450 mg capsule 900 mg PO TID 12/01/2412/21 History fexofenadine 180 mg tablet 180 mg PO Q24H 12/04/24 Unk nown History (Mishel Allergy) quercetin 500 mg capsule mg PO DAILY 12/04/24 Unknown History Allergy/AdvReac Type Severity Reaction Status Date / Time metoprolol Allergy Intermediate Rash Verified 12/12/24 11:32 cephalexin Allergy Rash Verified 12/12/24 11:32 Iodinated Contrast Media Allergy Shortness Verified 12/12/24 11:32 of breath metformin AdvReac Intermediate Diarrhea Verified 12/12/24 11:32 Family History Sister Cancer Brother Cancer Surgical History H/O excision of mass History of colectomy Hx of eye surgery History of back surgery (05/05/20) History of left heart catheterization (06/17/16) H/O hernia repair History of coronary artery stent placement (06/19/16) H/O lithotripsy Social History Smoking Status: Former smoker alcohol intake: never what type of physical activity do you participate in: none Review of Systems (Anesthesia) ROS Narrative System reviewed and no additional complaints, except as documented. 12/12/24 1153 > Date _ Roderick Agee MD Cosigner Signature: Date CC: ~ Signed [facility]05-07-2025 Evaluation note* Diagnosis Onset Date Resolution Status Admit Date Swallowing difficulty acute December 03, 2024 9:19am Atherosclerosis of coronary artery of [place] heart without angina pectoris chronic December 04, 2024 10 :45am Diabetes chronic December 04, 2024 10:45am Hyperlipidemia LDL goal <100 chronic December 04, 2024 10:45am Swallowing difficulty acute December 12, 2024 11:12am [facility] Work Phone: [phone] Evaluation note* Diagnosis Onset Date Resolution Status Admit Date Swallowing difficulty acute December 03, 2024 9:19am Atherosclerosis of coronary artery of [place] heart without angina pectoris chronic December 04, 2024 10 :45am Diabetes chronic December 04, 2024 10:45am Hyperlipidemia LDL goal <100 chronic December 04, 2024 10:45am Swallowing difficulty acute December 12, 2024 11:12am Achalasia acute December 26, 2024 9:47am Swallowing difficulty acute December 26, 2024 9:47am [facility] Work Phone: 1(299) 189-364311-20-2024 History of Present illness Narrative* Margoth Amin MD - 06/18/2024 2:00 PM EST Subjective Patient ID: Steve Adames is a 83 y.o. male. HPI Patient is here for medication check. He was given Gemtesa and states this was helpful but insurance would not approve this. He was switched to Oxybutynin and finds this helpful with frequency and urgency... He was taking Proscar and Flomax but does not think he is taking these any more.. He feels that he is emptying well. ED is chronic. He has not tried any oral medsNo recent PSA Review of Systems Constitutional: Negative for chills and fever. HENT: Negative. Eyes: Negative. Respiratory: Negative for cough and shortness of breath. Cardiovascular: Negative for chest pain and leg swelling. Gastrointestinal: Negative for nausea. Endocrine: Negative. Genitourinary: Negative for difficulty urinating. Negative except for documented in HPI Allergic/Immunologic: Negative. Neurological: Alert & oriented X 3 Hematological: Denies blood thinners Psychiatric/Behavioral: Negative. Objective Physical Exam Vitals and nursing note reviewed. Pulmonary: Effort: Pulmonary effort is normal. Abdominal: Palpations: Abdomen is soft. Tenderness: There is no abdominal tenderness. Genitourinary: Comments: Kidneys non palpable bilaterally Bladder non palpable or tender Neurological: Mental Status: He is alert. Assessment/Plan Diagnoses and all orders for this visit: Nocturia 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 Urinary frequency All available PSA values reviewed, Options discussed. Questions answered. PSA ordered Diet changes for prostate health discussed and educational information given. Pros/Cons of prostatehealth supplements discussed. Treatment options for LUTS reviewed Continue Ditropan but will change to Ditropan XL 10mg-Rx given Discussed timed voiding. Discussed fluid and caffeine intake Treatment options for ED reviewed- Discussed Sildenafil-patient says family ( and daughters) does not want him to try Lifestyle change to help prevent UTIs discussed. Encouraged fluid intake. F/U 6 months [facility] 1([phone]) 626-352410-16-2024 History of Present illness Narrative* Margoth Amin MD - 05/14/2024 8:30 AM EDT Subjective Patient ID: Steve Adames is a 83 y.o. male. HPI Patient is here for frequency and urgency. Patient was previously on Flomax and Proscar but hasstopped. Chronic BPH with LUTs, sx are worsening.He is bothered by urgency. No hematuria, No dysuria. Nocturia x 1, depending on fluid intake. ED is chronic. Patient is taking Saw Baldwin.. He fellsthis helps some. No recent PSA. Review of Systems Constitutional: Negative for chills and fever. HENT: Negative. Eyes: Negative. Respiratory: Negative for cough and shortness of breath. Cardiovascular: Negative for chest pain and leg swelling. Gastrointestinal: Negative for nausea. Endocrine: Negative. Genitourinary: Negative for difficulty urinating. Negative except for documented in HPI Allergic/Immunologic: Negative. Neurological: Alert & oriented X 3 Hematological: Denies blood thinners Psychiatric/Behavioral: Negative. Objective Physical Exam Vitals and nursing note reviewed. Constitutional: General: He is not in acute distress. Appearance: Normal appearance. Pulmonary: Effort: Pulmonary effort is normal. Abdominal: Tenderness: There is no abdominal tenderness. Genitourinary: Comments: Kidneys non palpable bilaterally Bladder non palpable or tender Scrotum no mass, No hydrocele Epididymis- No spermatocele. Non Tender. Testicles: No mass. WNL Urethra: No discharge Penis within normal limits... No lesions. No phimosis Prostate - symmetric, no nodules. BENIGN Seminal Vesicals: No mass. Sphincter tone: normal Neurological: Mental Status: He is alert. Assessment/Plan Diagnoses and all orders for this visit: Urinary frequency Urgency of urination 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 Nocturia All available PSA values reviewed, Options discussed. Questions answered. PSA ordered-discussed just doing annual REG Diet changes for prostate health discussed and educational information given. Pros/Cons of prostatehealth supplements discussed. Treatment options for LUTS reviewed Continue Flomax and Proscar Gemtesa samples given Discussed timed voiding. Discussed fluid and caffeine intake Treatment options for ED reviewed. Lifestyle change to help prevent UTIs discussed. Encouraged fluid intake. F/U med review and PVR documented in this [facility] Work Phone: 1(126) 687-784208-25-2023 Discharge summary Author Kenji Reed [facility] March 23, 2023 11:13am Note Date/Time March 23, 2023 8: 23am [facility] Medical Records Department [address] [place] [address] Discharge Summary 03/23/23 0823 MR#: [id number] Acct: [id number] Name: STEVE ADAMES Rep #:[id number] : 1940 82 From: Kenji Reed MD PCP: Dr. Stephan Alvarez, DO Status:ADM IN Location: [facility] [id number] Providers Date of Admission: 03/20/23 Date of Discharge: 03/23/23 Primary Care Physician: Dr. Stephan Alvarez, Reason For Visit: UTI Diagnosis Discharge Diagnosis (1) Acute UTI: Status: Acute Code(s): N39.0 - Urinary tract infection, site not specified Plan Patient is an 82-year-old gentleman presented with progressive generalized weakness. Diagnosed with cystitis admitted to regular nursing floor for furthermanagement 1. Acute cystitis Klebsiella pneumoniae ? Patient started on ceftriaxone cultures sent from the ED we will follow-up on result. Patient has slightly elevated WBC count of 12.5. Subsequent follow-up with daily CBC ordered ? 03/21/2023 urine cultures pending ? 03/23/2023; cultures came back positive for Klebsiella pneumonia patient discharged on cefdinir based on sensitivities 2. Physical deconditioning -Secondary to above. Requested for PT OT eval and social worker aide to assist with discharge planning 3. Coronary artery disease ? With previous stent placement patient is on guideline directed medical therapy 4. Hypertension - Blood pressure controlled, home medications continued with dose adjustment as needed 5. BPH ? Patient is on tamsulosin difficulty 6. Class I obesity with BMI of 33.5 ? Patient is on Tirzepatide 7. 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 Patient creatinine close to baseline ? 03/21/2023 improvement in kidney function 8. Hyponatremia ? Secondary to hypovolemic hyponatremia on IV fluid with subsequent monitoring with daily BMPs ordered -03/21/2023 hyponatremia resolved with rehydration 9. DVT prophylaxis - On enoxaparin Time spent in the patient's overall evaluation,decision-making process, review of diagnostic data, adjustment of management, discussion with other providers, nursing nursing and ancillary staff involved in patient's care documentation, 35Minutes Medications at Discharge Home Medications sitagliptin phosphate 100 mg tablet (Januvia) 100 mg PO DAILY DIABETES 07/04/18 tamsulosin 0.4 mg capsule 0.4 mg PO DAILY PROSTATE #39 caps 10/25/19 glimepiride 4 mg tablet (Amaryl) 4 mg PO BID DIABETES 07/06/20 ascorbate calcium (vitamin C) 500 mg tablet 500 mg PO DAILY SUPPLEMENT 02/21/22 finasteride 5 mg tablet 5 mg PO DAILY PROSTATE 02/21/22 omega-3 acid ethyl esters 1 gram capsule 1 cap PO DAILY SUPPLEMENT 02/21/22 prevagen 1 tab PO DAILY MEMORY IMPROVEMENT 02/21/22 zinc gluconate 50 mg tablet 50 mg PO DAILY SUPPLEMENT 02/21/22 dupilumab 300 mg/2 mL subcutaneous pen injector (Dupixent) 300 mg subcut QWEEK ECZEMA 02/20/23 tirzepatide 5 mg/0.5 mL subcutaneous pen injector (Mounjaro) 5 mg subcut TH DIABETES 02/20/23 aspirin 81 mg tablet,delayed release 81 mg PO DAILY HEART HEALTH 03/20/23 vitamin B complex (B Complex-Vitamin B12 tablet) 1 tab PO DAILY SUPPLEMENT 03/20/23 cefdinir 300 mg capsule 300 mg PO Q12H #10 caps 03/23/23 Hospital Course Summary of Care Provided Minutes Spent on Discharge: 35 Physical Exam Narrative GENERAL: cooperative HEENT: Atraumatic; normocephalic EYES; Anicteric, Normal Conjunctiva NECK; supple, normal thyroid, RESPIRATORY: Diminished to auscultation CARDIOVASCULAR: Regular S1 S2, GI: soft, normoactive bowel sounds, : No Renal angle tenderness; EXTREMITIES: No edema, no clubbing, MUSCULOSKELETAL: no muscle wasting NEURO: Awake; no lateralizing signs. SKIN: No Rash PSYCH; Flat affect Weight / BMI Weight Weight: 98.685 kg Body Mass Index (BMI) 30.3 ABG / Lab / Microbiology Data 03/23/23 06:25 03/23/23 06:25 Laboratory: Laboratory Results - last 24 hr 03/22/23 11:45: POC Glucose 249 H 03/22/23 16:45: POC Glucose 135 H 03/22/23 19:50: POC Glucose 187 H 03/23/23 06:25: WBC 4.5, RBC 4.77, Hgb 14.3, Hct 43.6, MCV 91.4, MCH 30.0, MCHC 32.8, RDW Std Deviation 48.9 H, RDW Coeff of Cornelio 14.6, Plt Count 135 L, MPV 8.8,Immature Gran % (Auto) 0.200, Neut % (Auto) 54.7, Lymph % (Auto) 24.2, Holmes % (Auto) 16.4 H, Eos % (Auto) 3.8, Baso % (Auto) 0.7, Absolute Neuts (auto) 2.4, Absolute Lymphs (auto) 1.08, Nucleated RBC % 0, Sodium 139, Potassium 3.7, Chloride 108 H, Carbon Dioxide 24.0, Anion Gap 7, BUN 25 H, Creatinine 1.16, Estim Creat Clear Calc 52.29, Est GFR (MDRD) Af Amer 77, Est GFR (MDRD) Non-Af 64, BUN/Creatinine Ratio 21.6 H, Glucose 144 H, Calcium 8.9 Microbiology: Microbiology 03/20/23 11:07 Urine, Catheterized Urine Culture - Final Klebsiella pneumoniae sp pneum D/C Instructions Discharge Diet: 1800 Calorie Control Diet Discharge Activity: Return to Normal Activity Call your doctor if you observe: Fever of 101 or Higher, Shortness of breath, Fainting spells and Chest pain Meaningful Use Info Meaningful Use Diagnoses (Choose all that apply): None applicable Discharge Plan Admission Admit Date/Time: 03/20/23 12:00 Attending Provider: Kenji Reed Primary Care Provider: Stephan Alvarez Discharge Orders/Prescriptions Prescriptions: New cefdinir 300 mg capsule 300 mg PO Q12H Qty: 10 0RF Continued glimepiride [Amaryl] 4 mg tablet 4 mg PO BID Januvia 100 mg tablet 100 mg PO DAILY finasteride 5 mg tablet 5 mg PO DAILY Patient Comments: PT/PT FAMILY STATED THAT THEY WERE UNSURE IF THIS MEDICATION WAS BEING TAKEN OR NOT. omega-3 acid ethyl esters 1 gram capsule 1 cap PO DAILY zinc gluconate 50 mg tablet 50 mg PO DAILY ascorbate calcium (vitamin C) 500 mg tablet 500 mg PO DAILY prevagen 1 tab PO DAILY Mounjaro 5 mg/0.5 mL pen injector 5 mg subcut TH Dupixent Pen 300 mg/2 mL pen injector 300 mg subcut QWEEK tamsulosin 0.4 MG capsule 0.4 mg PO DAILY Qty: 39 1RF vitamin B complex [B Complex-Vitamin B12] Tablet 1 tab PO DAILY aspirin 81 MG tablet 81 mg PO DAILY Referrals / Follow Up: Stephan Alvarez DO [Primary Care Provider] - Within 1 Week Disposition Disposition (needs filled in before D/C Order can be placed): Home Health Service Charges/Coding Visit Charges Inpatient E&M: 06758 Disch Hosp >30min 03/23/23 1113 <Electronically signed by Kenji Reed MD> Cosigner Signature (if applicable): CC: Dr. Kenji Reed MD; Dr. Stephan Alvarez, ~ Signed [facility] Work Phone: 1(989) 581-926308-24-2023 Progress note Author Kenji Reed [facility] March 22, 2023 9:07am Note Date/Time March 22, 2023 8: 05am [facility] Medical Records Department [address] [place] [address] Progress Note - Hospitalist 03/22/23804 MR#: [id number] Acct: [id number] Name: STEVE ADAMES Rep #:[id number] : 1940 82 From: Kenji Reed MD PCP: Dr. Stephan Alvarez, Status:ADM IN Location: [place] [id number] Reason for Visit Reason for Visit: Diagnoses Urinary tract infection, site not specified (03/20/23) Subjective Subjective Patient seen clinical condition continues to improve. Awaiting urine cultures prior to decision on disposition Objective Data Objective Data Vital Signs: Vital Signs Temp Pulse Resp BP Pulse Ox O2 Del Method O2 Flow Rate 97.6 F L 72 16 138/74 H 98 Room Air 2 03/22/23 04:43 03/22/23 04:43 03/22/23 04:43 03/22/23 04:43 03/22/23 04:43 03/22/23 04:43 03/21/23 09:39 Oxygen Flow Rate (L/min) 2 Oxygen Delivery Method Room Air Weight: 98.685 kg Body Mass Index (BMI) 30.3 Intake & Output: Intake and Output for Last 24 Hours 03/20/23 03/21/23 03/22/23 23:59 23:59 23:59 Intake Total 1910 / 2150 3340 / 3340 Output Total 300 / 600 700 / 700 Balance 1610 / 1550 2640 / 2640 Lab / Micro Data 03/22/23 05:20 03/22/23 05:20 Labs: Laboratory Results - last 24 hr 03/20/23 21:55: POC Glucose 190 H 03/21/23 06:48: Differential Comment SCANNED, Sodium 137, Potassium 4.0, Chloride 105, Carbon Dioxide 23.0, Anion Gap 9, BUN 23 H, Creatinine 1.22, EstimCreat Clear Calc 49.72, Est GFR (MDRD) Af Amer 73, Est GFR (MDRD) Non-Af 60, BUN/Creatinine Ratio 18.9, Glucose 162 H, Calcium 8.5, Phosphorus 2.5, Magnesium2.1 03/21/23 12:02: POC Glucose 254 H 03/21/23 17:04: POC Glucose 131 H 03/21/23 22:21: POC Glucose 152 H 03/22/23 05:20: WBC 5.3, RBC 4.54 L, Hgb 13.7, Hct 42.0, MCV 92.5, MCH 30.2, MCHC 32.6, RDW Std Deviation 50.0 H, RDW Coeff of Cornelio 14.7 H, Plt Count 117 L, MPV 8.5, Immature Gran % (Auto) 0.600, Neut % (Auto) 73.7 H, Lymph % (Auto) 10.5L, Holmes % (Auto) 13.5 H, Eos % (Auto) 1.3, Baso % (Auto) 0.4, Absolute Neuts (auto) 3.9, Absolute Lymphs (auto) 0.56 L, Nucleated RBC % 0, Platelet Estimate SLT DEC, Anisocytosis 1+, Sodium 134 L, Potassium 3.8, Chloride 104, Carbon Dioxide 22.0, Anion Gap 8, BUN 21 H, Creatinine 1.13, Estim Creat Clear Calc 53.68, Est GFR (MDRD) Af Amer 80, Est GFR (MDRD) Non-Af 66, BUN/Creatinine Ratio18.6, Glucose 179 H, Calcium 8.5 03/22/23 06:23: POC Glucose 201 H Rhythm Strip Rhythm Strip: Sinus Rhythm Rate: 98 Ectopy: None Physical Exam Narrative GENERAL: cooperative HEENT: Atraumatic; normocephalic EYES; Anicteric, Normal Conjunctiva NECK; supple, normal thyroid, RESPIRATORY: Diminished to auscultation CARDIOVASCULAR: Regular S1 S2, GI: soft, normoactive bowel sounds, : No Renal angle tenderness; EXTREMITIES: No edema, no clubbing, MUSCULOSKELETAL: no muscle wasting NEURO: Awake; no lateralizing signs. SKIN: No Rash PSYCH; Flat affect Assessment & Plan Assessment/Plan (1) Acute UTI: PLAN: Plan Patient is an 82-year-old gentleman presented with progressive generalized weakness. Diagnosed with cystitis admitted to regular nursing floor for furthermanagement 1. Acute cystitis ? Patient started on ceftriaxone cultures sent from the ED we will follow-up on result. Patient has slightly elevated WBC count of 12.5. Subsequent follow-up with daily CBC ordered ? 03/21/2023 urine cultures pending 2. Physical deconditioning -Secondary to above. Requested for PT OT eval and social worker aide to assist with discharge planning 3. Coronary artery disease ? With previous stent placement patient is on guideline directed medical therapy 4. Hypertension - Blood pressure controlled, home medications continued with dose adjustment as needed 5. BPH ? Patient is on tamsulosin difficulty 6. Class I obesity with BMI of 33.5 ? Patient is on Tirzepatide 7. 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 Patient creatinine close to baseline ? 03/21/2023 improvement in kidney function 8. Hyponatremia ? Secondary to hypovolemic hyponatremia on IV fluid with subsequent monitoring with daily BMPs ordered -03/21/2023 hyponatremia resolved with rehydration 9. DVT prophylaxis - On enoxaparin Time spent in the patient's overall evaluation,decision-making process, review of diagnostic data, adjustment of management, discussion with other providers, nursing nursing and ancillary staff involved in patient's care documentation, 35Minutes Charges/Coding Visit Charges Inpatient E&M: 67481 Subs Hosp L2 03/22/23 0907 <Electronically signed by Kenji Reed MD> Cosigner Signature (if applicable): CC: ~ Signed [facility] Work Phone: 1(849) 655-581508-23-2023 Progress note Author Kenji Reed [facility] March 21, 2023 8:58am Note Date/Time March 21, 2023 7: 52am [facility] Medical Records Department [address] [place] [address] Progress Note - Hospitalist 03/21/23 0749 MR#: [id number] Acct: [id number] Name: STEVE ADAMES Rep #:[id number] : 1940 82 From: Kenji Reed MD PCP: Dr. Stephan Alvarez, DO Status:ADM IN Location: [facility] [id number] Reason for Visit Reason for Visit: Diagnoses Urinary tract infection, site not specified (03/20/23) Subjective Subjective Patient is an 82-year-old gentleman presented with progressive generalized weakness. Diagnosed with cystitis admitted to regular nursing floor for furthermanagement Objective Data Objective Data Vital Signs: Vital Signs Temp Pulse Resp BP Pulse Ox O2 Del Method O2 Flow Rate 98.6 F 96 18 134/65 H 94 Room Air 2 03/21/23 03:00 03/21/23 03:00 03/21/23 03:00 03/21/23 03:00 03/21/23 03:00 03/21/23 03:00 03/20/23 22:11 Oxygen Flow Rate (L/min) 2 Oxygen Delivery Method Room Air Weight: 98.685 kg Body Mass Index (BMI) 30.3 Intake & Output: Intake and Output for Last 24 Hours 03/19/23 03/20/23 03/21/23 23:59 23:59 23:59 Intake Total 1910 / 2150 1340 / 1340 Output Total 300 / 600 300 / 300 Balance 1610 / 1550 1040 / 1040 Lab / Micro Data 03/21/23 06:48 03/21/23 06:48 Labs: Laboratory Results - last 24 hr 03/20/23 09:25: WBC Cancelled, Corrected WBC Cancelled, RBC Cancelled, Hgb Cancelled, Hct Cancelled, MCV Cancelled, MCH Cancelled, MCHC Cancelled, RDW Std Deviation Cancelled, RDW Coeff of Cornelio Cancelled, Plt Count Cancelled, MPV Cancelled, Immature Gran % (Auto) Cancelled, Neut % (Auto) Cancelled, Lymph % (Auto) Cancelled, Holmes % (Auto) Cancelled, Eos % (Auto) Cancelled, Baso % (Auto)Cancelled, Absolute Neuts (auto) Cancelled, Absolute Lymphs (auto) Cancelled, Total Counted Cancelled, Neutrophils % (Manual) Cancelled, Band Neutrophils % Cancelled, Lymphocytes % (Manual) Cancelled, Monocytes % (Manual) Cancelled, Eosinophils % (Manual) Cancelled, Basophils % (Manual) Cancelled, Metamyelocytes% Cancelled, Myelocytes % Cancelled, Promyelocytes % Cancelled, Blast Cells % Cancelled, Plasma Cell % (Manual) Cancelled, Other Cells % Cancelled, Nucleated RBC % Cancelled, Nucleated RBCs/100 WBC Cancelled, Differential Comment Cancelled, Diff Path Review Cancelled, Hypersegmented Neuts Cancelled, Atypical Lymphocytes Cancelled, Reactive Lymphocytes Cancelled, Smudge Cells Cancelled, Toxic Granulation Cancelled, Toxic Vacuolation Cancelled, Dohle Bodies Cancelled, Cj Rods Cancelled, Platelet Estimate Cancelled, Plt Morphology Comment Cancelled, RBC Morphology Cancelled 03/20/23 09:25: RBC Morphology Cancelled, Polychromasia Cancelled, HypochromasiaCancelled, Poikilocytosis Cancelled, Basophilic Stippling Cancelled, Anisocytosis Cancelled, Microcytosis Cancelled, Macrocytosis Cancelled, Spherocytes Cancelled, Sickle Cells Cancelled, Target Cells Cancelled, Tear DropCells Cancelled, Ovalocytes Cancelled, Stomatocytes Cancelled, Torres-Hindman Bodies Cancelled, [place] Cells Cancelled, Bite Cells Cancelled, Crenated Cell Cancelled, Acanthocytes (Spur) Cancelled, Rouleaux Cancelled, Schistocytes Cancelled, Sodium 131 L, Potassium 4.5, Chloride 99, Carbon Dioxide 24.0, Anion Gap 8, BUN 21 H, Creatinine 1.52 H, Estim Creat Clear Calc 36.25, Est GFR (MDRD)Af Amer 57 L, Est GFR (MDRD) Non-Af 47 L, BUN/Creatinine Ratio 13.8, Glucose 260H, Calcium 9.6 03/20/23 10:05: WBC 12.1 H, RBC 4.95, Hgb 14.9, Hct 45.0, MCV 90.9, MCH 30.1, MCHC 33.1, RDW Std Deviation 49.4 H, RDW Coeff of Cornelio 14.9 H, Plt Count 121 L, MPV 8.7, Immature Gran % (Auto) 0.700, Neut % (Auto) 87.3 H, Lymph % (Auto) 2.9 L, Holmes % (Auto) 8.9, Eos % (Auto) 0.0, Baso % (Auto) 0.2, Absolute Neuts (auto)10.6 H, Absolute Lymphs (auto) 0.35 L, Nucleated RBC % 0, Differential Comment SCANNED 03/20/23 11:07: Urine Color Yellow, Urine Clarity Sl. Cloudy, Urine pH 6.0, Ur Specific [place] 1.020, Urine Protein 100 H, Urine Glucose (UA) 50 H, Urine Ketones 50 H, Urine Occult Blood 25 H, Urine Nitrite Positive H, Urine BilirubinNegative, Urine Urobilinogen Normal, Ur Leukocyte Esterase 100 H, Urine RBC 0 SEEN, Urine WBC 25-50 SEEN, Ur Squamous Epith Cells 0 SEEN, Urine Bacteria 3+, Urine Mucus 0 SEEN 03/20/23 13:51: POC Glucose 220 H 03/20/23 16:00: POC Glucose 242 H 03/21/23 06:16: POC Glucose 162 H Radiography Diagnostic Testing: Radiology Impression Chest X-Ray 03/20/23 10:10 IMPRESSION: No radiographic evidence of acute cardiopulmonary disease. Electronically Signed: Riley Leal MD at 10:42 EDT , Rhythm Strip Rhythm Strip: Sinus Rhythm Rate: 98 Ectopy: None Physical Exam Narrative GENERAL: cooperative HEENT: Atraumatic; normocephalic EYES; Anicteric, Normal Conjunctiva NECK; supple, normal thyroid, RESPIRATORY: Diminished to auscultation CARDIOVASCULAR: Regular S1 S2, GI: soft, normoactive bowel sounds, : No Renal angle tenderness; EXTREMITIES: No edema, no clubbing, MUSCULOSKELETAL: no muscle wasting NEURO: Awake; no lateralizing signs. SKIN: No Rash PSYCH; Flat affect Assessment & Plan Assessment/Plan (1) Acute UTI: PLAN: Plan Patient is an 82-year-old gentleman presented with progressive generalized weakness. Diagnosed with cystitis admitted to regular nursing floor for furthermanagement 1. Acute cystitis ? Patient started on ceftriaxone cultures sent from the ED we will follow-up on result. Patient has slightly elevated WBC count of 12.5. Subsequent follow-up with daily CBC ordered ? 03/21/2023 urine cultures pending 2. Physical deconditioning -Secondary to above. Requested for PT OT eval and social worker aide to assist with discharge planning 3. Coronary artery disease ? With previous stent placement patient is on guideline directed medical therapy 4. Hypertension - Blood pressure controlled, home medications continued with dose adjustment as needed 5. BPH ? Patient is on tamsulosin difficulty 6. Class I obesity with BMI of 33.5 ? Patient is on Tirzepatide 7. 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 Patient creatinine close to baseline ? 03/21/2023 improvement in kidney function 8. Hyponatremia ? Secondary to hypovolemic hyponatremia on IV fluid with subsequent monitoring with daily BMPs ordered -03/21/2023 hyponatremia resolved with rehydration 9. DVT prophylaxis - On enoxaparin Time spent in the patient's overall evaluation,decision-making process, review of diagnostic data, adjustment of management, discussion with other providers, nursing nursing and ancillary staff involved in patient's care documentation, 35Minutes Charges/Coding Visit Charges Inpatient E&M: 89330 Subs Hosp L2 03/21/23 0858 <Electronically signed by eKnji Reed MD> Cosigner Signature (if applicable): CC: ~ Signed [facility] Work Phone: 1(717) 551-651408-22-2023 History and physical note Author [facility] March 20, 2023 12:30pm Note Date/Time March 20, 2023 11 :59am [facility] Medical Records Department [address] [place] [id number] H&P Exam - Hospitalist 03/20/23 1159 MR#: [id number] Acct: [id number] Name: STEVE ADAMES Rep #:[id number] : 1940 82 From: Kenji Reed MD PCP: Dr. Stephan Alvarez, DO Status:ADM IN Location: [facility] [id number] HPI - General General Date of Admission: 03/20/23 Date of Service: 03/20/23 Chief Complaint: Generalized weakness HPI Narrative STEVE ADAMES, is a 82 M who presents with generalized weakness. Patient symptoms have been ongoing for the past 2 days. In addition to generalized weakness patient was reported to be experiencing urinary incontinence as well asfrequency. Patient's suspected the patient had a UTI. Managed to convincepatient to present to the emergency department. Patient was confirmed with abnormal urinalysis started on Rocephin admitted to regular nursing floor for further manage [facility] Medical History Atherosclerosis of coronary artery of [place] heart without angina pectoris Back pain Cancer Cardiology follow-up encounter CPAP (continuous positive airway pressure) dependence Diabetes Dietary restriction Essential (primary) hypertension Fatty liver Former smoker History of pain when walking History of steroid therapy History of stress test Hyperlipidemia LDL goal <100 Leg cramps Memory deficit Obesity Osteoarthritis Rash Renal calculus, left Shortness of breath on exertion Wears glasses Wears hearing aid Home Medications sitagliptin phosphate 100 mg tablet (Januvia) 100 mg PO DAILY DIABETES 07/04/18 [History Last Taken 03/19/23] tamsulosin 0.4 mg capsule 0.4 mg PO DAILY PROSTATE #39 caps 10/25/19 [Rx Last Taken 03/19/23] glimepiride 4 mg tablet (Amaryl) 4 mg PO BID DIABETES 07/06/20 [History Last Taken 03/19/23] ascorbate calcium (vitamin C) 500 mg tablet 500 mg PO DAILY SUPPLEMENT 02/21/22 [History Last Taken 03/19/23] finasteride 5 mg tablet 5 mg PO DAILY PROSTATE 02/21/22 [History Last Taken Unknown] omega-3 acid ethyl esters 1 gram capsule 1 cap PO DAILY SUPPLEMENT 02/21/22 [History Last Taken 03/19/23] prevagen 1 tab PO DAILY MEMORY IMPROVEMENT 02/21/22 [History Last Taken 03/19/23] zinc gluconate 50 mg tablet 50 mg PO DAILY SUPPLEMENT 02/21/22 [History Last Taken 03/19/23] dupilumab 300 mg/2 mL subcutaneous pen injector (Dupixent) 300 mg subcut QWEEK ECZEMA 02/20/23 [History Last Taken 03/13/23] tirzepatide 5 mg/0.5 mL subcutaneous pen injector (Mounjaro) 5 mg subcut TH DIABETES 02/20/23 [History Last Taken 03/15/23] aspirin 81 mg tablet,delayed release 81 mg PO DAILY HEART HEALTH 03/20/23 [History Last Taken 03/19/23] vitamin B complex (B Complex-Vitamin B12 tablet) 1 tab PO DAILY SUPPLEMENT 03/20/23 [History Last Taken 03/19/23] Allergy/AdvReac Type Severity Reaction Status Date / Time metoprolol Allergy Intermediate Rash Verified 03/20/23 09:08 cephalexin Allergy Rash Verified 03/20/23 09:08 Iodinated Contrast Media Allergy Shortness Verified 03/20/23 09:08 of breath Family History Sister Cancer Brother Cancer Surgical History H/O hernia repair H/O lithotripsy History of back surgery (05/05/20) History of colectomy History of coronary artery stent placement (06/19/16) History of left heart catheterization (06/17/16) Hx of eye surgery Social History Smoking Status: Former smoker alcohol intake: never what type of physical activity do you participate in: none ROS ROS Narrative GENERAL: denies fever, chills, night sweats, weight loss, anorexia HEENT: denies headache, sinus congestion, or drainage, dysphagia RESPIRATORY: denies cough, sputum production, shortness of breath, dyspnea on exertion CARDIAC: denies chest pain, palpitations, orthopnea, PND GASTROINTESTINAL: denies abdominal pain, nausea, vomiting, melena, GENITOURINARY: Incontinence and frequency, EXTREMITY: denies swelling MUSCULOSKELETAL: denies current joint pain or tenderness NEUROLOGIC: denies focal numbness, weakness, tingling HEMATOLOGIC: denies easy bruising and/or hemorrhage INTEGUMENT: denies rashes PSYCHIATRIC: denies suicidal or homicidal ideation Vital Signs Vital Signs Vital Signs: 03/20/23 09:04 03/20/23 09:08 03/20/23 09:10 Temperature 98.0 F 98.0 F Temperature Source Temporal Temporal Pulse Rate 103 H 101 H Respiratory Rate 28 H 28 H Respiratory Effort Non-Labored Respiratory Pattern Tachypnea Blood Pressure 136/68 H 136/68 H Blood Pressure Mean 90 90 Pulse Ox 92 93 Oxygen Delivery Method Room Air Room Air 03/20/23 10:08 03/20/23 11:00 Temperature 98.7 F 99.2 F H Temperature Source Temporal Temporal Pulse Rate 102 H 93 Respiratory Rate 35 H 15 Respiratory Effort Respiratory Pattern Blood Pressure 135/81 H 135/74 H Blood Pressure Mean 99 94 Pulse Ox 93 94 Oxygen Delivery Method Room Air Room Air Weight Weight: 99.79 kg Body Mass Index (BMI) 33.4 Physical Exam Narrative GENERAL: cooperative HEENT: Atraumatic; normocephalic EYES; Anicteric, Normal Conjunctiva NECK; supple, normal thyroid, RESPIRATORY: Diminished to auscultation CARDIOVASCULAR: Regular S1 S2, GI: soft, normoactive bowel sounds, : No Renal angle tenderness; EXTREMITIES: No edema, no clubbing, MUSCULOSKELETAL: no muscle wasting NEURO: Awake; no lateralizing signs. SKIN: No Rash PSYCH; Flat affect Results Lab / Micro Data 03/20/23 10:05 03/20/23 09:25 Labs: Laboratory Results - last 24 hr 03/20/23 09:25: WBC Cancelled, Corrected WBC Cancelled, RBC Cancelled, Hgb Cancelled, Hct Cancelled, MCV Cancelled, MCH Cancelled, MCHC Cancelled, RDW Std Deviation Cancelled, RDW Coeff of Cornelio Cancelled, Plt Count Cancelled, MPV Cancelled, Immature Gran % (Auto) Cancelled, Neut % (Auto) Cancelled, Lymph % (Auto) Cancelled, Holmes % (Auto) Cancelled, Eos % (Auto) Cancelled, Baso % (Auto)Cancelled, Absolute Neuts (auto) Cancelled, Absolute Lymphs (auto) Cancelled, Total Counted Cancelled, Neutrophils % (Manual) Cancelled, Band Neutrophils % Cancelled, Lymphocytes % (Manual) Cancelled, Monocytes % (Manual) Cancelled, Eosinophils % (Manual) Cancelled, Basophils % (Manual) Cancelled, Metamyelocytes% Cancelled, Myelocytes % Cancelled, Promyelocytes % Cancelled, Blast Cells % Cancelled, Plasma Cell % (Manual) Cancelled, Other Cells % Cancelled, Nucleated RBC % Cancelled, Nucleated RBCs/100 WBC Cancelled, Differential Comment Cancelled, Diff Path Review Cancelled, Hypersegmented Neuts Cancelled, Atypical Lymphocytes Cancelled, Reactive Lymphocytes Cancelled, Smudge Cells Cancelled, Toxic Granulation Cancelled, Toxic Vacuolation Cancelled, Dohle Bodies Cancelled, Cj Rods Cancelled, Platelet Estimate Cancelled, Plt Morphology Comment Cancelled, RBC Morphology Cancelled 03/20/23 09:25: RBC Morphology Cancelled, Polychromasia Cancelled, HypochromasiaCancelled, Poikilocytosis Cancelled, Basophilic Stippling Cancelled, Anisocytosis Cancelled, Microcytosis Cancelled, Macrocytosis Cancelled, Spherocytes Cancelled, Sickle Cells Cancelled, Target Cells Cancelled, Tear DropCells Cancelled, Ovalocytes Cancelled, Stomatocytes Cancelled, Torers-Hindman Bodies Cancelled, Otilio Cells Cancelled, Bite Cells Cancelled, Crenated Cell Cancelled, Acanthocytes (Spur) Cancelled, Rouleaux Cancelled, Schistocytes Cancelled, Sodium 131 L, Potassium 4.5, Chloride 99, Carbon Dioxide 24.0, Anion Gap 8, BUN 21 H, Creatinine 1.52 H, Estim Creat Clear Calc 36.25, Est GFR (MDRD)Af Amer 57 L, Est GFR (MDRD) Non-Af 47 L, BUN/Creatinine Ratio 13.8, Glucose 260H, Calcium 9.6 03/20/23 10:05: WBC 12.1 H, RBC 4.95, Hgb 14.9, Hct 45.0, MCV 90.9, MCH 30.1, MCHC 33.1, RDW Std Deviation 49.4 H, RDW Coeff of Cornelio 14.9 H, Plt Count 121 L, MPV 8.7, Immature Gran % (Auto) 0.700, Neut % (Auto) 87.3 H, Lymph % (Auto) 2.9 L, Holmes % (Auto) 8.9, Eos % (Auto) 0.0, Baso % (Auto) 0.2, Absolute Neuts (auto)10.6 H, Absolute Lymphs (auto) 0.35 L, Nucleated RBC % 0, Differential Comment SCANNED 03/20/23 11:07: Urine Color Yellow, Urine Clarity Sl. Cloudy, Urine pH 6.0, Ur Specific [place] 1.020, Urine Protein 100 H, Urine Glucose (UA) 50 H, Urine Ketones 50 H, Urine Occult Blood 25 H, Urine Nitrite Positive H, Urine BilirubinNegative, Urine Urobilinogen Normal, Ur Leukocyte Esterase 100 H, Urine RBC 0 SEEN, Urine WBC 25-50 SEEN, Ur Squamous Epith Cells 0 SEEN, Urine Bacteria 3+, Urine Mucus 0 SEEN Rhythm Strip Rhythm Strip: Sinus Rhythm Rate: 98 Ectopy: None Radiology Impression Chest X-Ray 03/20/23 10:10 IMPRESSION: No radiographic evidence of acute cardiopulmonary disease. Electronically Signed: Riley Leal MD at 10:42 EDT , Assessment & Plan Assessment/Plan (1) Acute UTI: PLAN: Plan Patient is an 82-year-old gentleman presented with progressive generalized weakness. Diagnosed with cystitis admitted to regular nursing floor for furthermanagement 1. Acute cystitis ? Patient started on ceftriaxone cultures sent from the ED we will follow-up on result. Patient has slightly elevated WBC count of 12.5. Subsequent follow-up with daily CBC ordered 2. Physical deconditioning -Secondary to above. Requested for PT OT eval and social worker aide to assist with discharge planning 3. Coronary artery disease ? With previous stent placement patient is on guideline directed medical therapy 4. Hypertension - Blood pressure controlled, home medications continued with dose adjustment as needed 5. BPH ? Patient is on tamsulosin difficulty 6. Class I obesity with BMI of 33.5 ? Patient is on Tirzepatide 7. 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 Patient creatinine close to baseline 8. Hyponatremia ? Secondary to hypovolemic hyponatremia on IV fluid with subsequent monitoring with daily BMPs ordered 9. DVT prophylaxis - On enoxaparin Time spent in the patient's overall evaluation,decision-making process, review of diagnostic data, adjustment of management, discussion with other providers, nursing nursing and ancillary staff involved in patient's care documentation, 75 Minutes Advance planning; did discuss with the patient and family regarding advanced directives as well as CODE STATUS. Did explain the various scenarios involved (FULL CODE, DNR CCA, DNR CCA with no intubation, and DNR CC and what each meant) patient elected to remain full code with CPR and intubation if needed. Order was placed. Time spent on discussion 18 minutes. Charges/Coding Visit Charges Inpatient E&M: 49516 Init Hosp L3 Procedures Hospitalists Procedures: 87941 Advncd Care Plan 30 Min 03/20/23 1230 <Electronically signed by Kenji Reed MD> Cosigner Signature (if applicable): CC: Dr. Kenji Reed MD; Dr. Stephan Alvarez, DO~ Signed [facility] Work Phone: [phone] 234-582808-22-2023 Discharge summary Author Fausto Malone [facility] March 20, 2023 12:03pm Note Date/Time March 20, 2023 9: 25am [facility] Medical Records Department [address] [place] [address] Emergency Department Summary 03/20/23 MR#: [id number] Acct: [id number] Name: STEVE ADAMES Rep #:[id number] : 1940 82 From: Fausto Malone MD PCP: Dr. Stephan Alvarez, DO Status:REG ER Location: ED HPI History of Present Illness Chief Complaint: Weakness Detail of Chief Complaint: thinks he may have a UTI. Informant: patient and spouse/S.O. Onset/Context/Timing Onset: Today and Yesterday Context: Gradual Onset Timing: Continuous Current Severity: Mild Maximum Severity: Mild Narrative Narrative: 82-year-old male history of CAD with stents on aspirin no other blood thinners. History of diabetes, hypertension, renal insufficiency and large prostate. Wifesaid he has felt weak since yesterday. She is concerned he may have a UTI. He has had urinary frequency and at times incontinence. He has had no nausea, vomiting or diarrhea. No documented but she questions a fever. States this wasoverall weak today. She called the squad and brought him in for evaluation. Patient denies any headache, chest pain, abdominal pain or shortness of breath. Prior similar symptoms: Yes Recent Illness/Hospitalization: No PFSH PFSH Medical History Atherosclerosis of coronary artery of [place] heart without angina pectoris Back pain Cancer Cardiology follow-up encounter CPAP (continuous positive airway pressure) dependence Diabetes Dietary restriction Essential (primary) hypertension Fatty liver Former smoker History of pain when walking History of steroid therapy History of stress test Hyperlipidemia LDL goal <100 Leg cramps Memory deficit Obesity Osteoarthritis Rash Renal calculus, left Shortness of breath on exertion Wears glasses Wears hearing aid Home Medications aspirin 81 mg tablet,delayed release 81 mg PO DAILY@0800 06/18/16 [Rx Last Taken 07/06/16] nitroglycerin 0.4 mg sublingual tablet 0.4 mg sublingual Q5M PRN Chest Pain #0 tabs 06/18/16 [Rx Last Taken 06/21/16] sitagliptin phosphate 100 mg tablet (Januvia) 100 mg PO DAILY 07/04/18 [History Last Taken Unknown] vitamin B complex (B Complex-Vitamin B12 tablet) 1 tab PO DAILY 07/04/18 [History Last Taken Unknown] tamsulosin 0.4 mg capsule 0.4 mg PO DAILY #39 caps 10/25/19 [Rx Last Taken Unknown] glimepiride 4 mg tablet (Amaryl) 4 mg PO BID 07/06/20 [History Last Taken Unknown] ascorbate calcium (vitamin C) 500 mg tablet 1 g PO DAILY 02/21/22 [History Last Taken Unknown] finasteride 5 mg tablet 5 mg PO DAILY 02/21/22 [History Last Taken Unknown] omega-3 acid ethyl esters 1 gram capsule 1 cap PO DAILY 02/21/22 [History Last Taken Unknown] prevagen 1 tab PO DAILY 02/21/22 [History Last Taken Unknown] zinc gluconate 50 mg tablet 50 mg PO DAILY 02/21/22 [History Last Taken Unknown] dupilumab 300 mg/2 mL subcutaneous pen injector (Dupixent) 300 mg subcut QWEEK 02/20/23 [History Last Taken Unknown] tirzepatide 5 mg/0.5 mL subcutaneous pen injector (Mounjaro) 5 mg subcut QWEEK 02/20/23 [History Last Taken Unknown] Allergy/AdvReac Type Severity Reaction Status Date / Time metoprolol Allergy Intermediate Rash Verified 03/20/23 09:08 cephalexin Allergy Rash Verified 03/20/23 09:08 Iodinated Contrast Media Allergy Shortness Verified 03/20/23 09:08 of breath Family History Sister Cancer Brother Cancer Surgical History H/O hernia repair H/O lithotripsy History of back surgery (05/05/20) History of colectomy History of coronary artery stent placement (06/19/16) History of left heart catheterization (06/17/16) Hx of eye surgery Social History Smoking Status: Former smoker alcohol intake: never what type of physical activity do you participate in: none ROS ROS ED ROS Narrative Generalized weakness. Denies vomiting or diarrhea. Denies cough or shortness of breath. Review of Systems ROS Unobtainable: Denies due to encephalopathy Constitutional Constitutional ED: Reports fever(s) and subjective; Denies chills Eyes Eyes: Denies blurry vision ENT ENT ED: Denies ear pain Cardiovascular Cardiovascular: Denies chest pain Respiratory/Chest Respiratory/Chest: Denies cough or dyspnea Gastrointestinal Gastrointestinal: Denies abdominal pain, constipation, diarrhea, melena, nausea or vomiting Genitourinary Genitourinary ED: Reports urinary frequency; Denies dysuria or hematuria Musculoskeletal Musculoskeletal: Denies arthralgias, back pain or myalgias Integumentary Denies abscess or Abrasions Neurologic Neurologic: Denies headache(s) Psychiatric Psychiatric: Denies anxiety or depression Endocrine Endocrinology: Denies cold intolerance Hematologic/Lymphatic Hematologic/Lymphatic: Reports none Allergic/Immunologic Allergic/Immunologic ED: Denies mouth swelling or tongue swelling EXAM Physical Exam Narrative Exam Narrative: 82-year-old male vital signs stable afebrile he does not look septic toxic is nodistress. at bedside. H EENT exam unjam is members. Neck nontender. No lymphadenopathy. Lungs clear to auscultation bilaterally. Heart regular rhythmrate about 100 no murmur. Abdomen soft nontender. Normal bowel sounds no peritoneal signs. No distention. Moving all 4 extremities. 5 out of 5 medical researcher strength. Dorsi plantarflexion intact. Equal and symmetrical. Nontender no edema.. Neurologically is awake and alert with no focal motor deficits. Answering questions following commands. Const Vital Signs: 03/20/23 09:04 03/20/23 09:08 03/20/23 09:10 Temperature 98.0 F 98.0 F Temperature Source Temporal Temporal Pulse Rate 103 H 101 H Respiratory Rate 28 H 28 H Respiratory Effort Non-Labored Respiratory Pattern Tachypnea Blood Pressure 136/68 H 136/68 H Blood Pressure Mean 90 90 Pulse Ox 92 93 Oxygen Delivery Method Room Air Room Air 03/20/23 10:08 03/20/23 11:00 Temperature 98.7 F 99.2 F H Temperature Source Temporal Temporal Pulse Rate 102 H 93 Respiratory Rate 35 H 15 Respiratory Effort Respiratory Pattern Blood Pressure 135/81 H 135/74 H Blood Pressure Mean 99 94 Pulse Ox 93 94 Oxygen Delivery Method Room Air Room Air Positive well nourished and well developed; Negative for cachectic, contracturesor unkempt General Appearance ED: well developed and NAD; Negative for unkempt, cachectic, contractures, cyanotic, diaphoretic or pallor Nutritional Appearance: Negative for cachectic HEENT Reports dry mucous membranes; Denies moist mucous membranes Negative for trauma or tenderness Mouth ED: Yes dry mucous membranes Mouth: dry mucous membranes Eyes PERRL and EOMs intact bilaterally General Eye ED: Negative for pale conjunctiva or scleral icterus Neck no lymphadenopathy, supple and no JVD General: Negative for tenderness Lymph Lymphatic: Negative for other Chest Wall inspection of chest normal and palpation of chest normal Chest: Negative for other Resp normal respiratory effort and clear to auscultation bilaterally Effort and Inspection: Negative for retractions Auscultation: Negative for rales, rhonchi or wheezes Cardio regular rate, regular rhythm, S1 normal heart sound, S2 normal heart sound and no murmurs Palpation: Negative for palpable S3 or palpable S4 Rate: Negative for bradycardia Rhythm: Negative for abnormal rhythm GI normal to inspection, nondistended, normoactive bowel sounds, non-tender, non-distended and no masses Inspection: Negative for abdominal distention Auscultation: normoactive bowel sounds Palpation: soft; Negative for tender or guarding Bladder / Kidney Exam: No other Back/Spine no CVA tenderness General Back: Negative for CVA tenderness Cervical Spine: Negative for cervical spine tenderness Thoracic Spine / Upper Back: Negative for thoracic spinal tenderness Lumbar Spine / Lower Back: Negative for lumbar spinal tenderness Extremity normal to inspection General Extremety ED: Negative for edema or tenderness General Extremity: Negative for edema Neuro oriented x3 and CN's II-XII intact bilaterally Sensorium / Orientation: alert; Negative for orientation impaired, lethargic or stuporous Motor Exam: strength 5/5 throughout Psych Appearance: Negative for unkempt Attitude: No agitated Mood & Affect: Negative for depressed Skin no rashes or lesions noted and no wounds General Skin Exam: Negative for jaundice or pallor Lesions: No lesion noted Rashes: No rashes noted Trauma: Negative for abrasion Wounds: Negative for wounds noted MDM MDM MDM Narrative Medical decision making narrative: 82-year-old male complaint generalized weakness. believes he may have a UTI. Screening labs are being obtained. Exam benign. He will be ambulated to ensure that he is strong enough to walk. Patient doing well at 10:50 AM. Awaiting urinalysis. He and his and I went over his current test results. Analysis did return is positive for UTI. Urine culture sent. He will be started on IV Rocephin. Patient says he does not know of any antibiotic allergies. He has Keflex listed but his said he had a rash years ago and he said he was allergic to a lot of different things but they do not think he is. I have already spoken to the hospitalist about admission. History & Record Review Discussion w/independent historian: Patient and Family Additional record(s) reviewed:: Prior inpatient record, Prior outpatient record,Prior ED visit and Prior labs Lab Data Attestation: I reviewed the patient's lab results. Lab results narrative: CBC shows a white count 12.1. H&H of 14.9 and 45. Platelets 121 and low. Electrolytes show a sodium of 131. Gap of 8. BUN and creatinine of 21 and 1.52. Has a history of renal insufficiency and that is his baseline creatinine. Glucose is 260. Chest x-ray is unremarkable. Chronic changes. Bladder scan was only 8 mL. Patient's had some incontinence. Nurses will straight cathing for urine after his IV fluid bolus. Urinalysis is positive for nitrites, 25-50 white cells and 3+ bacteria. A culture was ordered. Labs: Laboratory Results - last 24 hr 03/20/23 03/20/23 03/20/23 09:25 09:25 10:05 WBC Cancelled 12.1 H Corrected WBC Cancelled RBC Cancelled 4.95 Hgb Cancelled 14.9 Hct Cancelled 45.0 MCV Cancelled 90.9 MCH Cancelled 30.1 MCHC Cancelled 33.1 RDW Std Deviation Cancelled 49.4 H RDW Coeff of Cornelio Cancelled 14.9 H Plt Count Cancelled 121 L MPV Cancelled 8.7 Immature Gran % (Auto) Cancelled 0.700 Neut % (Auto) Cancelled 87.3 H Lymph % (Auto) Cancelled 2.9 L Holmes % (Auto) Cancelled 8.9 Eos % (Auto) Cancelled 0.0 Baso % (Auto) Cancelled 0.2 Absolute Neuts (auto) Cancelled 10.6 H Absolute Lymphs (auto) Cancelled 0.35 L Total Counted Cancelled Neutrophils % (Manual) Cancelled Band Neutrophils % Cancelled Lymphocytes % (Manual) Cancelled Monocytes % (Manual) Cancelled Eosinophils % (Manual) Cancelled Basophils % (Manual) Cancelled Metamyelocytes % Cancelled Myelocytes % Cancelled Promyelocytes % Cancelled Blast Cells % Cancelled Plasma Cell % (Manual) Cancelled Other Cells % Cancelled Nucleated RBC % Cancelled 0 Nucleated RBCs/100 WBC Cancelled Differential Comment Cancelled SCANNED Diff Path Review Cancelled Hypersegmented Neuts Cancelled Atypical Lymphocytes Cancelled Reactive Lymphocytes Cancelled Smudge Cells Cancelled Toxic Granulation Cancelled Toxic Vacuolation Cancelled Dohle Bodies Cancelled Cj Rods Cancelled Platelet Estimate Cancelled Plt Morphology Comment Cancelled RBC Morphology Cancelled Cancelled Polychromasia Cancelled Hypochromasia Cancelled Poikilocytosis Cancelled Basophilic Stippling Cancelled Anisocytosis Cancelled Microcytosis Cancelled Macrocytosis Cancelled Spherocytes Cancelled Sickle Cells Cancelled Target Cells Cancelled Tear Drop Cells Cancelled Ovalocytes Cancelled Stomatocytes Cancelled Torres-Hindman Bodies Cancelled [place] Cells Cancelled Bite Cells Cancelled Crenated Cell Cancelled Acanthocytes (Spur) Cancelled Rouleaux Cancelled Schistocytes Cancelled Sodium 131 L Potassium 4.5 Chloride 99 Carbon Dioxide 24.0 Anion Gap 8 BUN 21 H Creatinine 1.52 H Estim Creat Clear Calc 36.25 Est GFR (MDRD) Af Amer 57 L Est GFR (MDRD) Non-Af 47 L BUN/Creatinine Ratio 13.8 Glucose 260 H Calcium 9.6 Urine Color Urine Clarity Urine pH Ur Specific [place] Urine Protein Urine Glucose (UA) Urine Ketones Urine Occult Blood Urine Nitrite Urine Bilirubin Urine Urobilinogen Ur Leukocyte Esterase Urine RBC Urine WBC Ur Squamous Epith Cells Urine Bacteria Urine Mucus 03/20/23 11:07 WBC Corrected WBC RBC Hgb Hct MCV MCH MCHC RDW Std Deviation RDW Coeff of Cornelio Plt Count MPV Immature Gran % (Auto) Neut % (Auto) Lymph % (Auto) Holmes % (Auto) Eos % (Auto) Baso % (Auto) Absolute Neuts (auto) Absolute Lymphs (auto) Total Counted Neutrophils % (Manual) Band Neutrophils % Lymphocytes % (Manual) Monocytes % (Manual) Eosinophils % (Manual) Basophils % (Manual) Metamyelocytes % Myelocytes % Promyelocytes % Blast Cells % Plasma Cell % (Manual) Other Cells % Nucleated RBC % Nucleated RBCs/100 WBC Differential Comment Diff Path Review Hypersegmented Neuts Atypical Lymphocytes Reactive Lymphocytes Smudge Cells Toxic Granulation Toxic Vacuolation Dohle Bodies Cj Rods Platelet Estimate Plt Morphology Comment RBC Morphology Polychromasia Hypochromasia Poikilocytosis Basophilic Stippling Anisocytosis Microcytosis Macrocytosis Spherocytes Sickle Cells Target Cells Tear Drop Cells Ovalocytes Stomatocytes Torres-Hindman Bodies Otilio Cells Bite Cells Crenated Cell Acanthocytes (Spur) Rouleaux Schistocytes Sodium Potassium Chloride Carbon Dioxide Anion Gap BUN Creatinine Estim Creat Clear Calc Est GFR (MDRD) Af Amer Est GFR (MDRD) Non-Af BUN/Creatinine Ratio Glucose Calcium Urine Color Yellow Urine Clarity Sl. Cloudy Urine pH 6.0 Ur Specific [place] 1.020 Urine Protein 100 H Urine Glucose (UA) 50 H Urine Ketones 50 H Urine Occult Blood 25 H Urine Nitrite Positive H Urine Bilirubin Negative Urine Urobilinogen Normal Ur Leukocyte Esterase 100 H Urine RBC 0 SEEN Urine WBC 25-50 SEEN Ur Squamous Epith Cells 0 SEEN Urine Bacteria 3+ Urine Mucus 0 SEEN Radiography Chest X-Ray - ED: 1 View, Read by ED Physician, Heart, Lungs, Mediastinum, Bony Structures, No Acute Disease and Chronic Changes Diagnostic Testing: Clinical Impression(s) from Imaging Studies Chest X-Ray 03/20/23 10:10 IMPRESSION: No radiographic evidence of acute cardiopulmonary disease. Electronically Signed: Riley Leal MD at 10:42 EDT Reading Location ID and State: [facility] / [place] Tel , Service support , Chest x-ray, portable, single view shows no acute abnormality. Elevated right hemidiaphragm. No infiltrate. Normal cardiac silhouette mediastinum. Interpreted by myself. Rhythm Strip Rhythm Strip: Sinus Rhythm Rate: 98 Ectopy: None EKG Initial EKG: Attestation: I personally reviewed and interpreted this EKG as follows: Interpretation: Sinus Rhythm and No Acute Injury Pattern Comments: Normal sinus rhythm rate of 98 no acute signs of HI. Prior anterolateral infarct inverted T waves in leads I, and aVL. Discharge Plan Triage Chief Complaint: Weakness Other Complaint: Complaint ED Provider: Fausto Malone Dx/Rx/DC Orders Clinical Impression: History of renal insufficiency, Generalized weakness, Acute UTI, History of diabetes mellitus Prescriptions: No Action glimepiride [Amaryl] 4 mg tablet 4 mg PO BID Januvia 100 mg tablet 100 mg PO DAILY vitamin B complex tablet tablet 1 tab PO DAILY finasteride 5 mg tablet 5 mg PO DAILY Patient Comments: TAKE 1 TABLET BY MOUTH EVERY DAY omega-3 acid ethyl esters 1 gram capsule 1 cap PO DAILY zinc gluconate 50 mg tablet 50 mg PO DAILY ascorbate calcium (vitamin C) 500 mg tablet 1 g PO DAILY prevagen 1 tab PO DAILY Mounjaro 5 mg/0.5 mL pen injector 5 mg subcut QWEEK Dupixent Pen 300 mg/2 mL pen injector 300 mg subcut QWEEK aspirin 81 MG tablet 81 mg PO DAILY@0800 0RF nitroglycerin 0.4 MG tablet 0.4 mg SUBLINGUAL Q5M PRN (Reason: Chest Pain) Qty: 0 0RF Patient Comments: CHEST PAIN tamsulosin 0.4 MG capsule 0.4 mg PO DAILY Qty: 39 1RF Primary Care Provider: Stephan Alvarez Referrals: Stephan Alvarez DO [Primary Care Provider] - Disposition Disposition: Acute Care Hospital [facility] What to do if you have Problems For any increased pain, shortness of breath, bleeding, nausea or vomiting, chestpain, or any unexpected problems, contact your Primary Care Provider. Call [facility] ([phone]) or report to the closest Emergency Room. Call 911 if necessary. 03/20/23 1203 <Electronically signed by Fausto Malone MD> Cosigner Signature (if applicable): CC: Dr. Stephan Alvarez DO ~ Signed [facility] Work Phone: 1(875) 659-271908-22-2023 Discharge summary Author Fausto Malone [facility] March 20, 2023 12:03pm Note Date/Time March 20, 2023 9: 25am [facility] Medical Records Department [address] [place] [address] Emergency Department Summary 03/20/23 MR#: [id number] Acct: [id number] Name: STEVE ADAMES Rep #:[id number] : 1940 82 From: Fausto Malone MD PCP: Dr. Stephan Alvarez, DO Status:REG ER Location: ED HPI History of Present Illness Chief Complaint: Weakness Detail of Chief Complaint: thinks he may have a UTI. Informant: patient and spouse/S.O. Onset/Context/Timing Onset: Today and Yesterday Context: Gradual Onset Timing: Continuous Current Severity: Mild Maximum Severity: Mild Narrative Narrative: 82-year-old male history of CAD with stents on aspirin no other blood thinners. History of diabetes, hypertension, renal insufficiency and large prostate. Wifesaid he has felt weak since yesterday. She is concerned he may have a UTI. He has had urinary frequency and at times incontinence. He has had no nausea, vomiting or diarrhea. No documented but she questions a fever. States this wasoverall weak today. She called the squad and brought him in for evaluation. Patient denies any headache, chest pain, abdominal pain or shortness of breath. Prior similar symptoms: Yes Recent Illness/Hospitalization: No PFSH PFSH Medical History Atherosclerosis of coronary artery of [place] heart without angina pectoris Back pain Cancer Cardiology follow-up encounter CPAP (continuous positive airway pressure) dependence Diabetes Dietary restriction Essential (primary) hypertension Fatty liver Former smoker History of pain when walking History of steroid therapy History of stress test Hyperlipidemia LDL goal <100 Leg cramps Memory deficit Obesity Osteoarthritis Rash Renal calculus, left Shortness of breath on exertion Wears glasses Wears hearing aid Home Medications aspirin 81 mg tablet,delayed release 81 mg PO DAILY@0800 06/18/16 [Rx Last Taken 07/06/16] nitroglycerin 0.4 mg sublingual tablet 0.4 mg sublingual Q5M PRN Chest Pain #0 tabs 06/18/16 [Rx Last Taken 06/21/16] sitagliptin phosphate 100 mg tablet (Januvia) 100 mg PO DAILY 07/04/18 [History Last Taken Unknown] vitamin B complex (B Complex-Vitamin B12 tablet) 1 tab PO DAILY 07/04/18 [History Last Taken Unknown] tamsulosin 0.4 mg capsule 0.4 mg PO DAILY #39 caps 10/25/19 [Rx Last Taken Unknown] glimepiride 4 mg tablet (Amaryl) 4 mg PO BID 07/06/20 [History Last Taken Unknown] ascorbate calcium (vitamin C) 500 mg tablet 1 g PO DAILY 02/21/22 [History Last Taken Unknown] finasteride 5 mg tablet 5 mg PO DAILY 02/21/22 [History Last Taken Unknown] omega-3 acid ethyl esters 1 gram capsule 1 cap PO DAILY 02/21/22 [History Last Taken Unknown] prevagen 1 tab PO DAILY 02/21/22 [History Last Taken Unknown] zinc gluconate 50 mg tablet 50 mg PO DAILY 02/21/22 [History Last Taken Unknown] dupilumab 300 mg/2 mL subcutaneous pen injector (Dupixent) 300 mg subcut QWEEK 02/20/23 [History Last Taken Unknown] tirzepatide 5 mg/0.5 mL subcutaneous pen injector (Mounjaro) 5 mg subcut QWEEK 02/20/23 [History Last Taken Unknown] Allergy/AdvReac Type Severity Reaction Status Date / Time metoprolol Allergy Intermediate Rash Verified 03/20/23 09:08 cephalexin Allergy Rash Verified 03/20/23 09:08 Iodinated Contrast Media Allergy Shortness Verified 03/20/23 09:08 of breath Family History Sister Cancer Brother Cancer Surgical History H/O hernia repair H/O lithotripsy History of back surgery (05/05/20) History of colectomy History of coronary artery stent placement (06/19/16) History of left heart catheterization (06/17/16) Hx of eye surgery Social History Smoking Status: Former smoker alcohol intake: never what type of physical activity do you participate in: none ROS ROS ED ROS Narrative Generalized weakness. Denies vomiting or diarrhea. Denies cough or shortness of breath. Review of Systems ROS Unobtainable: Denies due to encephalopathy Constitutional Constitutional ED: Reports fever(s) and subjective; Denies chills Eyes Eyes: Denies blurry vision ENT ENT ED: Denies ear pain Cardiovascular Cardiovascular: Denies chest pain Respiratory/Chest Respiratory/Chest: Denies cough or dyspnea Gastrointestinal Gastrointestinal: Denies abdominal pain, constipation, diarrhea, melena, nausea or vomiting Genitourinary Genitourinary ED: Reports urinary frequency; Denies dysuria or hematuria Musculoskeletal Musculoskeletal: Denies arthralgias, back pain or myalgias Integumentary Denies abscess or Abrasions Neurologic Neurologic: Denies headache(s) Psychiatric Psychiatric: Denies anxiety or depression Endocrine Endocrinology: Denies cold intolerance Hematologic/Lymphatic Hematologic/Lymphatic: Reports none Allergic/Immunologic Allergic/Immunologic ED: Denies mouth swelling or tongue swelling EXAM Physical Exam Narrative Exam Narrative: 82-year-old male vital signs stable afebrile he does not look septic toxic is nodistress. at bedside. H EENT exam unjam is members. Neck nontender. No lymphadenopathy. Lungs clear to auscultation bilaterally. Heart regular rhythmrate about 100 no murmur. Abdomen soft nontender. Normal bowel sounds no peritoneal signs. No distention. Moving all 4 extremities. 5 out of 5 medical researcher strength. Dorsi plantarflexion intact. Equal and symmetrical. Nontender no edema.. Neurologically is awake and alert with no focal motor deficits. Answering questions following commands. Const Vital Signs: 03/20/23 09:04 03/20/23 09:08 03/20/23 09:10 Temperature 98.0 F 98.0 F Temperature Source Temporal Temporal Pulse Rate 103 H 101 H Respiratory Rate 28 H 28 H Respiratory Effort Non-Labored Respiratory Pattern Tachypnea Blood Pressure 136/68 H 136/68 H Blood Pressure Mean 90 90 Pulse Ox 92 93 Oxygen Delivery Method Room Air Room Air 03/20/23 10:08 03/20/23 11:00 Temperature 98.7 F 99.2 F H Temperature Source Temporal Temporal Pulse Rate 102 H 93 Respiratory Rate 35 H 15 Respiratory Effort Respiratory Pattern Blood Pressure 135/81 H 135/74 H Blood Pressure Mean 99 94 Pulse Ox 93 94 Oxygen Delivery Method Room Air Room Air Positive well nourished and well developed; Negative for cachectic, contracturesor unkempt General Appearance ED: well developed and NAD; Negative for unkempt, cachectic, contractures, cyanotic, diaphoretic or pallor Nutritional Appearance: Negative for cachectic HEENT Reports dry mucous membranes; Denies moist mucous membranes Negative for trauma or tenderness Mouth ED: Yes dry mucous membranes Mouth: dry mucous membranes Eyes PERRL and EOMs intact bilaterally General Eye ED: Negative for pale conjunctiva or scleral icterus Neck no lymphadenopathy, supple and no JVD General: Negative for tenderness Lymph Lymphatic: Negative for other Chest Wall inspection of chest normal and palpation of chest normal Chest: Negative for other Resp normal respiratory effort and clear to auscultation bilaterally Effort and Inspection: Negative for retractions Auscultation: Negative for rales, rhonchi or wheezes Cardio regular rate, regular rhythm, S1 normal heart sound, S2 normal heart sound and no murmurs Palpation: Negative for palpable S3 or palpable S4 Rate: Negative for bradycardia Rhythm: Negative for abnormal rhythm GI normal to inspection, nondistended, normoactive bowel sounds, non-tender, non-distended and no masses Inspection: Negative for abdominal distention Auscultation: normoactive bowel sounds Palpation: soft; Negative for tender or guarding Bladder / Kidney Exam: No other Back/Spine no CVA tenderness General Back: Negative for CVA tenderness Cervical Spine: Negative for cervical spine tenderness Thoracic Spine / Upper Back: Negative for thoracic spinal tenderness Lumbar Spine / Lower Back: Negative for lumbar spinal tenderness Extremity normal to inspection General Extremety ED: Negative for edema or tenderness General Extremity: Negative for edema Neuro oriented x3 and CN's II-XII intact bilaterally Sensorium / Orientation: alert; Negative for orientation impaired, lethargic or stuporous Motor Exam: strength 5/5 throughout Psych Appearance: Negative for unkempt Attitude: No agitated Mood & Affect: Negative for depressed Skin no rashes or lesions noted and no wounds General Skin Exam: Negative for jaundice or pallor Lesions: No lesion noted Rashes: No rashes noted Trauma: Negative for abrasion Wounds: Negative for wounds noted MDM MDM MDM Narrative Medical decision making narrative: 82-year-old male complaint generalized weakness. believes he may have a UTI. Screening labs are being obtained. Exam benign. He will be ambulated to ensure that he is strong enough to walk. Patient doing well at 10:50 AM. Awaiting urinalysis. He and his and I went over his current test results. Analysis did return is positive for UTI. Urine culture sent. He will be started on IV Rocephin. Patient says he does not know of any antibiotic allergies. He has Keflex listed but his said he had a rash years ago and he said he was allergic to a lot of different things but they do not think he is. I have already spoken to the hospitalist about admission. History & Record Review Discussion w/independent historian: Patient and Family Additional record(s) reviewed:: Prior inpatient record, Prior outpatient record,Prior ED visit and Prior labs Lab Data Attestation: I reviewed the patient's lab results. Lab results narrative: CBC shows a white count 12.1. H&H of 14.9 and 45. Platelets 121 and low. Electrolytes show a sodium of 131. Gap of 8. BUN and creatinine of 21 and 1.52. Has a history of renal insufficiency and that is his baseline creatinine. Glucose is 260. Chest x-ray is unremarkable. Chronic changes. Bladder scan was only 8 mL. Patient's had some incontinence. Nurses will straight cathing for urine after his IV fluid bolus. Urinalysis is positive for nitrites, 25-50 white cells and 3+ bacteria. A culture was ordered. Labs: Laboratory Results - last 24 hr 03/20/23 03/20/23 03/20/23 09:25 09:25 10:05 WBC Cancelled 12.1 H Corrected WBC Cancelled RBC Cancelled 4.95 Hgb Cancelled 14.9 Hct Cancelled 45.0 MCV Cancelled 90.9 MCH Cancelled 30.1 MCHC Cancelled 33.1 RDW Std Deviation Cancelled 49.4 H RDW Coeff of Cornelio Cancelled 14.9 H Plt Count Cancelled 121 L MPV Cancelled 8.7 Immature Gran % (Auto) Cancelled 0.700 Neut % (Auto) Cancelled 87.3 H Lymph % (Auto) Cancelled 2.9 L Holmes % (Auto) Cancelled 8.9 Eos % (Auto) Cancelled 0.0 Baso % (Auto) Cancelled 0.2 Absolute Neuts (auto) Cancelled 10.6 H Absolute Lymphs (auto) Cancelled 0.35 L Total Counted Cancelled Neutrophils % (Manual) Cancelled Band Neutrophils % Cancelled Lymphocytes % (Manual) Cancelled Monocytes % (Manual) Cancelled Eosinophils % (Manual) Cancelled Basophils % (Manual) Cancelled Metamyelocytes % Cancelled Myelocytes % Cancelled Promyelocytes % Cancelled Blast Cells % Cancelled Plasma Cell % (Manual) Cancelled Other Cells % Cancelled Nucleated RBC % Cancelled 0 Nucleated RBCs/100 WBC Cancelled Differential Comment Cancelled SCANNED Diff Path Review Cancelled Hypersegmented Neuts Cancelled Atypical Lymphocytes Cancelled Reactive Lymphocytes Cancelled Smudge Cells Cancelled Toxic Granulation Cancelled Toxic Vacuolation Cancelled Dohle Bodies Cancelled Cj Rods Cancelled Platelet Estimate Cancelled Plt Morphology Comment Cancelled RBC Morphology Cancelled Cancelled Polychromasia Cancelled Hypochromasia Cancelled Poikilocytosis Cancelled Basophilic Stippling Cancelled Anisocytosis Cancelled Microcytosis Cancelled Macrocytosis Cancelled Spherocytes Cancelled Sickle Cells Cancelled Target Cells Cancelled Tear Drop Cells Cancelled Ovalocytes Cancelled Stomatocytes Cancelled Torres-Hindman Bodies Cancelled Otilio Cells Cancelled Bite Cells Cancelled Crenated Cell Cancelled Acanthocytes (Spur) Cancelled Rouleaux Cancelled Schistocytes Cancelled Sodium 131 L Potassium 4.5 Chloride 99 Carbon Dioxide 24.0 Anion Gap 8 BUN 21 H Creatinine 1.52 H Estim Creat Clear Calc 36.25 Est GFR (MDRD) Af Amer 57 L Est GFR (MDRD) Non-Af 47 L BUN/Creatinine Ratio 13.8 Glucose 260 H Calcium 9.6 Urine Color Urine Clarity Urine pH Ur Specific [place] Urine Protein Urine Glucose (UA) Urine Ketones Urine Occult Blood Urine Nitrite Urine Bilirubin Urine Urobilinogen Ur Leukocyte Esterase Urine RBC Urine WBC Ur Squamous Epith Cells Urine Bacteria Urine Mucus 03/20/23 11:07 WBC Corrected WBC RBC Hgb Hct MCV MCH MCHC RDW Std Deviation RDW Coeff of Cornelio Plt Count MPV Immature Gran % (Auto) Neut % (Auto) Lymph % (Auto) Holmes % (Auto) Eos % (Auto) Baso % (Auto) Absolute Neuts (auto) Absolute Lymphs (auto) Total Counted Neutrophils % (Manual) Band Neutrophils % Lymphocytes % (Manual) Monocytes % (Manual) Eosinophils % (Manual) Basophils % (Manual) Metamyelocytes % Myelocytes % Promyelocytes % Blast Cells % Plasma Cell % (Manual) Other Cells % Nucleated RBC % Nucleated RBCs/100 WBC Differential Comment Diff Path Review Hypersegmented Neuts Atypical Lymphocytes Reactive Lymphocytes Smudge Cells Toxic Granulation Toxic Vacuolation Dohle Bodies Cj Rods Platelet Estimate Plt Morphology Comment RBC Morphology Polychromasia Hypochromasia Poikilocytosis Basophilic Stippling Anisocytosis Microcytosis Macrocytosis Spherocytes Sickle Cells Target Cells Tear Drop Cells Ovalocytes Stomatocytes Torres-Hindman Bodies Otilio Cells Bite Cells Crenated Cell Acanthocytes (Spur) Rouleaux Schistocytes Sodium Potassium Chloride Carbon Dioxide Anion Gap BUN Creatinine Estim Creat Clear Calc Est GFR (MDRD) Af Amer Est GFR (MDRD) Non-Af BUN/Creatinine Ratio Glucose Calcium Urine Color Yellow Urine Clarity Sl. Cloudy Urine pH 6.0 Ur Specific [place] 1.020 Urine Protein 100 H Urine Glucose (UA) 50 H Urine Ketones 50 H Urine Occult Blood 25 H Urine Nitrite Positive H Urine Bilirubin Negative Urine Urobilinogen Normal Ur Leukocyte Esterase 100 H Urine RBC 0 SEEN Urine WBC 25-50 SEEN Ur Squamous Epith Cells 0 SEEN Urine Bacteria 3+ Urine Mucus 0 SEEN Radiography Chest X-Ray - ED: 1 View, Read by ED Physician, Heart, Lungs, Mediastinum, Bony Structures, No Acute Disease and Chronic Changes Diagnostic Testing: Clinical Impression(s) from Imaging Studies Chest X-Ray 03/20/23 10:10 IMPRESSION: No radiographic evidence of acute cardiopulmonary disease. Electronically Signed: Riley Leal MD at 10:42 EDT , Chest x-ray, portable, single view shows no acute abnormality. Elevated right hemidiaphragm. No infiltrate. Normal cardiac silhouette mediastinum. Interpreted by myself. Rhythm Strip Rhythm Strip: Sinus Rhythm Rate: 98 Ectopy: None EKG Initial EKG: Attestation: I personally reviewed and interpreted this EKG as follows: Interpretation: Sinus Rhythm and No Acute Injury Pattern Comments: Normal sinus rhythm rate of 98 no acute signs of HI. Prior anterolateral infarct inverted T waves in leads I, and aVL. Discharge Plan Triage Chief Complaint: Weakness Other Complaint: Complaint ED Provider: Fausto Malone Dx/Rx/DC Orders Clinical Impression: History of renal insufficiency, Generalized weakness, Acute UTI, History of diabetes mellitus Prescriptions: No Action glimepiride [Amaryl] 4 mg tablet 4 mg PO BID Januvia 100 mg tablet 100 mg PO DAILY vitamin B complex tablet tablet 1 tab PO DAILY finasteride 5 mg tablet 5 mg PO DAILY Patient Comments: TAKE 1 TABLET BY MOUTH EVERY DAY omega-3 acid ethyl esters 1 gram capsule 1 cap PO DAILY zinc gluconate 50 mg tablet 50 mg PO DAILY ascorbate calcium (vitamin C) 500 mg tablet 1 g PO DAILY prevagen 1 tab PO DAILY Mounjaro 5 mg/0.5 mL pen injector 5 mg subcut QWEEK Dupixent Pen 300 mg/2 mL pen injector 300 mg subcut QWEEK aspirin 81 MG tablet 81 mg PO DAILY@0800 0RF nitroglycerin 0.4 MG tablet 0.4 mg SUBLINGUAL Q5M PRN (Reason: Chest Pain) Qty: 0 0RF Patient Comments: CHEST PAIN tamsulosin 0.4 MG capsule 0.4 mg PO DAILY Qty: 39 1RF Primary Care Provider: Stephan Alvarez Referrals: Stephan Alvarez DO [Primary Care Provider] - Disposition Disposition: Acute Care Hospital [facility] What to do if you have Problems For any increased pain, shortness of breath, bleeding, nausea or vomiting, chestpain, or any unexpected problems, contact your Primary Care Provider. Call [facility] ([phone]) or report to the closest Emergency Room. Call 911 if necessary. 03/20/23 1203 <Electronically signed by Fausto Malone MD> Cosigner Signature (if applicable): CC: Dr. Stephan Alvarez DO ~ Signed [facility] Work Phone: 1(108) 289-454611-21-2016 Evaluation note* Diagnosis Onset Date Resolution Status Essential (primary) hypertension chronic Hyperlipidemia LDL goal <100 chronic History of coronary artery stent placement June 192015 resolved [facility] Work Phone: 1(404) 374-290111-21-2016 Evaluation note* Diagnosis Onset Date Resolution Status Essential (primary) hypertension chronic Hyperlipidemia LDL goal <100 chronic History of coronary artery stent placement June 192015 resolved Acute UTI acute Generalized weakness acute History of diabetes mellitus acute History of renal insufficiency acute [facility] Work Phone: 1(410) 604-824511-21-2016 Evaluation note* Diagnosis Onset Date Resolution Status Essential (primary) hypertension chronic Hyperlipidemia LDL goal <100 chronic History of coronary artery stent placement June 192015 resolved History of diabetes mellitus acute Acute UTI resolved Generalized weakness resolve d History of renal insufficiency resolved [facility] Work Phone: Consult note Author Roderick Agee [facility] Note Date/Time December 12, 2024 1:01p m [facility] Medical Records Department [address] [place] [address] [place] [address] Anesthesia Postop Eval II 05/16/25 1301 MR#: [id number] Acct: [id number] Name: STEVE ADAMES Rep #:[id number] : 1940 84 From: Roderick Agee MD PCP: Dr. Stephan Alvarez, DO Status:REG SDC Y Race: C Location: [place] [address] Anesthesia Postop Eval I Sum Anesthesia Postop Eval I Summary Anesthesia Postop Eval I Summary: Anesthesia Postop Eval I: Assessment Summary Airway patent Spontaneous unlabored respirations Mental status nausea Vomiting Anesthesia Postop Eval I: Fluid Summary Crystalloid volume administer (ml) Colloids volume administered ( ml) Blood Product volume administered (ml) Total IV fluid infused Anesthesia Postop Eval I: Summary Notes Anesthesia Complication Anesthesia Complication Comment: Post-operative progress note Anesthesia: Postop Eval II Evaluation Mental status: Awake Pain Level: 0 nausea: No Vomiting: No 12/12/241300 <Electronically signed by Roderick Agee MD> Date _ [facility]e [facility] Signature: Date CC: ~ Signed [facility] Work Phone: Consult note Author Dustin Johnson [facility] Note Date/Time December 12, 2024 1:02p [facility] Medical Records Department [address] [place] [address] Anesthesia Postop Eval I 12/12/24 1301 MR#: [id number] Acct: [id number] Name: STEVE ADAMES Rep #:[id number] : 1940 84 From: Dustin Johnson PCP: Dr. Stephan Alvarez, DO Status:REG SDC Y Race: C Location: [place] [address] Anesthesia: Postop Eval I Current Vital Signs Temperature: 97 F Pulse Rate: 65 Blood Pressure: 122/74 Respiratory Rate: 16 Pulse Ox: 95 Oxygen Delivery Method: Room Air Assessment Airway patent: Yes Spontaneous unlabored respirations: Yes Mental status: Awake and Calm nausea: No Vomiting: No Anesthesia Complication: No Fluid Hydration Crystalloid volume administer (ml): 300 Total IV fluid infused: 300 Progress Note Anesthesia document: Postop Eval 1 completed: Yes 12/12/24 1302 <Electronically signed by Dustin Johnson > Date _ Dustin Logan Signature: Date CC: ~ Signed [facility] Work Phone: Evaluation noteNo assessment information available [facility] Work Phone: Evaluation note* Diagnosis Onset Date Resolution Status History of diabetes mellitus acute Acute UTI resolved Generalized weakness resolve d History of renal insufficiency resolved [facility] Work Phone: Evaluation note* Diagnosis Onset Date Resolution Status Skin lesion acute Skin lesion acute [facility] Work Phone: Evaluation note* Diagnosis Onset Date Resolution Status Skin lesion acute Skin lesion acute Skin lesion acute Fatty liver acute Skin lesion acute Atherosclerosis of coronary artery of [place] heart without angina pectoris chronic Diabetes chronic Hyperlipidemia LDL goal <100 chronic Axillary adenopathy acute [facility] Work Phone: Evaluation note* Diagnosis Onset Date Resolution Status Skin lesion acute Skin lesion acute Skin lesion acute Fatty liver acute Skin lesion acute Atherosclerosis of coronary artery of [place] heart without angina pectoris chronic Diabetes chronic Hyperlipidemia LDL goal <100 chronic Axillary adenopathy acute Axillary adenopathy acute [facility] Work Phone: Evaluation note* Diagnosis Urinary frequency Urgency of urination 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 Nocturia documented in this encounter [facility] Work Phone: Evaluation note* Diagnosis Nocturia 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 Stephan Alvarez, DO Status:ADM IN Location: [facility] MA328-7 HPI - General General Date of Admission: 03/20/23 Date of Service: 03/20/23 Chief Complaint: Generalized weakness HPI Narrative STEVE ADAMES, is a 82 M who presents with generalized weakness. Patient symptoms have been ongoing for the past 2 days. In addition to generalized weakness patient was reported to be experiencing urinary incontinence as well asfrequency. Patient's suspected the patient had a UTI. Managed to convincepatient to present to the emergency department. Patient was confirmed with abnormal urinalysis started on Rocephin admitted to regular nursing floor for further manage [facility] Medical History Atherosclerosis of coronary artery of [place] heart without angina pectoris Back pain Cancer Cardiology follow-up encounter CPAP (continuous positive airway pressure) dependence Diabetes Dietary restriction Essential (primary) hypertension Fatty liver Former smoker History of pain when walking History of steroid therapy History of stress test Hyperlipidemia LDL goal <100 Leg cramps Memory deficit Obesity Osteoarthritis Rash Renal calculus, left Shortness of breath on exertion Wears glasses Wears hearing aid Home Medications sitagliptin phosphate 100 mg tablet (Januvia) 100 mg PO DAILY DIABETES 07/04/18 [History Last Taken 03/19/23] tamsulosin 0.4 mg capsule 0.4 mg PO DAILY PROSTATE #39 caps 10/25/19 [Rx Last Taken 03/19/23] glimepiride 4 mg tablet (Amaryl) 4 mg PO BID DIABETES 07/06/20 [History Last Taken 03/19/23] ascorbate calcium (vitamin C) 500 mg tablet 500 mg PO DAILY SUPPLEMENT 02/21/22 [History Last Taken 03/19/23] finasteride 5 mg tablet 5 mg PO DAILY PROSTATE 02/21/22 [History Last Taken Unknown] omega-3 acid ethyl esters 1 gram capsule 1 cap PO DAILY SUPPLEMENT 02/21/22 [History Last Taken 03/19/23] prevagen 1 tab PO DAILY MEMORY IMPROVEMENT 02/21/22 [History Last Taken 03/19/23] zinc gluconate 50 mg tablet 50 mg PO DAILY SUPPLEMENT 02/21/22 [History Last Taken 03/19/23] dupilumab 300 mg/2 mL subcutaneous pen injector (Dupixent) 300 mg subcut QWEEK ECZEMA 02/20/23 [History Last Taken 03/13/23] tirzepatide 5 mg/0.5 mL subcutaneous pen injector (Mounjaro) 5 mg subcut TH DIABETES 02/20/23 [History Last Taken 03/15/23] aspirin 81 mg tablet,delayed release 81 mg PO DAILY HEART HEALTH 03/20/23 [History Last Taken 03/19/23] vitamin B complex (B Complex-Vitamin B12 tablet) 1 tab PO DAILY SUPPLEMENT 03/20/23 [History Last Taken 03/19/23] Allergy/AdvReac Type Severity Reaction Status Date / Time metoprolol Allergy Intermediate Rash Verified 03/20/23 09:08 cephalexin Allergy Rash Verified 03/20/23 09:08 Iodinated Contrast Media Allergy Shortness Verified 03/20/23 09:08 of breath Family History Sister Cancer Brother Cancer Surgical History H/O hernia repair H/O lithotripsy History of back surgery (05/05/20) History of colectomy History of coronary artery stent placement (06/19/16) History of left heart catheterization (06/17/16) Hx of eye surgery Social History Smoking Status: Former smoker alcohol intake: never what type of physical activity do you participate in: none ROS ROS Narrative GENERAL: denies fever, chills, night sweats, weight loss, anorexia HEENT: denies headache, sinus congestion, or drainage, dysphagia RESPIRATORY: denies cough, sputum production, shortness of breath, dyspnea on exertion CARDIAC: denies chest pain, palpitations, orthopnea, PND GASTROINTESTINAL: denies abdominal pain, nausea, vomiting, melena, GENITOURINARY: Incontinence and frequency, EXTREMITY: denies swelling MUSCULOSKELETAL: denies current joint pain or tenderness NEUROLOGIC: denies focal numbness, weakness, tingling HEMATOLOGIC: denies easy bruising and/or hemorrhage INTEGUMENT: denies rashes PSYCHIATRIC: denies suicidal or homicidal ideation Vital Signs Vital Signs Vital Signs: 03/20/23 09:04 03/20/23 09:08 03/20/23 09:10 Temperature 98.0 F 98.0 F Temperature Source Temporal Temporal Pulse Rate 103 H 101 H Respiratory Rate 28 H 28 H Respiratory Effort Non-Labored Respiratory Pattern Tachypnea Blood Pressure 136/68 H 136/68 H Blood Pressure Mean 90 90 Pulse Ox 92 93 Oxygen Delivery Method Room Air Room Air 03/20/23 10:08 03/20/23 11:00 Temperature 98.7 F 99.2 F H Temperature Source Temporal Temporal Pulse Rate 102 H 93 Respiratory Rate 35 H 15 Respiratory Effort Respiratory Pattern Blood Pressure 135/81 H 135/74 H Blood Pressure Mean 99 94 Pulse Ox 93 94 Oxygen Delivery Method Room Air Room Air Weight Weight: 99.79 kg Body Mass Index (BMI) 33.4 Physical Exam Narrative GENERAL: cooperative HEENT: Atraumatic; normocephalic EYES; Anicteric, Normal Conjunctiva NECK; supple, normal thyroid, RESPIRATORY: Diminished to auscultation CARDIOVASCULAR: Regular S1 S2, GI: soft, normoactive bowel sounds, : No Renal angle tenderness; EXTREMITIES: No edema, no clubbing, MUSCULOSKELETAL: no muscle wasting NEURO: Awake; no lateralizing signs. SKIN: No Rash PSYCH; Flat affect Results Lab / Micro Data 03/20/23 10:05 03/20/23 09:25 Labs: Laboratory Results - last 24 hr 03/20/23 09:25: WBC Cancelled, Corrected WBC Cancelled, RBC Cancelled, Hgb Cancelled, Hct Cancelled, MCV Cancelled, MCH Cancelled, MCHC Cancelled, RDW Std Deviation Cancelled, RDW Coeff of Cornelio Cancelled, Plt Count Cancelled, MPV Cancelled, Immature Gran % (Auto) Cancelled, Neut % (Auto) Cancelled, Lymph % (Auto) Cancelled, Holmes % (Auto) Cancelled, Eos % (Auto) Cancelled, Baso % (Auto)Cancelled, Absolute Neuts (auto) Cancelled, Absolute Lymphs (auto) Cancelled, Total Counted Cancelled, Neutrophils % (Manual) Cancelled, Band Neutrophils % Cancelled, Lymphocytes % (Manual) Cancelled, Monocytes % (Manual) Cancelled, Eosinophils % (Manual) Cancelled, Basophils % (Manual) Cancelled, Metamyelocytes% Cancelled, Myelocytes % Cancelled, Promyelocytes % Cancelled, Blast Cells % Cancelled, Plasma Cell % (Manual) Cancelled, Other Cells % Cancelled, Nucleated RBC % Cancelled, Nucleated RBCs/100 WBC Cancelled, Differential Comment Cancelled, Diff Path Review Cancelled, Hypersegmented Neuts Cancelled, Atypical Lymphocytes Cancelled, Reactive Lymphocytes Cancelled, Smudge Cells Cancelled, Toxic Granulation Cancelled, Toxic Vacuolation Cancelled, Dohle Bodies Cancelled, Cj Rods Cancelled, Platelet Estimate Cancelled, Plt Morphology Comment Cancelled, RBC Morphology Cancelled 03/20/23 09:25: RBC Morphology Cancelled, Polychromasia Cancelled, HypochromasiaCancelled, Poikilocytosis Cancelled, Basophilic Stippling Cancelled, Anisocytosis Cancelled, Microcytosis Cancelled, Macrocytosis Cancelled, Spherocytes Cancelled, Sickle Cells Cancelled, Target Cells Cancelled, Tear DropCells Cancelled, Ovalocytes Cancelled, Stomatocytes Cancelled, Torres-Hindman Bodies Cancelled, Otilio Cells Cancelled, Bite Cells Cancelled, Crenated Cell Cancelled, Acanthocytes (Spur) Cancelled, Rouleaux Cancelled, Schistocytes Cancelled, Sodium 131 L, Potassium 4.5, Chloride 99, Carbon Dioxide 24.0, Anion Gap 8, BUN 21 H, Creatinine 1.52 H, Estim Creat Clear Calc 36.25, Est GFR (MDRD)Af Amer 57 L, Est GFR (MDRD) Non-Af 47 L, BUN/Creatinine Ratio 13.8, Glucose 260H, Calcium 9.6 03/20/23 10:05: WBC 12.1 H, RBC 4.95, Hgb 14.9, Hct 45.0, MCV 90.9, MCH 30.1, MCHC 33.1, RDW Std Deviation 49.4 H, RDW Coeff of Cornelio 14.9 H, Plt Count 121 L, MPV 8.7, Immature Gran % (Auto) 0.700, Neut % (Auto) 87.3 H, Lymph % (Auto) 2.9 L, Holmes % (Auto) 8.9, Eos % (Auto) 0.0, Baso % (Auto) 0.2, Absolute Neuts (auto)10.6 H, Absolute Lymphs (auto) 0.35 L, Nucleated RBC % 0, Differential Comment SCANNED 03/20/23 11:07: Urine Color Yellow, Urine Clarity Sl. Cloudy, Urine pH 6.0, Ur Specific [place] 1.020, Urine Protein 100 H, Urine Glucose (UA) 50 H, Urine Ketones 50 H, Urine Occult Blood 25 H, Urine Nitrite Positive H, Urine BilirubinNegative, Urine Urobilinogen Normal, Ur Leukocyte Esterase 100 H, Urine RBC 0 SEEN, Urine WBC 25-50 SEEN, Ur Squamous Epith Cells 0 SEEN, Urine Bacteria 3+, Urine Mucus 0 SEEN Rhythm Strip Rhythm Strip: Sinus Rhythm Rate: 98 Ectopy: None Radiology Impression Chest X-Ray 03/20/23 10:10 IMPRESSION: No radiographic evidence of acute cardiopulmonary disease. Electronically Signed: Riley Leal MD at 10:42 EDT , Assessment & Plan Assessment/Plan (1) Acute UTI: PLAN: Plan Patient is an 82-year-old gentleman presented with progressive generalized weakness. Diagnosed with cystitis admitted to regular nursing floor for furthermanagement 1. Acute cystitis ? Patient started on ceftriaxone cultures sent from the ED we will follow-up on result. Patient has slightly elevated WBC count of 12.5. Subsequent follow-up with daily CBC ordered 2. Physical deconditioning -Secondary to above. Requested for PT OT eval and social worker aide to assist with discharge planning 3. Coronary artery disease ? With previous stent placement patient is on guideline directed medical therapy 4. Hypertension - Blood pressure controlled, home medications continued with dose adjustment as needed 5. BPH ? Patient is on tamsulosin difficulty 6. Class I obesity with BMI of 33.5 ? Patient is on Tirzepatide 7. 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 Patient creatinine close to baseline 8. Hyponatremia ? Secondary to hypovolemic hyponatremia on IV fluid with subsequent monitoring with daily BMPs ordered 9. DVT prophylaxis - On enoxaparin Time spent in the patient's overall evaluation,decision-making process, review of diagnostic data, adjustment of management, discussion with other providers, nursing nursing and ancillary staff involved in patient's care documentation, 75 Minutes Advance planning; did discuss with the patient and family regarding advanced directives as well as CODE STATUS. Did explain the various scenarios involved (FULL CODE, DNR CCA, DNR CCA with no intubation, and DNR CC and what each meant) patient elected to remain full code with CPR and intubation if needed. Order was placed. Time spent on discussion 18 minutes. Charges/Coding Visit Charges Inpatient E&M: 83214 Init Hosp L3 Procedures Hospitalists Procedures: 25427 Advncd Care Plan 30 Min 03/20/23 1230 <Electronically signed by Kenji Reed MD> Cosigner Signature (if applicable): CC: Dr. Kenji Reed MD; Dr. Stephan Alvarez, DO~ Signed [facility] Work Phone: History and physical note Author Mansoor Ramirez [facility] Note Date/Time December 12, 2024 12:30 pm [facility] Medical Records Department [address] [place] [id number] History & Physical Exam 12/12/24 1228 MR#: [id number] Acct: [id number] Name: STEVE ADAMES Rep #:[id number] : 1940 84 From: Mansoor Ramirez DO PCP: Dr. Stephan Alvarez, [place] [facility] [place] [address] HPI - General General Date of Admission: 12/12/24 Date of Service: 12/12/24 Chief Complaint: dysphagia HPI Narrative Chief Complaint: Difficulty Swallowing [facility] ED 11.17.24 with suspected allergic reaction to shrimp. Change in voice, throat swelling and rash. [facility] ED 5..25 for difficulty swallowing over the past few months. OV 5.7.25 Pt here today for f/u after ED visit for dysphagia. Pt states that over the past month he has had issues with swallowing. His food gets stuck in his esophagus and he will have to regurgitate it. He is having issues with both solids and liquids. He has never had issues prior to one month ago. He endorses a hx of smoking for amny years but quit at age 50 [facility] Medical History (Updated 12/12/24 @ 12:[address] Max Friend, DO) Swallowing difficulty Prosthetic eye globe Axillary adenopathy Left buttock abscess Wears hearing aid Wears glasses Cancer Memory deficit Rash History of steroid therapy Fatty liver Back pain Dietary restriction Former smoker CPAP (continuous positive airway pressure) dependence Shortness of breath on exertion Leg cramps History of pain when walking History of stress test Cardiology follow-up encounter Obesity Essential (primary) hypertension Atherosclerosis of coronary artery of [place] heart without angina pectoris Renal calculus, left Osteoarthritis Hyperlipidemia LDL goal <100 Diabetes Home Medications ?Medication ?Instructions ?Recorded ?Last Taken ?Type omega-3 acid ethyl esters 1 gram 1 cap PO DAILY SUPPLE MENT 02/21/22 12/09/24 History capsule zinc gluconate 50 mg tablet 50 mg PO DAILY SUPPLEMENT 02/21/22 12/01/24 History aspirin 81 mg tablet,delayed 81 mg PO DAILY HEART HEAL TH 03/20/23 12/09/24 History release dulaglutide 3 mg/0.5 mL 3 mg subcut QWEEK 06/28/23 0 11/26/24 History subcutaneous pen injector (Trulicity) glimepiride 4 mg tablet (Amaryl) 4 mg PO DAILY DIABETE S 06/28/23 11/30/24 Hi story epinephrine 0.3 mg/0.3 mL 0.3 mg (0.3 mL) IM X1 #2 ea 11/17/24 Unknown Rx injection, auto-injector ascorbic acid (vitamin C) 1,000 mg 2 g PO DAILY 12/01/24 History capsule dupilumab 300 mg/2 mL subcutaneous 300 mg subcut .COMP DEJAH 12/01/24 11/19/24 History syringe (Dupixent) oxybutynin chloride 10 mg 10 mg PO DAILY 12/01/24 05/0 11/21 History tablet,extended release 24 hr saw palmetto 450 mg capsule 900 mg PO TID 12/01/2412/21 History fexofenadine 180 mg tablet 180 mg PO Q24H 12/04/24 Unk nown History (Mishel Allergy) quercetin 500 mg capsule mg PO DAILY 12/04/24 Unknown History Allergy/AdvReac Type Severity Reaction Status Date / Time metoprolol Allergy Intermediate Rash Verified 12/12/24 11:32 cephalexin Allergy Rash Verified 12/12/24 11:32 Iodinated Contrast Media Allergy Shortness Verified 12/12/24 11:32 of breath metformin AdvReac Intermediate Diarrhea Verified 12/12/24 11:32 Family History Sister Cancer Brother Cancer Surgical History H/O excision of mass History of colectomy Hx of eye surgery History of back surgery (05/05/20) History of left heart catheterization (06/17/16) H/O hernia repair History of coronary artery stent placement (06/19/16) H/O lithotripsy Social History Smoking Status: Former smoker alcohol intake: never what type of physical activity do you participate in: none ROS Constitutional Constitutional: Denies fatigue, fever(s), poor appetite, weight gain or weight loss Gastrointestinal Gastrointestinal: Denies belching, bloating, change in bowel habits, change in stool character, chewing difficulty, coffee ground emesis, constipation, cramping, diarrhea, dyspepsia, dysphagia, early satiety, excessive flatus, fecalincontinence, heartburn, hematemesis, hematochezia, hemorrhoids, loose stools, melena, nausea, odynophagia, rectal bleeding, tenesmus, vomiting or weight changes Vital Signs Vital Signs Vital Signs: 12/12/24 11:33 12/12/24 11:33 12/12/24 11:53 Temperature 97.6 F L 97.6 F L Temperature Source Temporal Pulse Rate 54 L 54 L Respiratory Rate 16 16 Respiratory Pattern Normal Blood Pressure 170/86 H 170/86 H Blood Pressure Mean 114 Blood Pressure Source Monitor Blood Pressure Position Semi-Fowlers Blood Pressure Location Right Arm Pulse Ox 97 97 Oxygen Delivery Method Room Air Weight Weight: 213 lb 13.574 oz Body Mass Index (BMI) 32.5 Physical Exam Const alert, oriented x3, no apparent distress and healthy appearing General Appearance: cooperative GI normal to inspection, nondistended, normoactive bowel sounds, soft to palpation,non-tender and non-distended Percussion: normal to percussion Rectal Exam: deferred Assessment & Plan Assessment/Plan (1) Swallowing difficulty: PLAN: Assessment and Plan Assessment and Plan (1) Swallowing difficulty: Status: Acute Plan: This is an 84 yo male pt here today for [facility] ED f/u. Pt seen in the ED on two occasions over the past month. One visit for a suspected allergic reaction to shrimp however allergy testing was negative. The second occasion was for dysphagia. Pt now having difficulty swallowing with every meal. He is having trouble with solids and liquids. He is scheduled for a barium esophagram orderedby his PCP. He will undergo EGD for assessment and dilation if needed. -EGD -f/u after procedure 12/12/24 1230 <Electronically signed by Mansoor Ramirez DO> Cosigner Signature (if applicable): CC: Dr. Stephan Alvarez, DO; Mansoor Ramirez, ~ Signed [facility] Work Phone: Reason for referral (narrative)No reason for referral information availableWMercer County Community Hospital Work Phone: Summary Purpose Family History No Family History Records Found Relationship Condition Age at Onset Recorded Date/T lori sister Malignant neoplasm Unknown brother Malignant neoplasm Unknown Advance Directives No Advanced Directives Records Found Advance Directive Response Recorded Date/ Time Advance Directives Yes July 03, 2017 12:36pm Living Will Yes March 10 2 8:56am Power of Water Technician Yes March 10 8:56am Advance Directive Response Recorded Date/ Time Advance Directives Yes July 03, 2017 11:36am Living Will Yes March 10 2 7:56am Power of Water Technician Yes March 10 022 7:56am Advance Directive Response Recorded Date/ Time Name of Medical Power of Water Technician MARCOS March 20, 2023 9:09am Advance Directives Yes July 03, 2017 12:36pm Living Will Yes March 20 3 9:09am Power of Water Technician Yes [place] 22nd, 2 023 9:09am Advance Directive Response Recorded Date/ Time Name of Medical Power of Water Technician Marcos khan March 20, 2023 1:34pm Advance Directives Yes July 03, 2017 12:36pm Living Will Yes March 20 1:34pm Power of Water Technician Yes March 20, 023 1:34pm Advance Directive Response Recorded Date/ Time Name of Medical Power of Water Technician Marcos khan March 20, 2023 12:34pm Advance Directives Yes July 03, 2017 11:36am Living Will Yes March 20 12:34pm Power of Water Technician Yes March 20 023 12:34pm Advance Directive Response Recorded Date/ Time Advance Directives Yes July 03, 2017 11:36am Living Will Yes March 20 12:34pm Power of Water Technician Yes March 20 023 12:34pm Advance Directive Response Recorded Date/ Time Advance Directives Yes July 03, 2017 12:36pm Living Will Yes March 20 1:34pm Power of Water Technician Yes March 20 023 1:34pm Advance Directive Response Recorded Date/ Time Advance Directives Yes July 03, 2017 12:36pm Advance Directive Response Recorded Date/ Time Living Will Yes November 17, 2024 3:34pm Do you have a Healthcare Power of Water Technician? Yes November 17, 2024 3:34pm Name of Medical Power of Water Technician Elma November 17, 2024 3:34pm Advance Directives Yes July 03, 2017 12:36pm Advance Directive Response Recorded Date/ Time Do you have a Healthcare Power of Water Technician? No December 01, 2024 3:23pm Living Will Yes November 17, 2024 3:34pm Do you have a Healthcare Power of Water Technician? Yes November 17, 2024 3:34pm Name of Medical Power of Water Technician Elma November 17, 2024 3:34pm Do you have a Healthcare Power of Water Technician? Yes December 12, 2024 11:38am Advance Directives Yes July 03, 2017 12:36pm Chief Complaint and Reason for Visit Chief Complaint 9 M FU (WE RS FROM ) CAD ASHD Reason for Visit Essential (primary) hypertension Hyperlipidemia LDL goal <100 History of coronary artery stent placement Chief Complaint Rash Chief Complaint 1 Y FU UTI Reason for Visit Essential (primary) hypertension Hyperlipidemia LDL goal <100 History of coronary artery stent placement Acute UTI Generalized weakness History of diabetes mellitus History of renal insufficiency Chief Complaint 1 Y FU UTI Urinary tract infection Urinary tract infection Urinary tract infection Reason for Visit Essential (primary) hypertension Hyperlipidemia LDL goal <100 History of coronary artery stent placement Acute UTI Generalized weakness History of diabetes mellitus History of renal insufficiency Chief Complaint 1 Y FU UTI Urinary tract infection Urinary tract infection Urinary tract infection Reason for Visit Essential (primary) hypertension Hyperlipidemia LDL goal <100 History of coronary artery stent placement History of diabetes mellitus Acute UTI Generalized weakness History of renal insufficiency Chief Complaint UTI Urinary tract infection Urinary tract infection Urinary tract infection Reason for Visit History of diabetes mellitus Acute UTI Generalized weakness History of renal insufficiency Chief Complaint L BUTTOCK CYST BUTTOCK CYST L BUTTOCK CYST Reason for Visit Skin lesion Skin lesion Chief Complaint L BUTTOCK CYST BUTTOCK CYST L BUTTOCK CYST EXCISION OF BUTTOCK CYST 07-26 Hx stents: left chest and armpit pain L.L. LEFT MASTALGIA, BREAST MASS OF LLQ/AXILLARY TAIL ENLARGED LYMPH NODES L AXILLA Left axillary lymph node biopsy Reason for Visit Skin lesion Skin lesion Skin lesion Fatty liver Skin lesion Atherosclerosis of coronary artery of [place] heart without angina pectoris Diabetes Hyperlipidemia LDL goal <100 Axillary adenopathy Chief Complaint L BUTTOCK CYST BUTTOCK CYST L BUTTOCK CYST EXCISION OF BUTTOCK CYST 07-26 Hx stents: left chest and armpit pain L.L. LEFT MASTALGIA, BREAST MASS OF LLQ/AXILLARY TAIL ENLARGED LYMPH NODES L AXILLA Left axillary lymph node biopsy CHEST PAIN f/u LN bx Reason for Visit Skin lesion Skin lesion Skin lesion Fatty liver Skin lesion Atherosclerosis of coronary artery of [place] heart without angina pectoris Diabetes Hyperlipidemia LDL goal <100 Axillary adenopathy Axillary adenopathy Chief Complaint Admit Date LOCAL HOME HEALTH DROP OFF November 12 025 9:50am Chief Complaint Admit Date LOCAL HOME HEALTH DROP OFF November 12 025 9:50am allergic reaction November 17, 2024 3:2 1pm Chief Complaint Admit Date LOCAL HOME HEALTH DROP OFF November 12 025 9:50am allergic reaction November 17, 2024 3:2 1pm FOREIGN BODY December 01, 2024 2:34pm DIFFICULTY SWALLOWING December 03, 2024 9:19 am 1 Y FU December 04, 2024 10:45a m Reason for Visit Admit Date Swallowing difficulty December 03, 2024 9:19 am Atherosclerosis of coronary artery of [place] heart without angina pectoris December 04, 2024 10:45am Diabetes December 04, 2024 10:45a m Hyperlipidemia LDL goal <100 December 04 10:45am Swallowing difficulty December 12, 2024 11: 12am Chief Complaint Admit Date LOCAL HOME HEALTH DROP OFF November 12, 2 025 9:50am allergic reaction November 17, 2024 3:2 1pm FOREIGN BODY December 01, 2024 2:34pm DIFFICULTY SWALLOWING December 03, 2024 9:19 am 1 Y FU December 04, 2024 10:45a m Test Result December 26, 2024 9:47a m Chief Complaint Admit Date LOCAL HOME HEALTH DROP OFF November 12, 2 025 9:50am allergic reaction November 17, 2024 3:2 1pm FOREIGN BODY December 01, 2024 2:34pm DIFFICULTY SWALLOWING December 03, 2024 9:19 am 1 Y FU December 04, 2024 10:45a m Test Result December 26, 2024 9:47a m DYSPHAGIA January 12, 2025 12:4 7pm Reason for Visit Admit Date Swallowing difficulty December 03, 2024 9:19 am Atherosclerosis of coronary artery of [place] heart without angina pectoris December 04, 2024 10:45am Diabetes December 04, 2024 10:45a m Hyperlipidemia LDL goal <100 December 04 10:45am Swallowing difficulty December 12, 2024 11: 12am Achalasia December 26, 2024 9:47a m Swallowing difficulty December 26, 2024 9:4 7am Additional Source Comments (unrecognized sect ion and content) No Status Records FoundNo Status Records FoundNo Status Records Found INFORMATION SOURCE (unrecogn ized section and content) DATE CREATED AUTHOR 05/23/2021 [facility] DATE CREATED AUTHOR AUTHOR'S ORGANIZ ATION 06/21/2024 [facility] DATE CREATED AUTHOR AUTHOR'S ORGANIZ ATION 01/19/2025 [facility] Goals (unrecognized section and content) Goals may be documented in a n alternate sectionGoals may be documented in an alternate sectionGoals may be documented in an alternate sectionGoals may be documented in an alternate sectionGoals may be documented in an alternate sectionGoals may be documented in an alternate sectionGoals may be documented in an alternate sectionGoals may be documented in an alternate sectionGoals may be documented in an alternate sectionGoals may be documented in an alternate sectionGoals may be documented in an alternate section Care Teams (unrecognized sec tion and content) Team Status: Active Member Role Status Dates Dr. Stephan Alvarez DO Family Provider Active Dr. Stephan Alvarez DO Primary Care Provider Active Team Status: Inactive Member Role Status Dates Dr. Stephan Alvarez DO Primary Care Provider, Referrin g Provider Active Genie Castro PA, PA Attending Provider Active Team Status: Inactive Member Role Status Dates Dr. Stephan Alvarez DO Primary Care Provider, Attendin g Provider Active Team Status: Inactive Member Role Status Dates Dr. Stephan Alvarez DO Primary Care Provider Active Dr. Jacoby Mckoy MD Attending Provider, Referring Provider Active Team Status: Inactive Member Role Status Dates Dr. Stephan Alvarez DO Primary Care Provider, Referrin g Provider Active Margoth Henning [employer]CEAN EXPORT ACCOUNT MANAGER, OCEAN EXPORT ACCOUNT MANAGER-C Attending Provider Active Team Status: Active Member Role Status Dates Dr. Stephan Alvarez DO Primary Care Provider Active Dr. Fausto Malone MD Emergency Provider Active Dr. Kenji Reed MD Admit Provider, Attending Provid er Active Team Status: Active Member Role Status Dates Dr. Stephan Alvarez DO Primary Care Provider Active Dr. Fausto Malone MD Emergency Provider Active Dr. Kenji Reed MD Admit Provider, At tending Provider, Other Provider Active Team Status: Inactive Member Role Status Dates Dr. Stephan Alvarez DO Primary Care Provider Active Dr. Fausto Malone MD Emergency Provider Active Dr. Kenji Reed MD Admit Provider, Attending Provid er Active Team Status: Inactive Member Role Status Dates Dr. Stephan Alvarez DO Primary Care Prov ider, Attending Provider, Referring Provider Active Team Status: Inactive Member Role Status Dates Dr. Stephan Alvarez DO Primary Care Provider Active Dr. Jacoby Mckoy MD Attending Provider Active Team Status: Inactive Member Role Status Dates Dr. Stephan Alvarez DO Primary Care Provider, Referrin g Provider Active Dr. David Fink MD Attending Provider Active Team Status: Inactive Member Role Status Dates Dr. Stephan Alvarez DO Primary Care Provider Active Dr. David Fink MD Attending Provider, Referring Provider Active Team Status: Inactive Member Role Status Dates Dr. Stephan Alvarez DO Primary Care Provider, Referrin g Provider Active Tanika LOZANO PA-C Attending Provider Active Team Status: Inactive Member Role Status Dates Dr. Stephan Alvarez DO Primary Care Provider, Referrin g Provider Active Dr. Shan Hernandez MD Attending Provider Active Team Status: Inactive Member Role Status Dates Dr. Stephan Alvarez DO Primary Care Provider, Attendin g Provider Active Dr. David Fink MD Other Provider Active Team Status: Active Member Role Status Dates Dr. Stephan Alvarez DO Primary Care Provider Active Dr. David Fink MD Attending Provider Active Team Status: Inactive Member Role Status Dates Dr. Stephan Alvarez DO Primary Care Provider Active Dr. David Fink MD Attending Provider Active Team Status: Inactive Member Role Status Dates Dr. Stephan Alvarez DO Primary Care Provider Active Start: October 06, 2024 End: October 06, 2024 Dr. Stephan Alvarez DO Attending Provider Active Start: October 06, 2024 End: October 06, 2024 Dr. Stephan Alvarez DO Referring Provider Active Start: October 06, 2024 End: October 06, 2024 Team Status: Inactive Member Role Status Dates Dr. Stephan Alvarez DO Primary Care Provider Active Start: November 12, 2024 End: November 12, 2024 Dr. Stephan Alvarez DO Attending Provider Active Start: November 12, 2024 End: November 12, 2024 Dr. Patricio Alvarez MD Referring Provider Active Start: November 12, 2024 End: November 12, 2024 Team Status: Active Member Role Status Dates Dr. Stephan Alvarez DO Primary Care Provider Active Team Status: Inactive Member Role Status Dates Dr. Stephan Alvarez DO Primary Care Provider Active Start: November 17, 2024 End: November 17, 2024 Dr. William Reinoso MD Attending Provider Active Sta rt: November 17, 2024 End: November 17, 2024 Dr. William Reinoso MD Emergency Provider Active Sta rt: November 17, 2024 End: November 17, 2024 Team Status: Inactive Member Role Status Dates Dr. Stephan Alvarez DO Primary Care Provider Active Start: November 19, 2024 End: November 19, 2024 Dr. Homar Delgado MD Attending Provider Active Start: November 19, 2024 End: November 19, 2024 Dr. Homar Delgado MD Referring Provider Active Start: November 19, 2024 End: November 19, 2024 Team Status: Inactive Member Role Status Dates Dr. Stephan Alvarez DO Primary Care Provider Active Start: December 01, 2024 End: December 01, 2024 Dr. Fausto Malone MD Attending Provider Active S tart: December 01, 2024 End: December 01, 2024 Dr. Fausto Malone MD Emergency Provider Active S tart: December 01, 2024 End: December 01, 2024 Team Status: Inactive Member Role Status Dates Dr. Stephan Alvarez DO Primary Care Provider Active Start: December 03, 2024 End: December 03, 2024 Dr. Stephan Alvarez DO Referring Provider Active Start: December 03, 2024 End: December 03, 2024 BLAKE Nunes Attending Provider Active Start: December 03, 2024 End: December 03, 2024 Team Status: Inactive Member Role Status Dates Dr. Stephan Alvarez DO Primary Care Provider Active Start: December 04, 2024 End: December 04, 2024 Dr. Stephan Alvarez DO Referring Provider Active Start: December 04, 2024 End: December 04, 2024 Dr. Shan Hernandez MD Attending Provider Active Start: December 04, 2024 End: December 04, 2024 Team Status: Inactive Member Role Status Dates Dr. Stephan Alvarez DO Primary Care Provider Active Start: December 12, 2024 End: December 12, 2024 Dr. Stephan Alvarez DO Referring Provider Active Start: December 12, 2024 End: December 12, 2024 Dr. Mansoor Ramirez DO Attending Provider Active Start: December 12, 2024 End: December 12, 2024 Team Status: Active Member Role Status Dates Dr. Stephan Alvarez DO Primary Care Provider Active Start: December 12, 2024 Dr. Stephan Alvarez DO Referring Provider Active Start: December 12, 2024 Dr. Mansoor Ramirez DO Attending Provider Active Start: December 12, 2024 Dr. Mansoor Ramirez DO Other Provider Active St art: December 12, 2024 Team Status: Inactive Member Role Status Dates Dr. Stephan Alvarez DO Primary Care Provider Active Start: December 26, 2024 End: December 26, 2024 Dr. Stephan Alvarez DO Referring Provider Active Start: December 26, 2024 End: December 26, 2024 BLAKE Nunes Attending Provider Active Start: December 26, 2024 End: December 26, 2024 Team Status: Inactive Member Role Status Dates Dr. Stephan Alvarez DO Primary Care Provider Active Start: January 12, 2025 End: January 12, 2025 Dr. Stephan Alvarez DO Attending Provider Active Start: January 12, 2025 End: January 12, 2025 Dr. Stephan Alvarez DO Referring Provider Active Start: January 12, 2025 End: January 12, 2025 Reason for Visit (unrecogniz ed section and content) Reason Comments Benign Prostatic Hypertrophy Reason Comments 1 month medication check FOR RECORDS PERTAINING TO PATIENTS WHO ARE [...] BE BASED ON THE PRIMARY CLINICAL RECORDS. [employer] [facility]. provides no warranty or guarantee of the accuracy or completeness of information in this document.
[2025-01-20] MEDS: Lactated Ringers 1,000 ML 15 ML IV (06:39)
--- NOTE | 2025-01-20 06:51 | PCM.HP.STD ---
HPI - General General Date of Admission: 01/20/25 Date of Service: 01/20/25 Chief Complaint: Achalasia HPI Narrative SHELDON MALONEY, is a 84 M who presents with the Chief Complaint: Difficulty Swallowing [facility] ED 11.17.24 with suspected allergic reaction to shrimp. Change in voice, throat swelling and rash. [facility] ED 5 for difficulty swallowing over the past few months. [facility]GI established 5..25 with dysphagia x1 month. Food gets stuck in his esophagus and he will have to regurgitate it. Dysphagia to both solids and liquids. Hx of smoking but quit at age 50. EGD 12.12.24; - Abnormal esophageal motility, suspicious for achalasia. Biopsied. Dilated. - No gross lesions in the entire stomach. - No gross lesions in the entire examined duodenum. *Biopsies with intestinal metaplasia secondary to [place] OV 12.26.24 Pt here today for f/u after EGD. He continues to have difficulty swallowing his foods. He has been eating smaller bites and drinking warm beverages. He finds himself eating less due to not wanting to have a choking episodes. [facility] Medical History Prostate disease Gastric reflux History of echocardiogram Prosthetic eye globe Swallowing difficulty Axillary adenopathy Wears hearing aid Wears glasses Cancer Memory deficit Rash History of steroid therapy Fatty liver Back pain Dietary restriction Former smoker CPAP (continuous positive airway pressure) dependence Shortness of breath on exertion Leg cramps History of pain when walking History of stress test Cardiology follow-up encounter Obesity Atherosclerosis of coronary artery of [place] heart without angina pectoris Renal calculus, left Osteoarthritis Hyperlipidemia LDL goal <100 Diabetes Home Medications ?Medication ?Instructions ?Recorded ?Last Taken ?Type omega-3 acid ethyl esters 1 gram 1 cap PO DAILY SUPPLEMENT 02/21/22 12/09/24 History capsule Held on 01/19/25. Instructions: LAST DOSE 01/17/25 FOR EGD 01/20/25 zinc gluconate 50 mg tablet 50 mg PO DAILY SUPPLEMENT 02/21/22 12/01/24 History aspirin 81 mg tablet,delayed 81 mg PO DAILY HEART HEALTH 03/20/23 01/17/25 History release Held on 01/19/25. Instructions: LAST DOSE 01/17/25 FOR EGD 01/20/25 dulaglutide 3 mg/0.5 mL 3 mg subcut TU 06/28/23 01/13/25 History subcutaneous pen injector (Trulicity) Held on 01/19/25. Instructions: LAST DOSE 01/13/25 FOR EGD 01/20/25 glimepiride 4 mg tablet (Amaryl) 4 mg PO DAILY DIABETES 06/28/23 11/30/24 History Held on 01/19/25. Instructions: LAST DOSE 01/13/25 FOR EGD 01/20/25 epinephrine 0.3 mg/0.3 mL 0.3 mg (0.3 mL) IM X1 #2 ea 11/17/24 Unknown Rx injection, auto-injector ascorbic acid (vitamin C) 1,000 mg 2 g PO DAILY 12/01/24 12/01/24 History capsule dupilumab 300 mg/2 mL subcutaneous 300 mg subcut .COMPLEX 12/01/24 11/19/24 History syringe (Dupixent) oxybutynin chloride 10 mg 10 mg PO DAILY 12/01/24 11/30/24 History tablet,extended release 24 hr saw palmetto 450 mg capsule 900 mg PO TID 12/01/24 12/01/24 History fexofenadine 180 mg tablet 180 mg PO Q24H 12/04/24 Unknown History (Mishel Allergy) quercetin 500 mg capsule 500 mg PO DAILY 12/04/24 Unknown History amitriptyline 10 mg tablet 10 mg PO QDAY #30 tabs 12/26/24 Unknown Rx pantoprazole 40 mg tablet,delayed 40 mg PO QDAY #60 tabs 12/26/24 Unknown Rx release Allergy/AdvReac Type Severity Reaction Status Date / Time metoprolol Allergy Intermediate Rash Verified 01/20/25 06:31 cephalexin Allergy Rash Verified 01/20/25 06:31 Iodinated Contrast Media Allergy Shortness Verified 01/20/25 06:31 of breath metformin AdvReac Intermediate Diarrhea Verified 01/20/25 06:31 Family History Sister Cancer Brother Cancer Surgical History History of esophagogastroduodenoscopy (EGD) H/O excision of mass History of colectomy Hx of eye surgery History of back surgery (05/05/20) History of left heart catheterization (06/17/16) H/O hernia repair History of coronary artery stent placement (06/19/16) H/O lithotripsy Social History Smoking Status: Former smoker alcohol intake: never what type of physical activity do you participate in: none ROS Constitutional Constitutional: Denies fatigue, fever(s), poor appetite, weight gain or weight loss Gastrointestinal Gastrointestinal: Denies belching, bloating, change in bowel habits, change in stool character, chewing difficulty, coffee ground emesis, constipation, cramping, diarrhea, dyspepsia, dysphagia, early satiety, excessive flatus, fecal incontinence, heartburn, hematemesis, hematochezia, hemorrhoids, loose stools, melena, nausea, odynophagia, rectal bleeding, tenesmus, vomiting or weight changes Vital Signs Vital Signs Vital Signs: 01/20/25 06:34 01/20/25 06:34 Temperature 97.6 F L Temperature Source Temporal Pulse Rate 51 L Respiratory Rate 16 Respiratory Pattern Normal Blood Pressure 146/67 H Blood Pressure Mean 93 Blood Pressure Source Monitor Blood Pressure Position Semi-Fowlers Blood Pressure Location Right Arm Pulse Ox 97 Oxygen Delivery Method Room Air Weight Weight: 225 lb Body Mass Index (BMI) 34.2 Physical Exam Const alert, oriented x3, no apparent distress and healthy appearing General Appearance: cooperative GI normal to inspection, nondistended, normoactive bowel sounds, soft to palpation, non-tender and non-distended Percussion: normal to percussion Rectal Exam: deferred Assessment & Plan Assessment/Plan (1) Achalasia: PLAN: Assessment and Plan Assessment and Plan (1) Achalasia: Status: Acute Plan: Sheldon is an 84 yo male pt here today fr f/u after EGD for difficulty swallowing. EGD showing abnormal esophageal motility suspicious for achalasia. Biopsies positive for intestinal metaplasia. I reviewed results with pt. Today pt continues to have daily issues with swallowing results in episodes of choking and regurgitation. He has lost weight due to not eating as much in hopes of avoiding an episode. I have started pt on Amitriptyline 10 mg daily and scheduled him for EGD with botox injections. He was also started on Pantoprazole 40 mg once daily due to the esophageal biopsy indicating intestinal metaplasia. He will contact me in one week with update regarding his symptoms. -Start pantoprazole 40 mg daily -Start amitriptyline 10 mg daily -EGD with botox (2) Swallowing difficulty: Status: Acute Medications: New amitriptyline 10 mg PO QDAY 30 tabs 2RF pantoprazole 40 mg PO QDAY 60 tabs 2RF
--- NOTE | 2025-01-20 07:02 | PRE.ANES_ITS ---
ASA Classification* ASA Classification ASA Classification: 3 Assessment & Plan Anesthesia* Anesthesia Assessment Anesthesia Assessment: Discussed sedation and/or anesthesia options, risks, benefits, and alternatives with patient/parents/legal guardian/POA. Questions invited. The patient/parents/legal guardian/POA seems to understand and agrees to proceed with anesthesia plan. Reviewed the physical assessment, medical history, allergy history and patient home medications list prior to surgery/procedure/anesthetic and documented any changes. Performed airway and anesthesia risk assessments. Anesthesia Type Anesthesia Type: MAC History Source History Obtained from:: Patient and Chart Anesthesia Focused Assessment* Temperature: 97.6 F Pulse Rate: 51 Blood Pressure: 146/67 Respiratory Rate: 16 Pulse Ox: 97 Oxygen Delivery Method: Room Air Airway Assessment Mouth opens: >3 cm Mallampati Score: III Teeth Condition: Intact and Caps/Crowns (Patient has a couple crowns. They are tight.) Neck Range of motion (ROM): Limited ROM (Somewhat decreased extension.) Labs Anesthesia Preop lab: CBC WBC 6.6 K/mm3 (4.4-11.0) 11/12/24 09:04 11/12/24 RBC 5.16 M/mm3 (4.6-6.2) 11/12/24 09:04 11/12/24 Hgb 16.2 g/dL (13.0-16.5) 11/12/24 09:04 11/12/24 Hct 46.8 % (40-54) 11/12/24 09:04 11/12/24 Plt Count 137 K/mm3 (150-450) L 11/12/24 09:04 11/12/24 CHEMISTRY Potassium 4.2 mmol/L (3.3-5.1) 11/12/24 09:04 11/12/24 Sodium 137 mmol/L (133-145) 11/12/24 09:04 11/12/24 Magnesium 2.1 mg/dL (1.6-2.6) 03/21/23 06:48 03/21/23 Phosphorus 2.5 mg/dL (2.5-4.9) 03/21/23 06:48 03/21/23 BUN 24 mg/dL (4-19) H 11/12/24 09:04 11/12/24 Creatinine 1.14 mg/dL (0.70-1.20) 11/12/24 09:04 11/12/24 Glucose 213 mg/dL (70-99) H 11/12/24 09:04 11/12/24 POC Glucose 151 mg/dL (74-106) H 12/12/24 11:32 12/12/24 TSH 2.06 uIU/mL (0.358-3.74) 11/29/22 13:03 COAG PT 13.6 SECONDS (11.7-14.9) 03/07/24 18:20 Pre-Assessment Diagnosis/Proposed Procedure Planned Operative Procedure(s): EGD Anesthesia History Anesthesia History - manager loss prevention: Anesthesia History - manager loss prevention Hx Hospitalization No 01/19/25 10:28 Any Problems With Anesthesia No 01/19/25 10:28 Cholinesterase deficiency No 01/19/25 10:28 You/Your Family Experience No 01/19/25 10:28 fever (hyperthermia) with Relationship Recent Exposure to Contagious No 01/20/25 06:34 Disease Does patient have nerve No 01/19/25 10:28 stimulator Patient instructed to have device shut off --Does patient have Pacemaker No 01/20/25 06:34 or ICD? When Was Last Pacemaker Check QUESTION #4 FULL TEXT: You/Your Family Experience fever (hyperthermia) with Anesthesia Last Oral Intake Last Oral intake: Last Oral Intake NPO since 21:00 01/20/25 06:34 Meds taken in AM with sips of water? Meds patient instructed to take am of surgery PONV PONV - manager loss prevention: PONV - manager loss prevention Female No 01/19/25 10:28 HX of Motion Sickness No 01/19/25 10:28 HX of N/V After Surgery No 01/19/25 10:28 Non-Smoker Yes 01/19/25 10:28 Duration of Surgery greater No 01/19/25 10:28 than 60 minutes Number of Risk Factors 1 01/19/25 10:28 PONV Score Low Risk 01/19/25 10:28 Height & Weight Height & Weight: Anesthesia: Height & Weight Height 5 ft 8 in 01/20/25 06:34 Weight: 102.058 kg 01/20/25 06:34 Body Mass Index (BMI) 34.2 01/20/25 06:34 Respiratory Assessment Respiratory Assessment - manager loss prevention: Respiratory Tract Infection Hx - manager loss prevention Hx Respiratory Tract Infection No 01/19/25 10:28 STOP Sleep Apnea STOP Sleep Apnea - manager loss prevention: STOP Sleep Apnea - manager loss prevention Hx Hypertension No 01/19/25 10:28 Hx Sleep Apnea Yes 01/19/25 10:28 CPAP Yes 01/19/25 10:28 BIPAP No 01/19/25 10:28 Do you snore loudly (louder than talking or can be heard Do you often feel tired/ fatigued/ sleepy during daytime? Has anyone observed you stop breathing during sleep? STOP Results Positive 01/19/25 10:28 QUESTION #5 FULL TEXT : Do you snore loudly (louder than talking or can be heard through closed doors)? 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 Specify any problems Hx of Preganancy in last 3 N/A 01/19/25 10:28 Months Nurse Filling Out Transfusion MGRIFFITH 01/19/25 10:28 & Questions: Date: 01/19/25 01/19/25 10:28 Time: 10:32 01/19/25 10:28 Patient unable to answer at this time (ie. confused, unrespo /Reproduction History /Reproductive History - manager loss prevention: /Reproductive Hx- manager loss prevention Hx Now Gestational Age (in weeks): EDC: Hx Hx Para Hx Section SAB No 01/19/25 10:28 Active Medications Active Medications: Current Medications Generic Name Dose Route Start Last Admin Trade Name Kelsea PRN Reason Stop Dose Admin Lactated Ringer's 1,000 mls @ 15 mls/hr 01/20/25 06:15 01/20/25 06:39 IV 15 mls/hr .Q48H FRED Administration Non-Formulary Medication 100 units 01/20/25 06:53 Botox ENDO 01/20/25 06:54 PREOP ONE PFSH Medical History Prostate disease Gastric reflux History of echocardiogram Prosthetic eye globe Swallowing difficulty Axillary adenopathy Wears hearing aid Wears glasses Cancer Memory deficit Rash History of steroid therapy Fatty liver Back pain Dietary restriction Former smoker CPAP (continuous positive airway pressure) dependence Shortness of breath on exertion Leg cramps History of pain when walking History of stress test Cardiology follow-up encounter Obesity Atherosclerosis of coronary artery of [place] heart without angina pectoris Renal calculus, left Osteoarthritis Hyperlipidemia LDL goal <100 Diabetes Home Medications ?Medication ?Instructions ?Recorded ?Last Taken ?Type omega-3 acid ethyl esters 1 gram 1 cap PO DAILY SUPPLE MENT 02/21/22 12/09/24 History capsule Held on 01/19/25. Instructions: LAST DOSE 01/17/25 FOR EGD 01/20/25 zinc gluconate 50 mg tablet 50 mg PO DAILY SUPPLEMENT 02/21/22 12/01/24 History aspirin 81 mg tablet,delayed 81 mg PO DAILY HEART HEAL TH 03/20/23 01/17/25 History release Held on 01/19/25. Instructions: LAST DOSE 01/17/25 FOR EGD 01/20/25 dulaglutide 3 mg/0.5 mL 3 mg subcut TU 06/28/2312/28 History subcutaneous pen injector (Trulicity) Held on 01/19/25. Instructions: LAST DOSE 01/13/25 FOR EGD 01/20/25 glimepiride 4 mg tablet (Amaryl) 4 mg PO DAILY DIABETE S 06/28/23 11/30/24 History Held on 01/19/25. Instructions: LAST DOSE 01/13/25 FOR EGD 01/20/25 epinephrine 0.3 mg/0.3 mL 0.3 mg (0.3 mL) IM X1 #2 ea 11/17/24 Unknown Rx injection, auto-injector ascorbic acid (vitamin C) 1,000 mg 2 g PO DAILY 12/01/24 History capsule dupilumab 300 mg/2 mL subcutaneous 300 mg subcut .COMP CAMERON 12/01/24 11/19/24 History syringe (Dupixent) oxybutynin chloride 10 mg 10 mg PO DAILY 12/01/24 05/11/21 History tablet,extended release 24 hr saw palmetto 450 mg capsule 900 mg PO TID 12/01/2412/21 History fexofenadine 180 mg tablet 180 mg PO Q24H 12/04/24 Unk nown History (Mishel Allergy) quercetin 500 mg capsule 500 mg PO DAILY 12/04/24 Unk nown History amitriptyline 10 mg tablet 10 mg PO QDAY #30 tabs 11/29 Unknown Rx pantoprazole 40 mg tablet,delayed 40 mg PO QDAY #60 ta bs 12/26/24 Unknown Rx release Allergy/AdvReac Type Severity Reaction Status Date / Time metoprolol Allergy Intermediate Rash Verified 01/20/25 06:31 cephalexin Allergy Rash Verified 01/20/25 06:31 Iodinated Contrast Media Allergy Shortness Verified 01/20/25 06:31 of breath metformin AdvReac Intermediate Diarrhea Verified 01/20/25 06:31 Family History Sister Cancer Brother Cancer Surgical History History of esophagogastroduodenoscopy (EGD) H/O excision of mass History of colectomy Hx of eye surgery History of back surgery (05/05/20) History of left heart catheterization (06/17/16) H/O hernia repair History of coronary artery stent placement (06/19/16) H/O lithotripsy Social History Smoking Status: Former smoker alcohol intake: never what type of physical activity do you participate in: none Review of Systems (Anesthesia) ROS Narrative System reviewed and no additional complaints, except as documented.
[2025-01-20 07:11] LABS: Bedside Glucose 168 mg/dL (74-106)
[2025-01-20] MEDS: Botulinum Toxin A 100 Units Vial IJ (07:30)
[2025-01-20] MEDS: 0.9% Normal Saline (Pres. free 10 ML Vial (07:30)
[2025-01-20] MEDS: 0.9% Saline Lock 10 ML Syringe IV (07:31)
--- NOTE | 2025-01-20 07:38 | OP.CCLET_ITS ---
01/20/2025 Setphan Alvarez [address] [facility] [place] [address] Re : Upper GI endoscopy procedure for Steve Adames Dear Dr. Alvarez This procedure was performed on Monday, January 20, 2025. My impressions and recommendations are as follows: Impressions : - Abnormal esophageal motility, established achalasia. Injected with botulinum toxin. - Normal stomach. - Normal examined duodenum. - No specimens collected. Recommendations : - Discharge patient to home. - Resume previous diet. - Continue present medications. My findings are described in the full procedure note, which is enclosed. If I can be of further assistance, please feel free to contact me at . Sincerely, Mansoor Ramirez, 01/20/2025 7:37:50 AM This report has been signed electronically.
--- NOTE | 2025-01-20 07:38 | OP.EGD_ITS ---
Patient Name: Steve Adames Procedure Date: 01/20/2025 7:14 AM Date of : 1940 Age: 84 Procedure: Upper GI endoscopy Indications: Dysphagia Providers: Mansoor Ramirez DO Referring MD: Stephan Alvarez Medicines: Monitored Anesthesia Care Patient Profile: This is an 84 year old male. Refer to note in patient chart for documentation of history and physical. Patient has symptoms of dysphagia with both liquids and solids. Complications: No immediate complications. Procedure: Pre-Anesthesia Assessment: - Prior to the procedure, a History and Physical was performed, and patient medications and allergies were reviewed. The patient is competent. The risks and benefits of the procedure and the sedation options and risks were discussed with the patient. All questions were answered and informed consent was obtained. Patient identification and proposed procedure were verified by the physician in the pre-procedure area. Mental Status Examination: alert and oriented. Airway Examination: normal oropharyngeal airway and neck mobility. Respiratory Examination: clear to auscultation. CV Examination: normal. Prophylactic Antibiotics: The patient does not require prophylactic antibiotics. Prior Anticoagulants: The patient has taken no anticoagulant or antiplatelet agents except for NSAID medication. ASA Grade Assessment: II - A patient with mild systemic disease. After reviewing the risks and benefits, the patient was deemed in satisfactory condition to undergo the procedure. The anesthesia plan was to use monitored anesthesia care (MAC). Immediately prior to administration of medications, the patient was re-assessed for adequacy to receive sedatives. The heart rate, respiratory rate, oxygen saturations, blood pressure, adequacy of pulmonary ventilation, and response to care were monitored throughout the procedure. The physical status of the patient was re-assessed after the procedure. After obtaining informed consent, the endoscope was passed under direct vision. Throughout the procedure, the patient's blood pressure, pulse, and oxygen saturations were monitored continuously. The Endoscope was introduced through the mouth, and advanced to the second part of duodenum. The upper GI endoscopy was accomplished without difficulty. The patient tolerated the procedure well. Scope In: 7:28:23 AM Scope Out: 7:33:57 AM Total Procedure Duration Time 0 hours 5 minutes 34 seconds Findings: Abnormal motility was noted in the esophagus. The cricopharyngeus was abnormal. There are extra peristaltic waves in the esophageal body. The distal esophagus/lower esophageal sphincter is spastic, but gives up passage to the endoscope. Tertiary peristaltic waves are noted. Area was successfully injected with 100 units botulinum toxin. The entire examined stomach was normal. The examined duodenum was normal. Impression: - Abnormal esophageal motility, established achalasia. Injected with botulinum toxin. - Normal stomach. - Normal examined duodenum. - No specimens collected. Recommendation: - Discharge patient to home. - Resume previous diet. - Continue present medications. Procedure Code(s): --- Professional --- 22641, Esophagogastroduodenoscopy, flexible, transoral; with directed submucosal injection(s), any substance CPT copyright 2021 [employer]. All rights reserved. The codes documented in this report are preliminary and upon respiratory therapy instructor review may be revised to meet current compliance requirements. Mansoor Ramirez DO 01/20/2025 7:37:50 AM This report has been signed electronically. Number of Addenda: 0 Note Initiated On: 01/20/2025 7:14 AM
--- NOTE | 2025-01-20 07:42 | PCM.POST.ANE ---
Anesthesia: Postop Eval I Current Vital Signs Temperature: 97.5 F Pulse Rate: 71 Blood Pressure: 126/72 Respiratory Rate: 16 Pulse Ox: 95 Oxygen Delivery Method: Room Air Assessment Airway patent: Yes Spontaneous unlabored respirations: Yes Mental status: Asleep nausea: No Vomiting: No Anesthesia Complication: No Fluid Hydration Crystalloid volume administer (ml): 400 Total IV fluid infused: 400 Progress Note Anesthesia document: Postop Eval 1 completed: Yes
--- NOTE | 2025-01-20 08:48 | PCM.POSTANE2 ---
Anesthesia Postop Eval I Sum Postop Eval Completion status Anesthesia document: Postop Eval 1 completed: Yes Anesthesia Postop Eval I Summary Anesthesia Postop Eval I Summary: Anesthesia Postop Eval I: Assessment Summary Airway patent Yes 01/20/25 07:42 [email or web address] Spontaneous unlabored Yes 01/20/25 07:42 [email or web address] respirations Mental status Asleep 01/20/25 07:42 [email or web address] nausea No 01/20/25 07:42 [email or web address] Vomiting No 01/20/25 07:42 [email or web address] Anesthesia Postop Eval I: Fluid Summary Crystalloid volume administer 400 01/20/25 07:42 [email or web address] (ml) Colloids volume administered ( ml) Blood Product volume administered (ml) Total IV fluid infused 400 01/20/25 07:42 [email or web address] Anesthesia Postop Eval I: Summary Notes Anesthesia Complication No 01/20/25 07:42 [email or web address] Anesthesia Complication Comment: Post-operative progress note Anesthesia: Postop Eval II Evaluation Mental status: Awake Pain Level: 0 nausea: No Vomiting: No
== END 2025-01-20 08:20 | disposition home or self-care (01) ==
LOC: EN 05:55 → AC 05:55
PROVIDERS: PCP Family Medicine; Referring Provider Family Medicine; Visit Provider Internal Medicine Gastroenterology
PROC: 0DJ08ZZ Inspection of Upper Intestinal Tract, Via Natural or Artificial Opening Endoscopic (ICD-10-PCS; CPT 43235; principal; 2025-01-20 06:55)
DX: R13.10 Dysphagia, unspecified (principal); E11.9 Type 2 diabetes mellitus without complications; K22.0 Achalasia of cardia; I25.10 Atherosclerotic heart disease of native coronary artery without angina pectoris; Z87.891 Personal history of nicotine dependence; Z79.84 Long term (current) use of oral hypoglycemic drugs; E78.5 Hyperlipidemia, unspecified; Z79.85 Long-term (current) use of injectable non-insulin antidiabetic drugs; K21.9 Gastro-esophageal reflux disease without esophagitis; Z79.899 Other long term (current) drug therapy; Z90.49 Acquired absence of other specified parts of digestive tract; Z95.5 Presence of coronary angioplasty implant and graft
CPT/HCPCS: 43236; 82962; A4216; J0585; J2405

== ENCOUNTER → 2025-04-06 | Outpatient (CLI) | payer MEDICARE, OTHER, SELFPAY ==
[2025-04-06 15:31] LABS: Cholesterol 231 mg/dL (<=200); Low Density Lipoprotein Calc. 139 mg/dL; Triglycerides 270 mg/dL; Very Low Density Lipoprotein 54 mg/dL (5-40); cholesterol:hdl ratio screen 6.03
== END | disposition home or self-care (01) ==
LOC: BFHLAB 12:03
PROVIDERS: PCP Family Medicine; Visit Provider Family Medicine
DX: E11.21 Type 2 diabetes mellitus with diabetic nephropathy (principal)
CPT/HCPCS: 36415; 80061